=== PATIENT | male | born 1940 | race African-American/Black ===

== ENCOUNTER 2017-10-06 07:39 | Emergency (ER) | payer MEDICARE ==
[2017-10-06] MEDS: LIDOCAINE 2%/EPI 1:100,000 20 ML VIAL. IJ (08:29)
[2017-10-06] MEDS ORDERED: LIDOCAINE 1%/EPI 1:100,000 20 ML VIAL. INJ (08:30)
[2017-10-06] MEDS ORDERED: LIDOCAINE 2%/EPI 1:100,000 20 ML VIAL. IJ (08:30)
[2017-10-06] MEDS: DIPHTH,PERTUSS(ACELL),TET TOX 0.5 ML DISP.SYRIN. VAX IM (09:31)
== END 2017-10-06 09:35 | disposition home or self-care (01) ==
LOC: ER 07:39
DX: S01.01XA Laceration without foreign body of scalp, initial encounter (principal); F03.90 Unspecified dementia, unspecified severity, without behavioral disturbance, psychotic disturbance, mood disturbance, and anxiety; I10 Essential (primary) hypertension; F10.20 Alcohol dependence, uncomplicated; W10.9XXA Fall (on) (from) unspecified stairs and steps, initial encounter; Y93.01 Activity, walking, marching and hiking; Y92.89 Other specified places as the place of occurrence of the external cause; Y99.8 Other external cause status
CPT/HCPCS: 12002; 70450; 90471; 90715; 99284-25; J3490

== ENCOUNTER 2017-10-20 10:56 | Emergency (ER) | payer MEDICARE | END 2017-10-20 11:35 | disposition home or self-care (01) | LOC: ER 10:56 | DX: S01.01XD Laceration without foreign body of scalp, subsequent encounter (principal); I10 Essential (primary) hypertension; F03.90 Unspecified dementia, unspecified severity, without behavioral disturbance, psychotic disturbance, mood disturbance, and anxiety; X58.XXXD Exposure to other specified factors, subsequent encounter | CPT/HCPCS: 99281 ==

== ENCOUNTER 2017-11-27 18:09 | Inpatient (IN) | payer MEDICARE ==
[2017-11-27 18:35] LABS: BASO # 0.1 x10^3/uL (0.0-0.2); BASO % 0 % (0-3); EOS % 0 % (0-3); HEMOGLOBIN 10.9 g/dL (13.0-17.5); LYMPH # 0.4 x10^3/uL (1.0-4.8); LYMPH % 3 % (24-48); MEAN CORPUSCULAR HEMOGLOBIN 29 pg (25-35); MEAN CORPUSCULAR HGB CONC 33 g/dL (31-37); MEAN CORPUSCULAR VOLUME 87 fL (79-100); MONO # 1.6 x10^3/uL (0.0-1.1); MONO % 10 % (0-9); NEUT # 13.1 x10^3uL (1.8-7.7); NEUT % 86 % (31-73); PLATELET COUNT 223 x10^3/uL (140-400); RED BLOOD COUNT 3.78 x10^6/uL (4.30-5.70); RED CELL DISTRIBUTION WIDTH 14.3 % (11.5-14.5); WHITE BLOOD COUNT 15.1 x10^3/uL (4.0-11.0)
[2017-11-27 18:37] LABS: ADD MAN DIFF? YES
[2017-11-27 18:50] LABS: ANION GAP 15 (6-14); BLOOD UREA NITROGEN 63 mg/dL (8-26); BUN/CREATININE RATIO 10 (6-20); CALCIUM 9.5 mg/dL (8.5-10.1); CARBON DIOXIDE 23 mmol/L (21-32); CHLORIDE 105 mmol/L (98-107); CREATININE 6.6 mg/dL (0.7-1.3); GFR 9.9; GLUCOSE 104 mg/dL (70-99); POTASSIUM 4.4 mmol/L (3.5-5.1); SODIUM 143 mmol/L (136-145)
[2017-11-27] MEDS: IV NORMAL SALINE 1000ML BAG 1,000 ML IV ×2 (18:53→23:58)
[2017-11-27] MEDS: ACETAMINOPHEN 325 MG TABLET. PO (18:53)
[2017-11-27 18:55] LABS: LACTIC ACID 1.4 mmol/L (0.4-2.0)
[2017-11-27 18:56] LABS: TROPONINI 0.027 ng/mL (0.000-0.055)
[2017-11-27 19:00] LABS: NT-PRO BNP 822 pg/mL (0-449)
[2017-11-27 19:03] LABS: ALBUMIN 4.3 g/dL (3.4-5.0); ALBUMIN/GLOBULIN RATIO 0.9 (1.0-1.7); ALK PHOS 102 U/L (46-116); ALT (SGPT) 22 U/L (16-63); AST (SGOT) 42 U/L (15-37); TOTAL BILIRUBIN 0.4 mg/dL (0.2-1.0)
[2017-11-27 19:13] LABS: INFLUENZA A PATIENT NEGATIVE (NEGATIVE); INFLUENZA B PATIENT NEGATIVE (NEGATIVE); OBC FLU VALID
[2017-11-27] MEDS ORDERED: PIP/TAZO PER PHARMACY MC (19:15)
[2017-11-27] MEDS ORDERED: ONDANSETRON PF 4 MG/2 ML VIAL. IV (19:15)
[2017-11-27] MEDS: PIPERACILLIN/TAZOBACTAM 2.25 GM in IV NORMAL SALINE 50ML 50 ML IV (19:23)
[2017-11-27 20:09] LABS: % BANDS 10 % (0-9); % BASOS 1 % (0-3); % LYMPHS 4 % (24-48); % MONOS 8 % (0-10); % SEGS 77 % (35-66); PLT ESTIMATE ADEQUATE (ADEQUATE)
[2017-11-27] MEDS: VANCOMYCIN 1.5 GM in IV DEXTROSE 5% 500 ML IV (20:33)
[2017-11-27 20:58] LABS: BILIRUBIN,URINE NEGATIVE (NEG); CLARITY,URINE CLEAR; COLOR,URINE YELLOW; GLUCOSE,URINE NEGATIVE (NEG); NITRITE,URINE NEGATIVE (NEG); PH,URINE 5.5; PROTEIN,URINE NEGATIVE (NEG-TRACE); UROBILINOGEN,URINE 0.2 mg/dL (0.2 mg/dL)
[2017-11-27 21:05] LABS: BACTERIA,URINE MODERATE /HPF (0-FEW); WBC,URINE TNTC /HPF (0-4)
[2017-11-28] MEDS: methylPREDNISolone SOD SUCC PF 125 MG/2 ML VIAL. IV (00:58)
[2017-11-28] MEDS: diphenhydrAMINE 50 MG/ML VIAL IVP (00:58)
[2017-11-28] MEDS: IV NORMAL SALINE 500ML BAG 500 ML IV (00:59)
[2017-11-28] MEDS: VANCOMYCIN PER PHARMACY MC (02:19)
[2017-11-28] MEDS: ACETAMINOPHEN 325 MG TABLET. PO (03:40)
[2017-11-28 05:24] LABS: ADD MAN DIFF? NO
[2017-11-28 05:30] LABS: BASO % 0 % (0-3); EOS % 0 % (0-3); HEMATOCRIT 30.7 % (39.0-53.0); HEMOGLOBIN 9.9 g/dL (13.0-17.5); LYMPH # 0.3 x10^3/uL (1.0-4.8); LYMPH % 2 % (24-48); MEAN CORPUSCULAR HEMOGLOBIN 28 pg (25-35); MEAN CORPUSCULAR HGB CONC 32 g/dL (31-37); MEAN CORPUSCULAR VOLUME 88 fL (79-100); MONO # 0.6 x10^3/uL (0.0-1.1); MONO % 4 % (0-9); NEUT # 14.4 x10^3uL (1.8-7.7); NEUT % 94 % (31-73); PLATELET COUNT 183 x10^3/uL (140-400); RED BLOOD COUNT 3.48 x10^6/uL (4.30-5.70); RED CELL DISTRIBUTION WIDTH 15.1 % (11.5-14.5); WHITE BLOOD COUNT 15.3 x10^3/uL (4.0-11.0)
[2017-11-28] MEDS: IV NORMAL SALINE 1000ML BAG 1,000 ML IV ×4 (05:38→16:00)
[2017-11-28] MEDS: PIPERACILLIN/TAZOBACTAM 2.25 GM in IV NORMAL SALINE 50ML 50 ML IV ×3 (05:40→20:41)
[2017-11-28 08:35] LABS: ALBUMIN 3.5 g/dL (3.4-5.0); ALBUMIN/GLOBULIN RATIO 0.9 (1.0-1.7); ALK PHOS 86 U/L (46-116); ALT (SGPT) 29 U/L (16-63); ANION GAP 17 (6-14); AST (SGOT) 61 U/L (15-37); BLOOD UREA NITROGEN 61 mg/dL (8-26); BUN/CREATININE RATIO 10 (6-20); CALCIUM 8.5 mg/dL (8.5-10.1); CARBON DIOXIDE 18 mmol/L (21-32); CHLORIDE 107 mmol/L (98-107); CREATININE 6.1 mg/dL (0.7-1.3); GFR 10.8; GLUCOSE 105 mg/dL (70-99); POTASSIUM 4.1 mmol/L (3.5-5.1); SODIUM 142 mmol/L (136-145); TOTAL BILIRUBIN 0.5 mg/dL (0.2-1.0); TOTAL PROTEIN 7.5 g/dL (6.4-8.2)
[2017-11-28] MEDS: MULTIVITAMIN with MINERAL TABLET. PO (09:11)
[2017-11-28] MEDS: LACTOBACILLUS RHAMNOSUS GG 1 CAPSULE. PO ×2 (09:11→20:39)
[2017-11-28] MEDS: ALPRAZolam 0.5 MG TABLET PO ×2 (09:11→20:39)
[2017-11-28] MEDS: ALLOPURINOL 100 MG TABLET. PO (09:11)
[2017-11-28] MEDS: PANTOPRAZOLE 40 MG TABLET.DR. PO (09:11)
[2017-11-28] MEDS: TAMSULOSIN 0.4 MG CAP.ER.24H. PO (09:11)
[2017-11-28] MEDS: cefTRIAXone IV Push 1 GM VIAL. IVP (09:11)
[2017-11-28] MEDS: HEPARIN PF for SUB-Q USE 5,000 UNIT/0.5 ML VIAL. SQ ×3 (09:24→20:41)
[2017-11-28] MEDS ORDERED: MAGNESIUM SULFATE 2GM 50 ML IV (10:30)
[2017-11-28] MEDS: LIDOCAINE 2% JELLY 6ML IN APPLICATOR. MM (10:52)
[2017-11-28 11:43] LABS: RETIC COUNT 0.7 % (0.5-2.5)
[2017-11-28 12:23] LABS: % SAT IRON 6 % (15-34); IRON,SERUM 10 ug/dL (65-175)
[2017-11-28 12:31] LABS: FERRITIN 402 ng/mL (26-388)
[2017-11-28 12:56] LABS: CREATINE KINASE 2169 U/L (39-308)
[2017-11-28 13:01] LABS: LACTIC ACID 0.8 mmol/L (0.4-2.0)
[2017-11-28] MEDS ORDERED: PIP/TAZO PER PHARMACY MC (14:45)
[2017-11-29] MEDS: IV NORMAL SALINE 1000ML BAG 1,000 ML IV ×3 (00:30→17:51)
[2017-11-29 05:25] LABS: ADD MAN DIFF? NO
[2017-11-29 05:30] LABS: BASO % 0 % (0-3); EOS % 0 % (0-3); HEMATOCRIT 29.8 % (39.0-53.0); LYMPH # 0.6 x10^3/uL (1.0-4.8); LYMPH % 5 % (24-48); MEAN CORPUSCULAR HEMOGLOBIN 29 pg (25-35); MEAN CORPUSCULAR HGB CONC 34 g/dL (31-37); MEAN CORPUSCULAR VOLUME 87 fL (79-100); MONO # 1.3 x10^3/uL (0.0-1.1); MONO % 9 % (0-9); NEUT # 12.1 x10^3uL (1.8-7.7); NEUT % 86 % (31-73); PLATELET COUNT 183 x10^3/uL (140-400); RED BLOOD COUNT 3.41 x10^6/uL (4.30-5.70); RED CELL DISTRIBUTION WIDTH 14.8 % (11.5-14.5)
[2017-11-29 05:56] LABS: MAGNESIUM 2.4 mg/dL (1.8-2.4)
[2017-11-29 05:57] LABS: ALBUMIN 2.8 g/dL (3.4-5.0); ANION GAP 8 (6-14); BLOOD UREA NITROGEN 57 mg/dL (8-26); CARBON DIOXIDE 24 mmol/L (21-32); CHLORIDE 107 mmol/L (98-107); CREATININE 4.1 mg/dL (0.7-1.3); GFR 17.1; GLUCOSE 104 mg/dL (70-99); PHOSPHORUS 4.3 mg/dL (2.6-4.7); POTASSIUM 4.3 mmol/L (3.5-5.1); SODIUM 139 mmol/L (136-145)
[2017-11-29] MEDS: PIPERACILLIN/TAZOBACTAM 2.25 GM in IV NORMAL SALINE 50ML 50 ML IV ×3 (06:15→23:15)
[2017-11-29] MEDS: HEPARIN PF for SUB-Q USE 5,000 UNIT/0.5 ML VIAL. SQ ×3 (06:19→23:21)
[2017-11-29] MEDS: PANTOPRAZOLE 40 MG TABLET.DR. PO (07:45)
[2017-11-29] MEDS: MULTIVITAMIN with MINERAL TABLET. PO (08:57)
[2017-11-29] MEDS: ALLOPURINOL 100 MG TABLET. PO (08:57)
[2017-11-29] MEDS: TAMSULOSIN 0.4 MG CAP.ER.24H. PO ×2 (08:57→23:14)
[2017-11-29] MEDS: ALPRAZolam 0.5 MG TABLET PO ×2 (08:57→23:14)
[2017-11-29] MEDS: LACTOBACILLUS RHAMNOSUS GG 1 CAPSULE. PO ×2 (08:57→23:14)
[2017-11-29] MEDS: FINASTERIDE 5 MG TABLET. PO (09:52)
[2017-11-29] MEDS: FERROUS SULFATE 325 MG TABLET. PO (09:52)
[2017-11-29] MEDS: IRON SUCROSE COMPLEX 200 MG in TOTAL VOLUME SYRINGE 0 ML IVP (13:52)
[2017-11-29] MEDS ORDERED: VANCOMYCIN RANDOM LEVEL. MC (20:00)
[2017-11-29] MEDS: LINEZOLID 600 MG TABLET PO (23:14)
[2017-11-30] MEDS: IV NORMAL SALINE 1000ML BAG 1,000 ML IV ×3 (00:30→14:19)
[2017-11-30] MEDS: PIPERACILLIN/TAZOBACTAM 2.25 GM in IV NORMAL SALINE 50ML 50 ML IV ×3 (06:00→14:13)
[2017-11-30] MEDS: HEPARIN PF for SUB-Q USE 5,000 UNIT/0.5 ML VIAL. SQ ×3 (06:00→21:46)
[2017-11-30 06:41] LABS: ADD MAN DIFF? NO
[2017-11-30 07:03] LABS: BASO % 1 % (0-3); EOS # 0.1 x10^3/uL (0.0-0.7); EOS % 2 % (0-3); HEMATOCRIT 30.3 % (39.0-53.0); LYMPH # 0.6 x10^3/uL (1.0-4.8); LYMPH % 10 % (24-48); MEAN CORPUSCULAR HEMOGLOBIN 29 pg (25-35); MEAN CORPUSCULAR HGB CONC 33 g/dL (31-37); MEAN CORPUSCULAR VOLUME 87 fL (79-100); MONO # 0.8 x10^3/uL (0.0-1.1); MONO % 12 % (0-9); NEUT # 4.8 x10^3uL (1.8-7.7); NEUT % 76 % (31-73); PLATELET COUNT 190 x10^3/uL (140-400); RED BLOOD COUNT 3.48 x10^6/uL (4.30-5.70); WHITE BLOOD COUNT 6.3 x10^3/uL (4.0-11.0)
[2017-11-30 07:15] LABS: MAGNESIUM 1.9 mg/dL (1.8-2.4)
[2017-11-30 07:28] LABS: ALBUMIN 2.8 g/dL (3.4-5.0); ANION GAP 10 (6-14); BLOOD UREA NITROGEN 31 mg/dL (8-26); CALCIUM 8.1 mg/dL (8.5-10.1); CARBON DIOXIDE 23 mmol/L (21-32); CHLORIDE 107 mmol/L (98-107); CREATININE 2.2 mg/dL (0.7-1.3); GFR 35.1; GLUCOSE 87 mg/dL (70-99); POTASSIUM 3.9 mmol/L (3.5-5.1); SODIUM 140 mmol/L (136-145)
[2017-11-30] MEDS: PANTOPRAZOLE 40 MG TABLET.DR. PO (09:12)
[2017-11-30] MEDS: FINASTERIDE 5 MG TABLET. PO (09:12)
[2017-11-30] MEDS: MULTIVITAMIN with MINERAL TABLET. PO (09:12)
[2017-11-30] MEDS: TAMSULOSIN 0.4 MG CAP.ER.24H. PO ×2 (09:12→21:35)
[2017-11-30] MEDS: FERROUS SULFATE 325 MG TABLET. PO (09:12)
[2017-11-30] MEDS: LACTOBACILLUS RHAMNOSUS GG 1 CAPSULE. PO ×2 (09:12→21:35)
[2017-11-30] MEDS: LINEZOLID 600 MG TABLET PO (09:12)
[2017-11-30] MEDS: ALPRAZolam 0.5 MG TABLET PO ×2 (09:12→21:35)
[2017-11-30] MEDS: ALLOPURINOL 100 MG TABLET. PO (09:17)
[2017-11-30] MEDS: OLANZapine 5 MG TABLET PO (11:26)
[2017-11-30] MEDS ORDERED: AMPICILLIN SODIUM 2 GM in IV NORMAL SALINE 100ML 100 ML IV (18:00)
[2017-11-30] MEDS ORDERED: PIPERACILLIN/TAZOBACTAM 2.25 GM in IV NORMAL SALINE 50ML 50 ML IV (18:00)
[2017-11-30] MEDS ORDERED: AMPICILLIN SODIUM IV Push 2 GM VIAL. IVP (18:00)
[2017-11-30] MEDS: cefTRIAXone IV Push 1 GM VIAL. IVP (18:11)
[2017-11-30] MEDS: AMPICILLIN SODIUM IV Push 2 GM VIAL. IVP (21:34)
[2017-12-01] MEDS: OLANZapine IM 10 MG VIAL. IM (01:23)
[2017-12-01] MEDS: IV NORMAL SALINE 1000ML BAG 1,000 ML IV ×4 (06:27→21:45)
[2017-12-01] MEDS: AMPICILLIN SODIUM IV Push 2 GM VIAL. IVP ×4 (06:27→23:31)
[2017-12-01] MEDS: HEPARIN PF for SUB-Q USE 5,000 UNIT/0.5 ML VIAL. SQ ×3 (06:43→21:43)
[2017-12-01 06:47] LABS: MAGNESIUM 1.9 mg/dL (1.8-2.4)
[2017-12-01 06:47] LABS: ALBUMIN 3.2 g/dL (3.4-5.0); ANION GAP 10 (6-14); BLOOD UREA NITROGEN 18 mg/dL (8-26); CALCIUM 9.2 mg/dL (8.5-10.1); CARBON DIOXIDE 27 mmol/L (21-32); CHLORIDE 107 mmol/L (98-107); CREATININE 1.5 mg/dL (0.7-1.3); GFR 54.6; GLUCOSE 95 mg/dL (70-99); PHOSPHORUS 2.7 mg/dL (2.6-4.7); POTASSIUM 4.1 mmol/L (3.5-5.1); SODIUM 144 mmol/L (136-145)
[2017-12-01] MEDS: ALPRAZolam 0.5 MG TABLET PO ×2 (11:17→21:40)
[2017-12-01] MEDS: PANTOPRAZOLE 40 MG TABLET.DR. PO (11:18)
[2017-12-01] MEDS: FERROUS SULFATE 325 MG TABLET. PO (11:18)
[2017-12-01] MEDS: MULTIVITAMIN with MINERAL TABLET. PO (11:18)
[2017-12-01] MEDS: ALLOPURINOL 100 MG TABLET. PO (11:18)
[2017-12-01] MEDS: TAMSULOSIN 0.4 MG CAP.ER.24H. PO ×2 (11:18→21:40)
[2017-12-01] MEDS: FINASTERIDE 5 MG TABLET. PO (11:18)
[2017-12-01] MEDS: LACTOBACILLUS RHAMNOSUS GG 1 CAPSULE. PO ×2 (11:18→21:40)
[2017-12-01] MEDS: cefTRIAXone IV Push 1 GM VIAL. IVP (17:39)
[2017-12-02 05:16] LABS: ALBUMIN 3.1 g/dL (3.4-5.0); ANION GAP 11 (6-14); BLOOD UREA NITROGEN 11 mg/dL (8-26); CARBON DIOXIDE 27 mmol/L (21-32); CHLORIDE 106 mmol/L (98-107); CREATININE 1.2 mg/dL (0.7-1.3); GFR 70.7; GLUCOSE 93 mg/dL (70-99); MAGNESIUM 1.7 mg/dL (1.8-2.4); PHOSPHORUS 2.7 mg/dL (2.6-4.7); POTASSIUM 3.7 mmol/L (3.5-5.1); SODIUM 144 mmol/L (136-145)
[2017-12-02] MEDS: AMPICILLIN SODIUM IV Push 2 GM VIAL. IVP ×4 (05:57→23:57)
[2017-12-02] MEDS: IV NORMAL SALINE 1000ML BAG 1,000 ML IV (05:59)
[2017-12-02] MEDS: HEPARIN PF for SUB-Q USE 5,000 UNIT/0.5 ML VIAL. SQ ×3 (06:00→21:05)
[2017-12-02] MEDS: FERROUS SULFATE 325 MG TABLET. PO (08:13)
[2017-12-02] MEDS: ALLOPURINOL 100 MG TABLET. PO (08:13)
[2017-12-02] MEDS: LACTOBACILLUS RHAMNOSUS GG 1 CAPSULE. PO ×2 (08:13→21:00)
[2017-12-02] MEDS: PANTOPRAZOLE 40 MG TABLET.DR. PO (08:13)
[2017-12-02] MEDS: ALPRAZolam 0.5 MG TABLET PO ×2 (08:13→21:00)
[2017-12-02] MEDS: FINASTERIDE 5 MG TABLET. PO (08:13)
[2017-12-02] MEDS: MULTIVITAMIN with MINERAL TABLET. PO (08:13)
[2017-12-02] MEDS: TAMSULOSIN 0.4 MG CAP.ER.24H. PO ×2 (08:13→21:00)
[2017-12-02] MEDS ORDERED: IRON SUCROSE COMPLEX 200 MG in IV NORMAL SALINE 100ML 100 ML IV (09:00)
[2017-12-02] MEDS: MAGNESIUM SULFATE 1GM 100 ML IV (12:51)
[2017-12-02] MEDS: cefTRIAXone IV Push 1 GM VIAL. IVP (18:03)
[2017-12-03] MEDS: HEPARIN PF for SUB-Q USE 5,000 UNIT/0.5 ML VIAL. SQ ×3 (05:14→21:42)
[2017-12-03] MEDS: AMPICILLIN SODIUM IV Push 2 GM VIAL. IVP ×3 (05:16→17:43)
[2017-12-03 06:09] LABS: ALBUMIN 3.1 g/dL (3.4-5.0); ANION GAP 8 (6-14); BLOOD UREA NITROGEN 14 mg/dL (8-26); CALCIUM 8.6 mg/dL (8.5-10.1); CARBON DIOXIDE 30 mmol/L (21-32); CHLORIDE 102 mmol/L (98-107); CREATININE 1.4 mg/dL (0.7-1.3); GFR 59.2; GLUCOSE 108 mg/dL (70-99); MAGNESIUM 1.8 mg/dL (1.8-2.4); SODIUM 140 mmol/L (136-145)
[2017-12-03] MEDS: ALPRAZolam 0.5 MG TABLET PO ×3 (09:00→21:39)
[2017-12-03] MEDS: LACTOBACILLUS RHAMNOSUS GG 1 CAPSULE. PO ×3 (10:34→21:39)
[2017-12-03] MEDS: FERROUS SULFATE 325 MG TABLET. PO ×2 (10:34→11:40)
[2017-12-03] MEDS: PANTOPRAZOLE 40 MG TABLET.DR. PO ×2 (10:34→11:50)
[2017-12-03] MEDS: TAMSULOSIN 0.4 MG CAP.ER.24H. PO ×3 (10:34→21:39)
[2017-12-03] MEDS: ALLOPURINOL 100 MG TABLET. PO ×2 (10:35→11:50)
[2017-12-03] MEDS: FINASTERIDE 5 MG TABLET. PO ×2 (10:35→11:50)
[2017-12-03] MEDS: MULTIVITAMIN with MINERAL TABLET. PO ×2 (10:40→11:50)
[2017-12-03] MEDS: cefTRIAXone IV Push 1 GM VIAL. IVP (18:24)
[2017-12-03] MEDS: HALOPERIDOL LACTATE 5 MG/ML VIAL. IVP (21:43)
[2017-12-04] MEDS: AMPICILLIN SODIUM IV Push 2 GM VIAL. IVP ×4 (00:02→18:00)
[2017-12-04] MEDS: HALOPERIDOL LACTATE 5 MG/ML VIAL. IVP (03:53)
[2017-12-04] MEDS: HEPARIN PF for SUB-Q USE 5,000 UNIT/0.5 ML VIAL. SQ ×3 (05:19→21:07)
[2017-12-04 06:17] LABS: ALBUMIN 3.1 g/dL (3.4-5.0); ANION GAP 11 (6-14); BLOOD UREA NITROGEN 14 mg/dL (8-26); CALCIUM 9.2 mg/dL (8.5-10.1); CARBON DIOXIDE 27 mmol/L (21-32); CHLORIDE 102 mmol/L (98-107); CREATININE 1.5 mg/dL (0.7-1.3); GFR 54.6; GLUCOSE 87 mg/dL (70-99); PHOSPHORUS 3.3 mg/dL (2.6-4.7); POTASSIUM 3.8 mmol/L (3.5-5.1); SODIUM 140 mmol/L (136-145)
[2017-12-04] MEDS: MULTIVITAMIN with MINERAL TABLET. PO (09:13)
[2017-12-04] MEDS: ALPRAZolam 0.5 MG TABLET PO ×2 (09:13→21:02)
[2017-12-04] MEDS: PANTOPRAZOLE 40 MG TABLET.DR. PO (09:13)
[2017-12-04] MEDS: ALLOPURINOL 100 MG TABLET. PO (09:13)
[2017-12-04] MEDS: FERROUS SULFATE 325 MG TABLET. PO (09:14)
[2017-12-04] MEDS: LACTOBACILLUS RHAMNOSUS GG 1 CAPSULE. PO ×2 (09:14→21:02)
[2017-12-04] MEDS: TAMSULOSIN 0.4 MG CAP.ER.24H. PO ×2 (09:14→21:02)
[2017-12-04] MEDS: FINASTERIDE 5 MG TABLET. PO (09:14)
[2017-12-04] MEDS: cefTRIAXone IV Push 1 GM VIAL. IVP (17:30)
[2017-12-05] MEDS: AMPICILLIN SODIUM IV Push 2 GM VIAL. IVP ×3 (00:52→16:25)
[2017-12-05 06:47] LABS: ANION GAP 9 (6-14); BLOOD UREA NITROGEN 17 mg/dL (8-26); CALCIUM 9.2 mg/dL (8.5-10.1); CARBON DIOXIDE 28 mmol/L (21-32); CHLORIDE 102 mmol/L (98-107); CREATININE 1.6 mg/dL (0.7-1.3); GFR 50.7; GLUCOSE 93 mg/dL (70-99); PHOSPHORUS 3.1 mg/dL (2.6-4.7); POTASSIUM 3.9 mmol/L (3.5-5.1); SODIUM 139 mmol/L (136-145)
[2017-12-05] MEDS: HEPARIN PF for SUB-Q USE 5,000 UNIT/0.5 ML VIAL. SQ ×3 (06:54→22:00)
[2017-12-05] MEDS: PANTOPRAZOLE 40 MG TABLET.DR. PO (08:31)
[2017-12-05] MEDS: LACTOBACILLUS RHAMNOSUS GG 1 CAPSULE. PO ×2 (08:31→19:55)
[2017-12-05] MEDS: ALPRAZolam 0.5 MG TABLET PO ×2 (08:31→19:55)
[2017-12-05] MEDS: MULTIVITAMIN with MINERAL TABLET. PO (08:31)
[2017-12-05] MEDS: ALLOPURINOL 100 MG TABLET. PO (08:32)
[2017-12-05] MEDS: TAMSULOSIN 0.4 MG CAP.ER.24H. PO ×2 (08:32→19:55)
[2017-12-05] MEDS: FERROUS SULFATE 325 MG TABLET. PO (08:32)
[2017-12-06] MEDS: AMPICILLIN SODIUM IV Push 2 GM VIAL. IVP ×5 (01:05→23:36)
[2017-12-06] MEDS: HEPARIN PF for SUB-Q USE 5,000 UNIT/0.5 ML VIAL. SQ ×3 (05:53→20:33)
[2017-12-06] MEDS: HALOPERIDOL LACTATE 5 MG/ML VIAL. IM (08:45)
[2017-12-06] MEDS: HALOPERIDOL 5 MG TABLET. PO ×2 (09:00→20:27)
[2017-12-06] MEDS: amLODIPine BESYLATE 10 MG TABLET PO (09:22)
[2017-12-06] MEDS: TAMSULOSIN 0.4 MG CAP.ER.24H. PO ×2 (09:22→20:27)
[2017-12-06] MEDS: LACTOBACILLUS RHAMNOSUS GG 1 CAPSULE. PO ×2 (09:22→20:27)
[2017-12-06] MEDS: MULTIVITAMIN with MINERAL TABLET. PO (09:23)
[2017-12-06] MEDS: ALPRAZolam 0.5 MG TABLET PO ×2 (09:23→20:27)
[2017-12-06] MEDS: FERROUS SULFATE 325 MG TABLET. PO (09:23)
[2017-12-06] MEDS: CYANOCOBALAMIN (VITAMIN B-12) 1,000 MCG TABLET. PO (09:23)
[2017-12-06] MEDS: DONEPEZIL HCL 5 MG TABLET. PO (09:23)
[2017-12-06] MEDS: LOSARTAN POTASSIUM 50 MG TABLET. PO (09:23)
[2017-12-06] MEDS: PANTOPRAZOLE 40 MG TABLET.DR. PO (09:23)
[2017-12-06] MEDS: ALLOPURINOL 100 MG TABLET. PO (09:27)
[2017-12-06] MEDS: LINEZOLID 600 MG TABLET PO (13:17)
[2017-12-06] MEDS: AMITRIPTYLINE HCL 25 MG TABLET. PO (20:27)
[2017-12-07] MEDS: AMPICILLIN SODIUM IV Push 2 GM VIAL. IVP ×3 (05:55→18:14)
[2017-12-07] MEDS: HEPARIN PF for SUB-Q USE 5,000 UNIT/0.5 ML VIAL. SQ ×3 (05:56→23:44)
[2017-12-07] MEDS: ALPRAZolam 0.5 MG TABLET PO ×2 (08:16→21:05)
[2017-12-07] MEDS: HALOPERIDOL 5 MG TABLET. PO ×2 (08:16→21:05)
[2017-12-07] MEDS: FERROUS SULFATE 325 MG TABLET. PO (08:16)
[2017-12-07] MEDS: PANTOPRAZOLE 40 MG TABLET.DR. PO (08:16)
[2017-12-07] MEDS: LACTOBACILLUS RHAMNOSUS GG 1 CAPSULE. PO ×2 (09:15→21:05)
[2017-12-07] MEDS: TAMSULOSIN 0.4 MG CAP.ER.24H. PO ×2 (09:15→21:05)
[2017-12-07] MEDS: ALLOPURINOL 100 MG TABLET. PO (09:15)
[2017-12-07] MEDS: amLODIPine BESYLATE 10 MG TABLET PO (09:15)
[2017-12-07] MEDS: CYANOCOBALAMIN (VITAMIN B-12) 1,000 MCG TABLET. PO (09:15)
[2017-12-07] MEDS: DONEPEZIL HCL 5 MG TABLET. PO (09:16)
[2017-12-07] MEDS: LOSARTAN POTASSIUM 50 MG TABLET. PO (09:16)
[2017-12-07] MEDS: MULTIVITAMIN with MINERAL TABLET. PO (09:16)
[2017-12-07] MEDS: FINASTERIDE 5 MG TABLET. PO (16:49)
[2017-12-07] MEDS: AMITRIPTYLINE HCL 25 MG TABLET. PO (21:05)
[2017-12-08] MEDS: AMPICILLIN SODIUM IV Push 2 GM VIAL. IVP ×5 (00:16→23:31)
[2017-12-08] MEDS: HEPARIN PF for SUB-Q USE 5,000 UNIT/0.5 ML VIAL. SQ ×3 (06:49→20:13)
[2017-12-08] MEDS: PANTOPRAZOLE 40 MG TABLET.DR. PO (07:40)
[2017-12-08] MEDS: CYANOCOBALAMIN (VITAMIN B-12) 1,000 MCG TABLET. PO (08:32)
[2017-12-08] MEDS: DONEPEZIL HCL 5 MG TABLET. PO (08:32)
[2017-12-08] MEDS: ALLOPURINOL 100 MG TABLET. PO (08:33)
[2017-12-08] MEDS: TAMSULOSIN 0.4 MG CAP.ER.24H. PO ×2 (08:33→20:09)
[2017-12-08] MEDS: amLODIPine BESYLATE 10 MG TABLET PO (08:33)
[2017-12-08] MEDS: LACTOBACILLUS RHAMNOSUS GG 1 CAPSULE. PO ×2 (08:33→20:09)
[2017-12-08] MEDS: LOSARTAN POTASSIUM 50 MG TABLET. PO (08:33)
[2017-12-08] MEDS: MULTIVITAMIN with MINERAL TABLET. PO (08:33)
[2017-12-08] MEDS: HALOPERIDOL 5 MG TABLET. PO ×2 (08:33→20:09)
[2017-12-08] MEDS: FERROUS SULFATE 325 MG TABLET. PO (08:33)
[2017-12-08] MEDS: ALPRAZolam 0.5 MG TABLET PO ×2 (08:33→20:08)
[2017-12-08] MEDS: FINASTERIDE 5 MG TABLET. PO (08:34)
[2017-12-08] MEDS: AMITRIPTYLINE HCL 25 MG TABLET. PO (20:08)
[2017-12-09] MEDS: AMPICILLIN SODIUM IV Push 2 GM VIAL. IVP ×4 (05:38→23:58)
[2017-12-09] MEDS: HEPARIN PF for SUB-Q USE 5,000 UNIT/0.5 ML VIAL. SQ ×3 (05:39→20:02)
[2017-12-09] MEDS: CYANOCOBALAMIN (VITAMIN B-12) 1,000 MCG TABLET. PO (11:00)
[2017-12-09] MEDS: LOSARTAN POTASSIUM 50 MG TABLET. PO (11:08)
[2017-12-09] MEDS: ALPRAZolam 0.5 MG TABLET PO ×2 (11:09→20:02)
[2017-12-09] MEDS: LACTOBACILLUS RHAMNOSUS GG 1 CAPSULE. PO ×2 (11:09→20:02)
[2017-12-09] MEDS: TAMSULOSIN 0.4 MG CAP.ER.24H. PO ×2 (11:09→20:02)
[2017-12-09] MEDS: FINASTERIDE 5 MG TABLET. PO (11:09)
[2017-12-09] MEDS: amLODIPine BESYLATE 10 MG TABLET PO (11:09)
[2017-12-09] MEDS: FERROUS SULFATE 325 MG TABLET. PO (11:10)
[2017-12-09] MEDS: DONEPEZIL HCL 5 MG TABLET. PO (11:10)
[2017-12-09] MEDS: MULTIVITAMIN with MINERAL TABLET. PO (11:10)
[2017-12-09] MEDS: HALOPERIDOL 5 MG TABLET. PO ×2 (11:10→20:02)
[2017-12-09] MEDS: ALLOPURINOL 100 MG TABLET. PO (11:10)
[2017-12-09] MEDS: PANTOPRAZOLE 40 MG TABLET.DR. PO (11:10)
[2017-12-09] MEDS ORDERED: DOCUSATE SODIUM 100 MG CAPSULE. PO (13:45)
[2017-12-09] MEDS ORDERED: MORPHINE SULFATE 2 MG/ML DISP.SYRIN. IV (13:45)
[2017-12-09] MEDS ORDERED: ACETAMINOPHEN 325 MG TABLET. PO (13:45)
[2017-12-09] MEDS ORDERED: ONDANSETRON PF 4 MG/2 ML VIAL. IV (13:45)
[2017-12-09] MEDS ORDERED: hydrALAZINE 20 MG/ML VIAL. IVP (13:45)
[2017-12-09 14:05] LABS: INR 1.1 (0.8-1.1); PARTIAL THROMBOPLASTIN TIME 39 SEC (24-38); PROTHROMBIN TIME PATIENT 13.8 SEC (11.7-14.0)
[2017-12-09] MEDS ORDERED: LIDOCAINE WITH 8.4% SOD BICARB 3 ML DISP.SYRIN. ×2 (14:17→14:18)
[2017-12-09] MEDS ORDERED: IOHEXOL 300 MG/ML 100ML VIAL. (14:18)
[2017-12-09] MEDS ORDERED: fentaNYL PF VIAL 100 MCG/2 ML VIAL (14:26)
[2017-12-09] MEDS ORDERED: MIDAZOLAM HCL/PF 2 MG/2 ML VIAL. (14:26)
[2017-12-09] MEDS: IOHEXOL 300 MG/ML 100ML VIAL. IART (14:59)
[2017-12-09] MEDS: LIDOCAINE WITH 8.4% SOD BICARB 3 ML DISP.SYRIN. IJ (15:01)
[2017-12-09] MEDS: MIDAZOLAM HCL/PF 2 MG/2 ML VIAL. IV (15:01)
[2017-12-09] MEDS: fentaNYL PF VIAL 100 MCG/2 ML VIAL IV (15:02)
[2017-12-09] MEDS: AMITRIPTYLINE HCL 25 MG TABLET. PO (20:02)
[2017-12-10] MEDS: HEPARIN PF for SUB-Q USE 5,000 UNIT/0.5 ML VIAL. SQ ×3 (05:06→20:51)
[2017-12-10] MEDS: AMPICILLIN SODIUM IV Push 2 GM VIAL. IVP ×3 (05:39→18:31)
[2017-12-10 05:53] LABS: ADD MAN DIFF? NO
[2017-12-10 06:08] LABS: BASO # 0.1 x10^3/uL (0.0-0.2); BASO % 1 % (0-3); EOS # 0.3 x10^3/uL (0.0-0.7); EOS % 6 % (0-3); HEMATOCRIT 29.4 % (39.0-53.0); HEMOGLOBIN 9.7 g/dL (13.0-17.5); LYMPH # 0.8 x10^3/uL (1.0-4.8); LYMPH % 13 % (24-48); MEAN CORPUSCULAR HEMOGLOBIN 29 pg (25-35); MEAN CORPUSCULAR HGB CONC 33 g/dL (31-37); MEAN CORPUSCULAR VOLUME 88 fL (79-100); MONO # 0.7 x10^3/uL (0.0-1.1); MONO % 12 % (0-9); NEUT % 68 % (31-73); PLATELET COUNT 311 x10^3/uL (140-400); RED BLOOD COUNT 3.34 x10^6/uL (4.30-5.70); RED CELL DISTRIBUTION WIDTH 15.1 % (11.5-14.5); WHITE BLOOD COUNT 5.9 x10^3/uL (4.0-11.0)
[2017-12-10 06:24] LABS: ANION GAP 8 (6-14); BLOOD UREA NITROGEN 18 mg/dL (8-26); CALCIUM 8.8 mg/dL (8.5-10.1); CARBON DIOXIDE 28 mmol/L (21-32); CHLORIDE 102 mmol/L (98-107); CREATININE 1.6 mg/dL (0.7-1.3); GFR 50.7; GLUCOSE 107 mg/dL (70-99); SODIUM 138 mmol/L (136-145)
[2017-12-10] MEDS: FERROUS SULFATE 325 MG TABLET. PO (07:48)
[2017-12-10] MEDS: PANTOPRAZOLE 40 MG TABLET.DR. PO (07:49)
[2017-12-10] MEDS: ALPRAZolam 0.5 MG TABLET PO (07:49)
[2017-12-10] MEDS: DONEPEZIL HCL 5 MG TABLET. PO (07:49)
[2017-12-10] MEDS: MULTIVITAMIN with MINERAL TABLET. PO (07:49)
[2017-12-10] MEDS: LACTOBACILLUS RHAMNOSUS GG 1 CAPSULE. PO ×2 (07:49→20:50)
[2017-12-10] MEDS: LOSARTAN POTASSIUM 50 MG TABLET. PO (07:49)
[2017-12-10] MEDS: FINASTERIDE 5 MG TABLET. PO (07:50)
[2017-12-10] MEDS: HALOPERIDOL 5 MG TABLET. PO ×2 (07:50→20:50)
[2017-12-10] MEDS: TAMSULOSIN 0.4 MG CAP.ER.24H. PO (07:50)
[2017-12-10] MEDS: ALLOPURINOL 100 MG TABLET. PO (07:50)
[2017-12-10] MEDS: CYANOCOBALAMIN (VITAMIN B-12) 1,000 MCG TABLET. PO (09:01)
[2017-12-10] MEDS: amLODIPine BESYLATE 10 MG TABLET PO (09:02)
[2017-12-10] MEDS: traMADol 50 MG TABLET PO ×2 (09:02→20:50)
[2017-12-10 12:51] LABS: POC GLUCOSE 121 mg/dL (70-99)
[2017-12-10] MEDS: IV NORMAL SALINE 1000ML BAG 1,000 ML IV ×5 (13:00→14:25)
[2017-12-10] MEDS ORDERED: IV NORMAL SALINE 1000ML BAG 1,000 ML IV (13:25)
[2017-12-10] MEDS ORDERED: IV NORMAL SALINE 500ML BAG 500 ML IV (13:30)
[2017-12-10] MEDS ORDERED: NOREPINEPHRIN PREMIX 250 ML IV (13:30)
[2017-12-10 14:08] LABS: PLATELET COUNT 288 x10^3/uL (140-400)
[2017-12-10 14:19] LABS: FIBRINOGEN 544 mg/dL (200-440); INR 1.2 (0.8-1.1); PARTIAL THROMBOPLASTIN TIME 39 SEC (24-38); PROTHROMBIN TIME PATIENT 14.2 SEC (11.7-14.0)
[2017-12-10 14:22] LABS: D-DIMER 1.39 ug/mlFEU (0.00-0.50)
[2017-12-10 14:39] LABS: TROPONINI < 0.017 ng/mL (0.000-0.055)
[2017-12-10 15:20] LABS: PROCALCITONIN < 0.10 ng/mL (0.00-0.10)
[2017-12-10 15:53] LABS: ADD MAN DIFF? NO
[2017-12-10 16:16] LABS: BASO # 0.1 x10^3/uL (0.0-0.2); BASO % 1 % (0-3); EOS # 0.3 x10^3/uL (0.0-0.7); EOS % 6 % (0-3); HEMATOCRIT 27.1 % (39.0-53.0); LYMPH # 0.9 x10^3/uL (1.0-4.8); LYMPH % 16 % (24-48); MEAN CORPUSCULAR HEMOGLOBIN 29 pg (25-35); MEAN CORPUSCULAR HGB CONC 33 g/dL (31-37); MEAN CORPUSCULAR VOLUME 88 fL (79-100); MONO # 0.7 x10^3/uL (0.0-1.1); MONO % 12 % (0-9); NEUT # 3.9 x10^3uL (1.8-7.7); NEUT % 66 % (31-73); PLATELET COUNT 296 x10^3/uL (140-400); RED BLOOD COUNT 3.08 x10^6/uL (4.30-5.70); RED CELL DISTRIBUTION WIDTH 15.2 % (11.5-14.5); WHITE BLOOD COUNT 5.9 x10^3/uL (4.0-11.0)
[2017-12-10 20:21] LABS: BILIRUBIN,URINE NEGATIVE (NEG); CLARITY,URINE CLEAR; COLOR,URINE YELLOW; GLUCOSE,URINE NEGATIVE (NEG); NITRITE,URINE NEGATIVE (NEG); PROTEIN,URINE NEGATIVE (NEG-TRACE); UROBILINOGEN,URINE 0.2 mg/dL (0.2 mg/dL)
[2017-12-10 20:28] LABS: BACTERIA,URINE 0 /HPF (0-FEW); RBC,URINE >40 /HPF (0-2)
[2017-12-11] MEDS: AMPICILLIN SODIUM IV Push 2 GM VIAL. IVP ×4 (00:06→19:35)
[2017-12-11] MEDS: HEPARIN PF for SUB-Q USE 5,000 UNIT/0.5 ML VIAL. SQ ×3 (06:00→23:59)
[2017-12-11 06:33] LABS: ADD MAN DIFF? NO
[2017-12-11 06:34] LABS: BASO # 0.1 x10^3/uL (0.0-0.2); BASO % 1 % (0-3); EOS # 0.4 x10^3/uL (0.0-0.7); EOS % 6 % (0-3); HEMATOCRIT 28.9 % (39.0-53.0); HEMOGLOBIN 9.5 g/dL (13.0-17.5); LYMPH # 1.1 x10^3/uL (1.0-4.8); LYMPH % 15 % (24-48); MEAN CORPUSCULAR HEMOGLOBIN 29 pg (25-35); MEAN CORPUSCULAR HGB CONC 33 g/dL (31-37); MEAN CORPUSCULAR VOLUME 88 fL (79-100); MONO # 0.8 x10^3/uL (0.0-1.1); MONO % 11 % (0-9); NEUT # 4.8 x10^3uL (1.8-7.7); NEUT % 67 % (31-73); PLATELET COUNT 317 x10^3/uL (140-400); RED CELL DISTRIBUTION WIDTH 15.7 % (11.5-14.5); WHITE BLOOD COUNT 7.3 x10^3/uL (4.0-11.0)
[2017-12-11 07:04] LABS: ALBUMIN 2.8 g/dL (3.4-5.0); ALBUMIN/GLOBULIN RATIO 0.6 (1.0-1.7); ALK PHOS 80 U/L (46-116); ALT (SGPT) 48 U/L (16-63); ANION GAP 6 (6-14); AST (SGOT) 43 U/L (15-37); BLOOD UREA NITROGEN 15 mg/dL (8-26); BUN/CREATININE RATIO 10 (6-20); CALCIUM 8.8 mg/dL (8.5-10.1); CARBON DIOXIDE 30 mmol/L (21-32); CHLORIDE 101 mmol/L (98-107); CREATININE 1.5 mg/dL (0.7-1.3); GFR 54.6; GLUCOSE 89 mg/dL (70-99); POTASSIUM 4.6 mmol/L (3.5-5.1); SODIUM 137 mmol/L (136-145); TOTAL BILIRUBIN 0.2 mg/dL (0.2-1.0); TOTAL PROTEIN 7.4 g/dL (6.4-8.2)
[2017-12-11] MEDS: IV NORMAL SALINE 1000ML BAG 1,000 ML IV (07:08)
[2017-12-11 07:10] LABS: LACTIC ACID 0.9 mmol/L (0.4-2.0)
[2017-12-11] MEDS: FERROUS SULFATE 325 MG TABLET. PO (07:52)
[2017-12-11] MEDS: DONEPEZIL HCL 5 MG TABLET. PO (07:52)
[2017-12-11] MEDS: ALLOPURINOL 100 MG TABLET. PO (07:52)
[2017-12-11] MEDS: HALOPERIDOL 5 MG TABLET. PO ×2 (07:52→23:59)
[2017-12-11] MEDS: LACTOBACILLUS RHAMNOSUS GG 1 CAPSULE. PO ×2 (07:52→23:58)
[2017-12-11] MEDS: MULTIVITAMIN with MINERAL TABLET. PO (07:52)
[2017-12-11] MEDS: PANTOPRAZOLE 40 MG TABLET.DR. PO (07:53)
[2017-12-11] MEDS: LOSARTAN POTASSIUM 50 MG TABLET. PO (07:53)
[2017-12-11] MEDS: CYANOCOBALAMIN (VITAMIN B-12) 1,000 MCG TABLET. PO (07:53)
[2017-12-11 22:14] LABS: MRSA BY PCR Negative (Negative)
[2017-12-12] MEDS: AMPICILLIN SODIUM IV Push 2 GM VIAL. IVP ×2 (05:49)
[2017-12-12] MEDS: HEPARIN PF for SUB-Q USE 5,000 UNIT/0.5 ML VIAL. SQ ×3 (05:57→23:37)
[2017-12-12 06:28] LABS: ADD MAN DIFF? NO
[2017-12-12 06:50] LABS: BASO # 0.1 x10^3/uL (0.0-0.2); BASO % 1 % (0-3); EOS # 0.5 x10^3/uL (0.0-0.7); EOS % 7 % (0-3); HEMATOCRIT 27.7 % (39.0-53.0); HEMOGLOBIN 9.1 g/dL (13.0-17.5); LYMPH # 1.4 x10^3/uL (1.0-4.8); LYMPH % 20 % (24-48); MEAN CORPUSCULAR HEMOGLOBIN 29 pg (25-35); MEAN CORPUSCULAR HGB CONC 33 g/dL (31-37); MEAN CORPUSCULAR VOLUME 87 fL (79-100); MONO # 0.8 x10^3/uL (0.0-1.1); MONO % 12 % (0-9); NEUT # 4.2 x10^3uL (1.8-7.7); NEUT % 61 % (31-73); PLATELET COUNT 314 x10^3/uL (140-400); RED BLOOD COUNT 3.17 x10^6/uL (4.30-5.70); RED CELL DISTRIBUTION WIDTH 15.1 % (11.5-14.5); WHITE BLOOD COUNT 6.9 x10^3/uL (4.0-11.0)
[2017-12-12 07:10] LABS: ANION GAP 7 (6-14); BLOOD UREA NITROGEN 13 mg/dL (8-26); CALCIUM 8.7 mg/dL (8.5-10.1); CARBON DIOXIDE 28 mmol/L (21-32); CHLORIDE 104 mmol/L (98-107); CREATININE 1.3 mg/dL (0.7-1.3); GFR 64.4; GLUCOSE 90 mg/dL (70-99); POTASSIUM 4.4 mmol/L (3.5-5.1); SODIUM 139 mmol/L (136-145)
[2017-12-12] MEDS: traMADol 50 MG TABLET PO (08:29)
[2017-12-12] MEDS: CYANOCOBALAMIN (VITAMIN B-12) 1,000 MCG TABLET. PO (08:29)
[2017-12-12] MEDS: LACTOBACILLUS RHAMNOSUS GG 1 CAPSULE. PO ×2 (08:29→21:00)
[2017-12-12] MEDS: PANTOPRAZOLE 40 MG TABLET.DR. PO (08:29)
[2017-12-12] MEDS: HALOPERIDOL 5 MG TABLET. PO (08:30)
[2017-12-12] MEDS: FERROUS SULFATE 325 MG TABLET. PO (08:30)
[2017-12-12] MEDS: DONEPEZIL HCL 5 MG TABLET. PO (08:30)
[2017-12-12] MEDS: MULTIVITAMIN with MINERAL TABLET. PO (08:30)
[2017-12-12] MEDS: ALLOPURINOL 100 MG TABLET. PO (08:30)
[2017-12-12] MEDS: AMOXICILLIN 250 MG CAPSULE. PO ×2 (12:55→21:00)
[2017-12-13] MEDS: HEPARIN PF for SUB-Q USE 5,000 UNIT/0.5 ML VIAL. SQ ×2 (05:37→13:42)
[2017-12-13] MEDS: PANTOPRAZOLE 40 MG TABLET.DR. PO (08:08)
[2017-12-13] MEDS: DONEPEZIL HCL 5 MG TABLET. PO (09:03)
[2017-12-13] MEDS: FERROUS SULFATE 325 MG TABLET. PO (09:03)
[2017-12-13] MEDS: AMOXICILLIN 250 MG CAPSULE. PO ×2 (09:03→13:26)
[2017-12-13] MEDS: CYANOCOBALAMIN (VITAMIN B-12) 1,000 MCG TABLET. PO (09:03)
[2017-12-13] MEDS: MULTIVITAMIN with MINERAL TABLET. PO (09:03)
[2017-12-13] MEDS: LACTOBACILLUS RHAMNOSUS GG 1 CAPSULE. PO (09:03)
[2017-12-13] MEDS: ALLOPURINOL 100 MG TABLET. PO (09:03)
== END 2017-12-13 15:30 | disposition home health service (06) | DRG 871 ==
LOC: 1 WEST ICU 12-10 13:21 → ER 18:09 → 5 SOUTH 19:13 → 5 NORTH 12-12 07:01
PROC: 0T9B30Z Drainage of Bladder with Drainage Device, Percutaneous Approach (ICD-10-PCS; principal; 2017-11-27)
PROC: 05HY33Z Insertion of Infusion Device into Upper Vein, Percutaneous Approach (ICD-10-PCS; 2017-11-27)
PROC: 02PAX3Z Removal of Infusion Device from Heart, External Approach (ICD-10-PCS; 2017-11-27)
DX: A41.81 Sepsis due to Enterococcus (principal); N17.0 Acute kidney failure with tubular necrosis; R65.21 Severe sepsis with septic shock; E44.0 Moderate protein-calorie malnutrition; G93.40 Encephalopathy, unspecified; N39.0 Urinary tract infection, site not specified; N13.8 Other obstructive and reflux uropathy; Z68.1 Body mass index [BMI] 19.9 or less, adult; D50.9 Iron deficiency anemia, unspecified; E86.0 Dehydration; F03.90 Unspecified dementia, unspecified severity, without behavioral disturbance, psychotic disturbance, mood disturbance, and anxiety; F41.9 Anxiety disorder, unspecified; I10 Essential (primary) hypertension; N32.0 Bladder-neck obstruction; N40.1 Benign prostatic hyperplasia with lower urinary tract symptoms; R33.8 Other retention of urine; Z79.2 Long term (current) use of antibiotics; Z88.8 Allergy status to other drugs, medicaments and biological substances
CPT/HCPCS: 36415; 51102; 51701; 71045; 76770; 76942; 80048; 80053; 80069; 81001; 82550; 82728; 82962; 83540; 83550; 83605; 83735; 83880; 84145; 84484; 85007; 85025; 85045; 85049; 85379; 85384; 85610; 85730; 87040; 87086; 87186; 87205; 87641; 87804; 87804-59; 93005; 93306; 96365; 97110-GP; 97116-GP; 97162-GP; 97164; 97165-GO; 97168-GO; 97530-GO; 97530-GP; 97535-GO; 99152; 99153; 99285; 99285-25; C1769; J0290; J0690; J0696; J1200; J1630; J1756; J2060; J2250; J2543; J2930; J3010; J3370; J3475; J3490; J7030; J7040; Q9967

== ENCOUNTER 2018-05-17 13:20 | Inpatient (IN) | payer MEDICARE, OTHER ==
[2018-05-17 13:52] LABS: BILIRUBIN,URINE NEGATIVE (NEG); CLARITY,URINE CLOUDY; COLOR,URINE YELLOW; GLUCOSE,URINE NEGATIVE (NEG); NITRITE,URINE NEGATIVE (NEG); PH,URINE 5.5; PROTEIN,URINE 30 mg/dL (NEG-TRACE); UROBILINOGEN,URINE 0.2 mg/dL (0.2 mg/dL)
[2018-05-17 14:19] LABS: BACTERIA,URINE 0 /HPF (0-FEW); RBC,URINE 20-40 /HPF (0-2); WBC,URINE TNTC /HPF (0-4)
[2018-05-17 14:36] LABS: ADD MAN DIFF? NO
[2018-05-17 14:44] LABS: BASO # 0.1 x10^3/uL (0.0-0.2); BASO % 2 % (0-3); EOS # 0.2 x10^3/uL (0.0-0.7); EOS % 4 % (0-3); HEMATOCRIT 36.4 % (39.0-53.0); HEMOGLOBIN 12.1 g/dL (13.0-17.5); LYMPH # 1.4 x10^3/uL (1.0-4.8); LYMPH % 24 % (24-48); MEAN CORPUSCULAR HEMOGLOBIN 30 pg (25-35); MEAN CORPUSCULAR HGB CONC 33 g/dL (31-37); MEAN CORPUSCULAR VOLUME 89 fL (79-100); MONO # 0.6 x10^3/uL (0.0-1.1); MONO % 10 % (0-9); NEUT # 3.5 x10^3uL (1.8-7.7); NEUT % 60 % (31-73); PLATELET COUNT 334 x10^3/uL (140-400); RED BLOOD COUNT 4.11 x10^6/uL (4.30-5.70); RED CELL DISTRIBUTION WIDTH 16.8 % (11.5-14.5); WHITE BLOOD COUNT 5.9 x10^3/uL (4.0-11.0)
[2018-05-17 14:51] LABS: ANION GAP 8 (6-14); BLOOD UREA NITROGEN 24 mg/dL (8-26); CARBON DIOXIDE 27 mmol/L (21-32); CHLORIDE 102 mmol/L (98-107); CREATININE 1.2 mg/dL (0.7-1.3); GFR 70.7; GLUCOSE 103 mg/dL (70-99); POTASSIUM 4.2 mmol/L (3.5-5.1); SODIUM 137 mmol/L (136-145)
[2018-05-17 14:57] LABS: ALBUMIN 3.7 g/dL (3.4-5.0); ALK PHOS 125 U/L (46-116); ALT (SGPT) 17 U/L (16-63); AST (SGOT) 17 U/L (15-37); DIRECT BILIRUBIN 0.1 mg/dL (0.0-0.2); LIPASE 54 U/L (73-393); TOTAL BILIRUBIN 0.3 mg/dL (0.2-1.0); TOTAL PROTEIN 7.8 g/dL (6.4-8.2)
[2018-05-17 14:59] LABS: TROPONINI < 0.017 ng/mL (0.000-0.055)
[2018-05-17] MEDS ORDERED: MORPHINE SULFATE 2 MG/ML DISP.SYRIN. IV (15:45)
[2018-05-17] MEDS ORDERED: ONDANSETRON PF 4 MG/2 ML VIAL. IV (15:45)
[2018-05-17] MEDS ORDERED: clonazePAM 0.5 MG TABLET PO (17:15)
[2018-05-17] MEDS ORDERED: HYDROcodone/APAP 7.5/325MG 1 TAB TABLET PO (17:15)
[2018-05-17] MEDS ORDERED: ACETAMINOPHEN 325 MG TABLET. PO (17:15)
[2018-05-17] MEDS ORDERED: MAGNESIUM HYDROXIDE 2,400 MG/30 ML ORAL.SUSP. PO (17:15)
[2018-05-17] MEDS: FOLIC ACID 1 MG TABLET. PO (18:00)
[2018-05-17] MEDS: LOSARTAN POTASSIUM 50 MG TABLET. PO (18:00)
[2018-05-17] MEDS: ASPIRIN 325 MG TABLET PO (18:00)
[2018-05-17] MEDS: THIAMINE 100 MG TABLET. PO (18:00)
[2018-05-17] MEDS: DOCUSATE SODIUM 100 MG CAPSULE. PO (22:31)
[2018-05-17] MEDS: levETIRAcetam 500 MG TABLET PO (22:31)
[2018-05-17] MEDS: traZODone 50 MG TABLET. PO (22:31)
[2018-05-18] MEDS: CHOLECALCIFEROL (VITAMIN D3) 1,000 UNIT TABLET PO (08:39)
[2018-05-18] MEDS: LACTOBACILLUS RHAMNOSUS GG 1 CAPSULE. PO (08:39)
[2018-05-18] MEDS: FOLIC ACID 1 MG TABLET. PO (08:40)
[2018-05-18] MEDS: levETIRAcetam 500 MG TABLET PO ×2 (08:40→23:05)
[2018-05-18] MEDS: CYANOCOBALAMIN (VITAMIN B-12) 1,000 MCG TABLET. PO (08:40)
[2018-05-18] MEDS: THIAMINE 100 MG TABLET. PO (08:40)
[2018-05-18] MEDS: ASPIRIN 325 MG TABLET PO (08:40)
[2018-05-18] MEDS: DOCUSATE SODIUM 100 MG CAPSULE. PO ×2 (08:40→23:04)
[2018-05-18] MEDS: LOSARTAN POTASSIUM 50 MG TABLET. PO ×2 (08:41→13:55)
[2018-05-18] MEDS ORDERED: DOCUSATE SODIUM 100 MG CAPSULE. PO (09:00)
[2018-05-18] MEDS ORDERED: POLYETHYLENE GLYCOL 3350 17 GM PACKET. PO (09:00)
[2018-05-18] MEDS ORDERED: ACETAMINOPHEN 325 MG TABLET. PO (09:00)
[2018-05-18] MEDS ORDERED: ONDANSETRON PF 4 MG/2 ML VIAL. IV (09:00)
[2018-05-18] MEDS ORDERED: traMADol 50 MG TABLET PO (09:00)
[2018-05-18] MEDS ORDERED: hydrALAZINE 20 MG/ML VIAL. IVP (09:00)
[2018-05-18] MEDS ORDERED: MORPHINE SULFATE 2 MG/ML DISP.SYRIN. IV (09:00)
[2018-05-18 09:32] LABS: HEMOGLOBIN 12.7 g/dL (13.0-17.5); MEAN CORPUSCULAR HEMOGLOBIN 29 pg (25-35); MEAN CORPUSCULAR HGB CONC 33 g/dL (31-37); MEAN CORPUSCULAR VOLUME 89 fL (79-100); PLATELET COUNT 311 x10^3/uL (140-400); RED BLOOD COUNT 4.41 x10^6/uL (4.30-5.70); RED CELL DISTRIBUTION WIDTH 16.6 % (11.5-14.5); WHITE BLOOD COUNT 6.5 x10^3/uL (4.0-11.0)
[2018-05-18 09:48] LABS: ALBUMIN 3.6 g/dL (3.4-5.0); ALBUMIN/GLOBULIN RATIO 0.8 (1.0-1.7); ALK PHOS 129 U/L (46-116); ALT (SGPT) 19 U/L (16-63); ANION GAP 9 (6-14); AST (SGOT) 19 U/L (15-37); BLOOD UREA NITROGEN 16 mg/dL (8-26); BUN/CREATININE RATIO 16 (6-20); CALCIUM 9.4 mg/dL (8.5-10.1); CARBON DIOXIDE 26 mmol/L (21-32); CHLORIDE 98 mmol/L (98-107); GFR 87.2; GLUCOSE 126 mg/dL (70-99); POTASSIUM 4.4 mmol/L (3.5-5.1); SODIUM 133 mmol/L (136-145); TOTAL BILIRUBIN 0.4 mg/dL (0.2-1.0); TOTAL PROTEIN 7.9 g/dL (6.4-8.2)
[2018-05-18] MEDS: ENOXAPARIN 30 MG/0.3 ML SYRINGE. SQ (13:54)
[2018-05-18] MEDS: traZODone 50 MG TABLET. PO (23:05)
[2018-05-19] MEDS: THIAMINE 100 MG TABLET. PO (08:30)
[2018-05-19] MEDS: CYANOCOBALAMIN (VITAMIN B-12) 1,000 MCG TABLET. PO (08:30)
[2018-05-19] MEDS: levETIRAcetam 500 MG TABLET PO (08:30)
[2018-05-19] MEDS: LACTOBACILLUS RHAMNOSUS GG 1 CAPSULE. PO (08:30)
[2018-05-19] MEDS: DOCUSATE SODIUM 100 MG CAPSULE. PO (08:30)
[2018-05-19] MEDS: FOLIC ACID 1 MG TABLET. PO (08:30)
[2018-05-19] MEDS: ASPIRIN 325 MG TABLET PO (08:30)
[2018-05-19] MEDS: CHOLECALCIFEROL (VITAMIN D3) 1,000 UNIT TABLET PO (08:31)
[2018-05-19] MEDS: LOSARTAN POTASSIUM 50 MG TABLET. PO (08:32)
[2018-05-19] MEDS: ENOXAPARIN 30 MG/0.3 ML SYRINGE. SQ (11:04)
[2018-05-21 05:49] LABS: MRSA BY PCR Positive (Negative)
== END 2018-05-19 15:00 | DRG 698 ==
LOC: ER 13:20 → 4 NORTH 16:06
DX: T83.518A Infection and inflammatory reaction due to other urinary catheter, initial encounter (principal); G93.41 Metabolic encephalopathy; I12.9 Hypertensive chronic kidney disease with stage 1 through stage 4 chronic kidney disease, or unspecified chronic kidney disease; G40.909 Epilepsy, unspecified, not intractable, without status epilepticus; F03.90 Unspecified dementia, unspecified severity, without behavioral disturbance, psychotic disturbance, mood disturbance, and anxiety; E53.8 Deficiency of other specified B group vitamins; Z96.649 Presence of unspecified artificial hip joint; Z66 Do not resuscitate; R33.9 Retention of urine, unspecified; R91.8 Other nonspecific abnormal finding of lung field; F41.9 Anxiety disorder, unspecified; E55.9 Vitamin D deficiency, unspecified; F79 Unspecified intellectual disabilities; N18.9 Chronic kidney disease, unspecified; R32 Unspecified urinary incontinence; N40.0 Benign prostatic hyperplasia without lower urinary tract symptoms; M81.0 Age-related osteoporosis without current pathological fracture; Z82.49 Family history of ischemic heart disease and other diseases of the circulatory system; Z88.1 Allergy status to other antibiotic agents; Z82.0 Family history of epilepsy and other diseases of the nervous system; Z99.3 Dependence on wheelchair; Z86.61 Personal history of infections of the central nervous system; Z79.899 Other long term (current) drug therapy; Y84.6 Urinary catheterization as the cause of abnormal reaction of the patient, or of later complication, without mention of misadventure at the time of the procedure
CPT/HCPCS: 36415; 51702; 70450; 80048; 80053; 80076; 81001; 83690; 84484; 85025; 85027; 87086; 87641; 95816; 96365; 97161-GP; 99285-25; J0690; J1650; J2020

== ENCOUNTER 2018-12-24 03:20 | Inpatient (IN) | payer MEDICARE, OTHER ==
[2018-12-24] VITALS (18 sets, daily range): BP systolic 87–166; BP diastolic 57–91
[~2018-12-24] VITALS: Ht 167.6 cm; Wt 64.9 kg
[~2018-12-24 03:20] MED LIST: ACET325T9 PO; ALLO100T PO; ALPR0.5T PO; AMIT25TA PO; AMLO10TA8 PO; AMOX500C PO; ASPI325T8 PO; CHOL10003 PO; CLON0.5T11 PO; CYAN100072 PO; DOCU-109 PO; DONE5TAB7 PO; FOLI1TAB16 PO; HYDR-2765 PO; LACT1CAP21 PO; LEVE500T56 PO; LOSA-73 PO; LOSA100T14 PO; MAGN400O7 PO; MEGE625O PO; MELA3TAB2 PO; MULT1TAB97 PO; POLY17PO29 PO; SENN1TAB62 PO; TAMS0.4C2 PO; THIA100T22 PO; TRAZ-118 PO; WARF3TAB54 PO
[2018-12-24] MEDS ORDERED: IV NORMAL SALINE 1000ML BAG 1,000 ML IV SCH ×3 (03:45→10:14)
[2018-12-24 03:46] LABS: BASO % 0 % (0-3); EOS % 1 % (0-3); HEMATOCRIT 34.8 % (39.0-53.0); HEMOGLOBIN 11.5 g/dL (13.0-17.5); LYMPH # 0.3 x10^3/uL (1.0-4.8); LYMPH % 14 % (24-48); MEAN CORPUSCULAR HEMOGLOBIN 30 pg (25-35); MEAN CORPUSCULAR HGB CONC 33 g/dL (31-37); MEAN CORPUSCULAR VOLUME 89 fL (79-100); MONO % 1 % (0-9); NEUT % 84 % (31-73); PLATELET COUNT 238 x10^3/uL (140-400); RED BLOOD COUNT 3.91 x10^6/uL (4.30-5.70); RED CELL DISTRIBUTION WIDTH 15.8 % (11.5-14.5); WHITE BLOOD COUNT 2.4 x10^3/uL (4.0-11.0)
[2018-12-24] MEDS ORDERED: ETOMIDATE 20 MG/10 ML VIAL. IV ONE ×2 (03:47→04:30)
[2018-12-24] MEDS ORDERED: VECURONIUM BOLUS 10 MG VIAL. IV ONE ×2 (03:47→04:30)
[2018-12-24 03:56] LABS: CREATININE 1.6 mg/dL (0.7-1.3); GFR 50.6; POTASSIUM 3.5 mmol/L (3.5-5.1)
[2018-12-24] MEDS ORDERED: PIPERACILLIN/TAZOBACTAM 3.375 GM in IV NORMAL SALINE 50ML 50 ML IV ONE (04:00)
[2018-12-24 04:01] LABS: BILIRUBIN,URINE SMALL (NEG); CLARITY,URINE TURBID; COLOR,URINE AMBER; NITRITE,URINE NEGATIVE (NEG); PH,URINE 8.5; PROTEIN,URINE >=300 mg/dL (NEG-TRACE); UROBILINOGEN,URINE 0.2 mg/dL (0.2 mg/dL)
[2018-12-24 04:04] LABS: ALBUMIN 3.2 g/dL (3.4-5.0); ALBUMIN/GLOBULIN RATIO 0.9 (1.0-1.7); MAGNESIUM 1.4 mg/dL (1.8-2.4); TOTAL BILIRUBIN 0.6 mg/dL (0.2-1.0); TOTAL PROTEIN 6.9 g/dL (6.4-8.2)
[2018-12-24 04:27] LABS: BACTERIA,URINE MANY /HPF (0-FEW); RBC,URINE 0 /HPF (0-2)
[2018-12-24 04:28] LABS: AMORPHOUS SEDIMENT,UR PRESENT /HPF
[2018-12-24] MEDS ORDERED: IV NORMAL SALINE 1000ML BAG 1,000 ML IV ONE ×3 (04:30→07:00)
--- NOTE | 2018-12-24 04:31 | PHYS DOC ---
Past Medical History Past Medical History: Anxiety, CVA, Dementia, Hypertension, Renal Failure, Seizure Additional Past Medical Histor: INSOMNIA, VIT DEF, WEAKNESS (CASSANDRA PEREZ Jr., DO) Past Surgical History: Other Additional Past Surgical Histo: HIP FX REPAIR (L) (CASSANDRA PEREZ Jr., DO) Alcohol Use: None Drug Use: None (CASSANDRA PEREZ Jr., DO) Adult General Chief Complaint Chief Complaint: ALTERED MENTAL STATUS HPI HPI Patient is an 78-year-old male who presents from longterm with mental status change. Medics indicate that upon their arrival after evaluating patient they rated him with GCS of 4. Patient with irregular respirations. Medics report that patient's axillary temperature was 99.3. Unable to further assess history due to patient mental status. (CASSANDRA PEREZ Jr., DO) Review of Systems Review of Systems Respiratory: Positive cough and shortness of breath [] Cardiovascular: No additional information not addressed in HPI [] GI: No reported vomiting or diarrhea [] Neurologic: Positive mental status changes [] Unable to fully assess review of systems due to patient's mental state. (CASSANDRA PEERZ Jr., DO) Current Medications Current Medications Current Medications Medications (Trade) Dose Ordered Sig/Nayely Start Time Stop Time Status Last Admin Dose Admin Etomidate (Amidate) 20 mg 1X ONCE 12/24/18 04:30 12/24/18 04:31 DC 12/24/18 03:32 20 MG Levofloxacin/ Dextrose 100 ml @ 100 mls/hr 1X ONCE 12/24/18 04:00 12/24/18 04:59 DC 12/24/18 05:28 100 MLS/HR Midazolam HCl (Versed) 5 mg 1X ONCE 12/24/18 04:45 12/24/18 04:46 DC 12/24/18 04:45 5 MG Piperacillin Sod/ Tazobactam Sod 3.375 gm/Sodium Chloride 50 ml @ 100 mls/hr 1X ONCE 12/24/18 04:00 12/24/18 04:29 DC 12/24/18 04:00 100 MLS/HR Sodium Chloride 1,000 ml @ 1,000 mls/hr 1X ONCE 12/24/18 04:30 12/24/18 05:29 DC 12/24/18 03:31 1,000 MLS/HR Vecuronium [place] (Norcuron Bolus) 20 mg 1X ONCE 12/24/18 04:30 12/24/18 04:31 DC 12/24/18 03:32 20 MG (MARIO ALBERTO MORRISON DO) Allergies Allergies Allergies Coded Allergies Type Severity Reaction Last Updated Verified vancomycin Allergy Intermediate 12/02/17 Yes I S O L A T I O N *CONTACT* Allergy Unknown 04/07/18 Yes (MARIO ALBERTO MORRISON DO) Physical Exam Physical Exam Constitutional: Patient obtunded, unresponsive to both verbal and painful stimuli. [] HENT: Normocephalic, atraumatic, bilateral external ears normal, oropharynx dry , nose normal. [] Eyes: Pupils are dilated and unreactive to light. [] Neck: Normal range of motion, no tenderness, supple, no stridor. [] Cardiovascular: Tachycardic rate with irregular rhythm[] Lungs & Thorax: Lungs demonstrate rhonchi in the bilateral lungs, right greater than left[] Abdomen: Bowel sounds diminished, soft. [] Skin: Warm, dry. [] Extremities: No tenderness, no cyanosis, no clubbing. [] Neurologic: Patient is obtunded. Unable to fully assess neurological status. [] (CASSANDRA PEREZ Jr. DO) Current Patient Data Vital Signs Vital Signs Date Time Temp Pulse Resp B/P (MAP) Pulse Ox O2 Delivery O2 Flow Rate FiO2 12/24/18 05:08 100 Ventilator 12/24/18 04:59 104 20 12/24/18 03:20 99.3 65/49 (54) 99.3 (MARIO ALBERTO MORRISON DO) Lab Values Laboratory Tests Test 12/24/18 03:30 12/24/18 03:42 12/24/18 04:38 White Blood Count 2.4 x10^3/uL (4.0-11.0) L Red Blood Count 3.91 x10^6/uL (4.30-5.70) L Hemoglobin 11.5 g/dL (13.0-17.5) L Hematocrit 34.8 % (39.0-53.0) L Mean Corpuscular Volume 89 fL (79-100) Mean Corpuscular Hemoglobin 30 pg (25-35) Mean Corpuscular Hemoglobin Concent 33 g/dL (31-37) Red Cell Distribution Width 15.8 % (11.5-14.5) H Platelet Count 238 x10^3/uL (140-400) Neutrophils (%) (Auto) 84 % (31-73) H Lymphocytes (%) (Auto) 14 % (24-48) L Monocytes (%) (Auto) 1 % (0-9) Eosinophils (%) (Auto) 1 % (0-3) Basophils (%) (Auto) 0 % (0-3) Neutrophils # (Auto) 2.0 x10^3uL (1.8-7.7) Lymphocytes # (Auto) 0.3 x10^3/uL (1.0-4.8) L Monocytes # (Auto) 0.0 x10^3/uL (0.0-1.1) Eosinophils # (Auto) 0.0 x10^3/uL (0.0-0.7) Basophils # (Auto) 0.0 x10^3/uL (0.0-0.2) Sodium Level 140 mmol/L (136-145) Potassium Level 3.5 mmol/L (3.5-5.1) Chloride Level 103 mmol/L (98-107) Carbon Dioxide Level 19 mmol/L (21-32) L Anion Gap 18 (6-14) H Blood Urea Nitrogen 33 mg/dL (8-26) H Creatinine 1.6 mg/dL (0.7-1.3) H Estimated GFR (Cockcroft-Gault) 50.6 BUN/Creatinine Ratio 21 (6-20) H Glucose Level 144 mg/dL (70-99) H Lactic Acid Level 6.0 mmol/L (0.4-2.0) *H Calcium Level 9.0 mg/dL (8.5-10.1) Phosphorus Level 2.0 mg/dL (2.6-4.7) L Magnesium Level 1.4 mg/dL (1.8-2.4) L Total Bilirubin 0.6 mg/dL (0.2-1.0) Aspartate Amino Transferase (AST) 87 U/L (15-37) H Alanine Aminotransferase (ALT) 81 U/L (16-63) H Alkaline Phosphatase 100 U/L (46-116) Troponin I Quantitative 0.071 ng/mL (0.000-0.055) CU-Bbz-R-Type Natriuretic Peptide 1938 pg/mL (0-449) H Total Protein 6.9 g/dL (6.4-8.2) Albumin 3.2 g/dL (3.4-5.0) L Albumin/Globulin Ratio 0.9 (1.0-1.7) L Procalcitonin 11.87 ng/mL (0.00-0.10) H Urine Collection Type Unknown Urine Color Ana Urine Clarity Turbid Urine pH 8.5 Urine Specific [place] 1.025 Urine Protein >=300 mg/dL (NEG-TRACE) Urine Glucose (UA) 250 mg/dL (NEG) Urine Ketones (Stick) Negative mg/dL (NEG) Urine Blood Negative (NEG) Urine Nitrite Negative (NEG) Urine Bilirubin Small (NEG) Urine Urobilinogen Dipstick 0.2 mg/dL (0.2 mg/dL) Urine Leukocyte Esterase Large (NEG) Urine RBC 0 /HPF (0-2) Urine WBC 1-4 /HPF (0-4) Urine Amorphous Sediment Present /HPF Urine Bacteria Many /HPF (0-FEW) O2 Saturation 99 % (92-99) Arterial Blood pH 7.34 (7.35-7.45) L Arterial Blood pCO2 at Patient Temp 28 mmHg (35-46) L Arterial Blood pO2 at Patient Temp > 503 mmHg (65-108) H Arterial Blood HCO3 15 mmol/L (21-28) L Arterial Blood Base Excess -9 mmol/L (-3-3) L FiO2 100 Laboratory Tests 12/24/18 03:30 Laboratory Tests 12/24/18 03:30 (MARIO ALBERTO MORRISON DO) EKG EKG [] Interpretation Time: EKG demonstrates sinus tachycardia with frequent PACs. Heart rate is 135. Repeat EKG was performed after receiving 2 L of normal saline. Heart rate now 98. (CASSANDRA PEREZ Jr. DO) Radiology/Procedures Radiology/Procedures [] (CASSANDRA PEREZ Jr. DO) Impressions: Chest x-ray demonstrates pulmonary venous congestion. ET tube is in good place approximately 3 cm above the shan. NG tube is in stomach. (CASSANDRA PEREZ Jr. DO) Course & Med Decision Making Course & Med Decision Making Pertinent Labs and Imaging studies reviewed. (See chart for details) Patient moved to room upon arrival was evaluated by your medical staff after which additional IV access was obtained. After obtaining blood pressure, patient felt to be septic and 2 L fluid bolus were initiated. GCS was found to be 3. At this point patient was prepared for intubation and patient was pretreated with vecuronium and etomidate. Endotracheal Intubation by me: Pre assessment performed. See preceding note for details. Pre-oxygenation performed with 100% oxygen RSI: Performed w/o complication or hypoxic events. Medications as ordered. Blade: [place] scope ET Tube: 7.5 cm Depth: 24 cm at the lip Intubation confirmed by colorimetric CO2, equal breath sounds, quiet over the stomach. Chest X-ray 1V Interpreted by me: 3 cm above the shan ET tube. Normal soft tissue, No pneumothorax. A total of 35 minutes of critical care time was spent on this patient exclusive of separately billable procedures and included direct [id number] contact with patient, ordering and reviewing of both laboratory and radiologic studies, discussion of patient's case with business management consultant, and finally on dictation of this patient's medical record. Despite 2 L of normal saline, after giving patient dose of Versed IV, patient's blood pressure dropped back down to 80s systolic. At this point patient was initiated on dopamine drip. (CASSANDRA PEREZ Jr., DO) Dragon Disclaimer Dragon Disclaimer This electronic medical record was generated, in whole or in part, using a voice recognition dictation system. (CASSANDRA PEREZ Jr., DO) Departure Departure Impression: Primary Impression: Acute sepsis Additional Impression: UTI (urinary tract infection) due to urinary indwelling catheter Disposition: ADMITTED INPATIENT Admitting Physician: Josh Soto (CASSANDRA PEREZ Jr., DO) Condition: CRITICAL Referrals: CARLITA RIBEIRO MD (PCP) Date and Time of Reassessment Date: Dec 24, 2018 Time: 07:16 (MARIO ALBERTO MORRISON DO) Fluid Challenge Is the fluid challenge complet: Yes Blood Culture TIme: 05:55 Time Antibiotics Given: 06:00 (MARIO ALBERTO MORRISON DO) Is the fluid challenge complet: Yes (CASSANDRA PEREZ Jr., DO) Vital Signs Vital Signs: Vital Signs Date Time Temp Pulse Resp B/P (MAP) Pulse Ox O2 Delivery O2 Flow Rate FiO2 12/24/18 05:08 100 Ventilator 12/24/18 04:59 104 20 12/24/18 03:20 99.3 65/49 (54) 99.3 (PEREZ,CASSANDRA D Jr. DO) Temperature Source: Axillary (MARIO ALBERTO MORRISON DO) Temperature Source: Axillary (CASSANDRA PEREZ Jr. DO) Respirations Respiratory Effort: Mechanical ventilation Respiratory Pattern: Normal (MARIO ALBERTO MORRISON DO) Respiratory Effort: Mechanical ventilation Respiratory Pattern: Normal (CASSANDRA PEREZ Jr. DO) Cardiovascular Pulse Rhythm: Regular Heart: Nml rate, reg. rhythm (MARIO ALBERTO MORRISON DO) Pulse Rhythm: Regular Heart: Nml rate, reg. rhythm (CASSANDRA PEREZ Jr. DO) Lung Sounds Breath Sounds: Clear (MARIO ALBERTO MORRISON DO) Breath Sounds: Wheezes, Rhonchi (CASSANDRA PEREZ Jr. DO) Capillary Refil Capillary Refill: Rt Hand < 3 seconds (MARIO ALBERTO MORRISON DO) Capillary Refill: Rt Hand < 3 seconds (CASSANDRA PEREZ Jr. DO) Peripheral Pulse Pulse Location: Radial Pulse Strength: Normal (2+) Pulse Assessment Method: Monitor (MARIO ALBERTO MORRISON DO) Pulse Location: Radial Pulse Strength: Normal (2+) Pulse Assessment Method: Monitor (CASSANDRA PEREZ Jr. DO) Integumentary Skin: Warm Skin Moisture: Dry Skin Turgor: Normal Skin Color: warm Fingernail Color: WNL (MARIO ALBERTO MORRISON DO) Skin: Warm Skin Moisture: Dry Skin Turgor: Normal Skin Color: warm Fingernail Color: WNL (CASSANDRA PEREZ Jr. DO) Problem Qualifiers Additional Impression: UTI (urinary tract infection) due to urinary indwelling catheter Indwelling urinary catheter type: unspecified Encounter type: initial encounter Qualified Codes: T83.511A - Infection and inflammatory reaction due to indwelling urethral catheter, initial encounter; N39.0 - Urinary tract infection, site not specified CASSANDRA PEREZ Jr. DO Dec 24, 2018 04:30 MARIO ALBERTO MORRISON DO Dec 24, 2018 07:17
[2018-12-24 04:43] LABS: BASE EXCESS ABG -9 mmol/L (-3-3); HCO3 ABG 15 mmol/L (21-28); PCO2 ABG 28 mmHg (35-46); PO2 ABG > 503 mmHg (65-108); SAT O2 ABG 99 % (92-99)
[2018-12-24 04:44] LABS: FIO2 ABG 100
[2018-12-24] MEDS ORDERED: MIDAZOLAM HCL/PF 5 MG/5 ML VIAL. IV ONE (04:45)
--- NOTE | 2018-12-24 05:14 | RAD ---
EXAM: CT Head without IV contrast CLINICAL HISTORY: Altered mental status Comparison: 10/11/2018 TECHNIQUE: Routine CT of the head without contrast. Soft tissues and bone windows were reviewed. PQRS compliance statement - One or more of the following individualized dose reduction techniques were utilized for this study: 1. Automated exposure control 2. Adjustment of the mA and/or kV according to patient size 3. Use of iterative reconstruction technique FINDINGS: There is no evidence of hemorrhage, mass or extra-axial fluid collection. Pelletier-white differentiation is maintained with no evidence of edema. There are non-specific foci of hypodensity in the periventricular and subcortical white matter of the cerebral hemispheres. There is no mass effect or shift of the intracranial structures. The ventricles and cerebral sulci are prominent for the patients stated age consistent with generalized cerebral volume loss. The cerebellum and brainstem are unremarkable. The calvarium demonstrates no evidence of fracture or focal lesion. There is normal aeration of the visualized paranasal sinuses and mastoid air cells. The visualized portions of the orbits are normal. Atherosclerotic calcifications of the intracranial internal carotid and vertebral arteries is seen. IMPRESSION: 1. No evidence for acute intracranial process. 2. Generalized cerebral atrophy with prominence of the ventricles, stable. Electronically signed by: Matthew Traylor MD (12/24/2018 5:11 AM) [facility]
[2018-12-24] MEDS ORDERED: NOREPINEPHRIN 8MG/250ML PREMIX 250 ML IV PRN ×2 (05:45→10:15)
[2018-12-24] MEDS ORDERED: HYDROCORTISONE SOD SUCC/PF 100 MG/2 ML VIAL. IV ONE (06:00)
--- NOTE | 2018-12-24 07:45 | NUR ---
Rec'd from ER per cart. Pt not responsive to verbal, Manual bag on transport and placed on Vent 50% per RT. Rt CL intact. 2 PIV with Levo at 5 mcg/min. Reported pt rec'd 4l n/s in ER. BP 140/87. Will titrate Levo down to keep MAP>65. Pt had suprapubic cath with obvious leak around site of clear fluid. SPcath changed out w/o diff with immed return in tubing of sl cloudy liq. No family here. Pt from [place]. Will contact family as soon as poss. .Temp low at 91.8 rectal probe so ela elanagger placed. Pt has rec'd Levaquin and Zosyn. Dr Wong notified of consult as well as Dr Jocelyne Michelle. Pupils small and questionable reaction. Will cont adm process
--- NOTE | 2018-12-24 08:03 | RAD ---
Portable AP semiupright chest x-ray performed at 6:41 AM Clinical indications: Post central line placement. IMPRESSION: A right subclavian central line has been placed and the tip is seen within the lower superior vena cava above the level of the right atrium. No pneumothorax is evident. Electronically signed by: Raudel Laguerre MD (12/24/2018 7:59 AM) [facility]
--- NOTE | 2018-12-24 08:06 | RAD ---
PORTABLE CHEST 1V 3:46 AM COMPARISON: October 09, 2018 Clinical indications: Altered mental status. Status post intubation. Findings: ET tube is in place and the tip is located 3 cm above the level of the shan. NG tube is in place and NG tube is seen coiled within the mid body of the stomach. Chronic interstitial thickening is seen bilaterally which is stable. No new lung infiltrate or pleural effusion or pneumothorax is seen. The heart size and mediastinum are stable. Impression: Chronic interstitial lung infiltrates. Placement of ET and NG tubes. No pneumothorax. Electronically signed by: Raudel Laguerre MD (12/24/2018 8:03 AM) [facility]
[2018-12-24] MEDS ORDERED: WARF6TAB47 PO (08:20)
[2018-12-24 08:44] LABS: INFLUENZA A PATIENT NEGATIVE (NEGATIVE); INFLUENZA B PATIENT NEGATIVE (NEGATIVE)
--- NOTE | 2018-12-24 09:23 | NUR ---
SS following for discharge planning. SS received notification that pt was from [place]. [facility] contacted [facility], ; fax [phone], to verify pt's previous placement. [facility] verified that pt is a LTC resident from there facility and able to return when medically stable.
--- NOTE | 2018-12-24 09:39 | NUR ---
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 Pt to be in contact precautions until there are 2 negative urine cultures 7 days apart without antibiotics.
[2018-12-24] MEDS ORDERED: IV NORMAL SALINE 500ML BAG 500 ML IV PRN (10:15)
--- NOTE | 2018-12-24 10:23 | PDOC ---
PULMONARY PROGRESS NOTES Vitals Vital Signs Date Time Temp Pulse Resp B/P (MAP) Pulse Ox O2 Delivery O2 Flow Rate FiO2 12/24/18 09:15 100 Ventilator 12/24/18 07:29 98 20 12/24/18 03:20 99.3 65/49 (54) 99.3 Lungs: Clear Cardiovascular: S1, S2 Skin: Warm Labs Laboratory Tests Test 12/24/18 03:30 12/24/18 03:42 12/24/18 04:38 12/24/18 07:55 White Blood Count 2.4 x10^3/uL (4.0-11.0) Red Blood Count 3.91 x10^6/uL (4.30-5.70) Hemoglobin 11.5 g/dL (13.0-17.5) Hematocrit 34.8 % (39.0-53.0) Mean Corpuscular Volume 89 fL (79-100) Mean Corpuscular Hemoglobin 30 pg (25-35) Mean Corpuscular Hemoglobin Concent 33 g/dL (31-37) Red Cell Distribution Width 15.8 % (11.5-14.5) Platelet Count 238 x10^3/uL (140-400) Neutrophils (%) (Auto) 84 % (31-73) Lymphocytes (%) (Auto) 14 % (24-48) Monocytes (%) (Auto) 1 % (0-9) Eosinophils (%) (Auto) 1 % (0-3) Basophils (%) (Auto) 0 % (0-3) Neutrophils # (Auto) 2.0 x10^3uL (1.8-7.7) Lymphocytes # (Auto) 0.3 x10^3/uL (1.0-4.8) Monocytes # (Auto) 0.0 x10^3/uL (0.0-1.1) Eosinophils # (Auto) 0.0 x10^3/uL (0.0-0.7) Basophils # (Auto) 0.0 x10^3/uL (0.0-0.2) Sodium Level 140 mmol/L (136-145) Potassium Level 3.5 mmol/L (3.5-5.1) Chloride Level 103 mmol/L (98-107) Carbon Dioxide Level 19 mmol/L (21-32) Anion Gap 18 (6-14) Blood Urea Nitrogen 33 mg/dL (8-26) Creatinine 1.6 mg/dL (0.7-1.3) Estimated GFR (Cockcroft-Gault) 50.6 BUN/Creatinine Ratio 21 (6-20) Glucose Level 144 mg/dL (70-99) Lactic Acid Level 6.0 mmol/L (0.4-2.0) 4.3 mmol/L (0.4-2.0) Calcium Level 9.0 mg/dL (8.5-10.1) Phosphorus Level 2.0 mg/dL (2.6-4.7) Magnesium Level 1.4 mg/dL (1.8-2.4) Total Bilirubin 0.6 mg/dL (0.2-1.0) Aspartate Amino Transf (AST/SGOT) 87 U/L (15-37) Alanine Aminotransferase (ALT/SGPT) 81 U/L (16-63) Alkaline Phosphatase 100 U/L (46-116) Troponin I Quantitative 0.071 ng/mL (0.000-0.055) 1.048 ng/mL (0.000-0.055) XH-Gvv-E-Type Natriuretic Peptide 1938 pg/mL (0-449) Total Protein 6.9 g/dL (6.4-8.2) Albumin 3.2 g/dL (3.4-5.0) Albumin/Globulin Ratio 0.9 (1.0-1.7) Procalcitonin 11.87 ng/mL (0.00-0.10) Urine Collection Type Unknown Urine Color Ana Urine Clarity Turbid Urine pH 8.5 Urine Specific [place] 1.025 Urine Protein >=300 mg/dL (NEG-TRACE) Urine Glucose (UA) 250 mg/dL (NEG) Urine Ketones (Stick) Negative mg/dL (NEG) Urine Blood Negative (NEG) Urine Nitrite Negative (NEG) Urine Bilirubin Small (NEG) Urine Urobilinogen Dipstick 0.2 mg/dL (0.2 mg/dL) Urine Leukocyte Esterase Large (NEG) Urine RBC 0 /HPF (0-2) Urine WBC 1-4 /HPF (0-4) Urine Amorphous Sediment Present /HPF Urine Bacteria Many /HPF (0-FEW) O2 Saturation 99 % (92-99) Arterial Blood pH 7.34 (7.35-7.45) Arterial Blood pCO2 at Patient Temp 28 mmHg (35-46) Arterial Blood pO2 at Patient Temp > 503 mmHg (65-108) Arterial Blood HCO3 15 mmol/L (21-28) Arterial Blood Base Excess -9 mmol/L (-3-3) FiO2 100 Test 12/24/18 08:05 Influenza Type A Antigen Negative (NEGATIVE) Influenza Type B Antigen Negative (NEGATIVE) Laboratory Tests Test 12/24/18 03:30 12/24/18 03:42 12/24/18 04:38 12/24/18 07:55 White Blood Count 2.4 x10^3/uL (4.0-11.0) Red Blood Count 3.91 x10^6/uL (4.30-5.70) Hemoglobin 11.5 g/dL (13.0-17.5) Hematocrit 34.8 % (39.0-53.0) Mean Corpuscular Volume 89 fL (79-100) Mean Corpuscular Hemoglobin 30 pg (25-35) Mean Corpuscular Hemoglobin Concent 33 g/dL (31-37) Red Cell Distribution Width 15.8 % (11.5-14.5) Platelet Count 238 x10^3/uL (140-400) Neutrophils (%) (Auto) 84 % (31-73) Lymphocytes (%) (Auto) 14 % (24-48) Monocytes (%) (Auto) 1 % (0-9) Eosinophils (%) (Auto) 1 % (0-3) Basophils (%) (Auto) 0 % (0-3) Neutrophils # (Auto) 2.0 x10^3uL (1.8-7.7) Lymphocytes # (Auto) 0.3 x10^3/uL (1.0-4.8) Monocytes # (Auto) 0.0 x10^3/uL (0.0-1.1) Eosinophils # (Auto) 0.0 x10^3/uL (0.0-0.7) Basophils # (Auto) 0.0 x10^3/uL (0.0-0.2) Sodium Level 140 mmol/L (136-145) Potassium Level 3.5 mmol/L (3.5-5.1) Chloride Level 103 mmol/L (98-107) Carbon Dioxide Level 19 mmol/L (21-32) Anion Gap 18 (6-14) Blood Urea Nitrogen 33 mg/dL (8-26) Creatinine 1.6 mg/dL (0.7-1.3) Estimated GFR (Cockcroft-Gault) 50.6 BUN/Creatinine Ratio 21 (6-20) Glucose Level 144 mg/dL (70-99) Lactic Acid Level 6.0 mmol/L (0.4-2.0) 4.3 mmol/L (0.4-2.0) Calcium Level 9.0 mg/dL (8.5-10.1) Phosphorus Level 2.0 mg/dL (2.6-4.7) Magnesium Level 1.4 mg/dL (1.8-2.4) Total Bilirubin 0.6 mg/dL (0.2-1.0) Aspartate Amino Transf (AST/SGOT) 87 U/L (15-37) Alanine Aminotransferase (ALT/SGPT) 81 U/L (16-63) Alkaline Phosphatase 100 U/L (46-116) Troponin I Quantitative 0.071 ng/mL (0.000-0.055) 1.048 ng/mL (0.000-0.055) ZP-Bnw-J-Type Natriuretic Peptide 1938 pg/mL (0-449) Total Protein 6.9 g/dL (6.4-8.2) Albumin 3.2 g/dL (3.4-5.0) Albumin/Globulin Ratio 0.9 (1.0-1.7) Procalcitonin 11.87 ng/mL (0.00-0.10) Urine Collection Type Unknown Urine Color Ana Urine Clarity Turbid Urine pH 8.5 Urine Specific [place] 1.025 Urine Protein >=300 mg/dL (NEG-TRACE) Urine Glucose (UA) 250 mg/dL (NEG) Urine Ketones (Stick) Negative mg/dL (NEG) Urine Blood Negative (NEG) Urine Nitrite Negative (NEG) Urine Bilirubin Small (NEG) Urine Urobilinogen Dipstick 0.2 mg/dL (0.2 mg/dL) Urine Leukocyte Esterase Large (NEG) Urine RBC 0 /HPF (0-2) Urine WBC 1-4 /HPF (0-4) Urine Amorphous Sediment Present /HPF Urine Bacteria Many /HPF (0-FEW) O2 Saturation 99 % (92-99) Arterial Blood pH 7.34 (7.35-7.45) Arterial Blood pCO2 at Patient Temp 28 mmHg (35-46) Arterial Blood pO2 at Patient Temp > 503 mmHg (65-108) Arterial Blood HCO3 15 mmol/L (21-28) Arterial Blood Base Excess -9 mmol/L (-3-3) FiO2 100 Test 12/24/18 08:05 Influenza Type A Antigen Negative (NEGATIVE) Influenza Type B Antigen Negative (NEGATIVE) Medications Active Scripts Medications Dose Route/Sig Max Daily Dose Days Date Category Warfarin Sodium 6 Mg Tablet 8 Mg PO HS 12/24/18 Reported Miralax (Polyethylene Glycol 3350) 17 Gm Powd.pack 1 Packet PO PRN DAILY PRN 03/19/18 Reported Milk Of Magnesia (Magnesium Hydroxide) 400 Mg/5 Ml Oral.susp 400 Mg PO PRN DAILY PRN 03/19/18 Reported Megace Es (Megestrol Acetate) 625 Mg/5 Ml Oral.susp 400 Mg PO 03/19/18 Reported Senna Plus Tablet (Sennosides/Docusate Sodium) 1 Each Tablet 1 Each PO 03/19/18 Reported Aspirin 325 Mg Tablet 1 Tab PO DAILY 03/19/18 Reported Keppra (Levetiracetam) 500 Mg Tablet 500 Mg PO BID 03/05/18 Reported Vitamin D3 (Cholecalciferol (Vitamin D3)) 1,000 Unit Tablet 400 Unit PO DAILY 03/05/18 Reported Trazodone Hcl 50 Mg Tablet 1 Tab PO QHS 03/05/18 Reported Tylenol (Acetaminophen) 325 Mg Tablet 1-2 Tab PO PRN Q4HRS PRN 03/05/18 Reported Losartan Potassium 50 Mg Tablet 50 Mg PO DAILY 11/28/17 Reported Impression . SEPSTIC SHOCK SEE ORDERS SPOKE WITH FAMILY WILL CONSULT PALLIATIVE CARE FOR ASSISTANCE IN GOALS OF CARE TORSTEN KEE MD Dec 24, 2018 10:23
--- NOTE | 2018-12-24 10:40 | EKG ---
[facility] [address] [place] [address] Test Date: 2018-12-24 Test Time: 03:52:46 Pat Name: ARIEL TORRES Department: Room: 103 1 Gender: M Editorial Manager: : 1940 Requested By: CASSANDRA PEREZ Order Number: [id number] Reading MD: Ming Prabhakar Measurements Intervals [place] Rate: 135 P: CO: QRS: 19 QRSD: 126 T: 23 QT: 338 QTc: 512 Interpretive Statements SINUS TACHYCARDIA ATRIAL PREMATURE COMPLEXES RIGHT BUNDLE BRANCH BLOCK QRS(T) CONTOUR ABNORMALITY CONSIDER ANTEROLATERAL MYOCARDIAL DAMAGE ABNORMAL ECG Electronically Signed On 12-30-2018 11:04:16 PLAYER SERVICES REPRESENTATIVE by Ming Prabhakar
[2018-12-24] MEDS: PIPERACILLIN/TAZOBACTAM 3.375 GM in IV NORMAL SALINE 50ML 50 ML IV SCH ×3 (10:45→23:40)
[2018-12-24] MEDS: IV NORMAL SALINE 1000ML BAG 1,000 ML IV SCH ×3 (11:15→20:20)
--- NOTE | 2018-12-24 11:27 | PDOC2 ---
PALLIATIVE CARE Palliative Care Note Palliative Care Consult requested by Dr. Wong to address goals of care. Patient know to PC from previous admission. patient from [facility]. Medical Assessment per medical record Septic Shock. Patient on Vent. Spoke with son Sarkis. Discussed goals. Sarkis wants to continue with Full Code Full Aggressive Care. LYNDSEY KELLY Dec 24, 2018 11:27
[2018-12-24] MEDS ORDERED: PIPERACILLIN/TAZOBACTAM 4.5 GM in IV NORMAL SALINE 100ML 100 ML IV SCH (12:00)
--- NOTE | 2018-12-24 12:00 | EKG ---
[facility] [address] [place] [address] Test Date: 2018-12-24 Test Time: 04:15:08 Pat Name: ARIEL TORRES Department: Room: 103 1 Gender: [id number] Operator: : 1940 Requested By: CASSANDRA PEREZ Order Number: [id number] Reading MD: Fly Lanza MD Measurements Intervals [place] Rate: 98 P: [place]: QRS: 15 QRSD: 124 T: 10 QT: 398 QTc: 510 Interpretive Statements SR PAC'S Electronically Signed On 12-30-2018 10:25:35 SORTER OPERATOR by Fly Lanza MD
--- NOTE | 2018-12-24 14:57 | PDOC1 ---
History and Physical Date of Admission Date of Admission 12/24/2018 Identification/Chief Complaint Chief Complaint metabolic encephalopathy Problems: (1) Acute sepsis (2) UTI (urinary tract infection) due to urinary indwelling catheter Source Source: Chart review, Unable to obtain due to (Other) History of Present Illness History of Present Illness Patient is a 78-year-old gentleman with past medical history of hypertension dementia left-sided weakness and right-sided gaze secondary to a venous anastomosis on CPAP who was in his usual state of health until the morning of his admission when staff at his senior living facility checked on him and they reported decreased consciousness. Patient seems to be nonresponsive and EMS was summoned and transported to our emergency department. The patient was found to have a very low Karel Coma Scale and most likely he was not able to protect his airway and got intubated in the emergency department subsequently admitted to the ICU for further evaluation treatment. At the present time he is working diagnosis is septic shock secondary to urinary tract infection most likely secondary to chronic indwelling catheter he has a suprapubic catheter since his last admission which was October 09 to the 2017. The patient also had a rectal temperature of 91.8 during my assessment. There are no members at bedside from his family that could help with the history taking review of the chart has been done ER history: Patient is an 78-year-old male who presents from senior care with mental status change. Medics indicate that upon their arrival after evaluating patient they rated him with GCS of 4. Patient with irregular respirations. Medics report that patient's axillary temperature was 99.3. Unable to further assess history due to patient mental status. Past Medical History Cardiovascular: HTN Pulmonary: Other CENTRAL NERVOUS SYSTEM: CVA, Dementia, Seizure, TIA, Other Heme/Onc: B12 deficiency Psych: Anxiety Renal/: UTI, Benign prostatic enlarg., Urinary Incontinence Endocrine: Osteoporosis Past Surgical History Past Surgical History: Total hip replacement Family History Family History: Alzheimer's Disease, Hypertension, Other Social History ALCOHOL: none Drugs: None, Ecstasy Current Problem List Problem List Problems Medical Problems: (1) Acute sepsis Status: Acute (2) UTI (urinary tract infection) due to urinary indwelling catheter Status: Acute Current Medications Current Medications Current Medications Medications (Trade) Dose Ordered Sig/Nayely Start Time Stop Time Status Last Admin Dose Admin Dopamine HCl/ Dextrose 250 ml @ 3.674 mls/ hr 1X ONCE 12/24/18 05:15 12/27/18 01:17 12/24/18 05:22 18.371 MLS/HR Etomidate (Amidate) 20 mg 1X ONCE 12/24/18 04:30 12/24/18 04:31 DC 12/24/18 03:32 20 MG Hydrocortisone Sodium Succinate (Solu-CORTEF) 300 mg 1X ONCE 12/24/18 06:00 12/24/18 06:01 DC 12/24/18 10:33 300 MG Levofloxacin/ Dextrose 100 ml @ 100 mls/hr 1X ONCE 12/24/18 04:00 12/24/18 04:59 DC 12/24/18 05:28 100 MLS/HR Linezolid/Dextrose 300 ml @ 300 mls/hr Q12HR 12/24/18 11:00 12/24/18 10:37 300 MLS/HR Midazolam HCl (Versed) 5 mg 1X ONCE 12/24/18 04:45 12/24/18 04:46 DC 12/24/18 04:45 5 MG Norepinephrine Bitartrate 250 ml @ 0 mls/hr CONT PRN 12/24/18 10:15 Piperacillin Sod/ Tazobactam Sod 3.375 gm/Sodium Chloride 50 ml @ 100 mls/hr Q6HRS 12/24/18 12:00 12/24/18 10:45 100 MLS/HR Piperacillin Sod/ Tazobactam Sod 4.5 gm/Sodium Chloride 100 ml @ 200 mls/hr Q6HRS 12/24/18 12:00 UNV Sodium Chloride 1,000 ml @ 150 mls/hr Q6H40M 12/24/18 11:15 Vecuronium [place] (Norcuron Bolus) 20 mg 1X ONCE 12/24/18 04:30 12/24/18 04:31 DC 12/24/18 03:32 20 MG Allergies Allergies Allergies Coded Allergies Type Severity Reaction Last Updated Verified vancomycin Allergy Intermediate 12/02/17 Yes I S O L A T I O N *CONTACT* Allergy Unknown 04/07/18 Yes ROS Review of System Able to obtain secondary to septic shock patient is intubated and sedated Physical Exam Physical Exam GEN.: Chronically ill-appearing sedated on mechanical ventilation. HEENT: Head is normocephalic, atraumatic NECK: Supple normal range of motion no tenderness LUNGS: Coarse breath sounds bilaterally. HEART: S1, S2 irregular with tachycardia present. Peripheral pulses intact ABDOMEN: Soft, nontender. Hypoactive bowel sounds. EXTREMITIES: Without any cyanosis. NEUROLOGIC: Sedated PSYCHIATRIC: Unable to assess. SKIN: No ulcerations warm and dry Vitals Vitals Vital Signs Date Time Temp Pulse Resp B/P (MAP) Pulse Ox O2 Delivery O2 Flow Rate FiO2 12/24/18 14:27 100 Ventilator 12/24/18 10:15 92.2 100 20 114/78 (90) 92.2 Labs Labs Laboratory Tests Test 12/24/18 03:30 12/24/18 03:42 12/24/18 04:38 12/24/18 07:55 White Blood Count 2.4 x10^3/uL (4.0-11.0) Red Blood Count 3.91 x10^6/uL (4.30-5.70) Hemoglobin 11.5 g/dL (13.0-17.5) Hematocrit 34.8 % (39.0-53.0) Mean Corpuscular Volume 89 fL (79-100) Mean Corpuscular Hemoglobin 30 pg (25-35) Mean Corpuscular Hemoglobin Concent 33 g/dL (31-37) Red Cell Distribution Width 15.8 % (11.5-14.5) Platelet Count 238 x10^3/uL (140-400) Neutrophils (%) (Auto) 84 % (31-73) Lymphocytes (%) (Auto) 14 % (24-48) Monocytes (%) (Auto) 1 % (0-9) Eosinophils (%) (Auto) 1 % (0-3) Basophils (%) (Auto) 0 % (0-3) Neutrophils # (Auto) 2.0 x10^3uL (1.8-7.7) Lymphocytes # (Auto) 0.3 x10^3/uL (1.0-4.8) Monocytes # (Auto) 0.0 x10^3/uL (0.0-1.1) Eosinophils # (Auto) 0.0 x10^3/uL (0.0-0.7) Basophils # (Auto) 0.0 x10^3/uL (0.0-0.2) Sodium Level 140 mmol/L (136-145) Potassium Level 3.5 mmol/L (3.5-5.1) Chloride Level 103 mmol/L (98-107) Carbon Dioxide Level 19 mmol/L (21-32) Anion Gap 18 (6-14) Blood Urea Nitrogen 33 mg/dL (8-26) Creatinine 1.6 mg/dL (0.7-1.3) Estimated GFR (Cockcroft-Gault) 50.6 BUN/Creatinine Ratio 21 (6-20) Glucose Level 144 mg/dL (70-99) Lactic Acid Level 6.0 mmol/L (0.4-2.0) 4.3 mmol/L (0.4-2.0) Calcium Level 9.0 mg/dL (8.5-10.1) Phosphorus Level 2.0 mg/dL (2.6-4.7) Magnesium Level 1.4 mg/dL (1.8-2.4) Total Bilirubin 0.6 mg/dL (0.2-1.0) Aspartate Amino Transf (AST/SGOT) 87 U/L (15-37) Alanine Aminotransferase (ALT/SGPT) 81 U/L (16-63) Alkaline Phosphatase 100 U/L (46-116) Troponin I Quantitative 0.071 ng/mL (0.000-0.055) 1.048 ng/mL (0.000-0.055) CO-Omi-S-Type Natriuretic Peptide 1938 pg/mL (0-449) Total Protein 6.9 g/dL (6.4-8.2) Albumin 3.2 g/dL (3.4-5.0) Albumin/Globulin Ratio 0.9 (1.0-1.7) Procalcitonin 11.87 ng/mL (0.00-0.10) Urine Collection Type Unknown Urine Color Ana Urine Clarity Turbid Urine pH 8.5 Urine Specific [place] 1.025 Urine Protein >=300 mg/dL (NEG-TRACE) Urine Glucose (UA) 250 mg/dL (NEG) Urine Ketones (Stick) Negative mg/dL (NEG) Urine Blood Negative (NEG) Urine Nitrite Negative (NEG) Urine Bilirubin Small (NEG) Urine Urobilinogen Dipstick 0.2 mg/dL (0.2 mg/dL) Urine Leukocyte Esterase Large (NEG) Urine RBC 0 /HPF (0-2) Urine WBC 1-4 /HPF (0-4) Urine Amorphous Sediment Present /HPF Urine Bacteria Many /HPF (0-FEW) O2 Saturation 99 % (92-99) Arterial Blood pH 7.34 (7.35-7.45) Arterial Blood pCO2 at Patient Temp 28 mmHg (35-46) Arterial Blood pO2 at Patient Temp > 503 mmHg (65-108) Arterial Blood HCO3 15 mmol/L (21-28) Arterial Blood Base Excess -9 mmol/L (-3-3) FiO2 100 Test 12/24/18 08:05 12/24/18 13:30 Influenza Type A Antigen Negative (NEGATIVE) Influenza Type B Antigen Negative (NEGATIVE) Troponin I Quantitative 1.251 ng/mL (0.000-0.055) Laboratory Tests Test 12/24/18 03:30 12/24/18 03:42 12/24/18 04:38 12/24/18 07:55 White Blood Count 2.4 x10^3/uL (4.0-11.0) Red Blood Count 3.91 x10^6/uL (4.30-5.70) Hemoglobin 11.5 g/dL (13.0-17.5) Hematocrit 34.8 % (39.0-53.0) Mean Corpuscular Volume 89 fL (79-100) Mean Corpuscular Hemoglobin 30 pg (25-35) Mean Corpuscular Hemoglobin Concent 33 g/dL (31-37) Red Cell Distribution Width 15.8 % (11.5-14.5) Platelet Count 238 x10^3/uL (140-400) Neutrophils (%) (Auto) 84 % (31-73) Lymphocytes (%) (Auto) 14 % (24-48) Monocytes (%) (Auto) 1 % (0-9) Eosinophils (%) (Auto) 1 % (0-3) Basophils (%) (Auto) 0 % (0-3) Neutrophils # (Auto) 2.0 x10^3uL (1.8-7.7) Lymphocytes # (Auto) 0.3 x10^3/uL (1.0-4.8) Monocytes # (Auto) 0.0 x10^3/uL (0.0-1.1) Eosinophils # (Auto) 0.0 x10^3/uL (0.0-0.7) Basophils # (Auto) 0.0 x10^3/uL (0.0-0.2) Sodium Level 140 mmol/L (136-145) Potassium Level 3.5 mmol/L (3.5-5.1) Chloride Level 103 mmol/L (98-107) Carbon Dioxide Level 19 mmol/L (21-32) Anion Gap 18 (6-14) Blood Urea Nitrogen 33 mg/dL (8-26) Creatinine 1.6 mg/dL (0.7-1.3) Estimated GFR (Cockcroft-Gault) 50.6 BUN/Creatinine Ratio 21 (6-20) Glucose Level 144 mg/dL (70-99) Lactic Acid Level 6.0 mmol/L (0.4-2.0) 4.3 mmol/L (0.4-2.0) Calcium Level 9.0 mg/dL (8.5-10.1) Phosphorus Level 2.0 mg/dL (2.6-4.7) Magnesium Level 1.4 mg/dL (1.8-2.4) Total Bilirubin 0.6 mg/dL (0.2-1.0) Aspartate Amino Transf (AST/SGOT) 87 U/L (15-37) Alanine Aminotransferase (ALT/SGPT) 81 U/L (16-63) Alkaline Phosphatase 100 U/L (46-116) Troponin I Quantitative 0.071 ng/mL (0.000-0.055) 1.048 ng/mL (0.000-0.055) DM-Woj-J-Type Natriuretic Peptide 1938 pg/mL (0-449) Total Protein 6.9 g/dL (6.4-8.2) Albumin 3.2 g/dL (3.4-5.0) Albumin/Globulin Ratio 0.9 (1.0-1.7) Procalcitonin 11.87 ng/mL (0.00-0.10) Urine Collection Type Unknown Urine Color Ana Urine Clarity Turbid Urine pH 8.5 Urine Specific [place] 1.025 Urine Protein >=300 mg/dL (NEG-TRACE) Urine Glucose (UA) 250 mg/dL (NEG) Urine Ketones (Stick) Negative mg/dL (NEG) Urine Blood Negative (NEG) Urine Nitrite Negative (NEG) Urine Bilirubin Small (NEG) Urine Urobilinogen Dipstick 0.2 mg/dL (0.2 mg/dL) Urine Leukocyte Esterase Large (NEG) Urine RBC 0 /HPF (0-2) Urine WBC 1-4 /HPF (0-4) Urine Amorphous Sediment Present /HPF Urine Bacteria Many /HPF (0-FEW) O2 Saturation 99 % (92-99) Arterial Blood pH 7.34 (7.35-7.45) Arterial Blood pCO2 at Patient Temp 28 mmHg (35-46) Arterial Blood pO2 at Patient Temp > 503 mmHg (65-108) Arterial Blood HCO3 15 mmol/L (21-28) Arterial Blood Base Excess -9 mmol/L (-3-3) FiO2 100 Test 12/24/18 08:05 12/24/18 13:30 Influenza Type A Antigen Negative (NEGATIVE) Influenza Type B Antigen Negative (NEGATIVE) Troponin I Quantitative 1.251 ng/mL (0.000-0.055) VTE Prophylaxis Ordered VTE Prophylaxis Devices: Yes VTE Pharmacological Prophylaxi: Yes Assessment/Plan Assessment/Plan Septic shock secondary to urinary tract infection secondary to chronic indwelling urinary suprapubic catheter history of acute venous sinus thrombosis on CTA head/neck on chronic anticoagulation with coumadin Left Sided weakness and right-sided gaze, on last admission which had resolved History dementia, seizures History of essential Hypertension History of BPH, Indwelling suprapubic catheter History of complicated UTI in a male sec to indwelling FC Plan; Continue supportive measures in the ICU Continue pressors Mechanical ventilation as per Dr. Wong We'll discuss with family members goals of therapy further recommendations based on clinical course. Problem Qualifiers (1) UTI (urinary tract infection) due to urinary indwelling catheter: Indwelling urinary catheter type: unspecified Encounter type: initial encounter Qualified Codes: T83.511A - Infection and inflammatory reaction due to indwelling urethral catheter, initial encounter; N39.0 - Urinary tract infection, site not specified KESHA HILLS MD Dec 24, 2018 14:57
[2018-12-24 15:03] LABS: BASE EXCESS ABG -10 mmol/L (-3-3); FIO2 ABG 40; HCO3 ABG 15 mmol/L (21-28); PCO2 ABG 28 mmHg (35-46); PO2 ABG 108 mmHg (65-108); SAT O2 ABG 97 % (92-99)
--- NOTE | 2018-12-24 17:00 | NUR ---
BP improved with fluids and able to take off Levo but temp took quite a while to reach 98. Took Emigdio hugger off but had to place back on as temp headed back down. Pt started to open eyes with stimulation and over breath vent. Placed on low dose propofol and will titrate as needed. If BP lower will place Levo back on.
[2018-12-24] MEDS: PROPOFOL 100 ML IV PRN (17:23)
[2018-12-24] MEDS: PANTOPRAZOLE IV PUSH 40 MG VIAL. IVP SCH (20:24)
[2018-12-24] MEDS: ENOXAPARIN 30 MG/0.3 ML SYRINGE. SQ SCH (20:25)
--- NOTE | 2018-12-24 20:30 | NUR ---
Pt has on OGT that was found to be defective. Tube feeding is coming out around the blue air port and leaking on the bed. No tube feeding noted in the OGT. Tube was removed and a #16 OGT was inserted without difficulty. KUB was done for placement verification and Jevity 1.2 was restarted at 20cc/hr. Patient showed no response during the procedure. Warming blanket was removed due to patients temp up to 100.8 axillary now. Patient will open eyes occasionally but does not follow commands at this time.
--- NOTE | 2018-12-24 20:46 | RAD ---
Indication:OGT placement TECHNIQUE:Single AP view of the abdomen COMPARISON: None FINDINGS: OG tube is seen with its tip in the distal stomach. Visualized lung bases are clear. No abnormally dilated bowel loops. Visualized bones are within normal limits. Partially visualized is right IJ catheter with its tip at the cavoatrial junction. IMPRESSION: Tip of the OG tube is in the distal stomach. Electronically signed by: Efren Rainey DO (12/24/2018 8:43 PM) [facility]
[2018-12-25] VITALS (25 sets, daily range): BP systolic 82–126; BP diastolic 46–71
--- NOTE | 2018-12-25 02:13 | CONS ---
DATE OF CONSULTATION: 12/24/2018 ATTENDING PHYSICIAN: Josh Betancourt MD. REASON FOR CONSULTATION: The patient is seen in pulmonary consultation at the request of Dr. Betancourt for acute respiratory failure. HISTORY OF PRESENT ILLNESS: The patient is an 78-year-old male that presented from retirement with decreased level of consciousness. His initial GCS was 3-4. He was emergently intubated in the Emergency Department. Axillary temperature was 99. The patient was hypotensive. He was given IV fluids. I spoke with Dr. Shaquille Fisher earlier this morning. The patient presented with possible septic shock. He was given IV fluids, started on Levophed. He was also given broad spectrum antibiotics including Zyvox, Levaquin and Zosyn. He is currently in the Intensive Care Unit. He is actually off of Levophed. He is currently not sedated. The patient does not respond to verbal stimuli. He does respond to painful stimuli. His son who was at the bedside states that the patient was doing well yesterday. In fact, he was feeding himself. He resides at a retirement. He has had a suprapubic catheter in place for approximately 9 months. The patient is nonmobile. He spends most of his time in a wheelchair. PAST MEDICAL HISTORY: Remarkable for dementia, hypertension, renal failure, seizures, CVA, previous generalized weakness. He has had vitamin B12 deficiency, BPH, urinary incontinence, status post previous total hip replacement and suprapubic catheter replacement. FAMILY HISTORY: Alzheimer's, hypertension. HOME MEDICATIONS: List was reviewed. The patient was not on chronic steroids. He was on anticoagulation, I believe for previous cerebral sinus thrombosis. He was also receiving Keppra for seizures. REVIEW OF SYSTEMS: Unobtainable secondary to the patient's condition. CURRENT MEDICATION: List was reviewed. PHYSICAL EXAMINATION: GENERAL: The patient was in the Intensive Care Unit. VITAL SIGNS: Currently stable. O2 saturation was greater than 92%. HEENT: Eyes: The sclerae were nonicteric. NECK: Jugular venous distention was not elevated. No lymphadenopathy. CHEST: Full expansion. LUNGS: Scattered crackles, no wheezes. CARDIOVASCULAR: Regular rate and rhythm with S1, S2, no S3. ABDOMEN: Soft. Suprapubic catheter in place. EXTREMITIES: No clubbing, cyanosis, muscle wasting. NEUROLOGIC: The patient was not sedated. He responded to painful stimuli. LABORATORY DATA: Influenza screen was negative. UA was noted. He had large amount of leukocyte esterase with 1-4 wbc's. Lactic acid level decreased from 6 down to 4.3. His troponin level was elevated. His procalcitonin level was markedly elevated. BUN and creatinine were elevated. Albumin was low. Arterial blood gas 7.34, PaCO2 of 28, PaO2 of 503, bicarbonate was 15. White count was low. Hemoglobin and hematocrit were noted. Chest x-ray revealed bilateral infiltrates. IMPRESSION: 1. Acute respiratory failure, multifactorial. 2. Septic shock. 3. Possible urinary tract infection. 4. History of cerebrovascular accident and dementia. 5. Prior questionable history of cerebral sinus thrombosis. 6. Seizures. 7. Generalized weakness. 8. Protein malnutrition, present upon admission. 9. Leukopenia. 10. Acute on chronic renal failure. 11. Metabolic acidosis from sepsis. PLAN: 1. Continue current support with assist control ventilation, repeat arterial blood gas. 2. IV fluids. 3. Pressors for mean arterial pressure above 60. 4. DVT and GI prophylaxis. 5. Start enteral feeding. 6. Broad spectrum antibiotics with Zosyn and Zyvox. 7. [id number] metabolic toxic encephalopathy, present upon admission. 8. Consult Infectious Disease Service, already performed. I do appreciate the privilege in sharing in the patient's care. I spent 10-15 minutes discussing advanced directive with the family including the son and the patient's significant other. There is one other additional brother that will be coming in to visit. I will consult palliative care for assistance and establishing goals of care. Total cumulative critical care time of 50 minutes. TORSTEN KEE MD DR: PHILIPP/katherine JOB#: [id number] / [id number]
[2018-12-25] MEDS: IV NORMAL SALINE 1000ML BAG 1,000 ML IV SCH ×4 (02:53→21:09)
[2018-12-25] MEDS: PROPOFOL 100 ML IV PRN (03:45)
[2018-12-25] MEDS: PIPERACILLIN/TAZOBACTAM 3.375 GM in IV NORMAL SALINE 50ML 50 ML IV SCH ×3 (05:44→18:00)
--- NOTE | 2018-12-25 07:55 | PDOC ---
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 sedated on vent skin nad Labs Lab Laboratory Tests Test 12/24/18 07:55 12/24/18 08:00 12/24/18 08:05 12/24/18 13:30 Lactic Acid Level 4.3 mmol/L (0.4-2.0) Troponin I Quantitative 1.048 ng/mL (0.000-0.055) 1.251 ng/mL (0.000-0.055) Nasal Screen MRSA (PCR) Negative (Negative) Influenza Type A Antigen Negative (NEGATIVE) Influenza Type B Antigen Negative (NEGATIVE) Test 12/24/18 14:00 O2 Saturation 97 % (92-99) Arterial Blood pH 7.34 (7.35-7.45) Arterial Blood pCO2 at Patient Temp 28 mmHg (35-46) Arterial Blood pO2 at Patient Temp 108 mmHg (65-108) Arterial Blood HCO3 15 mmol/L (21-28) Arterial Blood Base Excess -10 mmol/L (-3-3) FiO2 40 Micro BC pending urine culture pending Objective Assessment Septic shock Hypothermia Leukopenia Lactic acidosis Suspected aspiration Respiratory failure TAZ Dehydration Dementia Plan Plan of Care zosyn ,,, levaquin x 1 zyvox check cultures, d/w Micro, bc bottles in lab without any orders, will give orders supportive care ESTEFANIA DUNCAN MD Dec 25, 2018 07:55
[2018-12-25 08:08] LABS: BASE EXCESS ABG -11 mmol/L (-3-3); HCO3 ABG 13 mmol/L (21-28); PCO2 ABG 23 mmHg (35-46); PO2 ABG 164 mmHg (65-108); SAT O2 ABG 98 % (92-99)
[2018-12-25] MEDS: PANTOPRAZOLE IV PUSH 40 MG VIAL. IVP SCH (08:12)
--- NOTE | 2018-12-25 08:14 | RAD ---
PORTABLE CHEST 1V 6:30 AM Clinical indications: respiratory failure COMPARISON: December 24, 2018. October 09, 2018 Findings: Chronic interstitial lung infiltrates are seen bilaterally. However, there appears to be an increase in interstitial and nodular lung infiltrate within the left lower lung zone. In addition, there is a new finding of blunting of the left lateral costophrenic angle consistent with a small left-sided pleural effusion. No pneumothorax is evident. There've been no interval tube or line changes. Heart size and mediastinum are stable. Impression: Increase in interstitial infiltrate within the left lower lung zone. Small left-sided pleural effusion. Therefore, pneumonia is possible. Electronically signed by: Raudel Laguerre MD (12/25/2018 8:11 AM) [facility]
[2018-12-25 08:20] LABS: BASO % 0 % (0-3); EOS % 0 % (0-3); HEMATOCRIT 30.3 % (39.0-53.0); HEMOGLOBIN 9.8 g/dL (13.0-17.5); LYMPH # 0.2 x10^3/uL (1.0-4.8); LYMPH % 2 % (24-48); MEAN CORPUSCULAR HEMOGLOBIN 29 pg (25-35); MEAN CORPUSCULAR HGB CONC 32 g/dL (31-37); MEAN CORPUSCULAR VOLUME 90 fL (79-100); MONO # 0.8 x10^3/uL (0.0-1.1); MONO % 6 % (0-9); NEUT # 12.8 x10^3uL (1.8-7.7); NEUT % 92 % (31-73); PLATELET COUNT 141 x10^3/uL (140-400); RED BLOOD COUNT 3.37 x10^6/uL (4.30-5.70); WHITE BLOOD COUNT 13.8 x10^3/uL (4.0-11.0)
[2018-12-25 08:37] LABS: ALBUMIN 2.2 g/dL (3.4-5.0); ALBUMIN/GLOBULIN RATIO 0.7 (1.0-1.7); CALCIUM 7.2 mg/dL (8.5-10.1); CREATININE 2.1 mg/dL (0.7-1.3); POTASSIUM 4.1 mmol/L (3.5-5.1); TOTAL BILIRUBIN 1.4 mg/dL (0.2-1.0); TOTAL PROTEIN 5.5 g/dL (6.4-8.2)
--- NOTE | 2018-12-25 08:46 | PDOC ---
PULMONARY PROGRESS NOTES Subjective SEDATED AC MODE ON LEVO Vitals Vital Signs Date Time Temp Pulse Resp B/P (MAP) Pulse Ox O2 Delivery O2 Flow Rate FiO2 12/25/18 08:31 Mechanical Ventilator 12/25/18 08:13 100 12/25/18 06:00 99 28 96/53 (67) 12/25/18 04:00 99.4 99.4 Lungs: Clear Cardiovascular: S1, S2 Abdomen: Soft Extremities: Other (EDEMA) Skin: Warm Labs Laboratory Tests Test 12/24/18 03:30 12/24/18 03:42 12/24/18 04:38 12/24/18 07:55 White Blood Count 2.4 x10^3/uL (4.0-11.0) Red Blood Count 3.91 x10^6/uL (4.30-5.70) Hemoglobin 11.5 g/dL (13.0-17.5) Hematocrit 34.8 % (39.0-53.0) Mean Corpuscular Volume 89 fL (79-100) Mean Corpuscular Hemoglobin 30 pg (25-35) Mean Corpuscular Hemoglobin Concent 33 g/dL (31-37) Red Cell Distribution Width 15.8 % (11.5-14.5) Platelet Count 238 x10^3/uL (140-400) Neutrophils (%) (Auto) 84 % (31-73) Lymphocytes (%) (Auto) 14 % (24-48) Monocytes (%) (Auto) 1 % (0-9) Eosinophils (%) (Auto) 1 % (0-3) Basophils (%) (Auto) 0 % (0-3) Neutrophils # (Auto) 2.0 x10^3uL (1.8-7.7) Lymphocytes # (Auto) 0.3 x10^3/uL (1.0-4.8) Monocytes # (Auto) 0.0 x10^3/uL (0.0-1.1) Eosinophils # (Auto) 0.0 x10^3/uL (0.0-0.7) Basophils # (Auto) 0.0 x10^3/uL (0.0-0.2) Sodium Level 140 mmol/L (136-145) Potassium Level 3.5 mmol/L (3.5-5.1) Chloride Level 103 mmol/L (98-107) Carbon Dioxide Level 19 mmol/L (21-32) Anion Gap 18 (6-14) Blood Urea Nitrogen 33 mg/dL (8-26) Creatinine 1.6 mg/dL (0.7-1.3) Estimated GFR (Cockcroft-Gault) 50.6 BUN/Creatinine Ratio 21 (6-20) Glucose Level 144 mg/dL (70-99) Lactic Acid Level 6.0 mmol/L (0.4-2.0) 4.3 mmol/L (0.4-2.0) Calcium Level 9.0 mg/dL (8.5-10.1) Phosphorus Level 2.0 mg/dL (2.6-4.7) Magnesium Level 1.4 mg/dL (1.8-2.4) Total Bilirubin 0.6 mg/dL (0.2-1.0) Aspartate Amino Transf (AST/SGOT) 87 U/L (15-37) Alanine Aminotransferase (ALT/SGPT) 81 U/L (16-63) Alkaline Phosphatase 100 U/L (46-116) Troponin I Quantitative 0.071 ng/mL (0.000-0.055) 1.048 ng/mL (0.000-0.055) GA-Apl-F-Type Natriuretic Peptide 1938 pg/mL (0-449) Total Protein 6.9 g/dL (6.4-8.2) Albumin 3.2 g/dL (3.4-5.0) Albumin/Globulin Ratio 0.9 (1.0-1.7) Procalcitonin 11.87 ng/mL (0.00-0.10) Urine Collection Type Unknown Urine Color Ana Urine Clarity Turbid Urine pH 8.5 Urine Specific [place] 1.025 Urine Protein >=300 mg/dL (NEG-TRACE) Urine Glucose (UA) 250 mg/dL (NEG) Urine Ketones (Stick) Negative mg/dL (NEG) Urine Blood Negative (NEG) Urine Nitrite Negative (NEG) Urine Bilirubin Small (NEG) Urine Urobilinogen Dipstick 0.2 mg/dL (0.2 mg/dL) Urine Leukocyte Esterase Large (NEG) Urine RBC 0 /HPF (0-2) Urine WBC 1-4 /HPF (0-4) Urine Amorphous Sediment Present /HPF Urine Bacteria Many /HPF (0-FEW) O2 Saturation 99 % (92-99) Arterial Blood pH 7.34 (7.35-7.45) Arterial Blood pCO2 at Patient Temp 28 mmHg (35-46) Arterial Blood pO2 at Patient Temp > 503 mmHg (65-108) Arterial Blood HCO3 15 mmol/L (21-28) Arterial Blood Base Excess -9 mmol/L (-3-3) FiO2 100 Test 12/24/18 08:00 12/24/18 08:05 12/24/18 13:30 12/24/18 14:00 Nasal Screen MRSA (PCR) Negative (Negative) Influenza Type A Antigen Negative (NEGATIVE) Influenza Type B Antigen Negative (NEGATIVE) Troponin I Quantitative 1.251 ng/mL (0.000-0.055) O2 Saturation 97 % (92-99) Arterial Blood pH 7.34 (7.35-7.45) Arterial Blood pCO2 at Patient Temp 28 mmHg (35-46) Arterial Blood pO2 at Patient Temp 108 mmHg (65-108) Arterial Blood HCO3 15 mmol/L (21-28) Arterial Blood Base Excess -10 mmol/L (-3-3) FiO2 40 Test 12/25/18 08:05 White Blood Count 13.8 x10^3/uL (4.0-11.0) Red Blood Count 3.37 x10^6/uL (4.30-5.70) Hemoglobin 9.8 g/dL (13.0-17.5) Hematocrit 30.3 % (39.0-53.0) Mean Corpuscular Volume 90 fL (79-100) Mean Corpuscular Hemoglobin 29 pg (25-35) Mean Corpuscular Hemoglobin Concent 32 g/dL (31-37) Red Cell Distribution Width 16.0 % (11.5-14.5) Platelet Count 141 x10^3/uL (140-400) Neutrophils (%) (Auto) 92 % (31-73) Lymphocytes (%) (Auto) 2 % (24-48) Monocytes (%) (Auto) 6 % (0-9) Eosinophils (%) (Auto) 0 % (0-3) Basophils (%) (Auto) 0 % (0-3) Neutrophils # (Auto) 12.8 x10^3uL (1.8-7.7) Lymphocytes # (Auto) 0.2 x10^3/uL (1.0-4.8) Monocytes # (Auto) 0.8 x10^3/uL (0.0-1.1) Eosinophils # (Auto) 0.0 x10^3/uL (0.0-0.7) Basophils # (Auto) 0.0 x10^3/uL (0.0-0.2) Sodium Level 142 mmol/L (136-145) Potassium Level 4.1 mmol/L (3.5-5.1) Chloride Level 110 mmol/L (98-107) Carbon Dioxide Level 14 mmol/L (21-32) Anion Gap 18 (6-14) Blood Urea Nitrogen 31 mg/dL (8-26) Creatinine 2.1 mg/dL (0.7-1.3) Estimated GFR (Cockcroft-Gault) 37.0 BUN/Creatinine Ratio 15 (6-20) Glucose Level 96 mg/dL (70-99) Calcium Level 7.2 mg/dL (8.5-10.1) Total Bilirubin 1.4 mg/dL (0.2-1.0) Aspartate Amino Transf (AST/SGOT) 338 U/L (15-37) Alanine Aminotransferase (ALT/SGPT) 450 U/L (16-63) Alkaline Phosphatase 63 U/L (46-116) Total Protein 5.5 g/dL (6.4-8.2) Albumin 2.2 g/dL (3.4-5.0) Albumin/Globulin Ratio 0.7 (1.0-1.7) Laboratory Tests Test 12/24/18 13:30 12/24/18 14:00 12/25/18 08:05 Troponin I Quantitative 1.251 ng/mL (0.000-0.055) O2 Saturation 97 % (92-99) Arterial Blood pH 7.34 (7.35-7.45) Arterial Blood pCO2 at Patient Temp 28 mmHg (35-46) Arterial Blood pO2 at Patient Temp 108 mmHg (65-108) Arterial Blood HCO3 15 mmol/L (21-28) Arterial Blood Base Excess -10 mmol/L (-3-3) FiO2 40 White Blood Count 13.8 x10^3/uL (4.0-11.0) Red Blood Count 3.37 x10^6/uL (4.30-5.70) Hemoglobin 9.8 g/dL (13.0-17.5) Hematocrit 30.3 % (39.0-53.0) Mean Corpuscular Volume 90 fL (79-100) Mean Corpuscular Hemoglobin 29 pg (25-35) Mean Corpuscular Hemoglobin Concent 32 g/dL (31-37) Red Cell Distribution Width 16.0 % (11.5-14.5) Platelet Count 141 x10^3/uL (140-400) Neutrophils (%) (Auto) 92 % (31-73) Lymphocytes (%) (Auto) 2 % (24-48) Monocytes (%) (Auto) 6 % (0-9) Eosinophils (%) (Auto) 0 % (0-3) Basophils (%) (Auto) 0 % (0-3) Neutrophils # (Auto) 12.8 x10^3uL (1.8-7.7) Lymphocytes # (Auto) 0.2 x10^3/uL (1.0-4.8) Monocytes # (Auto) 0.8 x10^3/uL (0.0-1.1) Eosinophils # (Auto) 0.0 x10^3/uL (0.0-0.7) Basophils # (Auto) 0.0 x10^3/uL (0.0-0.2) Sodium Level 142 mmol/L (136-145) Potassium Level 4.1 mmol/L (3.5-5.1) Chloride Level 110 mmol/L (98-107) Carbon Dioxide Level 14 mmol/L (21-32) Anion Gap 18 (6-14) Blood Urea Nitrogen 31 mg/dL (8-26) Creatinine 2.1 mg/dL (0.7-1.3) Estimated GFR (Cockcroft-Gault) 37.0 BUN/Creatinine Ratio 15 (6-20) Glucose Level 96 mg/dL (70-99) Calcium Level 7.2 mg/dL (8.5-10.1) Total Bilirubin 1.4 mg/dL (0.2-1.0) Aspartate Amino Transf (AST/SGOT) 338 U/L (15-37) Alanine Aminotransferase (ALT/SGPT) 450 U/L (16-63) Alkaline Phosphatase 63 U/L (46-116) Total Protein 5.5 g/dL (6.4-8.2) Albumin 2.2 g/dL (3.4-5.0) Albumin/Globulin Ratio 0.7 (1.0-1.7) Medications Active Scripts Medications Dose Route/Sig Max Daily Dose Days Date Category Warfarin Sodium 6 Mg Tablet 8 Mg PO HS 12/24/18 Reported Miralax (Polyethylene Glycol 3350) 17 Gm Powd.pack 1 Packet PO PRN DAILY PRN 03/19/18 Reported Milk Of Magnesia (Magnesium Hydroxide) 400 Mg/5 Ml Oral.susp 400 Mg PO PRN DAILY PRN 03/19/18 Reported Megace Es (Megestrol Acetate) 625 Mg/5 Ml Oral.susp 400 Mg PO 03/19/18 Reported Senna Plus Tablet (Sennosides/Docusate Sodium) 1 Each Tablet 1 Each PO 03/19/18 Reported Aspirin 325 Mg Tablet 1 Tab PO DAILY 03/19/18 Reported Keppra (Levetiracetam) 500 Mg Tablet 500 Mg PO BID 03/05/18 Reported Vitamin D3 (Cholecalciferol (Vitamin D3)) 1,000 Unit Tablet 400 Unit PO DAILY 03/05/18 Reported Trazodone Hcl 50 Mg Tablet 1 Tab PO QHS 03/05/18 Reported Tylenol (Acetaminophen) 325 Mg Tablet 1-2 Tab PO PRN Q4HRS PRN 03/05/18 Reported Losartan Potassium 50 Mg Tablet 50 Mg PO DAILY 11/28/17 Reported Impression . IMPRESSION: 1. Acute respiratory failure, multifactorial. 2. Septic shock. 3. Possible urinary tract infection. 4. History of cerebrovascular accident and dementia. 5. Prior questionable history of cerebral sinus thrombosis. 6. Seizures. 7. Generalized weakness. 8. Protein malnutrition, present upon admission. 9. Leukopenia. 10. Acute on chronic renal failure. 11. Metabolic acidosis from sepsis. Plan . ANITBX PER ID DC DIPRIVAN TRY PRECEDEX DECREASE LEVO NOT READY FOR WEAN TUBE FEEDING PT FULL CODE PER FAMILY 1. Continue current support with assist control ventilation, repeat arterial blood gas. 2. IV fluids. 3. Pressors for mean arterial pressure above 60. 4. DVT and GI prophylaxis. 5. Start enteral feeding. 6. Broad spectrum antibiotics with Zosyn and Zyvox. 7. [id number] metabolic toxic encephalopathy, present upon admission. 8. Consult Infectious Disease Service, already performed. TORSTEN KEE MD Dec 25, 2018 08:46
[2018-12-25 09:37] LABS: FIO2 ABG 40
[2018-12-25] MEDS: MIDAZOLAM 100mg/100ml NS BAG 100 ML IV PRN (10:41)
[2018-12-25] MEDS: fentaNYL PF VIAL 100 MCG/2 ML VIAL IV PRN ×2 (11:07→12:20)
[2018-12-25 12:28] LABS: % BANDS 41 % (0-9); % LYMPHS 4 % (24-48); % METAS 5 % (0-0); % MONOS 4 % (0-10); % SEGS 46 % (35-66); ANISOCYTOSIS SLIGHT; PLT ESTIMATE ADEQUATE (ADEQUATE)
--- NOTE | 2018-12-25 12:28 | CONS ---
DATE OF CONSULTATION: 12/24/2018 Consulting physician: Dr Betancourt Reason for consult : Sepsis Computer systems were down hence hand written initial note was written. The patient was seen on and also discussed with the son at the bedside. HISTORY OF PRESENT ILLNESS: This is an 78-year-old -[place] gentleman who is a senior care resident who was brought in because of altered mental status. The patient evidently has been reasonably functional at senior care, although does have baseline CVA and memory deficit, but he was functional. He is able to feed himself and the patient presented with just 12 hours or so origin of change in his mental status. The patient had Raymond coma score of 4 when he presented to the ER, hence the patient was intubated. The patient had a temperature of 99.3 and had lactic acid of 6. BUN and creatinine high and white count was low. The patient was admitted as sepsis, possible respiratory infection and/or urinary infection since the patient also has chronic indwelling Jaquez catheter. We initiated Zyvox, Zosyn, and Levaquin and the patient was admitted to ICU on a ventilator. No nausea, vomiting, diarrhea noted. Evidently, according to the son, day before there was no other issue or fever or any sickness noted. PAST MEDICAL HISTORY: Positive for CVA, dementia, history of seizure disorder, hypertension, chronic indwelling Jaquez catheter, B12 deficiency, urinary incontinence, osteoporosis, total hip replacement. SOCIAL HISTORY: Negative for smoking, alcohol or illicit drug use. The patient is a senior care resident. ALLERGIES: EVIDENTLY LISTED ALLERGIC TO VANCOMYCIN, UNCLEAR WHAT HAPPENED. REVIEW OF SYSTEMS: As per HPI through the patient's nurse and patient's son done, which is mentioned in the HPI. CURRENT MEDICATIONS: Reviewed. PHYSICAL EXAMINATION: GENERAL: Sedated, orally intubated gentleman on a ventilator, not in distress. VITAL SIGNS: Stable with temperature had been down up to 91.8. HEENT: Both pupils are round and reacting. No conjunctival lesion. Orally intubated. NECK: Supple, no JVP, no lymphadenopathy. LUNGS: Decreased breath sounds bilaterally. HEART: S1, S2 regular. No gallop or murmur. ABDOMEN: Soft, nontender, nondistended. EXTREMITIES: No edema, cyanosis. SKIN: Unremarkable for any skin breakdown and/or any rash. NEUROLOGIC: Cannot be assessed as sedated, orally intubated. LABORATORY DATA: White count 2.4, hemoglobin 11.5, platelets are normal. Baseline WBC had been normal as of September. BUN and creatinine had been normal now 33 and 1.6. ALT, AST 87 and 81. Lactic acid 6. Urinalysis actually showed 1-4 wbc's. MRSA screen negative. Influenza screen negative. Chest x-ray unremarkable other than possible chronic changes. CT of the head was unremarkable for any acute changes. IMPRESSION: 1. Sepsis with lactic acidosis. 2. Hypothermia and leukopenia consistent with sepsis. 3. Possible aspiration pneumonia. 4. Dementia. 5. Seizure disorder. 6. History of hypertension. RECOMMENDATIONS: I have initiated Zyvox, Zosyn and Levaquin, supportive care, silverman cultures and we will continue to follow. Discussed with the patient's son at the bedside. Thank you very much, Dr. Betancourt, for giving me the opportunity to participate in this patient's care. ESTEFANIA DUNCAN MD DR: JAVAD/katherine JOB#: [id number] / [id number] ANDREA
[2018-12-25 12:29] LABS: ACANTHOCYTES MOD; POIKILOCYTOSIS PRESENT; SCHISTOCYTES OCC
--- NOTE | 2018-12-25 14:25 | PDOC ---
PROGRESS NOTES Chief Complaint Chief Complaint Septic shock secondary to urinary tract infection secondary to chronic indwelling urinary suprapubic catheter history of acute venous sinus thrombosis on CTA head/neck on chronic anticoagulation with coumadin Left Sided weakness and right-sided gaze, on last admission which had resolved History dementia, seizures History of essential Hypertension History of BPH, Indwelling suprapubic catheter History of complicated UTI in a male sec to indwelling FC Plan; Continue supportive measures in the ICU Continue pressors Mechanical ventilation as per Dr. Wong further recommendations based on clinical course. currently full code, may need to revisit goals of therapy with family if patient does not improved in the next couple of days History of Present Illness History of Present Illness remains critically stable, on a vent, patient tachypneic at the time of my visitl. adjusting sedation at the present time, patietn not following commands as per nursing staff does retract to painful stimuli Vitals Vitals Vital Signs Date Time Temp Pulse Resp B/P (MAP) Pulse Ox O2 Delivery O2 Flow Rate FiO2 12/25/18 13:33 100 12/25/18 13:20 Ventilator 12/25/18 13:00 109 28 99/60 (73) 12/25/18 10:00 99.1 99.1 Physical Exam Physical Exam GEN.: Chronically ill-appearing sedated on mechanical ventilation. HEENT: Head is normocephalic, atraumatic NECK: Supple normal range of motion no tenderness LUNGS: Coarse breath sounds bilaterally. HEART: S1, S2 irregular with tachycardia present. Peripheral pulses intact ABDOMEN: Soft, nontender. Hypoactive bowel sounds. EXTREMITIES: Without any cyanosis. NEUROLOGIC: Sedated PSYCHIATRIC: Unable to assess. SKIN: No ulcerations warm and dry Lungs: Clear Labs LABS Laboratory Tests Test 12/25/18 08:00 12/25/18 08:05 O2 Saturation 98 % (92-99) Arterial Blood pH 7.37 (7.35-7.45) Arterial Blood pCO2 at Patient Temp 23 mmHg (35-46) Arterial Blood pO2 at Patient Temp 164 mmHg (65-108) Arterial Blood HCO3 13 mmol/L (21-28) Arterial Blood Base Excess -11 mmol/L (-3-3) FiO2 40 White Blood Count 13.8 x10^3/uL (4.0-11.0) Red Blood Count 3.37 x10^6/uL (4.30-5.70) Hemoglobin 9.8 g/dL (13.0-17.5) Hematocrit 30.3 % (39.0-53.0) Mean Corpuscular Volume 90 fL (79-100) Mean Corpuscular Hemoglobin 29 pg (25-35) Mean Corpuscular Hemoglobin Concent 32 g/dL (31-37) Red Cell Distribution Width 16.0 % (11.5-14.5) Platelet Count 141 x10^3/uL (140-400) Neutrophils (%) (Auto) 92 % (31-73) Lymphocytes (%) (Auto) 2 % (24-48) Monocytes (%) (Auto) 6 % (0-9) Eosinophils (%) (Auto) 0 % (0-3) Basophils (%) (Auto) 0 % (0-3) Neutrophils # (Auto) 12.8 x10^3uL (1.8-7.7) Lymphocytes # (Auto) 0.2 x10^3/uL (1.0-4.8) Monocytes # (Auto) 0.8 x10^3/uL (0.0-1.1) Eosinophils # (Auto) 0.0 x10^3/uL (0.0-0.7) Basophils # (Auto) 0.0 x10^3/uL (0.0-0.2) Segmented Neutrophils % 46 % (35-66) Band Neutrophils % 41 % (0-9) Lymphocytes % 4 % (24-48) Monocytes % 4 % (0-10) Metamyelocytes % 5 % (0-0) Platelet Estimate Adequate (ADEQUATE) Large Platelets Present Poikilocytosis Present Anisocytosis Slight Acanthocytes Mod Schistocytes Occ Sodium Level 142 mmol/L (136-145) Potassium Level 4.1 mmol/L (3.5-5.1) Chloride Level 110 mmol/L (98-107) Carbon Dioxide Level 14 mmol/L (21-32) Anion Gap 18 (6-14) Blood Urea Nitrogen 31 mg/dL (8-26) Creatinine 2.1 mg/dL (0.7-1.3) Estimated GFR (Cockcroft-Gault) 37.0 BUN/Creatinine Ratio 15 (6-20) Glucose Level 96 mg/dL (70-99) Calcium Level 7.2 mg/dL (8.5-10.1) Total Bilirubin 1.4 mg/dL (0.2-1.0) Aspartate Amino Transf (AST/SGOT) 338 U/L (15-37) Alanine Aminotransferase (ALT/SGPT) 450 U/L (16-63) Alkaline Phosphatase 63 U/L (46-116) Total Protein 5.5 g/dL (6.4-8.2) Albumin 2.2 g/dL (3.4-5.0) Albumin/Globulin Ratio 0.7 (1.0-1.7) Review of Systems Review of Systems unable to assess due to sedation and et tube in place Assessment and Plan Assessmemt and Plan Problems Medical Problems: (1) Acute sepsis Status: Acute (2) UTI (urinary tract infection) due to urinary indwelling catheter Status: Acute Comment Review of Relevant I have reviewed the following items edgar (where applicable) has been applied. Labs Laboratory Tests Test 12/24/18 03:30 12/24/18 03:42 12/24/18 04:38 12/24/18 07:55 White Blood Count 2.4 x10^3/uL (4.0-11.0) Red Blood Count 3.91 x10^6/uL (4.30-5.70) Hemoglobin 11.5 g/dL (13.0-17.5) Hematocrit 34.8 % (39.0-53.0) Mean Corpuscular Volume 89 fL (79-100) Mean Corpuscular Hemoglobin 30 pg (25-35) Mean Corpuscular Hemoglobin Concent 33 g/dL (31-37) Red Cell Distribution Width 15.8 % (11.5-14.5) Platelet Count 238 x10^3/uL (140-400) Neutrophils (%) (Auto) 84 % (31-73) Lymphocytes (%) (Auto) 14 % (24-48) Monocytes (%) (Auto) 1 % (0-9) Eosinophils (%) (Auto) 1 % (0-3) Basophils (%) (Auto) 0 % (0-3) Neutrophils # (Auto) 2.0 x10^3uL (1.8-7.7) Lymphocytes # (Auto) 0.3 x10^3/uL (1.0-4.8) Monocytes # (Auto) 0.0 x10^3/uL (0.0-1.1) Eosinophils # (Auto) 0.0 x10^3/uL (0.0-0.7) Basophils # (Auto) 0.0 x10^3/uL (0.0-0.2) Sodium Level 140 mmol/L (136-145) Potassium Level 3.5 mmol/L (3.5-5.1) Chloride Level 103 mmol/L (98-107) Carbon Dioxide Level 19 mmol/L (21-32) Anion Gap 18 (6-14) Blood Urea Nitrogen 33 mg/dL (8-26) Creatinine 1.6 mg/dL (0.7-1.3) Estimated GFR (Cockcroft-Gault) 50.6 BUN/Creatinine Ratio 21 (6-20) Glucose Level 144 mg/dL (70-99) Lactic Acid Level 6.0 mmol/L (0.4-2.0) 4.3 mmol/L (0.4-2.0) Calcium Level 9.0 mg/dL (8.5-10.1) Phosphorus Level 2.0 mg/dL (2.6-4.7) Magnesium Level 1.4 mg/dL (1.8-2.4) Total Bilirubin 0.6 mg/dL (0.2-1.0) Aspartate Amino Transf (AST/SGOT) 87 U/L (15-37) Alanine Aminotransferase (ALT/SGPT) 81 U/L (16-63) Alkaline Phosphatase 100 U/L (46-116) Troponin I Quantitative 0.071 ng/mL (0.000-0.055) 1.048 ng/mL (0.000-0.055) ZL-Qcz-M-Type Natriuretic Peptide 1938 pg/mL (0-449) Total Protein 6.9 g/dL (6.4-8.2) Albumin 3.2 g/dL (3.4-5.0) Albumin/Globulin Ratio 0.9 (1.0-1.7) Procalcitonin 11.87 ng/mL (0.00-0.10) Urine Collection Type Unknown Urine Color Ana Urine Clarity Turbid Urine pH 8.5 Urine Specific [place] 1.025 Urine Protein >=300 mg/dL (NEG-TRACE) Urine Glucose (UA) 250 mg/dL (NEG) Urine Ketones (Stick) Negative mg/dL (NEG) Urine Blood Negative (NEG) Urine Nitrite Negative (NEG) Urine Bilirubin Small (NEG) Urine Urobilinogen Dipstick 0.2 mg/dL (0.2 mg/dL) Urine Leukocyte Esterase Large (NEG) Urine RBC 0 /HPF (0-2) Urine WBC 1-4 /HPF (0-4) Urine Amorphous Sediment Present /HPF Urine Bacteria Many /HPF (0-FEW) O2 Saturation 99 % (92-99) Arterial Blood pH 7.34 (7.35-7.45) Arterial Blood pCO2 at Patient Temp 28 mmHg (35-46) Arterial Blood pO2 at Patient Temp > 503 mmHg (65-108) Arterial Blood HCO3 15 mmol/L (21-28) Arterial Blood Base Excess -9 mmol/L (-3-3) FiO2 100 Test 12/24/18 08:00 12/24/18 08:05 12/24/18 13:30 12/24/18 14:00 Nasal Screen MRSA (PCR) Negative (Negative) Influenza Type A Antigen Negative (NEGATIVE) Influenza Type B Antigen Negative (NEGATIVE) Troponin I Quantitative 1.251 ng/mL (0.000-0.055) O2 Saturation 97 % (92-99) Arterial Blood pH 7.34 (7.35-7.45) Arterial Blood pCO2 at Patient Temp 28 mmHg (35-46) Arterial Blood pO2 at Patient Temp 108 mmHg (65-108) Arterial Blood HCO3 15 mmol/L (21-28) Arterial Blood Base Excess -10 mmol/L (-3-3) FiO2 40 Test 12/25/18 08:00 12/25/18 08:05 O2 Saturation 98 % (92-99) Arterial Blood pH 7.37 (7.35-7.45) Arterial Blood pCO2 at Patient Temp 23 mmHg (35-46) Arterial Blood pO2 at Patient Temp 164 mmHg (65-108) Arterial Blood HCO3 13 mmol/L (21-28) Arterial Blood Base Excess -11 mmol/L (-3-3) FiO2 40 White Blood Count 13.8 x10^3/uL (4.0-11.0) Red Blood Count 3.37 x10^6/uL (4.30-5.70) Hemoglobin 9.8 g/dL (13.0-17.5) Hematocrit 30.3 % (39.0-53.0) Mean Corpuscular Volume 90 fL (79-100) Mean Corpuscular Hemoglobin 29 pg (25-35) Mean Corpuscular Hemoglobin Concent 32 g/dL (31-37) Red Cell Distribution Width 16.0 % (11.5-14.5) Platelet Count 141 x10^3/uL (140-400) Neutrophils (%) (Auto) 92 % (31-73) Lymphocytes (%) (Auto) 2 % (24-48) Monocytes (%) (Auto) 6 % (0-9) Eosinophils (%) (Auto) 0 % (0-3) Basophils (%) (Auto) 0 % (0-3) Neutrophils # (Auto) 12.8 x10^3uL (1.8-7.7) Lymphocytes # (Auto) 0.2 x10^3/uL (1.0-4.8) Monocytes # (Auto) 0.8 x10^3/uL (0.0-1.1) Eosinophils # (Auto) 0.0 x10^3/uL (0.0-0.7) Basophils # (Auto) 0.0 x10^3/uL (0.0-0.2) Segmented Neutrophils % 46 % (35-66) Band Neutrophils % 41 % (0-9) Lymphocytes % 4 % (24-48) Monocytes % 4 % (0-10) Metamyelocytes % 5 % (0-0) Platelet Estimate Adequate (ADEQUATE) Large Platelets Present Poikilocytosis Present Anisocytosis Slight Acanthocytes Mod Schistocytes Occ Sodium Level 142 mmol/L (136-145) Potassium Level 4.1 mmol/L (3.5-5.1) Chloride Level 110 mmol/L (98-107) Carbon Dioxide Level 14 mmol/L (21-32) Anion Gap 18 (6-14) Blood Urea Nitrogen 31 mg/dL (8-26) Creatinine 2.1 mg/dL (0.7-1.3) Estimated GFR (Cockcroft-Gault) 37.0 BUN/Creatinine Ratio 15 (6-20) Glucose Level 96 mg/dL (70-99) Calcium Level 7.2 mg/dL (8.5-10.1) Total Bilirubin 1.4 mg/dL (0.2-1.0) Aspartate Amino Transf (AST/SGOT) 338 U/L (15-37) Alanine Aminotransferase (ALT/SGPT) 450 U/L (16-63) Alkaline Phosphatase 63 U/L (46-116) Total Protein 5.5 g/dL (6.4-8.2) Albumin 2.2 g/dL (3.4-5.0) Albumin/Globulin Ratio 0.7 (1.0-1.7) Laboratory Tests Test 12/25/18 08:00 12/25/18 08:05 O2 Saturation 98 % (92-99) Arterial Blood pH 7.37 (7.35-7.45) Arterial Blood pCO2 at Patient Temp 23 mmHg (35-46) Arterial Blood pO2 at Patient Temp 164 mmHg (65-108) Arterial Blood HCO3 13 mmol/L (21-28) Arterial Blood Base Excess -11 mmol/L (-3-3) FiO2 40 White Blood Count 13.8 x10^3/uL (4.0-11.0) Red Blood Count 3.37 x10^6/uL (4.30-5.70) Hemoglobin 9.8 g/dL (13.0-17.5) Hematocrit 30.3 % (39.0-53.0) Mean Corpuscular Volume 90 fL (79-100) Mean Corpuscular Hemoglobin 29 pg (25-35) Mean Corpuscular Hemoglobin Concent 32 g/dL (31-37) Red Cell Distribution Width 16.0 % (11.5-14.5) Platelet Count 141 x10^3/uL (140-400) Neutrophils (%) (Auto) 92 % (31-73) Lymphocytes (%) (Auto) 2 % (24-48) Monocytes (%) (Auto) 6 % (0-9) Eosinophils (%) (Auto) 0 % (0-3) Basophils (%) (Auto) 0 % (0-3) Neutrophils # (Auto) 12.8 x10^3uL (1.8-7.7) Lymphocytes # (Auto) 0.2 x10^3/uL (1.0-4.8) Monocytes # (Auto) 0.8 x10^3/uL (0.0-1.1) Eosinophils # (Auto) 0.0 x10^3/uL (0.0-0.7) Basophils # (Auto) 0.0 x10^3/uL (0.0-0.2) Segmented Neutrophils % 46 % (35-66) Band Neutrophils % 41 % (0-9) Lymphocytes % 4 % (24-48) Monocytes % 4 % (0-10) Metamyelocytes % 5 % (0-0) Platelet Estimate Adequate (ADEQUATE) Large Platelets Present Poikilocytosis Present Anisocytosis Slight Acanthocytes Mod Schistocytes Occ Sodium Level 142 mmol/L (136-145) Potassium Level 4.1 mmol/L (3.5-5.1) Chloride Level 110 mmol/L (98-107) Carbon Dioxide Level 14 mmol/L (21-32) Anion Gap 18 (6-14) Blood Urea Nitrogen 31 mg/dL (8-26) Creatinine 2.1 mg/dL (0.7-1.3) Estimated GFR (Cockcroft-Gault) 37.0 BUN/Creatinine Ratio 15 (6-20) Glucose Level 96 mg/dL (70-99) Calcium Level 7.2 mg/dL (8.5-10.1) Total Bilirubin 1.4 mg/dL (0.2-1.0) Aspartate Amino Transf (AST/SGOT) 338 U/L (15-37) Alanine Aminotransferase (ALT/SGPT) 450 U/L (16-63) Alkaline Phosphatase 63 U/L (46-116) Total Protein 5.5 g/dL (6.4-8.2) Albumin 2.2 g/dL (3.4-5.0) Albumin/Globulin Ratio 0.7 (1.0-1.7) Microbiology 12/24/18 Blood Culture - Final, Complete Medications Current Medications Sodium Chloride 1,000 ml @ 1,000 mls/hr Q1H IV Last administered on 12/24/18at 03:31; Start 12/24/18 at 03:45; Stop 12/24/18 at 04:44; Status DC Piperacillin Sod/ Tazobactam Sod 3.375 gm/Sodium Chloride 50 ml @ 100 mls/hr 1X ONCE IV Last administered on 12/24/18at 04:00; Start 12/24/18 at 04:00; Stop 12/24/18 at 04:29; Status DC Levofloxacin/ Dextrose 100 ml @ 100 mls/hr 1X ONCE IV Last administered on at 05:28; Start 12/24/18 at 04:00; Stop 12/24/18 at 04:59; Status DC Etomidate (Amidate) 20 mg STK-MED ONCE IV ; Start 12/24/18 at 03:47; Stop at 03:48; Status DC Vecuronium [place] (Norcuron Bolus) 10 mg STK-MED ONCE IV ; Start 12/24/18 at 03 :47; Stop 12/24/18 at 03:48; Status DC Sodium Chloride 1,000 ml @ 1,000 mls/hr 1X ONCE IV Last administered on at 03:31; Start 12/24/18 at 04:30; Stop 12/24/18 at 05:29; Status DC Vecuronium [place] (Norcuron Bolus) 20 mg 1X ONCE IV Last administered on 12/24at 03:32; Start 12/24/18 at 04:30; Stop 12/24/18 at 04:31; Status DC Etomidate (Amidate) 20 mg 1X ONCE IV Last administered on 12/24/18at 03:32; Start 12/24/18 at 04:30; Stop 12/24/18 at 04:31; Status DC Midazolam HCl (Versed) 5 mg 1X ONCE IV Last administered on 12/24/18at 04:45; Start 12/24/18 at 04:45; Stop 12/24/18 at 04:46; Status DC Dopamine HCl/ Dextrose 250 ml @ 3.674 mls/ hr 1X ONCE IV Last administered on 12/24/18at 05:22; Start 12/24/18 at 05:15; Stop 12/27/18 at 01:17 Sodium Chloride 1,000 ml @ 150 mls/hr Q6H40M IV ; Start 12/24/18 at 05:30; Stop 12/24/18 at 06:52; Status DC Sodium Chloride 1,000 ml @ 1,000 mls/hr 1X ONCE IV Last administered on at 05:04; Start 12/24/18 at 05:45; Stop 12/24/18 at 06:44; Status DC Norepinephrine Bitartrate 250 ml @ 1.875 mls/ hr CONT PRN IV SEE I/O RECORD Last administered on 12/24/18at 05:57; Start 12/24/18 at 05:45; Stop 12/24/18 at 10:25; Status DC Hydrocortisone Sodium Succinate (Solu-CORTEF) 300 mg 1X ONCE IV Last administered on 12/24/18at 10:33; Start 12/24/18 at 06:00; Stop 12/24/18 at 06:01 ; Status DC Sodium Chloride 1,000 ml @ 1,000 mls/hr 1X ONCE IV Last administered on at 05:22; Start 12/24/18 at 07:00; Stop 12/24/18 at 07:59; Status DC Sodium Chloride 1,000 ml @ 1,860 mls/hr Q33M IV ; Start 12/24/18 at 10:14; Stop 12/24/18 at 11:13; Status DC Sodium Chloride 500 ml @ 1,000 mls/hr PRN Q30MIN PRN IV SEE COMMENTS Last administered on 12/24/18at 13:00; Start 12/24/18 at 10:15 Linezolid/Dextrose 300 ml @ 300 mls/hr Q12HR IV Last administered on at 08:12; Start 12/24/18 at 11:00 Piperacillin Sod/ Tazobactam Sod 4.5 gm/Sodium Chloride 100 ml @ 200 mls/hr Q6HRS IV ; Start 12/24/18 at 12:00; Status UNV Norepinephrine Bitartrate 250 ml @ 0 mls/hr CONT PRN IV SEE I/O RECORD Last administered on 12/25/18at 14:11; Start 12/24/18 at 10:15 Piperacillin Sod/ Tazobactam Sod 3.375 gm/Sodium Chloride 50 ml @ 100 mls/hr Q6HRS IV Last administered on 12/25/18at 12:20; Start 12/24/18 at 12:00 Sodium Chloride 1,000 ml @ 150 mls/hr Q6H40M IV Last administered on at 14:12; Start 12/24/18 at 11:15 Propofol 100 ml @ 0 mls/hr CONT PRN IV SEE PROTOCOL Last administered on at 03:45; Start 12/24/18 at 16:30 Fentanyl Citrate (Fentanyl 2ml Vial) 25 mcg PRN Q1HR PRN IV SEE COMMENTS Last administered on 12/25/18at 12:20; Start 12/24/18 at 16:30 Pantoprazole Sodium (PROTONIX VIAL for IV PUSH) 40 mg DAILYAC IVP Last administered on 12/25/18at 08:12; Start 12/24/18 at 18:00 Enoxaparin Sodium (Lovenox 30mg Syringe) 30 mg Q24H SQ Last administered on at 20:25; Start 12/24/18 at 19:00 Midazolam HCl 100 ml @ 0 mls/hr CONT PRN IV PER PROTOCOL Last administered on at 10:41; Start 12/25/18 at 10:00 Active Scripts Active Reported Warfarin Sodium 6 Mg Tablet 8 Mg PO HS Miralax (Polyethylene Glycol 3350) 17 Gm Powd.pack 1 Packet PO PRN DAILY PRN Milk Of Magnesia (Magnesium Hydroxide) 400 Mg/5 Ml Oral.susp 400 Mg PO PRN DAILY PRN Megace Es (Megestrol Acetate) 625 Mg/5 Ml Oral.susp 400 Mg PO Senna Plus Tablet (Sennosides/Docusate Sodium) 1 Each Tablet 1 Each PO Aspirin 325 Mg Tablet 1 Tab PO DAILY Keppra (Levetiracetam) 500 Mg Tablet 500 Mg PO BID Vitamin D3 (Cholecalciferol (Vitamin D3)) 1,000 Unit Tablet 400 Unit PO DAILY Trazodone Hcl 50 Mg Tablet 1 Tab PO QHS Tylenol (Acetaminophen) 325 Mg Tablet 1-2 Tab PO PRN Q4HRS PRN Losartan Potassium 50 Mg Tablet 50 Mg PO DAILY Vitals/I & O Vital Sign - Last 24 Hours 12/24/18 12/24/18 12/24/18 12/24/18 14:27 15:00 16:00 16:00 Pulse 112 112 Resp 20 20 B/P (MAP) 118/75 (89) 126/91 (103) Pulse Ox 100 96 O2 Delivery Ventilator Ventilator Mechanical Ventilator Ventilator 12/24/18 12/24/18 12/24/18 12/24/18 16:55 17:00 18:00 19:00 Temp 96.6 96.6 Pulse 110 108 100 Resp 20 20 24 B/P (MAP) 119/76 (90) 87/64 (72) 102/63 (76) Pulse Ox 100 96 96 100 O2 Delivery Ventilator Ventilator Ventilator Ventilator 12/24/18 12/24/18 12/24/18 12/24/18 19:53 20:00 20:00 21:00 Temp 100.8 100.8 Pulse 98 94 Resp 27 26 B/P (MAP) 91/66 (74) 97/57 (70) Pulse Ox 100 100 100 O2 Delivery Ventilator Mechanical Ventilator Ventilator Ventilator 12/24/18 12/24/18 12/24/18 12/25/18 22:00 23:00 23:27 00:00 Temp 98.9 99.0 98.9 99.0 Pulse 96 100 101 Resp 26 29 29 B/P (MAP) 107/67 (80) 102/66 (78) 108/71 (83) Pulse Ox 100 100 100 100 O2 Delivery Ventilator Ventilator Ventilator Ventilator 12/25/18 12/25/18 12/25/18 12/25/18 00:13 01:00 01:15 02:00 Pulse 96 94 Resp 20 B/P (MAP) 100/60 (73) 93/56 (68) Pulse Ox 100 100 100 O2 Delivery Mechanical Ventilator Ventilator Ventilator Ventilator 12/25/18 12/25/18 12/25/18 12/25/18 03:00 03:41 04:00 04:00 Temp 99.4 99.4 Pulse 94 98 Resp 22 30 B/P (MAP) 91/57 (68) 100/55 (70) Pulse Ox 100 100 100 O2 Delivery Ventilator Ventilator Mechanical Ventilator Ventilator 12/25/18 12/25/18 12/25/18 12/25/18 05:00 05:40 06:00 07:00 Temp 99.4 99.4 Pulse 102 99 100 Resp 30 28 28 B/P (MAP) 97/51 (66) 96/53 (67) 103/53 (70) Pulse Ox 100 100 100 100 O2 Delivery Ventilator Ventilator Ventilator Ventilator 12/25/18 12/25/18 12/25/18 12/25/18 07:11 08:00 08:00 08:13 Pulse 100 Resp 28 B/P (MAP) 97/50 (66) Pulse Ox 100 100 100 O2 Delivery Ventilator Mechanical Ventilator Ventilator Ventilator 12/25/18 12/25/18 12/25/18 12/25/18 08:30 08:31 09:00 09:02 Pulse 100 102 Resp 28 28 B/P (MAP) 92/63 (73) 106/53 (70) Pulse Ox 100 100 100 O2 Delivery Ventilator Mechanical Ventilator Ventilator Ventilator 12/25/18 12/25/18 12/25/18 12/25/18 10:00 10:56 11:00 11:07 Temp 99.1 99.1 Pulse 108 106 Resp B/P (MAP) 120/63 (82) 105/62 (76) Pulse Ox 100 100 100 100 O2 Delivery Ventilator Ventilator Ventilator 12/25/18 12/25/18 12/25/18 12/25/18 12:00 12:00 12:20 13:00 Pulse 109 109 Resp B/P (MAP) 112/54 (73) 99/60 (73) Pulse Ox 100 100 100 O2 Delivery Mechanical Ventilator Ventilator Ventilator 12/25/18 12/25/18 13:20 13:33 Pulse Ox 100 100 O2 Delivery Ventilator Intake and Output 12/24/18 12/24/18 12/25/18 15:00 23:00 07:00 Intake Total 988 ml 1410 ml 2456 ml Output Total 425 ml 275 ml 460 ml Balance 563 ml 1135 ml 1996 ml KESHA HILLS MD Dec 25, 2018 14:25
[2018-12-25] MEDS: ENOXAPARIN 30 MG/0.3 ML SYRINGE. SQ SCH (21:09)
[2018-12-26] VITALS (31 sets, daily range): BP systolic 94–143; BP diastolic 55–87
[2018-12-26] MEDS: PIPERACILLIN/TAZOBACTAM 3.375 GM in IV NORMAL SALINE 50ML 50 ML IV SCH ×4 (01:10→18:04)
[2018-12-26] MEDS: IV NORMAL SALINE 1000ML BAG 1,000 ML IV SCH ×3 (04:07→16:49)
[2018-12-26] MEDS: MIDAZOLAM 100mg/100ml NS BAG 100 ML IV PRN (06:25)
--- NOTE | 2018-12-26 07:38 | PDOC ---
Infectious Disease Note Subjective Subjective pt is intubated on vent ROS ROS NO N/V/D/SOB Vital Sign Vital Signs Vital Signs Date Time Temp Pulse Resp B/P (MAP) Pulse Ox O2 Delivery O2 Flow Rate FiO2 12/26/18 05:14 100 Ventilator 12/25/18 18:00 98 12 110/54 (72) 12/25/18 15:00 98.9 98.9 Physical Exam PHYSICAL EXAM GENERAL: Sedated, orally intubated gentleman on a ventilator, not in distress. VITAL SIGNS: Stable with temperature had been down up to 91.8. HEENT: Both pupils are round and reacting. No conjunctival lesion. Orally intubated. NECK: Supple, no JVP, no lymphadenopathy. LUNGS: Decreased breath sounds bilaterally. HEART: S1, S2 regular. No gallop or murmur. ABDOMEN: Soft, nontender, nondistended. EXTREMITIES: No edema, cyanosis. SKIN: Unremarkable for any skin breakdown and/or any rash. NEUROLOGIC: Cannot be assessed as sedated, orally intubated. Labs Lab Laboratory Tests Test 12/25/18 08:00 12/25/18 08:05 O2 Saturation 98 % (92-99) Arterial Blood pH 7.37 (7.35-7.45) Arterial Blood pCO2 at Patient Temp 23 mmHg (35-46) Arterial Blood pO2 at Patient Temp 164 mmHg (65-108) Arterial Blood HCO3 13 mmol/L (21-28) Arterial Blood Base Excess -11 mmol/L (-3-3) FiO2 40 White Blood Count 13.8 x10^3/uL (4.0-11.0) Red Blood Count 3.37 x10^6/uL (4.30-5.70) Hemoglobin 9.8 g/dL (13.0-17.5) Hematocrit 30.3 % (39.0-53.0) Mean Corpuscular Volume 90 fL (79-100) Mean Corpuscular Hemoglobin 29 pg (25-35) Mean Corpuscular Hemoglobin Concent 32 g/dL (31-37) Red Cell Distribution Width 16.0 % (11.5-14.5) Platelet Count 141 x10^3/uL (140-400) Neutrophils (%) (Auto) 92 % (31-73) Lymphocytes (%) (Auto) 2 % (24-48) Monocytes (%) (Auto) 6 % (0-9) Eosinophils (%) (Auto) 0 % (0-3) Basophils (%) (Auto) 0 % (0-3) Neutrophils # (Auto) 12.8 x10^3uL (1.8-7.7) Lymphocytes # (Auto) 0.2 x10^3/uL (1.0-4.8) Monocytes # (Auto) 0.8 x10^3/uL (0.0-1.1) Eosinophils # (Auto) 0.0 x10^3/uL (0.0-0.7) Basophils # (Auto) 0.0 x10^3/uL (0.0-0.2) Segmented Neutrophils % 46 % (35-66) Band Neutrophils % 41 % (0-9) Lymphocytes % 4 % (24-48) Monocytes % 4 % (0-10) Metamyelocytes % 5 % (0-0) Platelet Estimate Adequate (ADEQUATE) Large Platelets Present Poikilocytosis Present Anisocytosis Slight Acanthocytes Mod Schistocytes Occ Sodium Level 142 mmol/L (136-145) Potassium Level 4.1 mmol/L (3.5-5.1) Chloride Level 110 mmol/L (98-107) Carbon Dioxide Level 14 mmol/L (21-32) Anion Gap 18 (6-14) Blood Urea Nitrogen 31 mg/dL (8-26) Creatinine 2.1 mg/dL (0.7-1.3) Estimated GFR (Cockcroft-Gault) 37.0 BUN/Creatinine Ratio 15 (6-20) Glucose Level 96 mg/dL (70-99) Calcium Level 7.2 mg/dL (8.5-10.1) Total Bilirubin 1.4 mg/dL (0.2-1.0) Aspartate Amino Transf (AST/SGOT) 338 U/L (15-37) Alanine Aminotransferase (ALT/SGPT) 450 U/L (16-63) Alkaline Phosphatase 63 U/L (46-116) Total Protein 5.5 g/dL (6.4-8.2) Albumin 2.2 g/dL (3.4-5.0) Albumin/Globulin Ratio 0.7 (1.0-1.7) Micro BC G neg leonardo Objective Assessment Septic shock Hypothermia Leukopenia Lactic acidosis Suspected aspiration Respiratory failure TAZ Dehydration Dementia Plan Plan of Care zoliven ,,, margaret x 1 d/c zyvox check cultures supportive care care ESTEFANIA DUNCAN MD Dec 26, 2018 07:38
[2018-12-26 08:12] LABS: BASE EXCESS ABG -11 mmol/L (-3-3); HCO3 ABG 13 mmol/L (21-28); PCO2 ABG 24 mmHg (35-46); PO2 ABG 130 mmHg (65-108); SAT O2 ABG 98 % (92-99)
[2018-12-26 08:20] LABS: FIO2 ABG 30
[2018-12-26] MEDS: PANTOPRAZOLE IV PUSH 40 MG VIAL. IVP SCH (08:23)
--- NOTE | 2018-12-26 08:54 | RAD ---
PORTABLE CHEST 1V Clinical indications: RESPIRATORY FAILURE COMPARISON: 12/25/2018. Findings: Chronic interstitial lung disease is again evident. There is persistent more focal prominent left lung base infiltrate with a small left sided pleural effusion which is stable. No pneumothorax is evident. The heart size, pulmonary vasculature, mediastinum and both mariia are stable. There've been no interval tube or line changes. Impression: Stable left lung base infiltrate. Electronically signed by: Raudel Laguerre MD (12/26/2018 8:50 AM) [facility]
--- NOTE | 2018-12-26 09:18 | PDOC ---
PULMONARY PROGRESS NOTES Subjective SEDATED AC MODE ON LEVO Vitals Vital Signs Date Time Temp Pulse Resp B/P (MAP) Pulse Ox O2 Delivery O2 Flow Rate FiO2 12/26/18 08:00 Mechanical Ventilator 12/26/18 07:33 100 12/26/18 07:30 90 22 126/77 (93) 12/26/18 04:00 99.7 99.7 Lungs: Clear Cardiovascular: S1, S2 Abdomen: Soft Extremities: Other (EDEMA) Skin: Warm Labs Laboratory Tests Test 12/24/18 13:30 12/24/18 14:00 12/25/18 08:00 12/25/18 08:05 Troponin I Quantitative 1.251 ng/mL (0.000-0.055) O2 Saturation 97 % (92-99) 98 % (92-99) Arterial Blood pH 7.34 (7.35-7.45) 7.37 (7.35-7.45) Arterial Blood pCO2 at Patient Temp 28 mmHg (35-46) 23 mmHg (35-46) Arterial Blood pO2 at Patient Temp 108 mmHg (65-108) 164 mmHg (65-108) Arterial Blood HCO3 15 mmol/L (21-28) 13 mmol/L (21-28) Arterial Blood Base Excess -10 mmol/L (-3-3) -11 mmol/L (-3-3) FiO2 40 40 White Blood Count 13.8 x10^3/uL (4.0-11.0) Red Blood Count 3.37 x10^6/uL (4.30-5.70) Hemoglobin 9.8 g/dL (13.0-17.5) Hematocrit 30.3 % (39.0-53.0) Mean Corpuscular Volume 90 fL (79-100) Mean Corpuscular Hemoglobin 29 pg (25-35) Mean Corpuscular Hemoglobin Concent 32 g/dL (31-37) Red Cell Distribution Width 16.0 % (11.5-14.5) Platelet Count 141 x10^3/uL (140-400) Neutrophils (%) (Auto) 92 % (31-73) Lymphocytes (%) (Auto) 2 % (24-48) Monocytes (%) (Auto) 6 % (0-9) Eosinophils (%) (Auto) 0 % (0-3) Basophils (%) (Auto) 0 % (0-3) Neutrophils # (Auto) 12.8 x10^3uL (1.8-7.7) Lymphocytes # (Auto) 0.2 x10^3/uL (1.0-4.8) Monocytes # (Auto) 0.8 x10^3/uL (0.0-1.1) Eosinophils # (Auto) 0.0 x10^3/uL (0.0-0.7) Basophils # (Auto) 0.0 x10^3/uL (0.0-0.2) Segmented Neutrophils % 46 % (35-66) Band Neutrophils % 41 % (0-9) Lymphocytes % 4 % (24-48) Monocytes % 4 % (0-10) Metamyelocytes % 5 % (0-0) Platelet Estimate Adequate (ADEQUATE) Large Platelets Present Poikilocytosis Present Anisocytosis Slight Acanthocytes Mod Schistocytes Occ Sodium Level 142 mmol/L (136-145) Potassium Level 4.1 mmol/L (3.5-5.1) Chloride Level 110 mmol/L (98-107) Carbon Dioxide Level 14 mmol/L (21-32) Anion Gap 18 (6-14) Blood Urea Nitrogen 31 mg/dL (8-26) Creatinine 2.1 mg/dL (0.7-1.3) Estimated GFR (Cockcroft-Gault) 37.0 BUN/Creatinine Ratio 15 (6-20) Glucose Level 96 mg/dL (70-99) Calcium Level 7.2 mg/dL (8.5-10.1) Total Bilirubin 1.4 mg/dL (0.2-1.0) Aspartate Amino Transf (AST/SGOT) 338 U/L (15-37) Alanine Aminotransferase (ALT/SGPT) 450 U/L (16-63) Alkaline Phosphatase 63 U/L (46-116) Total Protein 5.5 g/dL (6.4-8.2) Albumin 2.2 g/dL (3.4-5.0) Albumin/Globulin Ratio 0.7 (1.0-1.7) Test 12/26/18 07:50 O2 Saturation 98 % (92-99) Arterial Blood pH 7.35 (7.35-7.45) Arterial Blood pCO2 at Patient Temp 24 mmHg (35-46) Arterial Blood pO2 at Patient Temp 130 mmHg (65-108) Arterial Blood HCO3 13 mmol/L (21-28) Arterial Blood Base Excess -11 mmol/L (-3-3) FiO2 30 Laboratory Tests Test 12/26/18 07:50 O2 Saturation 98 % (92-99) Arterial Blood pH 7.35 (7.35-7.45) Arterial Blood pCO2 at Patient Temp 24 mmHg (35-46) Arterial Blood pO2 at Patient Temp 130 mmHg (65-108) Arterial Blood HCO3 13 mmol/L (21-28) Arterial Blood Base Excess -11 mmol/L (-3-3) FiO2 30 Medications Active Scripts Medications Dose Route/Sig Max Daily Dose Days Date Category Warfarin Sodium 6 Mg Tablet 8 Mg PO HS 12/24/18 Reported Miralax (Polyethylene Glycol 3350) 17 Gm Powd.pack 1 Packet PO PRN DAILY PRN 03/19/18 Reported Milk Of Magnesia (Magnesium Hydroxide) 400 Mg/5 Ml Oral.susp 400 Mg PO PRN DAILY PRN 03/19/18 Reported Megace Es (Megestrol Acetate) 625 Mg/5 Ml Oral.susp 400 Mg PO 03/19/18 Reported Senna Plus Tablet (Sennosides/Docusate Sodium) 1 Each Tablet 1 Each PO 03/19/18 Reported Aspirin 325 Mg Tablet 1 Tab PO DAILY 03/19/18 Reported Keppra (Levetiracetam) 500 Mg Tablet 500 Mg PO BID 03/05/18 Reported Vitamin D3 (Cholecalciferol (Vitamin D3)) 1,000 Unit Tablet 400 Unit PO DAILY 03/05/18 Reported Trazodone Hcl 50 Mg Tablet 1 Tab PO QHS 03/05/18 Reported Tylenol (Acetaminophen) 325 Mg Tablet 1-2 Tab PO PRN Q4HRS PRN 03/05/18 Reported Losartan Potassium 50 Mg Tablet 50 Mg PO DAILY 11/28/17 Reported Impression . IMPRESSION: 1. Acute respiratory failure, multifactorial. 2. Septic shock. 3. Possible urinary tract infection. 4. History of cerebrovascular accident and dementia. 5. Prior questionable history of cerebral sinus thrombosis. 6. Seizures. 7. Generalized weakness. 8. Protein malnutrition, present upon admission. 9. Leukopenia. 10. Acute on chronic renal failure. 11. Metabolic acidosis from sepsis. Plan . CXR AND LABS REVIEWED WILL CONTINUE SUPPORT ANITBX PER ID ON VERSED STILL ON LEVO NOT READY FOR [facility] FEEDING PT FULL CODE PER FAMILY TORSTEN KEE MD Dec 26, 2018 09:18
--- NOTE | 2018-12-26 12:32 | PDOC ---
PROGRESS NOTES Chief Complaint Chief Complaint CC: metabolic encephalopathy Septic shock secondary to urinary tract infection secondary to chronic indwelling urinary suprapubic catheter History of acute venous sinus thrombosis on CTA head/neck on chronic anticoagulation with coumadin Left Sided weakness and right-sided gaze, on last admission which had resolved History dementia, seizures History of essential Hypertension History of BPH, Indwelling suprapubic catheter History of complicated UTI in a male sec to indwelling FC History of Present Illness History of Present Illness Pt is an 78 y/o male who presented with sepsis due to UTI and chronic indwelling catheter. Today he was seen and examined in the ICU. He is critically stable and on the vent. AC 20/450/30/5.0. I discussed the pt with his son and his RN. Vitals Vitals Vital Signs Date Time Temp Pulse Resp B/P (MAP) Pulse Ox O2 Delivery O2 Flow Rate FiO2 12/26/18 11:55 100 Ventilator 12/26/18 10:23 80 21 94/64 (74) 12/26/18 08:00 96.9 96.9 Physical Exam Physical Exam GENERAL: Sedated, orally intubated gentleman on a ventilator, not in distress. VITAL SIGNS: Stable with temperature had been down up to 91.8. HEENT: Both pupils are round and reacting. No conjunctival lesion. Orally intubated. NECK: Supple, no JVP, no lymphadenopathy. LUNGS: Decreased breath sounds bilaterally. HEART: S1, S2 regular. No gallop or murmur. ABDOMEN: Soft, nontender, nondistended. EXTREMITIES: No edema, cyanosis. SKIN: Unremarkable for any skin breakdown and/or any rash. NEUROLOGIC: Cannot be assessed as sedated, orally intubated. General: Other Lungs: Clear Labs LABS Laboratory Tests Test 12/26/18 07:50 O2 Saturation 98 % (92-99) Arterial Blood pH 7.35 (7.35-7.45) Arterial Blood pCO2 at Patient Temp 24 mmHg (35-46) Arterial Blood pO2 at Patient Temp 130 mmHg (65-108) Arterial Blood HCO3 13 mmol/L (21-28) Arterial Blood Base Excess -11 mmol/L (-3-3) FiO2 30 Review of Systems Review of Systems Pt is unable to provide ROS due to being sedated and on the vent Assessment and Plan Assessmemt and Plan Assessment: CC: metabolic encephalopathy Septic shock secondary to urinary tract infection secondary to chronic indwelling urinary suprapubic catheter History of acute venous sinus thrombosis on CTA head/neck on chronic anticoagulation with coumadin Left Sided weakness and right-sided gaze, on last admission which had resolved History dementia, seizures History of essential Hypertension History of BPH, Indwelling suprapubic catheter History of complicated UTI in a male sec to indwelling FC Plan: Titrate Levophed and versed Supportive measures in the ICU Mechanical ventilation as per Dr. Wong Follow daily labs PT/OT Home meds Appreciate subspecialist input AC 20/450/30/5.0 Currently full code, may need to revisit goals of therapy with family if patient does not improved in the next couple of days Comment Review of Relevant I have reviewed the following items edgar (where applicable) has been applied. Labs Laboratory Tests Test 12/24/18 13:30 12/24/18 14:00 12/25/18 08:00 12/25/18 08:05 Troponin I Quantitative 1.251 ng/mL (0.000-0.055) O2 Saturation 97 % (92-99) 98 % (92-99) Arterial Blood pH 7.34 (7.35-7.45) 7.37 (7.35-7.45) Arterial Blood pCO2 at Patient Temp 28 mmHg (35-46) 23 mmHg (35-46) Arterial Blood pO2 at Patient Temp 108 mmHg (65-108) 164 mmHg (65-108) Arterial Blood HCO3 15 mmol/L (21-28) 13 mmol/L (21-28) Arterial Blood Base Excess -10 mmol/L (-3-3) -11 mmol/L (-3-3) FiO2 40 40 White Blood Count 13.8 x10^3/uL (4.0-11.0) Red Blood Count 3.37 x10^6/uL (4.30-5.70) Hemoglobin 9.8 g/dL (13.0-17.5) Hematocrit 30.3 % (39.0-53.0) Mean Corpuscular Volume 90 fL (79-100) Mean Corpuscular Hemoglobin 29 pg (25-35) Mean Corpuscular Hemoglobin Concent 32 g/dL (31-37) Red Cell Distribution Width 16.0 % (11.5-14.5) Platelet Count 141 x10^3/uL (140-400) Neutrophils (%) (Auto) 92 % (31-73) Lymphocytes (%) (Auto) 2 % (24-48) Monocytes (%) (Auto) 6 % (0-9) Eosinophils (%) (Auto) 0 % (0-3) Basophils (%) (Auto) 0 % (0-3) Neutrophils # (Auto) 12.8 x10^3uL (1.8-7.7) Lymphocytes # (Auto) 0.2 x10^3/uL (1.0-4.8) Monocytes # (Auto) 0.8 x10^3/uL (0.0-1.1) Eosinophils # (Auto) 0.0 x10^3/uL (0.0-0.7) Basophils # (Auto) 0.0 x10^3/uL (0.0-0.2) Segmented Neutrophils % 46 % (35-66) Band Neutrophils % 41 % (0-9) Lymphocytes % 4 % (24-48) Monocytes % 4 % (0-10) Metamyelocytes % 5 % (0-0) Platelet Estimate Adequate (ADEQUATE) Large Platelets Present Poikilocytosis Present Anisocytosis Slight Acanthocytes Mod Schistocytes Occ Sodium Level 142 mmol/L (136-145) Potassium Level 4.1 mmol/L (3.5-5.1) Chloride Level 110 mmol/L (98-107) Carbon Dioxide Level 14 mmol/L (21-32) Anion Gap 18 (6-14) Blood Urea Nitrogen 31 mg/dL (8-26) Creatinine 2.1 mg/dL (0.7-1.3) Estimated GFR (Cockcroft-Gault) 37.0 BUN/Creatinine Ratio 15 (6-20) Glucose Level 96 mg/dL (70-99) Calcium Level 7.2 mg/dL (8.5-10.1) Total Bilirubin 1.4 mg/dL (0.2-1.0) Aspartate Amino Transf (AST/SGOT) 338 U/L (15-37) Alanine Aminotransferase (ALT/SGPT) 450 U/L (16-63) Alkaline Phosphatase 63 U/L (46-116) Total Protein 5.5 g/dL (6.4-8.2) Albumin 2.2 g/dL (3.4-5.0) Albumin/Globulin Ratio 0.7 (1.0-1.7) Test 12/26/18 07:50 O2 Saturation 98 % (92-99) Arterial Blood pH 7.35 (7.35-7.45) Arterial Blood pCO2 at Patient Temp 24 mmHg (35-46) Arterial Blood pO2 at Patient Temp 130 mmHg (65-108) Arterial Blood HCO3 13 mmol/L (21-28) Arterial Blood Base Excess -11 mmol/L (-3-3) FiO2 30 Laboratory Tests Test 12/26/18 07:50 O2 Saturation 98 % (92-99) Arterial Blood pH 7.35 (7.35-7.45) Arterial Blood pCO2 at Patient Temp 24 mmHg (35-46) Arterial Blood pO2 at Patient Temp 130 mmHg (65-108) Arterial Blood HCO3 13 mmol/L (21-28) Arterial Blood Base Excess -11 mmol/L (-3-3) FiO2 30 Microbiology 12/24/18 Blood Culture - Final, Complete 12/24/18 Urine Culture - Final, Complete 12/24/18 Urine Culture Result 1 (MORIAH) - Final, Complete Medications Current Medications Sodium Chloride 1,000 ml @ 1,000 mls/hr Q1H IV Last administered on 12/24/18at 03:31; Start 12/24/18 at 03:45; Stop 12/24/18 at 04:44; Status DC Piperacillin Sod/ Tazobactam Sod 3.375 gm/Sodium Chloride 50 ml @ 100 mls/hr 1X ONCE IV Last administered on 12/24/18at 04:00; Start 12/24/18 at 04:00; Stop 12/24/18 at 04:29; Status DC Levofloxacin/ Dextrose 100 ml @ 100 mls/hr 1X ONCE IV Last administered on at 05:28; Start 12/24/18 at 04:00; Stop 12/24/18 at 04:59; Status DC Etomidate (Amidate) 20 mg STK-MED ONCE IV ; Start 12/24/18 at 03:47; Stop at 03:48; Status DC Vecuronium [place] (Norcuron Bolus) 10 mg STK-MED ONCE IV ; Start 12/24/18 at 03 :47; Stop 12/24/18 at 03:48; Status DC Sodium Chloride 1,000 ml @ 1,000 mls/hr 1X ONCE IV Last administered on at 03:31; Start 12/24/18 at 04:30; Stop 12/24/18 at 05:29; Status DC Vecuronium [place] (Norcuron Bolus) 20 mg 1X ONCE IV Last administered on 12/24at 03:32; Start 12/24/18 at 04:30; Stop 12/24/18 at 04:31; Status DC Etomidate (Amidate) 20 mg 1X ONCE IV Last administered on 12/24/18at 03:32; Start 12/24/18 at 04:30; Stop 12/24/18 at 04:31; Status DC Midazolam HCl (Versed) 5 mg 1X ONCE IV Last administered on 12/24/18at 04:45; Start 12/24/18 at 04:45; Stop 12/24/18 at 04:46; Status DC Dopamine HCl/ Dextrose 250 ml @ 3.674 mls/ hr 1X ONCE IV Last administered on 12/24/18at 05:22; Start 12/24/18 at 05:15; Stop 12/27/18 at 01:17 Sodium Chloride 1,000 ml @ 150 mls/hr Q6H40M IV ; Start 12/24/18 at 05:30; Stop 12/24/18 at 06:52; Status DC Sodium Chloride 1,000 ml @ 1,000 mls/hr 1X ONCE IV Last administered on at 05:04; Start 12/24/18 at 05:45; Stop 12/24/18 at 06:44; Status DC Norepinephrine Bitartrate 250 ml @ 1.875 mls/ hr CONT PRN IV SEE I/O RECORD Last administered on 12/24/18at 05:57; Start 12/24/18 at 05:45; Stop 12/24/18 at 10:25; Status DC Hydrocortisone Sodium Succinate (Solu-CORTEF) 300 mg 1X ONCE IV Last administered on 12/24/18at 10:33; Start 12/24/18 at 06:00; Stop 12/24/18 at 06:01 ; Status DC Sodium Chloride 1,000 ml @ 1,000 mls/hr 1X ONCE IV Last administered on at 05:22; Start 12/24/18 at 07:00; Stop 12/24/18 at 07:59; Status DC Sodium Chloride 1,000 ml @ 1,860 mls/hr Q33M IV ; Start 12/24/18 at 10:14; Stop 12/24/18 at 11:13; Status DC Sodium Chloride 500 ml @ 1,000 mls/hr PRN Q30MIN PRN IV SEE COMMENTS Last administered on 12/24/18at 13:00; Start 12/24/18 at 10:15 Linezolid/Dextrose 300 ml @ 300 mls/hr Q12HR IV Last administered on 12/26/18at 08:24; Start 12/24/18 at 11:00 Piperacillin Sod/ Tazobactam Sod 4.5 gm/Sodium Chloride 100 ml @ 200 mls/hr Q6HRS IV ; Start 12/24/18 at 12:00; Status UNV Norepinephrine Bitartrate 250 ml @ 0 mls/hr CONT PRN IV SEE I/O RECORD Last administered on 12/25/18at 14:11; Start 12/24/18 at 10:15 Piperacillin Sod/ Tazobactam Sod 3.375 gm/Sodium Chloride 50 ml @ 100 mls/hr Q6HRS IV Last administered on 12/26/18 11:52; Start 12/24/18 at 12:00 Sodium Chloride 1,000 ml @ 150 mls/hr Q6H40M IV Last administered on 12/26/18at 11:53; Start 12/24/18 at 11:15 Propofol 100 ml @ 0 mls/hr CONT PRN IV SEE PROTOCOL Last administered on at 03:45; Start 12/24/18 at 16:30 Fentanyl Citrate (Fentanyl 2ml Vial) 25 mcg PRN Q1HR PRN IV SEE COMMENTS Last administered on 12/25/18at 12:20; Start 12/24/18 at 16:30 Pantoprazole Sodium (PROTONIX VIAL for IV PUSH) 40 mg DAILYAC IVP Last administered on 12/26/18at 08:23; Start 12/24/18 at 18:00 Enoxaparin Sodium (Lovenox 30mg Syringe) 30 mg Q24H SQ Last administered on at 21:09; Start 12/24/18 at 19:00 Midazolam HCl 100 ml @ 0 mls/hr CONT PRN IV PER PROTOCOL Last administered on at 06:25; Start 12/25/18 at 10:00 Active Scripts Active Reported Warfarin Sodium 6 Mg Tablet 8 Mg PO HS Miralax (Polyethylene Glycol 3350) 17 Gm Powd.pack 1 Packet PO PRN DAILY PRN Milk Of Magnesia (Magnesium Hydroxide) 400 Mg/5 Ml Oral.susp 400 Mg PO PRN DAILY PRN Megace Es (Megestrol Acetate) 625 Mg/5 Ml Oral.susp 400 Mg PO Senna Plus Tablet (Sennosides/Docusate Sodium) 1 Each Tablet 1 Each PO Aspirin 325 Mg Tablet 1 Tab PO DAILY Keppra (Levetiracetam) 500 Mg Tablet 500 Mg PO BID Vitamin D3 (Cholecalciferol (Vitamin D3)) 1,000 Unit Tablet 400 Unit PO DAILY Trazodone Hcl 50 Mg Tablet 1 Tab PO QHS Tylenol (Acetaminophen) 325 Mg Tablet 1-2 Tab PO PRN Q4HRS PRN Losartan Potassium 50 Mg Tablet 50 Mg PO DAILY Vitals/I & O Vital Sign - Last 24 Hours 12/25/18 12/25/18 12/25/18 12/25/18 13:00 13:20 13:33 14:00 Pulse 109 106 Resp B/P (MAP) 99/60 (73) 105/49 (67) Pulse Ox 100 100 100 100 O2 Delivery Ventilator Ventilator Ventilator 12/25/18 12/25/18 12/25/18 12/25/18 15:00 15:38 16:00 16:00 Temp 98.9 98.9 Pulse 108 106 Resp B/P (MAP) 119/48 (71) 111/58 (75) Pulse Ox 100 100 100 O2 Delivery Ventilator Ventilator Ventilator Mechanical Ventilator 12/25/18 12/25/18 12/25/18 12/25/18 16:55 17:00 18:00 19:00 Temp 97.1 97.1 Pulse 102 98 98 Resp 12 12 21 B/P (MAP) 96/47 (63) 110/54 (72) 113/53 (73) Pulse Ox 100 100 100 100 O2 Delivery Ventilator Ventilator Ventilator Ventilator 12/25/18 12/25/18 12/25/18 12/25/18 20:00 20:00 20:18 21:00 Pulse 100 98 Resp 22 22 B/P (MAP) 82/46 (58) 103/56 (72) Pulse Ox 100 100 100 O2 Delivery Mechanical Ventilator Ventilator Ventilator Ventilator 12/25/18 12/25/18 12/25/18 12/26/18 22:00 22:00 23:00 00:00 Pulse 96 96 Resp 24 B/P (MAP) 107/67 (80) 126/59 (81) Pulse Ox 100 100 100 O2 Delivery Ventilator Ventilator Ventilator Mechanical Ventilator 12/26/18 12/26/18 12/26/18 12/26/18 00:00 00:58 01:00 01:15 Temp 99.2 99.2 Pulse 96 94 98 Resp 23 24 B/P (MAP) 101/55 (70) 131/68 (89) 110/56 (74) Pulse Ox 100 100 100 100 O2 Delivery Ventilator Ventilator Ventilator Ventilator 12/26/18 12/26/18 12/26/18 12/26/18 02:00 02:45 03:00 04:00 Temp 99.7 99.7 Pulse 94 94 90 Resp 20 B/P (MAP) 118/64 (82) 106/64 (78) 116/66 (83) Pulse Ox 100 100 100 100 O2 Delivery Ventilator Ventilator Ventilator Ventilator 12/26/18 12/26/18 12/26/18 12/26/18 04:00 05:00 05:14 06:00 Pulse 94 92 Resp 24 B/P (MAP) 119/66 (83) 125/76 (92) Pulse Ox 100 100 100 O2 Delivery Mechanical Ventilator Ventilator Ventilator Ventilator 12/26/18 12/26/18 12/26/18 12/26/18 07:00 07:15 07:30 07:33 Pulse 84 90 Resp 22 B/P (MAP) 119/72 (88) 133/75 (94) 126/77 (93) Pulse Ox 100 100 100 100 O2 Delivery Ventilator Ventilator Ventilator Ventilator 12/26/18 12/26/18 12/26/18 12/26/18 08:00 08:00 09:00 10:00 Temp 96.9 96.9 Pulse 95 75 77 Resp 20 20 23 B/P (MAP) 135/77 (96) 143/75 (97) 138/87 (104) Pulse Ox 100 100 100 O2 Delivery Ventilator Mechanical Ventilator Ventilator Ventilator 12/26/18 12/26/18 12/26/18 10:13 10:23 11:55 Pulse 80 Resp 21 B/P (MAP) 94/64 (74) Pulse Ox 100 100 100 O2 Delivery Ventilator Ventilator Ventilator Intake and Output 12/25/18 12/25/18 12/26/18 15:00 23:00 07:00 Intake Total 300 ml 3809 ml 2643 ml Output Total 965 ml 705 ml 635 ml Balance -665 ml 3104 ml 2008 ml JIE TONG III DO Dec 26, 2018 12:32
--- NOTE | 2018-12-26 15:28 | NUR ---
SS following up with discharge planning. Pt continues on the vent. SS will continue to follow for discharge needs.
--- NOTE | 2018-12-26 17:43 | NUR ---
RT notified Dr. Wong of ABG results at 1715.
[2018-12-26] MEDS: ENOXAPARIN 30 MG/0.3 ML SYRINGE. SQ SCH (20:32)
[2018-12-27] VITALS (24 sets, daily range): BP systolic 86–156; BP diastolic 56–86
[2018-12-27] MEDS: PIPERACILLIN/TAZOBACTAM 3.375 GM in IV NORMAL SALINE 50ML 50 ML IV SCH ×4 (00:07→21:19)
[2018-12-27] MEDS: IV NORMAL SALINE 1000ML BAG 1,000 ML IV SCH ×3 (00:15→13:33)
[2018-12-27 06:44] LABS: BASO % 0 % (0-3); EOS # 0.2 x10^3/uL (0.0-0.7); EOS % 2 % (0-3); HEMATOCRIT 24.6 % (39.0-53.0); HEMOGLOBIN 8.1 g/dL (13.0-17.5); LYMPH # 0.5 x10^3/uL (1.0-4.8); LYMPH % 4 % (24-48); MEAN CORPUSCULAR HEMOGLOBIN 29 pg (25-35); MEAN CORPUSCULAR HGB CONC 33 g/dL (31-37); MEAN CORPUSCULAR VOLUME 89 fL (79-100); MONO # 0.5 x10^3/uL (0.0-1.1); MONO % 4 % (0-9); NEUT # 10.5 x10^3uL (1.8-7.7); NEUT % 90 % (31-73); RED BLOOD COUNT 2.76 x10^6/uL (4.30-5.70); RED CELL DISTRIBUTION WIDTH 16.6 % (11.5-14.5); WHITE BLOOD COUNT 11.6 x10^3/uL (4.0-11.0)
--- NOTE | 2018-12-27 06:51 | PDOC ---
Infectious Disease Note Subjective Subjective pt is intubated on vent ROS ROS no n/v/d/fever Vital Sign Vital Signs Vital Signs Date Time Temp Pulse Resp B/P (MAP) Pulse Ox O2 Delivery O2 Flow Rate FiO2 12/27/18 06:00 65 20 90/56 (67) 100 Ventilator 12/27/18 04:00 96.3 96.3 Physical Exam PHYSICAL EXAM GENERAL: Sedated, orally intubated gentleman on a ventilator, not in distress. VITAL SIGNS: Stable HEENT: Both pupils are round and reacting. No conjunctival lesion. Orally intubated. NECK: Supple, no JVP, no lymphadenopathy. LUNGS: Decreased breath sounds bilaterally. HEART: S1, S2 regular. No gallop or murmur. ABDOMEN: Soft, nontender, nondistended. EXTREMITIES: No edema, cyanosis. SKIN: Unremarkable for any skin breakdown and/or any rash. NEUROLOGIC: Cannot be assessed as sedated, orally intubated. Labs Lab Laboratory Tests Test 12/26/18 07:50 O2 Saturation 98 % (92-99) Arterial Blood pH 7.35 (7.35-7.45) Arterial Blood pCO2 at Patient Temp 24 mmHg (35-46) Arterial Blood pO2 at Patient Temp 130 mmHg (65-108) Arterial Blood HCO3 13 mmol/L (21-28) Arterial Blood Base Excess -11 mmol/L (-3-3) FiO2 30 Micro BC G neg leonardo Objective Assessment Septic shock Hypothermia Leukopenia Lactic acidosis Suspected aspiration Respiratory failure TAZ Dehydration Dementia G neg leonardo bacteremia Plan Plan of Care zosyn ,,, levaquin x 1 d/c zyvox check cultures supportive care care check cbc and cmp ESTEFANIA DUNCAN MD Dec 27, 2018 06:51
[2018-12-27 07:22] LABS: PLATELET COUNT 55 x10^3/uL (140-400)
[2018-12-27] MEDS: PANTOPRAZOLE IV PUSH 40 MG VIAL. IVP SCH (07:22)
[2018-12-27 07:37] LABS: BASE EXCESS ABG -10 mmol/L (-3-3); HCO3 ABG 15 mmol/L (21-28); PCO2 ABG 29 mmHg (35-46); PO2 ABG 151 mmHg (65-108); SAT O2 ABG 98 % (92-99)
[2018-12-27 07:41] LABS: FIO2 ABG 30
[2018-12-27 08:07] LABS: ALBUMIN 1.7 g/dL (3.4-5.0); ALBUMIN/GLOBULIN RATIO 0.6 (1.0-1.7); POTASSIUM 3.6 mmol/L (3.5-5.1); TOTAL BILIRUBIN 0.4 mg/dL (0.2-1.0); TOTAL PROTEIN 4.7 g/dL (6.4-8.2)
[2018-12-27 08:08] LABS: CALCIUM 7.7 mg/dL (8.5-10.1)
[2018-12-27] MEDS: MIDAZOLAM 100mg/100ml NS BAG 100 ML IV PRN (08:08)
[2018-12-27 08:09] LABS: CREATININE 1.5 mg/dL (0.7-1.3); GFR 54.5
[2018-12-27 08:13] LABS: PLT ESTIMATE DECREASED (ADEQUATE)
[2018-12-27 08:15] LABS: ANISOCYTOSIS SLIGHT; POIKILOCYTOSIS PRESENT
[2018-12-27 08:21] LABS: POLYCHROMASIA SLIGHT; SCHISTOCYTES FEW; TEAR DROP CELLS OCC
[2018-12-27 08:22] LABS: ACANTHOCYTES PRESENT; BURR CELLS PRESENT
--- NOTE | 2018-12-27 08:25 | RAD ---
PORTABLE CHEST 1V Clinical History: RF Technique: AP view of the chest was obtained at 12/27/2018 6:50 AM. Comparison: December 26, 2018. Findings: The heart is mildly enlarged. The endotracheal tube NG tube and right jugular line are unchanged. The pulmonary vessels appear normal. There is patchy opacities in the lower lungs bilaterally. There is blunting of the left costophrenic angle. Impression: 1. Mild cardiomegaly. 2. Bilateral infiltrates and mild left effusion likely secondary to mild CHF. 3. No change. Electronically signed by: Gerry Nash III, MD (12/27/2018 8:22 AM) [facility]
--- NOTE | 2018-12-27 08:38 | PDOC ---
PROGRESS NOTES Chief Complaint Chief Complaint CC: metabolic encephalopathy Septic shock secondary to urinary tract infection secondary to chronic indwelling urinary suprapubic catheter History of acute venous sinus thrombosis on CTA head/neck on chronic anticoagulation with coumadin Left Sided weakness and right-sided gaze, on last admission which had resolved History dementia, seizures History of essential Hypertension History of BPH, Indwelling suprapubic catheter History of complicated UTI in a male sec to indwelling FC History of Present Illness History of Present Illness Pt is an 78 y/o male who presented with sepsis due to UTI and chronic indwelling catheter. BCx demonstrated GNR bacteremia. Receiving IV Zosyn. Levaquin has been d/c. Today he was seen and examined in the ICU. He is critically stable and on the vent. per Versed. AC 16/450/30/5.0. ID and Pulm following. Vitals Vitals Vital Signs Date Time Temp Pulse Resp B/P (MAP) Pulse Ox O2 Delivery O2 Flow Rate FiO2 12/27/18 08:24 96.0 65 19 97/66 (76) 100 96.0 12/27/18 07:23 Ventilator Physical Exam Physical Exam GENERAL: Sedated, orally intubated gentleman on a ventilator, not in distress. VITAL SIGNS: Stable HEENT: Both pupils are round and reacting. No conjunctival lesion. Orally intubated. NECK: Supple, no JVP, no lymphadenopathy. LUNGS: Decreased breath sounds bilaterally. HEART: S1, S2 regular. No gallop or murmur. ABDOMEN: Soft, nontender, nondistended. EXTREMITIES: No edema, cyanosis. SKIN: Unremarkable for any skin breakdown and/or any rash. NEUROLOGIC: Cannot be assessed as sedated, orally intubated. General: No acute distress, Other Heart: Regular rate, No murmurs Lungs: Clear Abdomen: Normal bowel sounds, Soft Extremities: No clubbing Skin: No rashes, No breakdown, No significant lesion Labs LABS Laboratory Tests Test 12/27/18 06:30 12/27/18 06:49 12/27/18 07:30 White Blood Count 11.6 x10^3/uL (4.0-11.0) Red Blood Count 2.76 x10^6/uL (4.30-5.70) Hemoglobin 8.1 g/dL (13.0-17.5) Hematocrit 24.6 % (39.0-53.0) Mean Corpuscular Volume 89 fL (79-100) Mean Corpuscular Hemoglobin 29 pg (25-35) Mean Corpuscular Hemoglobin Concent 33 g/dL (31-37) Red Cell Distribution Width 16.6 % (11.5-14.5) Platelet Count 55 x10^3/uL (140-400) Neutrophils (%) (Auto) 90 % (31-73) Lymphocytes (%) (Auto) 4 % (24-48) Monocytes (%) (Auto) 4 % (0-9) Eosinophils (%) (Auto) 2 % (0-3) Basophils (%) (Auto) 0 % (0-3) Neutrophils # (Auto) 10.5 x10^3uL (1.8-7.7) Lymphocytes # (Auto) 0.5 x10^3/uL (1.0-4.8) Monocytes # (Auto) 0.5 x10^3/uL (0.0-1.1) Eosinophils # (Auto) 0.2 x10^3/uL (0.0-0.7) Basophils # (Auto) 0.0 x10^3/uL (0.0-0.2) Platelet Estimate Decreased (ADEQUATE) Polychromasia Slight Poikilocytosis Present Anisocytosis Slight Tear Drop Cells Occ Andrew Cells Present Acanthocytes Present Schistocytes Few Sodium Level 146 mmol/L (136-145) Potassium Level 3.6 mmol/L (3.5-5.1) Chloride Level 117 mmol/L (98-107) Carbon Dioxide Level 17 mmol/L (21-32) Anion Gap 12 (6-14) Blood Urea Nitrogen 24 mg/dL (8-26) Creatinine 1.5 mg/dL (0.7-1.3) Estimated GFR (Cockcroft-Gault) 54.5 BUN/Creatinine Ratio 16 (6-20) Glucose Level 98 mg/dL (70-99) Calcium Level 7.7 mg/dL (8.5-10.1) Total Bilirubin 0.4 mg/dL (0.2-1.0) Aspartate Amino Transf (AST/SGOT) 67 U/L (15-37) Alanine Aminotransferase (ALT/SGPT) 178 U/L (16-63) Alkaline Phosphatase 79 U/L (46-116) Total Protein 4.7 g/dL (6.4-8.2) Albumin 1.7 g/dL (3.4-5.0) Albumin/Globulin Ratio 0.6 (1.0-1.7) O2 Saturation 98 % (92-99) Arterial Blood pH 7.32 (7.35-7.45) Arterial Blood pCO2 at Patient Temp 29 mmHg (35-46) Arterial Blood pO2 at Patient Temp 151 mmHg (65-108) Arterial Blood HCO3 15 mmol/L (21-28) Arterial Blood Base Excess -10 mmol/L (-3-3) FiO2 30 Review of Systems Review of Systems General: sedated, intubated, no acute distress. Cardiac: no arrhythmia, no swelling Respiratory: no crackles, no rhonchi, no rales Assessment and Plan Assessmemt and Plan Assessment metabolic encephalopathy GNR bacteremia septic shock secondary to UTI secondary to chronic indwelling urinary suprapubic catheter history of acute venous sinus thrombosis (CTA-Head/Neck) - on chronic anticoagulation with Coumadin left-sided weakness + right-sided gaze, on last admission, resolved history of dementia, seizures history of essential hypertension history of BPH indwelling suprapubic cath history of complicated UTI in male secondary to indwelling cath Plan continue IV zosyn ICU monitoring, supportive care mechanical ventilation per Sisayla OG feeding at 45 cc/hr follow daily labs PT/OT home meds appreciate subspecialty input AC16/450/30/5.0 currently full code Comment Review of Relevant I have reviewed the following items edgar (where applicable) has been applied. Labs Laboratory Tests Test 12/26/18 07:50 12/27/18 06:30 12/27/18 06:49 12/27/18 07:30 O2 Saturation 98 % (92-99) 98 % (92-99) Arterial Blood pH 7.35 (7.35-7.45) 7.32 (7.35-7.45) Arterial Blood pCO2 at Patient Temp 24 mmHg (35-46) 29 mmHg (35-46) Arterial Blood pO2 at Patient Temp 130 mmHg (65-108) 151 mmHg (65-108) Arterial Blood HCO3 13 mmol/L (21-28) 15 mmol/L (21-28) Arterial Blood Base Excess -11 mmol/L (-3-3) -10 mmol/L (-3-3) FiO2 30 30 White Blood Count 11.6 x10^3/uL (4.0-11.0) Red Blood Count 2.76 x10^6/uL (4.30-5.70) Hemoglobin 8.1 g/dL (13.0-17.5) Hematocrit 24.6 % (39.0-53.0) Mean Corpuscular Volume 89 fL (79-100) Mean Corpuscular Hemoglobin 29 pg (25-35) Mean Corpuscular Hemoglobin Concent 33 g/dL (31-37) Red Cell Distribution Width 16.6 % (11.5-14.5) Platelet Count 55 x10^3/uL (140-400) Neutrophils (%) (Auto) 90 % (31-73) Lymphocytes (%) (Auto) 4 % (24-48) Monocytes (%) (Auto) 4 % (0-9) Eosinophils (%) (Auto) 2 % (0-3) Basophils (%) (Auto) 0 % (0-3) Neutrophils # (Auto) 10.5 x10^3uL (1.8-7.7) Lymphocytes # (Auto) 0.5 x10^3/uL (1.0-4.8) Monocytes # (Auto) 0.5 x10^3/uL (0.0-1.1) Eosinophils # (Auto) 0.2 x10^3/uL (0.0-0.7) Basophils # (Auto) 0.0 x10^3/uL (0.0-0.2) Platelet Estimate Decreased (ADEQUATE) Polychromasia Slight Poikilocytosis Present Anisocytosis Slight Tear Drop Cells Occ Andrew Cells Present Acanthocytes Present Schistocytes Few Sodium Level 146 mmol/L (136-145) Potassium Level 3.6 mmol/L (3.5-5.1) Chloride Level 117 mmol/L (98-107) Carbon Dioxide Level 17 mmol/L (21-32) Anion Gap 12 (6-14) Blood Urea Nitrogen 24 mg/dL (8-26) Creatinine 1.5 mg/dL (0.7-1.3) Estimated GFR (Cockcroft-Gault) 54.5 BUN/Creatinine Ratio 16 (6-20) Glucose Level 98 mg/dL (70-99) Calcium Level 7.7 mg/dL (8.5-10.1) Total Bilirubin 0.4 mg/dL (0.2-1.0) Aspartate Amino Transf (AST/SGOT) 67 U/L (15-37) Alanine Aminotransferase (ALT/SGPT) 178 U/L (16-63) Alkaline Phosphatase 79 U/L (46-116) Total Protein 4.7 g/dL (6.4-8.2) Albumin 1.7 g/dL (3.4-5.0) Albumin/Globulin Ratio 0.6 (1.0-1.7) Laboratory Tests Test 12/27/18 06:30 12/27/18 06:49 12/27/18 07:30 White Blood Count 11.6 x10^3/uL (4.0-11.0) Red Blood Count 2.76 x10^6/uL (4.30-5.70) Hemoglobin 8.1 g/dL (13.0-17.5) Hematocrit 24.6 % (39.0-53.0) Mean Corpuscular Volume 89 fL (79-100) Mean Corpuscular Hemoglobin 29 pg (25-35) Mean Corpuscular Hemoglobin Concent 33 g/dL (31-37) Red Cell Distribution Width 16.6 % (11.5-14.5) Platelet Count 55 x10^3/uL (140-400) Neutrophils (%) (Auto) 90 % (31-73) Lymphocytes (%) (Auto) 4 % (24-48) Monocytes (%) (Auto) 4 % (0-9) Eosinophils (%) (Auto) 2 % (0-3) Basophils (%) (Auto) 0 % (0-3) Neutrophils # (Auto) 10.5 x10^3uL (1.8-7.7) Lymphocytes # (Auto) 0.5 x10^3/uL (1.0-4.8) Monocytes # (Auto) 0.5 x10^3/uL (0.0-1.1) Eosinophils # (Auto) 0.2 x10^3/uL (0.0-0.7) Basophils # (Auto) 0.0 x10^3/uL (0.0-0.2) Platelet Estimate Decreased (ADEQUATE) Polychromasia Slight Poikilocytosis Present Anisocytosis Slight Tear Drop Cells Occ Andrew Cells Present Acanthocytes Present Schistocytes Few Sodium Level 146 mmol/L (136-145) Potassium Level 3.6 mmol/L (3.5-5.1) Chloride Level 117 mmol/L (98-107) Carbon Dioxide Level 17 mmol/L (21-32) Anion Gap 12 (6-14) Blood Urea Nitrogen 24 mg/dL (8-26) Creatinine 1.5 mg/dL (0.7-1.3) Estimated GFR (Cockcroft-Gault) 54.5 BUN/Creatinine Ratio 16 (6-20) Glucose Level 98 mg/dL (70-99) Calcium Level 7.7 mg/dL (8.5-10.1) Total Bilirubin 0.4 mg/dL (0.2-1.0) Aspartate Amino Transf (AST/SGOT) 67 U/L (15-37) Alanine Aminotransferase (ALT/SGPT) 178 U/L (16-63) Alkaline Phosphatase 79 U/L (46-116) Total Protein 4.7 g/dL (6.4-8.2) Albumin 1.7 g/dL (3.4-5.0) Albumin/Globulin Ratio 0.6 (1.0-1.7) O2 Saturation 98 % (92-99) Arterial Blood pH 7.32 (7.35-7.45) Arterial Blood pCO2 at Patient Temp 29 mmHg (35-46) Arterial Blood pO2 at Patient Temp 151 mmHg (65-108) Arterial Blood HCO3 15 mmol/L (21-28) Arterial Blood Base Excess -10 mmol/L (-3-3) FiO2 30 Microbiology 12/24/18 Blood Culture - Final, Complete 12/24/18 Urine Culture - Final, Complete 12/24/18 Urine Culture Result 1 (MORIAH) - Final, Complete Medications Current Medications Sodium Chloride 1,000 ml @ 1,000 mls/hr Q1H IV Last administered on 12/24/18at 03:31; Start 12/24/18 at 03:45; Stop 12/24/18 at 04:44; Status DC Piperacillin Sod/ Tazobactam Sod 3.375 gm/Sodium Chloride 50 ml @ 100 mls/hr 1X ONCE IV Last administered on 12/24/18at 04:00; Start 12/24/18 at 04:00; Stop 12/24/18 at 04:29; Status DC Levofloxacin/ Dextrose 100 ml @ 100 mls/hr 1X ONCE IV Last administered on at 05:28; Start 12/24/18 at 04:00; Stop 12/24/18 at 04:59; Status DC Etomidate (Amidate) 20 mg STK-MED ONCE IV ; Start 12/24/18 at 03:47; Stop at 03:48; Status DC Vecuronium [place] (Norcuron Bolus) 10 mg STK-MED ONCE IV ; Start 12/24/18 at 03 :47; Stop 12/24/18 at 03:48; Status DC Sodium Chloride 1,000 ml @ 1,000 mls/hr 1X ONCE IV Last administered on at 03:31; Start 12/24/18 at 04:30; Stop 12/24/18 at 05:29; Status DC Vecuronium [place] (Norcuron Bolus) 20 mg 1X ONCE IV Last administered on 12/24at 03:32; Start 12/24/18 at 04:30; Stop 12/24/18 at 04:31; Status DC Etomidate (Amidate) 20 mg 1X ONCE IV Last administered on 12/24/18at 03:32; Start 12/24/18 at 04:30; Stop 12/24/18 at 04:31; Status DC Midazolam HCl (Versed) 5 mg 1X ONCE IV Last administered on 12/24/18at 04:45; Start 12/24/18 at 04:45; Stop 12/24/18 at 04:46; Status DC Dopamine HCl/ Dextrose 250 ml @ 3.674 mls/ hr 1X ONCE IV Last administered on 12/24/18at 05:22; Start 12/24/18 at 05:15; Stop 12/27/18 at 01:17; Status DC Sodium Chloride 1,000 ml @ 150 mls/hr Q6H40M IV ; Start 12/24/18 at 05:30; Stop 12/24/18 at 06:52; Status DC Sodium Chloride 1,000 ml @ 1,000 mls/hr 1X ONCE IV Last administered on at 05:04; Start 12/24/18 at 05:45; Stop 12/24/18 at 06:44; Status DC Norepinephrine Bitartrate 250 ml @ 1.875 mls/ hr CONT PRN IV SEE I/O RECORD Last administered on 12/24/18at 05:57; Start 12/24/18 at 05:45; Stop 12/24/18 at 10:25; Status DC Hydrocortisone Sodium Succinate (Solu-CORTEF) 300 mg 1X ONCE IV Last administered on 12/24/18at 10:33; Start 12/24/18 at 06:00; Stop 12/24/18 at 06:01 ; Status DC Sodium Chloride 1,000 ml @ 1,000 mls/hr 1X ONCE IV Last administered on at 05:22; Start 12/24/18 at 07:00; Stop 12/24/18 at 07:59; Status DC Sodium Chloride 1,000 ml @ 1,860 mls/hr Q33M IV ; Start 12/24/18 at 10:14; Stop 12/24/18 at 11:13; Status DC Sodium Chloride 500 ml @ 1,000 mls/hr PRN Q30MIN PRN IV SEE COMMENTS Last administered on 12/24/18at 13:00; Start 12/24/18 at 10:15 Linezolid/Dextrose 300 ml @ 300 mls/hr Q12HR IV Last administered on 12/26/18at 20:33; Start 12/24/18 at 11:00; Stop 12/27/18 at 06:51; Status DC Piperacillin Sod/ Tazobactam Sod 4.5 gm/Sodium Chloride 100 ml @ 200 mls/hr Q6HRS IV ; Start 12/24/18 at 12:00; Status UNV Norepinephrine Bitartrate 250 ml @ 0 mls/hr CONT PRN IV SEE I/O RECORD Last administered on 12/25/18at 14:11; Start 12/24/18 at 10:15 Piperacillin Sod/ Tazobactam Sod 3.375 gm/Sodium Chloride 50 ml @ 100 mls/hr Q6HRS IV Last administered on 12/27/18at 05:58; Start 12/24/18 at 12:00; Stop 12/27/18 at 06:51; Status DC Sodium Chloride 1,000 ml @ 150 mls/hr Q6H40M IV Last administered on 12/27/18at 07:19; Start 12/24/18 at 11:15 Propofol 100 ml @ 0 mls/hr CONT PRN IV SEE PROTOCOL Last administered on at 03:45; Start 12/24/18 at 16:30 Fentanyl Citrate (Fentanyl 2ml Vial) 25 mcg PRN Q1HR PRN IV SEE COMMENTS Last administered on 12/25/18at 12:20; Start 12/24/18 at 16:30 Pantoprazole Sodium (PROTONIX VIAL for IV PUSH) 40 mg DAILYAC IVP Last administered on 12/27/18at 07:22; Start 12/24/18 at 18:00 Enoxaparin Sodium (Lovenox 30mg Syringe) 30 mg Q24H SQ Last administered on 12/26at 20:32; Start 12/24/18 at 19:00 Midazolam HCl 100 ml @ 0 mls/hr CONT PRN IV PER PROTOCOL Last administered on at 08:08; Start 12/25/18 at 10:00 Piperacillin Sod/ Tazobactam Sod 3.375 gm/Sodium Chloride 50 ml @ 100 mls/hr Q8HRS IV ; Start 12/27/18 at 14:00 Active Scripts Active Reported Warfarin Sodium 6 Mg Tablet 8 Mg PO HS Miralax (Polyethylene Glycol 3350) 17 Gm Powd.pack 1 Packet PO PRN DAILY PRN Milk Of Magnesia (Magnesium Hydroxide) 400 Mg/5 Ml Oral.susp 400 Mg PO PRN DAILY PRN Megace Es (Megestrol Acetate) 625 Mg/5 Ml Oral.susp 400 Mg PO Senna Plus Tablet (Sennosides/Docusate Sodium) 1 Each Tablet 1 Each PO Aspirin 325 Mg Tablet 1 Tab PO DAILY Keppra (Levetiracetam) 500 Mg Tablet 500 Mg PO BID Vitamin D3 (Cholecalciferol (Vitamin D3)) 1,000 Unit Tablet 400 Unit PO DAILY Trazodone Hcl 50 Mg Tablet 1 Tab PO QHS Tylenol (Acetaminophen) 325 Mg Tablet 1-2 Tab PO PRN Q4HRS PRN Losartan Potassium 50 Mg Tablet 50 Mg PO DAILY Vitals/I & O Vital Sign - Last 24 Hours 12/26/18 12/26/18 12/26/18 12/26/18 09:00 10:00 10:13 10:23 Pulse 75 77 80 Resp 20 23 21 B/P (MAP) 143/75 (97) 138/87 (104) 94/64 (74) Pulse Ox 100 100 100 100 O2 Delivery Ventilator Ventilator Ventilator Ventilator 12/26/18 12/26/18 12/26/18 12/26/18 11:00 11:55 12:00 12:00 Temp 96.8 96.8 Pulse 86 93 Resp 24 27 B/P (MAP) 109/64 (79) 116/69 (85) Pulse Ox 100 100 100 O2 Delivery Ventilator Ventilator Ventilator Mechanical Ventilator 12/26/18 12/26/18 12/26/18 12/26/18 13:00 13:15 14:00 15:00 Pulse 86 79 79 Resp 24 21 20 B/P (MAP) 113/70 (84) 105/66 (79) 113/72 (86) Pulse Ox 100 100 100 100 O2 Delivery Ventilator Ventilator Ventilator Ventilator 12/26/18 12/26/18 12/26/18 12/26/18 15:49 16:00 16:00 17:00 Temp 96.6 96.6 Pulse 80 72 Resp 20 20 B/P (MAP) 137/79 (98) 127/84 (98) Pulse Ox 100 100 100 O2 Delivery Ventilator Mechanical Ventilator Ventilator Ventilator 12/26/18 12/26/18 12/26/18 12/26/18 18:00 19:00 19:46 20:00 Temp 96.3 96.3 Pulse 72 72 76 Resp 20 21 21 B/P (MAP) 127/77 (94) 135/76 (95) 141/82 (101) Pulse Ox 100 100 100 99 O2 Delivery Ventilator Ventilator Ventilator Ventilator 12/26/18 12/26/18 12/26/18 12/26/18 20:00 20:15 20:30 21:00 Pulse 76 Resp 21 B/P (MAP) 97/66 (76) 119/74 (89) 112/78 (89) Pulse Ox 100 O2 Delivery Mechanical Ventilator Ventilator 12/26/18 12/26/18 12/26/18 12/26/18 21:15 22:00 22:59 23:00 Pulse 72 72 Resp 24 22 B/P (MAP) 133/71 (91) 114/72 (86) 100/73 (82) Pulse Ox 100 100 100 O2 Delivery Ventilator Ventilator Ventilator 12/26/18 12/27/18 12/27/18 12/27/18 23:59 00:00 01:00 01:03 Temp 96.2 96.2 Pulse 72 72 Resp 22 20 B/P (MAP) 107/73 (84) 96/62 (73) Pulse Ox 100 100 100 O2 Delivery Mechanical Ventilator Ventilator Ventilator Ventilator 12/27/18 12/27/18 12/27/18 12/27/18 02:00 03:00 03:10 04:00 Temp 96.3 96.3 Pulse 74 67 66 Resp 20 20 20 B/P (MAP) 96/63 (74) 88/60 (69) 103/68 (80) Pulse Ox 100 100 100 100 O2 Delivery Ventilator Ventilator Ventilator Ventilator 12/27/18 12/27/18 12/27/18 12/27/18 04:00 04:48 05:00 06:00 Pulse 62 65 Resp 20 20 B/P (MAP) 86/57 (67) 90/56 (67) Pulse Ox 100 100 100 O2 Delivery Mechanical Ventilator Ventilator Ventilator Ventilator 12/27/18 12/27/18 12/27/18 07:00 07:23 08:24 Temp 96.0 96.0 96.0 96.0 Pulse 63 65 Resp 20 19 B/P (MAP) 105/70 (82) 97/66 (76) Pulse Ox 100 100 100 O2 Delivery Ventilator Ventilator Intake and Output 12/26/18 12/26/18 12/27/18 15:00 23:00 07:00 Intake Total 625 ml 3265 ml 2905 ml Output Total 905 ml 580 ml 400 ml Balance -280 ml 2685 ml 2505 ml JIE TONG III DO Dec 27, 2018 08:38
--- NOTE | 2018-12-27 10:54 | RAD ---
CT chest abdomen and pelvis without contrast: History: Pain status post fall Axial helical images of the chest, abdomen and pelvis were obtained without IV contrast. Comparison: none CT chest without contrast: There are mild pleural effusions with adjacent infiltrates bilaterally. There is significant coronary artery calcifications. Bilaterally. Impression: Mild pleural effusions with adjacent infiltrates. End Impression CT SCAN OF THE ABDOMEN without IV CONTRAST. Findings: There is an NG tube with its tip in the mid stomach. There are small stones in the gallbladder but no distention or wall thickening or surrounding inflammation. Liver: Unremarkable Spleen: Unremarkable Pancreas: Unremarkable Adrenal Glands: Unremarkable Kidneys: Small cyst posteriorly on the right Evaluation of stomach and bowel is limited without oral contrast. Evaluation of solid organs is limited without IV contrast. There is no mass or lymphadenopathy. There is a trace of free fluid in the paracolic gutters. There is no free air. End Impression CT of pelvis without contrast: There is a trace of free fluid in the pelvis. The urinary bladder is mostly collapsed around the suprapubic catheter. There is mild wall thickening. There is no pericolonic inflammation. Impression: 1. Minimal ascites. 2. Mild wall thickening in the urinary bladder could be nondistention however cystitis is possible. End impression PQRS Compliance Statement: One or more of the following individualized dose reduction techniques were utilized for this examination: 1. Automated exposure control 2. Adjustment of the mA and/or kV according to patient size 3. Use of iterative reconstruction technique Electronically signed by: Gerry Nash III, MD (12/27/2018 10:51 AM) [facility]
--- NOTE | 2018-12-27 16:42 | NUR ---
Patient RAAS -3. Patient appears comfortable, family at bedside. Versed decreased to 2mg/hr and NS decreased to 75mL/hr per Dr. Wong.
--- NOTE | 2018-12-27 16:55 | PDOC ---
PULMONARY PROGRESS NOTES Subjective SEDATED AC MODE OFF LEVO Vitals Vital Signs Date Time Temp Pulse Resp B/P (MAP) Pulse Ox O2 Delivery O2 Flow Rate FiO2 12/27/18 16:00 61 19 126/82 (97) 100 Ventilator 12/27/18 15:17 95.9 95.9 Lungs: Clear Cardiovascular: S1, S2 Abdomen: Soft Extremities: Other (EDEMA) Skin: Warm Labs Laboratory Tests Test 12/26/18 07:50 12/27/18 06:30 12/27/18 06:49 12/27/18 07:30 O2 Saturation 98 % (92-99) 98 % (92-99) Arterial Blood pH 7.35 (7.35-7.45) 7.32 (7.35-7.45) Arterial Blood pCO2 at Patient Temp 24 mmHg (35-46) 29 mmHg (35-46) Arterial Blood pO2 at Patient Temp 130 mmHg (65-108) 151 mmHg (65-108) Arterial Blood HCO3 13 mmol/L (21-28) 15 mmol/L (21-28) Arterial Blood Base Excess -11 mmol/L (-3-3) -10 mmol/L (-3-3) FiO2 30 30 White Blood Count 11.6 x10^3/uL (4.0-11.0) Red Blood Count 2.76 x10^6/uL (4.30-5.70) Hemoglobin 8.1 g/dL (13.0-17.5) Hematocrit 24.6 % (39.0-53.0) Mean Corpuscular Volume 89 fL (79-100) Mean Corpuscular Hemoglobin 29 pg (25-35) Mean Corpuscular Hemoglobin Concent 33 g/dL (31-37) Red Cell Distribution Width 16.6 % (11.5-14.5) Platelet Count 55 x10^3/uL (140-400) Neutrophils (%) (Auto) 90 % (31-73) Lymphocytes (%) (Auto) 4 % (24-48) Monocytes (%) (Auto) 4 % (0-9) Eosinophils (%) (Auto) 2 % (0-3) Basophils (%) (Auto) 0 % (0-3) Neutrophils # (Auto) 10.5 x10^3uL (1.8-7.7) Lymphocytes # (Auto) 0.5 x10^3/uL (1.0-4.8) Monocytes # (Auto) 0.5 x10^3/uL (0.0-1.1) Eosinophils # (Auto) 0.2 x10^3/uL (0.0-0.7) Basophils # (Auto) 0.0 x10^3/uL (0.0-0.2) Platelet Estimate Decreased (ADEQUATE) Polychromasia Slight Poikilocytosis Present Anisocytosis Slight Tear Drop Cells Occ [place] Cells Present Acanthocytes Present Schistocytes Few Sodium Level 146 mmol/L (136-145) Potassium Level 3.6 mmol/L (3.5-5.1) Chloride Level 117 mmol/L (98-107) Carbon Dioxide Level 17 mmol/L (21-32) Anion Gap 12 (6-14) Blood Urea Nitrogen 24 mg/dL (8-26) Creatinine 1.5 mg/dL (0.7-1.3) Estimated GFR (Cockcroft-Gault) 54.5 BUN/Creatinine Ratio 16 (6-20) Glucose Level 98 mg/dL (70-99) Calcium Level 7.7 mg/dL (8.5-10.1) Total Bilirubin 0.4 mg/dL (0.2-1.0) Aspartate Amino Transf (AST/SGOT) 67 U/L (15-37) Alanine Aminotransferase (ALT/SGPT) 178 U/L (16-63) Alkaline Phosphatase 79 U/L (46-116) Total Protein 4.7 g/dL (6.4-8.2) Albumin 1.7 g/dL (3.4-5.0) Albumin/Globulin Ratio 0.6 (1.0-1.7) Laboratory Tests Test 12/27/18 06:30 12/27/18 06:49 12/27/18 07:30 White Blood Count 11.6 x10^3/uL (4.0-11.0) Red Blood Count 2.76 x10^6/uL (4.30-5.70) Hemoglobin 8.1 g/dL (13.0-17.5) Hematocrit 24.6 % (39.0-53.0) Mean Corpuscular Volume 89 fL (79-100) Mean Corpuscular Hemoglobin 29 pg (25-35) Mean Corpuscular Hemoglobin Concent 33 g/dL (31-37) Red Cell Distribution Width 16.6 % (11.5-14.5) Platelet Count 55 x10^3/uL (140-400) Neutrophils (%) (Auto) 90 % (31-73) Lymphocytes (%) (Auto) 4 % (24-48) Monocytes (%) (Auto) 4 % (0-9) Eosinophils (%) (Auto) 2 % (0-3) Basophils (%) (Auto) 0 % (0-3) Neutrophils # (Auto) 10.5 x10^3uL (1.8-7.7) Lymphocytes # (Auto) 0.5 x10^3/uL (1.0-4.8) Monocytes # (Auto) 0.5 x10^3/uL (0.0-1.1) Eosinophils # (Auto) 0.2 x10^3/uL (0.0-0.7) Basophils # (Auto) 0.0 x10^3/uL (0.0-0.2) Platelet Estimate Decreased (ADEQUATE) Polychromasia Slight Poikilocytosis Present Anisocytosis Slight Tear Drop Cells Occ [place] Cells Present Acanthocytes Present Schistocytes Few Sodium Level 146 mmol/L (136-145) Potassium Level 3.6 mmol/L (3.5-5.1) Chloride Level 117 mmol/L (98-107) Carbon Dioxide Level 17 mmol/L (21-32) Anion Gap 12 (6-14) Blood Urea Nitrogen 24 mg/dL (8-26) Creatinine 1.5 mg/dL (0.7-1.3) Estimated GFR (Cockcroft-Gault) 54.5 BUN/Creatinine Ratio 16 (6-20) Glucose Level 98 mg/dL (70-99) Calcium Level 7.7 mg/dL (8.5-10.1) Total Bilirubin 0.4 mg/dL (0.2-1.0) Aspartate Amino Transf (AST/SGOT) 67 U/L (15-37) Alanine Aminotransferase (ALT/SGPT) 178 U/L (16-63) Alkaline Phosphatase 79 U/L (46-116) Total Protein 4.7 g/dL (6.4-8.2) Albumin 1.7 g/dL (3.4-5.0) Albumin/Globulin Ratio 0.6 (1.0-1.7) O2 Saturation 98 % (92-99) Arterial Blood pH 7.32 (7.35-7.45) Arterial Blood pCO2 at Patient Temp 29 mmHg (35-46) Arterial Blood pO2 at Patient Temp 151 mmHg (65-108) Arterial Blood HCO3 15 mmol/L (21-28) Arterial Blood Base Excess -10 mmol/L (-3-3) FiO2 30 Medications Active Scripts Medications Dose Route/Sig Max Daily Dose Days Date Category Warfarin Sodium 6 Mg Tablet 8 Mg PO HS 12/24/18 Reported Miralax (Polyethylene Glycol 3350) 17 Gm Powd.pack 1 Packet PO PRN DAILY PRN 03/19/18 Reported Milk Of Magnesia (Magnesium Hydroxide) 400 Mg/5 Ml Oral.susp 400 Mg PO PRN DAILY PRN 03/19/18 Reported Megace Es (Megestrol Acetate) 625 Mg/5 Ml Oral.susp 400 Mg PO 03/19/18 Reported Senna Plus Tablet (Sennosides/Docusate Sodium) 1 Each Tablet 1 Each PO 03/19/18 Reported Aspirin 325 Mg Tablet 1 Tab PO DAILY 03/19/18 Reported Keppra (Levetiracetam) 500 Mg Tablet 500 Mg PO BID 03/05/18 Reported Vitamin D3 (Cholecalciferol (Vitamin D3)) 1,000 Unit Tablet 400 Unit PO DAILY 03/05/18 Reported Trazodone Hcl 50 Mg Tablet 1 Tab PO QHS 03/05/18 Reported Tylenol (Acetaminophen) 325 Mg Tablet 1-2 Tab PO PRN Q4HRS PRN 03/05/18 Reported Losartan Potassium 50 Mg Tablet 50 Mg PO DAILY 11/28/17 Reported Impression . IMPRESSION: 1. Acute respiratory failure, multifactorial. 2. Septic shock. 3. Possible urinary tract infection. 4. History of cerebrovascular accident and dementia. 5. Prior questionable history of cerebral sinus thrombosis. 6. Seizures. 7. Generalized weakness. 8. Protein malnutrition, present upon admission. 9. Leukopenia. 10. Acute on chronic renal failure. 11. Metabolic acidosis from sepsis. Plan . HOLD SEDATION IN AM POSSIBLE SBT CXR AND LABS REVIEWED WILL CONTINUE SUPPORT ANITBX PER ID ON VERSED D/W RN NOT READY FOR [employer] FEEDING PT FULL CODE PER FAMILY TORSTEN KEE MD Dec 27, 2018 16:55
--- NOTE | 2018-12-27 20:30 | NUR ---
Nursing Note: Patient's son, Sarkis, called to check on him. Explained to him there has not been any change since he was there earlier today.
[2018-12-27] MEDS: ENOXAPARIN 30 MG/0.3 ML SYRINGE. SQ SCH (21:18)
--- NOTE | 2018-12-27 21:30 | NUR ---
Nursing Note: Bathing patient, patient resists when lifting his arms up to wash under his arms, he did dry end tester my hand with his right hand when lifting his arm up, when turning to wash his back he his bilateral lower extremities are stiff, he does not move his lower extremities. He does have a mass on his right lateral thigh and his right buttock that is soft.
[2018-12-28] VITALS (24 sets, daily range): BP systolic 96–156; BP diastolic 60–90
[2018-12-28] MEDS: IV NORMAL SALINE 1000ML BAG 1,000 ML IV SCH ×2 (05:36→12:40)
[2018-12-28] MEDS: PIPERACILLIN/TAZOBACTAM 3.375 GM in IV NORMAL SALINE 50ML 50 ML IV SCH ×3 (05:36→21:02)
--- NOTE | 2018-12-28 05:58 | RAD ---
Single view chest dated 12/28/2018. Comparison made to 12/27/2018. CLINICAL INDICATION: Respiratory failure. FINDINGS: Single supine portable exam performed. Heart and mediastinal contours are stable. Endotracheal tube, nasogastric tube and right subclavian catheter in place, unchanged. Consolidation at the retrocardiac left base with blunting of the left costophrenic sulcus, similar to slightly increased. There is also mild hazy airspace disease at the right base. No pneumothorax. IMPRESSION: 1. Left basilar consolidation with probable small left pleural effusion, similar slightly increased from prior study. 2. Stable position of tubes and lines. Electronically signed by: Sarkis Baldwin MD (12/28/2018 5:55 AM) [facility]
[2018-12-28 06:10] LABS: BASO % 0 % (0-3); EOS # 0.2 x10^3/uL (0.0-0.7); EOS % 2 % (0-3); HEMATOCRIT 25.9 % (39.0-53.0); HEMOGLOBIN 8.7 g/dL (13.0-17.5); LYMPH # 0.7 x10^3/uL (1.0-4.8); LYMPH % 7 % (24-48); MEAN CORPUSCULAR HEMOGLOBIN 30 pg (25-35); MEAN CORPUSCULAR HGB CONC 34 g/dL (31-37); MEAN CORPUSCULAR VOLUME 89 fL (79-100); MONO # 0.4 x10^3/uL (0.0-1.1); MONO % 4 % (0-9); NEUT # 8.6 x10^3uL (1.8-7.7); NEUT % 87 % (31-73); PLATELET COUNT 47 x10^3/uL (140-400); RED BLOOD COUNT 2.92 x10^6/uL (4.30-5.70); RED CELL DISTRIBUTION WIDTH 16.9 % (11.5-14.5); WHITE BLOOD COUNT 9.9 x10^3/uL (4.0-11.0)
[2018-12-28 06:18] LABS: CREATININE 1.2 mg/dL (0.7-1.3); GFR 70.5; POTASSIUM 3.7 mmol/L (3.5-5.1)
--- NOTE | 2018-12-28 08:20 | PDOC ---
Infectious Disease Note Subjective Subjective Remains intubated and sedated on Horacio MYERS ROS unobtainable Vital Sign Vital Signs Vital Signs Date Time Temp Pulse Resp B/P (MAP) Pulse Ox O2 Delivery O2 Flow Rate FiO2 12/28/18 07:19 98.1 75 26 102/65 (77) 100 Ventilator 98.1 Physical Exam PHYSICAL EXAM GENERAL: Intubated and sedated HEENT: ETT, OGT LUNGS: Clear anteriorly HEART: S1, S2 irregular ABDOMEN: BS active, soft, no grimace to palpation : Jaquez EXTREMITIES: Trace generalized edema SKIN: warm, no rash NEUROLOGIC: Sedated [facility] clean Labs Lab Laboratory Tests Test 12/28/18 06:01 White Blood Count 9.9 x10^3/uL (4.0-11.0) Red Blood Count 2.92 x10^6/uL (4.30-5.70) Hemoglobin 8.7 g/dL (13.0-17.5) Hematocrit 25.9 % (39.0-53.0) Mean Corpuscular Volume 89 fL (79-100) Mean Corpuscular Hemoglobin 30 pg (25-35) Mean Corpuscular Hemoglobin Concent 34 g/dL (31-37) Red Cell Distribution Width 16.9 % (11.5-14.5) Platelet Count 47 x10^3/uL (140-400) Neutrophils (%) (Auto) 87 % (31-73) Lymphocytes (%) (Auto) 7 % (24-48) Monocytes (%) (Auto) 4 % (0-9) Eosinophils (%) (Auto) 2 % (0-3) Basophils (%) (Auto) 0 % (0-3) Neutrophils # (Auto) 8.6 x10^3uL (1.8-7.7) Lymphocytes # (Auto) 0.7 x10^3/uL (1.0-4.8) Monocytes # (Auto) 0.4 x10^3/uL (0.0-1.1) Eosinophils # (Auto) 0.2 x10^3/uL (0.0-0.7) Basophils # (Auto) 0.0 x10^3/uL (0.0-0.2) Sodium Level 150 mmol/L (136-145) Potassium Level 3.7 mmol/L (3.5-5.1) Chloride Level 120 mmol/L (98-107) Carbon Dioxide Level 18 mmol/L (21-32) Anion Gap 12 (6-14) Blood Urea Nitrogen 23 mg/dL (8-26) Creatinine 1.2 mg/dL (0.7-1.3) Estimated GFR (Cockcroft-Gault) 70.5 Glucose Level 88 mg/dL (70-99) Calcium Level 8.0 mg/dL (8.5-10.1) CXR 1. Left basilar consolidation with probable small left pleural effusion, similar slightly increased from prior study. 2. Stable position of tubes and lines. Micro BLD CULT RESULT 1 Preliminary Gram negative rods URINE CULTURE RES 1 Final No growth Objective Assessment Septic shock with hypothermia (POA) GNR bacteremia (POA) Leukopenia - better Lactic acidosis Suspected aspiration Respiratory failure TAZ better Dehydration Dementia Thrombocytopenia Plan Plan of Care Zosyn Levaquin x 1, on 12/24 Awaiting GNR ID/susceptibilities Supportive care care D/w RN Critically ill Attending Co-Sign The patient was seen and interviewed as well as examined at the bedside. The chart was reviewed. The case was discussed. Agree with the plan of care. NATI ODELL APRN Dec 28, 2018 08:20 ESTEFANIA DUNCAN MD Dec 28, 2018 11:29
[2018-12-28 08:36] LABS: BASE EXCESS ABG -9 mmol/L (-3-3); HCO3 ABG 15 mmol/L (21-28); PCO2 ABG 27 mmHg (35-46); PO2 ABG 136 mmHg (65-108); SAT O2 ABG 98 % (92-99)
[2018-12-28 08:39] LABS: FIO2 ABG 30
[2018-12-28] MEDS: PANTOPRAZOLE IV PUSH 40 MG VIAL. IVP SCH (08:53)
[2018-12-28] MEDS: MIDAZOLAM 100mg/100ml NS BAG 100 ML IV PRN (09:00)
--- NOTE | 2018-12-28 11:52 | PDOC ---
PULMONARY PROGRESS NOTES Subjective SEDATED AC MODE OFF LEVO Vitals Vital Signs Date Time Temp Pulse Resp B/P (MAP) Pulse Ox O2 Delivery O2 Flow Rate FiO2 12/28/18 11:00 97.9 83 20 106/68 (81) 100 Ventilator 97.9 Lungs: Clear Cardiovascular: S1, S2 Abdomen: Soft Extremities: Other (EDEMA) Skin: Warm Labs Laboratory Tests Test 12/27/18 06:30 12/27/18 06:49 12/27/18 07:30 12/28/18 06:01 White Blood Count 11.6 x10^3/uL (4.0-11.0) 9.9 x10^3/uL (4.0-11.0) Red Blood Count 2.76 x10^6/uL (4.30-5.70) 2.92 x10^6/uL (4.30-5.70) Hemoglobin 8.1 g/dL (13.0-17.5) 8.7 g/dL (13.0-17.5) Hematocrit 24.6 % (39.0-53.0) 25.9 % (39.0-53.0) Mean Corpuscular Volume 89 fL (79-100) 89 fL (79-100) Mean Corpuscular Hemoglobin 29 pg (25-35) 30 pg (25-35) Mean Corpuscular Hemoglobin Concent 33 g/dL (31-37) 34 g/dL (31-37) Red Cell Distribution Width 16.6 % (11.5-14.5) 16.9 % (11.5-14.5) Platelet Count 55 x10^3/uL (140-400) 47 x10^3/uL (140-400) Neutrophils (%) (Auto) 90 % (31-73) 87 % (31-73) Lymphocytes (%) (Auto) 4 % (24-48) 7 % (24-48) Monocytes (%) (Auto) 4 % (0-9) 4 % (0-9) Eosinophils (%) (Auto) 2 % (0-3) 2 % (0-3) Basophils (%) (Auto) 0 % (0-3) 0 % (0-3) Neutrophils # (Auto) 10.5 x10^3uL (1.8-7.7) 8.6 x10^3uL (1.8-7.7) Lymphocytes # (Auto) 0.5 x10^3/uL (1.0-4.8) 0.7 x10^3/uL (1.0-4.8) Monocytes # (Auto) 0.5 x10^3/uL (0.0-1.1) 0.4 x10^3/uL (0.0-1.1) Eosinophils # (Auto) 0.2 x10^3/uL (0.0-0.7) 0.2 x10^3/uL (0.0-0.7) Basophils # (Auto) 0.0 x10^3/uL (0.0-0.2) 0.0 x10^3/uL (0.0-0.2) Platelet Estimate Decreased (ADEQUATE) Polychromasia Slight Poikilocytosis Present Anisocytosis Slight Tear Drop Cells Occ Andrew Cells Present Acanthocytes Present Schistocytes Few Sodium Level 146 mmol/L (136-145) 150 mmol/L (136-145) Potassium Level 3.6 mmol/L (3.5-5.1) 3.7 mmol/L (3.5-5.1) Chloride Level 117 mmol/L (98-107) 120 mmol/L (98-107) Carbon Dioxide Level 17 mmol/L (21-32) 18 mmol/L (21-32) Anion Gap 12 (6-14) 12 (6-14) Blood Urea Nitrogen 24 mg/dL (8-26) 23 mg/dL (8-26) Creatinine 1.5 mg/dL (0.7-1.3) 1.2 mg/dL (0.7-1.3) Estimated GFR (Cockcroft-Gault) 54.5 70.5 BUN/Creatinine Ratio 16 (6-20) Glucose Level 98 mg/dL (70-99) 88 mg/dL (70-99) Calcium Level 7.7 mg/dL (8.5-10.1) 8.0 mg/dL (8.5-10.1) Total Bilirubin 0.4 mg/dL (0.2-1.0) Aspartate Amino Transf (AST/SGOT) 67 U/L (15-37) Alanine Aminotransferase (ALT/SGPT) 178 U/L (16-63) Alkaline Phosphatase 79 U/L (46-116) Total Protein 4.7 g/dL (6.4-8.2) Albumin 1.7 g/dL (3.4-5.0) Albumin/Globulin Ratio 0.6 (1.0-1.7) O2 Saturation 98 % (92-99) Arterial Blood pH 7.32 (7.35-7.45) Arterial Blood pCO2 at Patient Temp 29 mmHg (35-46) Arterial Blood pO2 at Patient Temp 151 mmHg (65-108) Arterial Blood HCO3 15 mmol/L (21-28) Arterial Blood Base Excess -10 mmol/L (-3-3) FiO2 30 Test 12/28/18 08:30 O2 Saturation 98 % (92-99) Arterial Blood pH 7.36 (7.35-7.45) Arterial Blood pCO2 at Patient Temp 27 mmHg (35-46) Arterial Blood pO2 at Patient Temp 136 mmHg (65-108) Arterial Blood HCO3 15 mmol/L (21-28) Arterial Blood Base Excess -9 mmol/L (-3-3) FiO2 30 Laboratory Tests Test 12/28/18 06:01 12/28/18 08:30 White Blood Count 9.9 x10^3/uL (4.0-11.0) Red Blood Count 2.92 x10^6/uL (4.30-5.70) Hemoglobin 8.7 g/dL (13.0-17.5) Hematocrit 25.9 % (39.0-53.0) Mean Corpuscular Volume 89 fL (79-100) Mean Corpuscular Hemoglobin 30 pg (25-35) Mean Corpuscular Hemoglobin Concent 34 g/dL (31-37) Red Cell Distribution Width 16.9 % (11.5-14.5) Platelet Count 47 x10^3/uL (140-400) Neutrophils (%) (Auto) 87 % (31-73) Lymphocytes (%) (Auto) 7 % (24-48) Monocytes (%) (Auto) 4 % (0-9) Eosinophils (%) (Auto) 2 % (0-3) Basophils (%) (Auto) 0 % (0-3) Neutrophils # (Auto) 8.6 x10^3uL (1.8-7.7) Lymphocytes # (Auto) 0.7 x10^3/uL (1.0-4.8) Monocytes # (Auto) 0.4 x10^3/uL (0.0-1.1) Eosinophils # (Auto) 0.2 x10^3/uL (0.0-0.7) Basophils # (Auto) 0.0 x10^3/uL (0.0-0.2) Sodium Level 150 mmol/L (136-145) Potassium Level 3.7 mmol/L (3.5-5.1) Chloride Level 120 mmol/L (98-107) Carbon Dioxide Level 18 mmol/L (21-32) Anion Gap 12 (6-14) Blood Urea Nitrogen 23 mg/dL (8-26) Creatinine 1.2 mg/dL (0.7-1.3) Estimated GFR (Cockcroft-Gault) 70.5 Glucose Level 88 mg/dL (70-99) Calcium Level 8.0 mg/dL (8.5-10.1) O2 Saturation 98 % (92-99) Arterial Blood pH 7.36 (7.35-7.45) Arterial Blood pCO2 at Patient Temp 27 mmHg (35-46) Arterial Blood pO2 at Patient Temp 136 mmHg (65-108) Arterial Blood HCO3 15 mmol/L (21-28) Arterial Blood Base Excess -9 mmol/L (-3-3) FiO2 30 Medications Active Scripts Medications Dose Route/Sig Max Daily Dose Days Date Category Warfarin Sodium 6 Mg Tablet 8 Mg PO HS 12/24/18 Reported Miralax (Polyethylene Glycol 3350) 17 Gm Powd.pack 1 Packet PO PRN DAILY PRN 03/19/18 Reported Milk Of Magnesia (Magnesium Hydroxide) 400 Mg/5 Ml Oral.susp 400 Mg PO PRN DAILY PRN 03/19/18 Reported Megace Es (Megestrol Acetate) 625 Mg/5 Ml Oral.susp 400 Mg PO 03/19/18 Reported Senna Plus Tablet (Sennosides/Docusate Sodium) 1 Each Tablet 1 Each PO 03/19/18 Reported Aspirin 325 Mg Tablet 1 Tab PO DAILY 03/19/18 Reported Keppra (Levetiracetam) 500 Mg Tablet 500 Mg PO BID 03/05/18 Reported Vitamin D3 (Cholecalciferol (Vitamin D3)) 1,000 Unit Tablet 400 Unit PO DAILY 03/05/18 Reported Trazodone Hcl 50 Mg Tablet 1 Tab PO QHS 03/05/18 Reported Tylenol (Acetaminophen) 325 Mg Tablet 1-2 Tab PO PRN Q4HRS PRN 03/05/18 Reported Losartan Potassium 50 Mg Tablet 50 Mg PO DAILY 11/28/17 Reported Impression . IMPRESSION: 1. Acute respiratory failure, multifactorial. 2. Septic shock. 3. Possible urinary tract infection. 4. History of cerebrovascular accident and dementia. 5. Prior questionable history of cerebral sinus thrombosis. 6. Seizures. 7. Generalized weakness. 8. Protein malnutrition, present upon admission. 9. Leukopenia. 10. Acute on chronic renal failure. 11. Metabolic acidosis from sepsis. 12..GNB IN BLOOD Plan . HOLD SEDATION D/W DR DUNCAN CXR AND LABS REVIEWED WILL CONTINUE SUPPORT ANITBX PER ID ON VERSED D/W RN NOT READY FOR [employer] FEEDING PT FULL CODE PER FAMILY TORSTEN KEE MD Dec 28, 2018 11:52
--- NOTE | 2018-12-28 11:58 | NUR ---
Patient appears comfortable. Temp 97.9 with Horacio Mooney. Started sedation vacation at [address] Wong.
[2018-12-28] MEDS ORDERED: MAGNESIUM HYDROXIDE 2,400 MG/30 ML ORAL.SUSP. PO PRN (13:15)
--- NOTE | 2018-12-28 13:56 | PDOC ---
PROGRESS NOTES Chief Complaint Chief Complaint CC: metabolic encephalopathy Septic shock secondary to urinary tract infection secondary to chronic indwelling urinary suprapubic catheter History of acute venous sinus thrombosis on CTA head/neck on chronic anticoagulation with coumadin Left Sided weakness and right-sided gaze, on last admission which had resolved History dementia, seizures History of essential Hypertension History of BPH, Indwelling suprapubic catheter History of complicated UTI in a male sec to indwelling FC History of Present Illness History of Present Illness Pt is an 78 y/o male who presented with sepsis due to UTI and chronic indwelling catheter. BCx demonstrated GNR bacteremia. Receiving IV Zosyn. Levaquin has been d/c. Today he was seen and examined in the ICU. He is critically stable and on the vent. AC 16/450/30/5.0. Versed has been stopped but currently still unconscious. Off Levophed. Discussed the pt with his RN. Will go over home meds. ID and Pulm are following. Vitals Vitals Vital Signs Date Time Temp Pulse Resp B/P (MAP) Pulse Ox O2 Delivery O2 Flow Rate FiO2 12/28/18 13:38 100 Ventilator 12/28/18 12:05 89 19 109/68 (82) 12/28/18 11:00 97.9 97.9 Physical Exam Physical Exam GENERAL: Intubated and sedated HEENT: ETT, OGT LUNGS: Clear anteriorly HEART: S1, S2 irregular ABDOMEN: BS active, soft, no grimace to palpation : Jaquez EXTREMITIES: Trace generalized edema SKIN: warm, no rash NEUROLOGIC: Sedated RIJ clean General: No acute distress, Other Heart: Regular rate, No murmurs Lungs: Clear, Other (no wheezing or crackles) Abdomen: Normal bowel sounds, Soft, No tenderness Extremities: No clubbing, No edema, Normal pulses Skin: No rashes, No breakdown, No significant lesion Labs LABS Laboratory Tests Test 12/28/18 06:01 12/28/18 08:30 White Blood Count 9.9 x10^3/uL (4.0-11.0) Red Blood Count 2.92 x10^6/uL (4.30-5.70) Hemoglobin 8.7 g/dL (13.0-17.5) Hematocrit 25.9 % (39.0-53.0) Mean Corpuscular Volume 89 fL (79-100) Mean Corpuscular Hemoglobin 30 pg (25-35) Mean Corpuscular Hemoglobin Concent 34 g/dL (31-37) Red Cell Distribution Width 16.9 % (11.5-14.5) Platelet Count 47 x10^3/uL (140-400) Neutrophils (%) (Auto) 87 % (31-73) Lymphocytes (%) (Auto) 7 % (24-48) Monocytes (%) (Auto) 4 % (0-9) Eosinophils (%) (Auto) 2 % (0-3) Basophils (%) (Auto) 0 % (0-3) Neutrophils # (Auto) 8.6 x10^3uL (1.8-7.7) Lymphocytes # (Auto) 0.7 x10^3/uL (1.0-4.8) Monocytes # (Auto) 0.4 x10^3/uL (0.0-1.1) Eosinophils # (Auto) 0.2 x10^3/uL (0.0-0.7) Basophils # (Auto) 0.0 x10^3/uL (0.0-0.2) Sodium Level 150 mmol/L (136-145) Potassium Level 3.7 mmol/L (3.5-5.1) Chloride Level 120 mmol/L (98-107) Carbon Dioxide Level 18 mmol/L (21-32) Anion Gap 12 (6-14) Blood Urea Nitrogen 23 mg/dL (8-26) Creatinine 1.2 mg/dL (0.7-1.3) Estimated GFR (Cockcroft-Gault) 70.5 Glucose Level 88 mg/dL (70-99) Calcium Level 8.0 mg/dL (8.5-10.1) O2 Saturation 98 % (92-99) Arterial Blood pH 7.36 (7.35-7.45) Arterial Blood pCO2 at Patient Temp 27 mmHg (35-46) Arterial Blood pO2 at Patient Temp 136 mmHg (65-108) Arterial Blood HCO3 15 mmol/L (21-28) Arterial Blood Base Excess -9 mmol/L (-3-3) FiO2 30 Review of Systems Review of Systems General: sedated, intubated, no acute distress. Unable to assess other ROS due to pt being sedated and on vent Assessment and Plan Assessmemt and Plan Assessment metabolic encephalopathy GNR bacteremia septic shock secondary to UTI secondary to chronic indwelling urinary suprapubic catheter history of acute venous sinus thrombosis (CTA-Head/Neck) - on chronic anticoagulation with Coumadin left-sided weakness + right-sided gaze, on last admission, resolved history of dementia, seizures history of essential hypertension history of BPH indwelling suprapubic cath history of complicated UTI in male secondary to indwelling cath Plan Off versed and Lefophed continue IV zosyn ICU monitoring, supportive care mechanical ventilation per Sisayla OG feeding at 45 cc/hr follow daily labs PT/OT home meds appreciate subspecialty input AC16/450/30/5.0 Currently full code Comment Review of Relevant I have reviewed the following items edgar (where applicable) has been applied. Labs Laboratory Tests Test 12/27/18 06:30 12/27/18 06:49 12/27/18 07:30 12/28/18 06:01 White Blood Count 11.6 x10^3/uL (4.0-11.0) 9.9 x10^3/uL (4.0-11.0) Red Blood Count 2.76 x10^6/uL (4.30-5.70) 2.92 x10^6/uL (4.30-5.70) Hemoglobin 8.1 g/dL (13.0-17.5) 8.7 g/dL (13.0-17.5) Hematocrit 24.6 % (39.0-53.0) 25.9 % (39.0-53.0) Mean Corpuscular Volume 89 fL (79-100) 89 fL (79-100) Mean Corpuscular Hemoglobin 29 pg (25-35) 30 pg (25-35) Mean Corpuscular Hemoglobin Concent 33 g/dL (31-37) 34 g/dL (31-37) Red Cell Distribution Width 16.6 % (11.5-14.5) 16.9 % (11.5-14.5) Platelet Count 55 x10^3/uL (140-400) 47 x10^3/uL (140-400) Neutrophils (%) (Auto) 90 % (31-73) 87 % (31-73) Lymphocytes (%) (Auto) 4 % (24-48) 7 % (24-48) Monocytes (%) (Auto) 4 % (0-9) 4 % (0-9) Eosinophils (%) (Auto) 2 % (0-3) 2 % (0-3) Basophils (%) (Auto) 0 % (0-3) 0 % (0-3) Neutrophils # (Auto) 10.5 x10^3uL (1.8-7.7) 8.6 x10^3uL (1.8-7.7) Lymphocytes # (Auto) 0.5 x10^3/uL (1.0-4.8) 0.7 x10^3/uL (1.0-4.8) Monocytes # (Auto) 0.5 x10^3/uL (0.0-1.1) 0.4 x10^3/uL (0.0-1.1) Eosinophils # (Auto) 0.2 x10^3/uL (0.0-0.7) 0.2 x10^3/uL (0.0-0.7) Basophils # (Auto) 0.0 x10^3/uL (0.0-0.2) 0.0 x10^3/uL (0.0-0.2) Platelet Estimate Decreased (ADEQUATE) Polychromasia Slight Poikilocytosis Present Anisocytosis Slight Tear Drop Cells Occ Andrew Cells Present Acanthocytes Present Schistocytes Few Sodium Level 146 mmol/L (136-145) 150 mmol/L (136-145) Potassium Level 3.6 mmol/L (3.5-5.1) 3.7 mmol/L (3.5-5.1) Chloride Level 117 mmol/L (98-107) 120 mmol/L (98-107) Carbon Dioxide Level 17 mmol/L (21-32) 18 mmol/L (21-32) Anion Gap 12 (6-14) 12 (6-14) Blood Urea Nitrogen 24 mg/dL (8-26) 23 mg/dL (8-26) Creatinine 1.5 mg/dL (0.7-1.3) 1.2 mg/dL (0.7-1.3) Estimated GFR (Cockcroft-Gault) 54.5 70.5 BUN/Creatinine Ratio 16 (6-20) Glucose Level 98 mg/dL (70-99) 88 mg/dL (70-99) Calcium Level 7.7 mg/dL (8.5-10.1) 8.0 mg/dL (8.5-10.1) Total Bilirubin 0.4 mg/dL (0.2-1.0) Aspartate Amino Transf (AST/SGOT) 67 U/L (15-37) Alanine Aminotransferase (ALT/SGPT) 178 U/L (16-63) Alkaline Phosphatase 79 U/L (46-116) Total Protein 4.7 g/dL (6.4-8.2) Albumin 1.7 g/dL (3.4-5.0) Albumin/Globulin Ratio 0.6 (1.0-1.7) O2 Saturation 98 % (92-99) Arterial Blood pH 7.32 (7.35-7.45) Arterial Blood pCO2 at Patient Temp 29 mmHg (35-46) Arterial Blood pO2 at Patient Temp 151 mmHg (65-108) Arterial Blood HCO3 15 mmol/L (21-28) Arterial Blood Base Excess -10 mmol/L (-3-3) FiO2 30 Test 12/28/18 08:30 O2 Saturation 98 % (92-99) Arterial Blood pH 7.36 (7.35-7.45) Arterial Blood pCO2 at Patient Temp 27 mmHg (35-46) Arterial Blood pO2 at Patient Temp 136 mmHg (65-108) Arterial Blood HCO3 15 mmol/L (21-28) Arterial Blood Base Excess -9 mmol/L (-3-3) FiO2 30 Laboratory Tests Test 12/28/18 06:01 12/28/18 08:30 White Blood Count 9.9 x10^3/uL (4.0-11.0) Red Blood Count 2.92 x10^6/uL (4.30-5.70) Hemoglobin 8.7 g/dL (13.0-17.5) Hematocrit 25.9 % (39.0-53.0) Mean Corpuscular Volume 89 fL (79-100) Mean Corpuscular Hemoglobin 30 pg (25-35) Mean Corpuscular Hemoglobin Concent 34 g/dL (31-37) Red Cell Distribution Width 16.9 % (11.5-14.5) Platelet Count 47 x10^3/uL (140-400) Neutrophils (%) (Auto) 87 % (31-73) Lymphocytes (%) (Auto) 7 % (24-48) Monocytes (%) (Auto) 4 % (0-9) Eosinophils (%) (Auto) 2 % (0-3) Basophils (%) (Auto) 0 % (0-3) Neutrophils # (Auto) 8.6 x10^3uL (1.8-7.7) Lymphocytes # (Auto) 0.7 x10^3/uL (1.0-4.8) Monocytes # (Auto) 0.4 x10^3/uL (0.0-1.1) Eosinophils # (Auto) 0.2 x10^3/uL (0.0-0.7) Basophils # (Auto) 0.0 x10^3/uL (0.0-0.2) Sodium Level 150 mmol/L (136-145) Potassium Level 3.7 mmol/L (3.5-5.1) Chloride Level 120 mmol/L (98-107) Carbon Dioxide Level 18 mmol/L (21-32) Anion Gap 12 (6-14) Blood Urea Nitrogen 23 mg/dL (8-26) Creatinine 1.2 mg/dL (0.7-1.3) Estimated GFR (Cockcroft-Gault) 70.5 Glucose Level 88 mg/dL (70-99) Calcium Level 8.0 mg/dL (8.5-10.1) O2 Saturation 98 % (92-99) Arterial Blood pH 7.36 (7.35-7.45) Arterial Blood pCO2 at Patient Temp 27 mmHg (35-46) Arterial Blood pO2 at Patient Temp 136 mmHg (65-108) Arterial Blood HCO3 15 mmol/L (21-28) Arterial Blood Base Excess -9 mmol/L (-3-3) FiO2 30 Microbiology 12/24/18 Blood Culture - Preliminary, Resulted 12/24/18 Blood Culture Result 1 (MORIAH) - Preliminary, Resulted 12/24/18 Urine Culture - Final, Complete 12/24/18 Urine Culture Result 1 (MORIAH) - Final, Complete Medications Current Medications Sodium Chloride 1,000 ml @ 1,000 mls/hr Q1H IV Last administered on 12/24/18at 03:31; Start 12/24/18 at 03:45; Stop 12/24/18 at 04:44; Status DC Piperacillin Sod/ Tazobactam Sod 3.375 gm/Sodium Chloride 50 ml @ 100 mls/hr 1X ONCE IV Last administered on 12/24/18at 04:00; Start 12/24/18 at 04:00; Stop 12/24/18 at 04:29; Status DC Levofloxacin/ Dextrose 100 ml @ 100 mls/hr 1X ONCE IV Last administered on at 05:28; Start 12/24/18 at 04:00; Stop 12/24/18 at 04:59; Status DC Etomidate (Amidate) 20 mg STK-MED ONCE IV ; Start 12/24/18 at 03:47; Stop at 03:48; Status DC Vecuronium [place] (Norcuron Bolus) 10 mg STK-MED ONCE IV ; Start 12/24/18 at 03 :47; Stop 12/24/18 at 03:48; Status DC Sodium Chloride 1,000 ml @ 1,000 mls/hr 1X ONCE IV Last administered on at 03:31; Start 12/24/18 at 04:30; Stop 12/24/18 at 05:29; Status DC Vecuronium [place] (Norcuron Bolus) 20 mg 1X ONCE IV Last administered on 12/24at 03:32; Start 12/24/18 at 04:30; Stop 12/24/18 at 04:31; Status DC Etomidate (Amidate) 20 mg 1X ONCE IV Last administered on 12/24/18at 03:32; Start 12/24/18 at 04:30; Stop 12/24/18 at 04:31; Status DC Midazolam HCl (Versed) 5 mg 1X ONCE IV Last administered on 12/24/18at 04:45; Start 12/24/18 at 04:45; Stop 12/24/18 at 04:46; Status DC Dopamine HCl/ Dextrose 250 ml @ 3.674 mls/ hr 1X ONCE IV Last administered on 12/24/18at 05:22; Start 12/24/18 at 05:15; Stop 12/27/18 at 01:17; Status DC Sodium Chloride 1,000 ml @ 150 mls/hr Q6H40M IV ; Start 12/24/18 at 05:30; Stop 12/24/18 at 06:52; Status DC Sodium Chloride 1,000 ml @ 1,000 mls/hr 1X ONCE IV Last administered on at 05:04; Start 12/24/18 at 05:45; Stop 12/24/18 at 06:44; Status DC Norepinephrine Bitartrate 250 ml @ 1.875 mls/ hr CONT PRN IV SEE I/O RECORD Last administered on 12/24/18at 05:57; Start 12/24/18 at 05:45; Stop 12/24/18 at 10:25; Status DC Hydrocortisone Sodium Succinate (Solu-CORTEF) 300 mg 1X ONCE IV Last administered on 12/24/18at 10:33; Start 12/24/18 at 06:00; Stop 12/24/18 at 06:01 ; Status DC Sodium Chloride 1,000 ml @ 1,000 mls/hr 1X ONCE IV Last administered on at 05:22; Start 12/24/18 at 07:00; Stop 12/24/18 at 07:59; Status DC Sodium Chloride 1,000 ml @ 1,860 mls/hr Q33M IV ; Start 12/24/18 at 10:14; Stop 12/24/18 at 11:13; Status DC Sodium Chloride 500 ml @ 1,000 mls/hr PRN Q30MIN PRN IV SEE COMMENTS Last administered on 12/24/18at 13:00; Start 12/24/18 at 10:15 Linezolid/Dextrose 300 ml @ 300 mls/hr Q12HR IV Last administered on 12/26/18at 20:33; Start 12/24/18 at 11:00; Stop 12/27/18 at 06:51; Status DC Piperacillin Sod/ Tazobactam Sod 4.5 gm/Sodium Chloride 100 ml @ 200 mls/hr Q6HRS IV ; Start 12/24/18 at 12:00; Status UNV Norepinephrine Bitartrate 250 ml @ 0 mls/hr CONT PRN IV SEE I/O RECORD Last administered on 12/25/18at 14:11; Start 12/24/18 at 10:15 Piperacillin Sod/ Tazobactam Sod 3.375 gm/Sodium Chloride 50 ml @ 100 mls/hr Q6HRS IV Last administered on 12/27/18at 05:58; Start 12/24/18 at 12:00; Stop 12/27/18 at 06:51; Status DC Sodium Chloride 1,000 ml @ 75 mls/hr [id number] IV Last administered on 12/28/18at 05:36; Start 12/24/18 at 11:15 Propofol 100 ml @ 0 mls/hr CONT PRN IV SEE PROTOCOL Last administered on at 03:45; Start 12/24/18 at 16:30 Fentanyl Citrate (Fentanyl 2ml Vial) 25 mcg PRN Q1HR PRN IV SEE COMMENTS Last administered on 12/25/18at 12:20; Start 12/24/18 at 16:30 Pantoprazole Sodium (PROTONIX VIAL for IV PUSH) 40 mg DAILYAC IVP Last administered on 12/28/18at 08:53; Start 12/24/18 at 18:00 Enoxaparin Sodium (Lovenox 30mg Syringe) 30 mg Q24H SQ Last administered on 12/27at 21:18; Start 12/24/18 at 19:00; Stop 12/28/18 at 10:36; Status DC Midazolam HCl 100 ml @ 0 mls/hr CONT PRN IV PER PROTOCOL Last administered on at 09:00; Start 12/25/18 at 10:00 Piperacillin Sod/ Tazobactam Sod 3.375 gm/Sodium Chloride 50 ml @ 100 mls/hr Q8HRS IV Last administered on 12/28/18at 05:36; Start 12/27/18 at 14:00 Enoxaparin Sodium (Lovenox 40mg Syringe) 40 mg Q24H SQ ; Start 12/28/18 at 19:00 Aspirin (Valarie Aspirin) 325 mg DAILY PO ; Start 12/28/18 at 14:00 Vitamin D (Vitamin D3) 500 unit DAILY PO ; Start 12/28/18 at 14:00 Levetiracetam (Keppra) 500 mg BID PO ; Start 12/28/18 at 14:00 Losartan Potassium (Cozaar) 50 mg DAILY PO ; Start 12/28/18 at 14:00 Magnesium Hydroxide (Milk Of Magnesia) 400 mg PRN DAILY PRN PO CONSTIPATION 2ND CHOICE; Start 12/28/18 at 13:15 Trazodone HCl (Desyrel) 50 mg QHS PO ; Start 12/28/18 at 21:00 Polyethylene Glycol (miraLAX PACKET) 17 gm PRN DAILY PRN PO CONSTIPATION 1ST CHOICE; Start 12/29/18 at 09:00 Non-Formulary Medication (Warfarin Sodium ) 8 mg HS PO ; Start 12/28/18 at 21:00 ; Status UNV Warfarin Sodium (Coumadin Per Pharmacy) 1 each PRN DAILY PRN MC SEE COMMENTS; Start 12/28/18 at 13:15 Active Scripts Active Reported Warfarin Sodium 6 Mg Tablet 8 Mg PO HS Miralax (Polyethylene Glycol 3350) 17 Gm Powd.pack 1 Packet PO PRN DAILY PRN Milk Of Magnesia (Magnesium Hydroxide) 400 Mg/5 Ml Oral.susp 400 Mg PO PRN DAILY PRN Megace Es (Megestrol Acetate) 625 Mg/5 Ml Oral.susp 400 Mg PO Senna Plus Tablet (Sennosides/Docusate Sodium) 1 Each Tablet 1 Each PO Aspirin 325 Mg Tablet 1 Tab PO DAILY Keppra (Levetiracetam) 500 Mg Tablet 500 Mg PO BID Vitamin D3 (Cholecalciferol (Vitamin D3)) 1,000 Unit Tablet 400 Unit PO DAILY Trazodone Hcl 50 Mg Tablet 1 Tab PO QHS Tylenol (Acetaminophen) 325 Mg Tablet 1-2 Tab PO PRN Q4HRS PRN Losartan Potassium 50 Mg Tablet 50 Mg PO DAILY Vitals/I & O Vital Sign - Last 24 Hours 12/27/18 12/27/18 12/27/18 12/27/18 14:00 15:17 15:45 16:00 Temp 95.9 95.9 Pulse 64 60 Resp 16 15 B/P (MAP) 117/72 (87) 114/75 (88) Pulse Ox 100 100 100 O2 Delivery Ventilator Ventilator Ventilator Mechanical Ventilator 12/27/18 12/27/18 12/27/18 12/27/18 16:00 17:18 17:55 18:03 Pulse 61 63 62 Resp 19 19 20 B/P (MAP) 126/82 (97) 130/74 (92) 125/71 (89) Pulse Ox 100 100 100 100 O2 Delivery Ventilator Ventilator Ventilator Ventilator 12/27/18 12/27/18 12/27/18 12/27/18 19:00 19:30 19:45 20:00 Temp 96.7 96.7 Pulse 61 58 Resp 20 20 B/P (MAP) 110/72 (85) 116/69 (85) Pulse Ox 100 100 100 O2 Delivery Ventilator Ventilator Mechanical Ventilator Ventilator 12/27/18 12/27/18 12/27/18 12/27/18 21:00 21:00 22:00 22:43 Pulse 59 58 Resp 16 16 B/P (MAP) 96/58 (71) 117/69 (85) Pulse Ox 100 100 100 100 O2 Delivery Ventilator Ventilator Ventilator Ventilator 12/27/18 12/27/18 12/28/18 12/28/18 23:00 23:16 00:07 01:00 Temp 96.2 96.2 Pulse 65 62 64 Resp 20 16 16 B/P (MAP) 156/86 (109) 120/71 (87) 124/74 (91) Pulse Ox 100 100 100 O2 Delivery Ventilator Mechanical Ventilator Ventilator Ventilator 12/28/18 12/28/18 12/28/18 12/28/18 01:10 02:00 03:00 03:09 Pulse 68 76 Resp 16 19 B/P (MAP) 115/73 (87) 116/73 (87) Pulse Ox 100 100 100 100 O2 Delivery Ventilator Ventilator Ventilator Ventilator 12/28/18 12/28/18 12/28/18 12/28/18 04:00 04:00 05:00 05:45 Temp 97.6 97.6 Pulse 75 77 Resp 17 17 B/P (MAP) 112/74 (87) 96/60 (72) Pulse Ox 100 100 100 O2 Delivery Mechanical Ventilator Ventilator Ventilator Ventilator 12/28/18 12/28/18 12/28/18 12/28/18 06:00 07:19 08:00 08:06 Temp 98.1 98.1 Pulse 81 75 79 Resp 16 26 20 B/P (MAP) 115/66 (82) 102/65 (77) 112/72 (85) Pulse Ox 100 100 100 O2 Delivery Ventilator Ventilator Ventilator Mechanical Ventilator 12/28/18 12/28/18 12/28/18 12/28/18 08:13 09:02 10:11 11:00 Temp 97.9 97.9 Pulse 80 79 83 Resp 22 22 20 B/P (MAP) 115/72 (86) 113/74 (87) 106/68 (81) Pulse Ox 100 100 100 100 O2 Delivery Ventilator Ventilator Ventilator Ventilator 12/28/18 12/28/18 12/28/18 12/28/18 11:50 12:05 12:19 13:38 Pulse 89 Resp 19 B/P (MAP) 109/68 (82) Pulse Ox 100 100 100 O2 Delivery Mechanical Ventilator Ventilator Ventilator Ventilator Intake and Output 12/27/18 12/27/18 12/28/18 14:59 22:59 06:59 Intake Total 300 ml 2504 ml 1838 ml Output Total 600 ml 585 ml 495 ml Balance -300 ml 1919 ml 1343 ml JIE TONG III DO Dec 28, 2018 13:56
[2018-12-28] MEDS: LOSARTAN POTASSIUM 50 MG TABLET. PO SCH (14:00)
[2018-12-28] MEDS: ASPIRIN 325 MG TABLET PO SCH (14:51)
[2018-12-28] MEDS: CHOLECALCIFEROL (VITAMIN D3) 1,000 UNIT TABLET PO SCH (14:51)
[2018-12-28] MEDS: levETIRAcetam 500 MG TABLET PO SCH ×2 (14:51→21:02)
[2018-12-28 16:16] LABS: PROTHROMBIN TIME PATIENT 31.1 SEC (11.7-14.0)
--- NOTE | 2018-12-28 17:02 | NUR ---
Pharmacy Warfarin Dosing Note S:Pharmacy consulted to assist with anticoagulation therapy started with target INR: 2 -3 O:ARIEL TORRES is a 78 year old M with Atrial Fibrillation Recurrent VTE HX SINUS THROMBOSIS LABS: Last INR: 3.0 Last HGB: 8.7 Last HCT: 25.9 Last PLT: 47 Last dose of given on at Previous Regimen: 8 MG/D Vitamin K given: Drug Interaction Changes: Ongoing Drug Interactions: A:INR of 3.0 is within desired range, PT HAS NOT HAD WARFARIN FOR DAYS AND APPEARS TO HAVE LIVER DYSFUNCTION. Target range for this patient is: 2 -3 P: Warfarin dose: Hold Today at 1600 Bridge Therapy: None Next INR due TOMORROW. Pharmacy anticoagulation service will continue to follow. AGUILAR COPELAND Cornelia, 12/28/18 [id number]
[2018-12-28 17:18] LABS: BASE EXCESS ABG -8 mmol/L (-3-3); HCO3 ABG 16 mmol/L (21-28); PCO2 ABG 25 mmHg (35-46); PO2 ABG 131 mmHg (65-108); SAT O2 ABG 98 % (92-99)
[2018-12-28 17:22] LABS: FIO2 ABG 30
--- NOTE | 2018-12-28 18:18 | NUR ---
Patient stayed on CPAP trial for 2 hours. Patient remains drowsy.
[2018-12-28] MEDS ORDERED: ENOXAPARIN 40 MG/0.4 ML SYRINGE. SQ SCH (19:00)
--- NOTE | 2018-12-28 19:48 | NUR ---
Nursing Note: Patient's sedation is off, patient lays in the bed with eyes open, he does not look at you or follow commands. He does act like you are feeding him when you perform oral care.
[2018-12-28] MEDS ORDERED: WARFARIN SODIUM 8 MG PO SCH (21:00)
[2018-12-28] MEDS: traZODone 50 MG TABLET. PO SCH (21:02)
[2018-12-29] VITALS (25 sets, daily range): BP systolic 140–165; BP diastolic 72–99
[2018-12-29] MEDS: PIPERACILLIN/TAZOBACTAM 3.375 GM in IV NORMAL SALINE 50ML 50 ML IV SCH ×3 (06:06→21:56)
[2018-12-29 06:31] LABS: BASO # 0.1 x10^3/uL (0.0-0.2); BASO % 1 % (0-3); EOS # 0.2 x10^3/uL (0.0-0.7); EOS % 3 % (0-3); HEMATOCRIT 26.9 % (39.0-53.0); HEMOGLOBIN 8.8 g/dL (13.0-17.5); LYMPH # 1.3 x10^3/uL (1.0-4.8); LYMPH % 16 % (24-48); MEAN CORPUSCULAR HEMOGLOBIN 29 pg (25-35); MEAN CORPUSCULAR HGB CONC 33 g/dL (31-37); MEAN CORPUSCULAR VOLUME 89 fL (79-100); MONO # 0.4 x10^3/uL (0.0-1.1); MONO % 5 % (0-9); NEUT # 6.3 x10^3uL (1.8-7.7); NEUT % 76 % (31-73); PLATELET COUNT 60 x10^3/uL (140-400); RED BLOOD COUNT 3.03 x10^6/uL (4.30-5.70); WHITE BLOOD COUNT 8.3 x10^3/uL (4.0-11.0)
[2018-12-29 06:34] LABS: CALCIUM 8.2 mg/dL (8.5-10.1); CREATININE 1.4 mg/dL (0.7-1.3); POTASSIUM 3.6 mmol/L (3.5-5.1); PROTHROMBIN TIME PATIENT 24.6 SEC (11.7-14.0)
[2018-12-29] MEDS: PANTOPRAZOLE IV PUSH 40 MG VIAL. IVP SCH (07:44)
--- NOTE | 2018-12-29 07:56 | PDOC ---
Infectious Disease Note Subjective: Subjective Remains intubated and sedated ROS: ROS unable to obtain d/w RN Vital Signs: Vital Signs Vital Signs Date Time Temp Pulse Resp B/P (MAP) Pulse Ox O2 Delivery O2 Flow Rate FiO2 12/29/18 07:00 69 17 161/97 (118) 100 Ventilator 12/29/18 04:00 98.7 98.7 Physical Exam: PHYSICAL EXAM GENERAL: Intubated and sedated HEENT: ETT, OGT LUNGS: Clear anteriorly HEART: S1, S2 irregular ABDOMEN: BS active, soft, no grimace to palpation : Jaquez EXTREMITIES: Trace generalized edema SKIN: warm, no rash NEUROLOGIC: Sedated RIJ clean Medications: Inpatient Meds: Current Medications Medications (Trade) Dose Ordered Sig/Nayely Start Time Stop Time Status Last Admin Dose Admin Aspirin (Valarie Aspirin) 325 mg DAILY 12/28/18 14:00 12/28/18 14:51 325 MG Dopamine HCl/ Dextrose 250 ml @ 3.674 mls/ hr 1X ONCE 12/24/18 05:15 12/27/18 01:17 DC 12/24/18 05:22 18.371 MLS/HR Enoxaparin Sodium (Lovenox 30mg Syringe) 30 mg Q24H 12/24/18 19:00 12/28/18 10:36 DC 12/27/18 21:18 30 MG Enoxaparin Sodium (Lovenox 40mg Syringe) 40 mg Q24H 12/28/18 19:00 12/28/18 19:00 DC Etomidate (Amidate) 20 mg 1X ONCE 12/24/18 04:30 12/24/18 04:31 DC 12/24/18 03:32 20 MG Fentanyl Citrate (Fentanyl 2ml Vial) 25 mcg PRN Q1HR PRN 12/24/18 16:30 12/25/18 12:20 25 MCG Hydrocortisone Sodium Succinate (Solu-CORTEF) 300 mg 1X ONCE 12/24/18 06:00 12/24/18 06:01 DC 12/24/18 10:33 300 MG Levetiracetam (Keppra) 500 mg BID 12/28/18 14:00 12/28/18 21:02 500 MG Levofloxacin/ Dextrose 100 ml @ 100 mls/hr 1X ONCE 12/24/18 04:00 12/24/18 04:59 DC 12/24/18 05:28 100 MLS/HR Linezolid/Dextrose 300 ml @ 300 mls/hr Q12HR 12/24/18 11:00 12/27/18 06:51 DC 12/26/18 20:33 300 MLS/HR Losartan Potassium (Cozaar) 50 mg DAILY 12/28/18 14:00 Magnesium Hydroxide (Milk Of Magnesia) 400 mg PRN DAILY PRN 12/28/18 13:15 Midazolam HCl 100 ml @ 0 mls/hr CONT PRN 12/25/18 10:00 12/28/18 09:00 2 MLS/HR Midazolam HCl (Versed) 5 mg 1X ONCE 12/24/18 04:45 12/24/18 04:46 DC 12/24/18 04:45 5 MG Non-Formulary Medication (Warfarin Sodium ) 8 mg HS 12/28/18 21:00 UNV Norepinephrine Bitartrate 250 ml @ 0 mls/hr CONT PRN 12/24/18 10:15 12/25/18 14:11 9.4 MLS/HR Pantoprazole Sodium (PROTONIX VIAL for IV PUSH) 40 mg DAILYAC 12/24/18 18:00 12/29/18 07:44 40 MG Piperacillin Sod/ Tazobactam Sod 3.375 gm/Sodium Chloride 50 ml @ 100 mls/hr Q8HRS 12/27/18 14:00 12/29/18 06:06 100 MLS/HR Piperacillin Sod/ Tazobactam Sod 4.5 gm/Sodium Chloride 100 ml @ 200 mls/hr Q6HRS 12/24/18 12:00 UNV Polyethylene Glycol (miraLAX PACKET) 17 gm PRN DAILY PRN 12/29/18 09:00 Propofol 100 ml @ 0 mls/hr CONT PRN 12/24/18 16:30 12/25/18 03:45 8.1 MLS/HR Sodium Chloride 1,000 ml @ 75 mls/hr [id number] 12/24/18 11:15 12/29/18 06:07 DC 12/28/18 05:36 75 MLS/HR Trazodone HCl (Desyrel) 50 mg QHS 12/28/18 21:00 12/28/18 21:02 50 MG Vecuronium [place] (Norcuron Bolus) 20 mg 1X ONCE 12/24/18 04:30 12/24/18 04:31 DC 12/24/18 03:32 20 MG Vitamin D (Vitamin D3) 500 unit DAILY 12/28/18 14:00 12/28/18 14:51 500 UNIT Warfarin Sodium (Coumadin - No Dose Today) 1 each 1X WARF ONCE 12/28/18 16:36 12/28/18 16:37 DC 12/28/18 16:36 1 EACH Warfarin Sodium (Coumadin Per Pharmacy) 1 each PRN DAILY PRN 12/28/18 13:15 12/28/18 17:02 1 EACH Labs: Lab Laboratory Tests Test 12/28/18 08:30 12/28/18 16:00 12/28/18 17:10 12/29/18 05:58 O2 Saturation 98 % (92-99) 98 % (92-99) Arterial Blood pH 7.36 (7.35-7.45) 7.42 (7.35-7.45) Arterial Blood pCO2 at Patient Temp 27 mmHg (35-46) 25 mmHg (35-46) Arterial Blood pO2 at Patient Temp 136 mmHg (65-108) 131 mmHg (65-108) Arterial Blood HCO3 15 mmol/L (21-28) 16 mmol/L (21-28) Arterial Blood Base Excess -9 mmol/L (-3-3) -8 mmol/L (-3-3) FiO2 30 30 Prothrombin Time 31.1 SEC (11.7-14.0) 24.6 SEC (11.7-14.0) Prothromb Time International Ratio 3.0 (0.8-1.1) 2.2 (0.8-1.1) White Blood Count 8.3 x10^3/uL (4.0-11.0) Red Blood Count 3.03 x10^6/uL (4.30-5.70) Hemoglobin 8.8 g/dL (13.0-17.5) Hematocrit 26.9 % (39.0-53.0) Mean Corpuscular Volume 89 fL (79-100) Mean Corpuscular Hemoglobin 29 pg (25-35) Mean Corpuscular Hemoglobin Concent 33 g/dL (31-37) Red Cell Distribution Width 17.0 % (11.5-14.5) Platelet Count 60 x10^3/uL (140-400) Neutrophils (%) (Auto) 76 % (31-73) Lymphocytes (%) (Auto) 16 % (24-48) Monocytes (%) (Auto) 5 % (0-9) Eosinophils (%) (Auto) 3 % (0-3) Basophils (%) (Auto) 1 % (0-3) Neutrophils # (Auto) 6.3 x10^3uL (1.8-7.7) Lymphocytes # (Auto) 1.3 x10^3/uL (1.0-4.8) Monocytes # (Auto) 0.4 x10^3/uL (0.0-1.1) Eosinophils # (Auto) 0.2 x10^3/uL (0.0-0.7) Basophils # (Auto) 0.1 x10^3/uL (0.0-0.2) Sodium Level 148 mmol/L (136-145) Potassium Level 3.6 mmol/L (3.5-5.1) Chloride Level 117 mmol/L (98-107) Carbon Dioxide Level 20 mmol/L (21-32) Anion Gap 11 (6-14) Blood Urea Nitrogen 23 mg/dL (8-26) Creatinine 1.4 mg/dL (0.7-1.3) Estimated GFR (Cockcroft-Gault) 59.0 Glucose Level 87 mg/dL (70-99) Calcium Level 8.2 mg/dL (8.5-10.1) Micro RUN DATE: 12/28/18 PAGE 1 RUN TIME: 1611 [facility] [address] [place] [address] Cipriano Marcelo M.D., Erp Analyst PATIENT: ARIEL TORRES ACCT: [id number] LOC: 1 [facility] U : [id number] AGE/SX: 78/M ROOM: 103 REG : 12/24/[address]: JONATAN ROSALES MD : [id number] BED: 1 DIS : STATUS: ADM IN TLOC: SPEC #: [id number] TAMRA: 12/24/18 STATUS: COMP REQ #: [id number] RECD: 12/25/[address] [facility] DR: ESTEFANIA DUNCAN MD SOURCE: BLOOD ENTR: 12/25/18 [facility] DR: CARLITA RIBEIRO MD SPDESC: JONATAN ROSALES MD, SABATO MD ORDERED: BLD CULT - LC Procedure Result BLOOD CULTURE LC Final Final report BLD CULT RESULT 1 Final Escherichia coli Multi-Drug Resistant Organism ANTIMICROBIAL SUSCEPTIBILITY Final Comment S = Susceptible; I = Intermediate; R = Resistant P = Positive; N = Negative MICS are expressed in micrograms per mL Antibiotic RSLT#1 RSLT#2 RSLT#3 RSLT#4 Amoxicillin/Clavulanic Acid S =8 Ampicillin R>=32 Cefazolin R>=64 Cefepime S =2 Ceftriaxone R>=64 Cefuroxime R>=64 Ciprofloxacin R>=4 Ertapenem S<=0.12 Gentamicin S<=1 Imipenem S<=0.25 Levofloxacin R>=8 Meropenem S<=0.25 Nitrofurantoin S<=16 Piperacillin/Tazobactam S<=4 Tetracycline R>=16 Tobramycin S<=1 Trimethoprim/Sulfa R>=320 Performed at: - [facility] [address], [place], [place] [id number] Yeast Pumper: DARLIN Cool MD, Phone: [phone] Objective: Assessment: Septic shock with hypothermia (POA) E coli bacteremia (POA) ; FQ resistant Leukopenia - better Lactic acidosis Suspected aspiration Respiratory failure TAZ better Dehydration Dementia Thrombocytopenia Plan: Plan of Care Carrol Farr x 1, on 12/24 Supportive care care Critically ill D/W JODI WORKMAN MD Dec 29, 2018 07:56
--- NOTE | 2018-12-29 08:13 | RAD ---
Examination: PORTABLE CHEST 1V History: respiratory failure Comparison/Correlation: 12/28/2018 Portable Chest X-ray Exam Findings: Semiupright portable frontal view of the chest was obtained. Right central venous catheter, endotracheal tube, and enteric tube are again identified. Heart size is borderline. Improved left basilar aeration is present. Residual infiltrate is suggested. No significant pleural effusion. No pneumothorax. Pulmonary vasculature is within upper limits of normal. Subtle right lower lateral thoracic infiltrate is suggested in the interval but small in size. Impression: Notable decrease in left basilar consolidation compared to the prior exam. Small focus of right lateral infiltrate is present in the interval. Electronically signed by: Yung Rivera MD (12/29/2018 8:10 AM) [id number]
[2018-12-29] MEDS: IV NORMAL SALINE 1000ML BAG 1,000 ML IV SCH (08:33)
[2018-12-29] MEDS: ASPIRIN 325 MG TABLET PO SCH (08:36)
[2018-12-29] MEDS: levETIRAcetam 500 MG TABLET PO SCH ×2 (08:36→21:01)
[2018-12-29] MEDS: CHOLECALCIFEROL (VITAMIN D3) 1,000 UNIT TABLET PO SCH (08:36)
[2018-12-29] MEDS: LOSARTAN POTASSIUM 50 MG TABLET. PO SCH (08:36)
[2018-12-29] MEDS ORDERED: POLYETHYLENE GLYCOL 3350 17 GM PACKET. PO PRN (09:00)
--- NOTE | 2018-12-29 09:53 | PDOC ---
PULMONARY PROGRESS NOTES Subjective SEDATED OFF SINCE YESTERDAY AC MODE OFF LEVO Vitals Vital Signs Date Time Temp Pulse Resp B/P (MAP) Pulse Ox O2 Delivery O2 Flow Rate FiO2 12/29/18 09:36 100 Ventilator 12/29/18 09:00 75 17 150/87 (108) 12/29/18 04:00 98.7 98.7 Lungs: Clear, Other (no wheezing or crackles) Cardiovascular: S1, S2 Abdomen: Soft Extremities: Other (EDEMA) Skin: Warm Labs Laboratory Tests Test 12/28/18 06:01 12/28/18 08:30 12/28/18 16:00 12/28/18 17:10 White Blood Count 9.9 x10^3/uL (4.0-11.0) Red Blood Count 2.92 x10^6/uL (4.30-5.70) Hemoglobin 8.7 g/dL (13.0-17.5) Hematocrit 25.9 % (39.0-53.0) Mean Corpuscular Volume 89 fL (79-100) Mean Corpuscular Hemoglobin 30 pg (25-35) Mean Corpuscular Hemoglobin Concent 34 g/dL (31-37) Red Cell Distribution Width 16.9 % (11.5-14.5) Platelet Count 47 x10^3/uL (140-400) Neutrophils (%) (Auto) 87 % (31-73) Lymphocytes (%) (Auto) 7 % (24-48) Monocytes (%) (Auto) 4 % (0-9) Eosinophils (%) (Auto) 2 % (0-3) Basophils (%) (Auto) 0 % (0-3) Neutrophils # (Auto) 8.6 x10^3uL (1.8-7.7) Lymphocytes # (Auto) 0.7 x10^3/uL (1.0-4.8) Monocytes # (Auto) 0.4 x10^3/uL (0.0-1.1) Eosinophils # (Auto) 0.2 x10^3/uL (0.0-0.7) Basophils # (Auto) 0.0 x10^3/uL (0.0-0.2) Sodium Level 150 mmol/L (136-145) Potassium Level 3.7 mmol/L (3.5-5.1) Chloride Level 120 mmol/L (98-107) Carbon Dioxide Level 18 mmol/L (21-32) Anion Gap 12 (6-14) Blood Urea Nitrogen 23 mg/dL (8-26) Creatinine 1.2 mg/dL (0.7-1.3) Estimated GFR (Cockcroft-Gault) 70.5 Glucose Level 88 mg/dL (70-99) Calcium Level 8.0 mg/dL (8.5-10.1) O2 Saturation 98 % (92-99) 98 % (92-99) Arterial Blood pH 7.36 (7.35-7.45) 7.42 (7.35-7.45) Arterial Blood pCO2 at Patient Temp 27 mmHg (35-46) 25 mmHg (35-46) Arterial Blood pO2 at Patient Temp 136 mmHg (65-108) 131 mmHg (65-108) Arterial Blood HCO3 15 mmol/L (21-28) 16 mmol/L (21-28) Arterial Blood Base Excess -9 mmol/L (-3-3) -8 mmol/L (-3-3) FiO2 30 30 Prothrombin Time 31.1 SEC (11.7-14.0) Prothromb Time International Ratio 3.0 (0.8-1.1) Test 12/29/18 05:58 White Blood Count 8.3 x10^3/uL (4.0-11.0) Red Blood Count 3.03 x10^6/uL (4.30-5.70) Hemoglobin 8.8 g/dL (13.0-17.5) Hematocrit 26.9 % (39.0-53.0) Mean Corpuscular Volume 89 fL (79-100) Mean Corpuscular Hemoglobin 29 pg (25-35) Mean Corpuscular Hemoglobin Concent 33 g/dL (31-37) Red Cell Distribution Width 17.0 % (11.5-14.5) Platelet Count 60 x10^3/uL (140-400) Neutrophils (%) (Auto) 76 % (31-73) Lymphocytes (%) (Auto) 16 % (24-48) Monocytes (%) (Auto) 5 % (0-9) Eosinophils (%) (Auto) 3 % (0-3) Basophils (%) (Auto) 1 % (0-3) Neutrophils # (Auto) 6.3 x10^3uL (1.8-7.7) Lymphocytes # (Auto) 1.3 x10^3/uL (1.0-4.8) Monocytes # (Auto) 0.4 x10^3/uL (0.0-1.1) Eosinophils # (Auto) 0.2 x10^3/uL (0.0-0.7) Basophils # (Auto) 0.1 x10^3/uL (0.0-0.2) Prothrombin Time 24.6 SEC (11.7-14.0) Prothromb Time International Ratio 2.2 (0.8-1.1) Sodium Level 148 mmol/L (136-145) Potassium Level 3.6 mmol/L (3.5-5.1) Chloride Level 117 mmol/L (98-107) Carbon Dioxide Level 20 mmol/L (21-32) Anion Gap 11 (6-14) Blood Urea Nitrogen 23 mg/dL (8-26) Creatinine 1.4 mg/dL (0.7-1.3) Estimated GFR (Cockcroft-Gault) 59.0 Glucose Level 87 mg/dL (70-99) Calcium Level 8.2 mg/dL (8.5-10.1) Laboratory Tests Test 12/28/18 16:00 12/28/18 17:10 12/29/18 05:58 Prothrombin Time 31.1 SEC (11.7-14.0) 24.6 SEC (11.7-14.0) Prothromb Time International Ratio 3.0 (0.8-1.1) 2.2 (0.8-1.1) O2 Saturation 98 % (92-99) Arterial Blood pH 7.42 (7.35-7.45) Arterial Blood pCO2 at Patient Temp 25 mmHg (35-46) Arterial Blood pO2 at Patient Temp 131 mmHg (65-108) Arterial Blood HCO3 16 mmol/L (21-28) Arterial Blood Base Excess -8 mmol/L (-3-3) FiO2 30 White Blood Count 8.3 x10^3/uL (4.0-11.0) Red Blood Count 3.03 x10^6/uL (4.30-5.70) Hemoglobin 8.8 g/dL (13.0-17.5) Hematocrit 26.9 % (39.0-53.0) Mean Corpuscular Volume 89 fL (79-100) Mean Corpuscular Hemoglobin 29 pg (25-35) Mean Corpuscular Hemoglobin Concent 33 g/dL (31-37) Red Cell Distribution Width 17.0 % (11.5-14.5) Platelet Count 60 x10^3/uL (140-400) Neutrophils (%) (Auto) 76 % (31-73) Lymphocytes (%) (Auto) 16 % (24-48) Monocytes (%) (Auto) 5 % (0-9) Eosinophils (%) (Auto) 3 % (0-3) Basophils (%) (Auto) 1 % (0-3) Neutrophils # (Auto) 6.3 x10^3uL (1.8-7.7) Lymphocytes # (Auto) 1.3 x10^3/uL (1.0-4.8) Monocytes # (Auto) 0.4 x10^3/uL (0.0-1.1) Eosinophils # (Auto) 0.2 x10^3/uL (0.0-0.7) Basophils # (Auto) 0.1 x10^3/uL (0.0-0.2) Sodium Level 148 mmol/L (136-145) Potassium Level 3.6 mmol/L (3.5-5.1) Chloride Level 117 mmol/L (98-107) Carbon Dioxide Level 20 mmol/L (21-32) Anion Gap 11 (6-14) Blood Urea Nitrogen 23 mg/dL (8-26) Creatinine 1.4 mg/dL (0.7-1.3) Estimated GFR (Cockcroft-Gault) 59.0 Glucose Level 87 mg/dL (70-99) Calcium Level 8.2 mg/dL (8.5-10.1) Medications Active Scripts Medications Dose Route/Sig Max Daily Dose Days Date Category Warfarin Sodium 6 Mg Tablet 8 Mg PO HS 12/24/18 Reported Miralax (Polyethylene Glycol 3350) 17 Gm Powd.pack 1 Packet PO PRN DAILY PRN 03/19/18 Reported Milk Of Magnesia (Magnesium Hydroxide) 400 Mg/5 Ml Oral.susp 400 Mg PO PRN DAILY PRN 03/19/18 Reported Megace Es (Megestrol Acetate) 625 Mg/5 Ml Oral.susp 400 Mg PO 03/19/18 Reported Senna Plus Tablet (Sennosides/Docusate Sodium) 1 Each Tablet 1 Each PO 03/19/18 Reported Aspirin 325 Mg Tablet 1 Tab PO DAILY 03/19/18 Reported Keppra (Levetiracetam) 500 Mg Tablet 500 Mg PO BID 03/05/18 Reported Vitamin D3 (Cholecalciferol (Vitamin D3)) 1,000 Unit Tablet 400 Unit PO DAILY 03/05/18 Reported Trazodone Hcl 50 Mg Tablet 1 Tab PO QHS 03/05/18 Reported Tylenol (Acetaminophen) 325 Mg Tablet 1-2 Tab PO PRN Q4HRS PRN 03/05/18 Reported Losartan Potassium 50 Mg Tablet 50 Mg PO DAILY 11/28/17 Reported Impression . IMPRESSION: 1. Acute respiratory failure, multifactorial. 2. Septic shock. 3. Possible urinary tract infection. 4. History of cerebrovascular accident and dementia. 5. Prior questionable history of cerebral sinus thrombosis. 6. Seizures. 7. Generalized weakness. 8. Protein malnutrition, present upon admission. 9. Leukopenia. 10. Acute on chronic renal failure. 11. Metabolic acidosis from sepsis. 12..GNB IN BLOOD Plan . OFF SEDATION NO RESPONSE TO STERNAL RUB WILL CONITNUE SUPPORT FOR NOW NOT READY FOR EXTUBATION D/W RT CXR AND LABS REVIEWED WILL CONTINUE SUPPORT ANITBX PER ID TUBE FEEDING PT FULL CODE PER FAMILY TOSRTEN KEE MD Dec 29, 2018 09:53
--- NOTE | 2018-12-29 10:16 | NUR ---
Pharmacy Warfarin Dosing Note S:Pharmacy consulted to assist with anticoagulation therapy started with target INR: 2 -3 O:ARIEL TORRES is a 78 year old M with Atrial Fibrillation Recurrent VTE HX SINUS THROMBOSIS LABS: Last INR: 2.2 Last HGB: 8.8 Last HCT: 26.9 Last PLT: 60 Last dose of Hold given on 12/28/18 at 1600 Previous Regimen: 8 MG/D Vitamin K given: Drug Interaction Changes: Ongoing Drug Interactions: A:INR of 2.2 is within desired range. Target range for this patient is: 2 -3 P: Warfarin dose: 2 mg Today at 1600 Bridge Therapy: None Next INR due IN AM Pharmacy anticoagulation service will continue to follow. RANCHO ARMENDARIZ [facility], 12/29/18 1016
--- NOTE | 2018-12-29 11:56 | PDOC ---
PROGRESS NOTES Chief Complaint Chief Complaint CC: metabolic encephalopathy acute respiratory failure Septic shock secondary to urinary tract infection secondary to chronic indwelling urinary suprapubic catheter History of acute venous sinus thrombosis on CTA head/neck on chronic anticoagulation with coumadin Left Sided weakness and right-sided gaze, on last admission which had resolved History dementia, seizures History of essential Hypertension History of BPH, Indwelling suprapubic catheter History of complicated UTI in a male sec to indwelling FC OG tube with Jevity at 455 cc/hr History of Present Illness History of Present Illness Pt is an 78 y/o male who presented with sepsis due to UTI and chronic indwelling catheter. BCx demonstrated GNR bacteremia. Receiving IV Zosyn. Levaquin has been d/c. Today he was seen and examined in the ICU. He is critically stable and on the vent. AC 16/450/30/5.0. Patient has been off sedation for 24 hours, opens eyes but slow to track. Patient has OG tube with Jevity at 455 cc/hr. Discussed the pt with his RN. Will go over home meds. ID and Pulm are following. Vitals Vitals Vital Signs Date Time Temp Pulse Resp B/P (MAP) Pulse Ox O2 Delivery O2 Flow Rate FiO2 12/29/18 10:57 100 Ventilator 12/29/18 09:00 75 17 150/87 (108) 12/29/18 04:00 98.7 98.7 Physical Exam Physical Exam GENERAL: Intubated and sedated HEENT: ETT, OGT LUNGS: Clear anteriorly HEART: S1, S2 irregular ABDOMEN: BS active, soft, no grimace to palpation : Jaquez EXTREMITIES: Trace generalized edema SKIN: warm, no rash NEUROLOGIC: Sedated RIJ clean General: No acute distress, Other (patient intubated, opens eyes) Heart: Regular rate, No murmurs Lungs: Clear, Other (no wheezing or crackles) Abdomen: Normal bowel sounds, Soft, No tenderness Extremities: No clubbing, No edema, Normal pulses Skin: No rashes, No breakdown, No significant lesion Labs LABS Laboratory Tests Test 12/28/18 16:00 12/28/18 17:10 12/29/18 05:58 Prothrombin Time 31.1 SEC (11.7-14.0) 24.6 SEC (11.7-14.0) Prothromb Time International Ratio 3.0 (0.8-1.1) 2.2 (0.8-1.1) O2 Saturation 98 % (92-99) Arterial Blood pH 7.42 (7.35-7.45) Arterial Blood pCO2 at Patient Temp 25 mmHg (35-46) Arterial Blood pO2 at Patient Temp 131 mmHg (65-108) Arterial Blood HCO3 16 mmol/L (21-28) Arterial Blood Base Excess -8 mmol/L (-3-3) FiO2 30 White Blood Count 8.3 x10^3/uL (4.0-11.0) Red Blood Count 3.03 x10^6/uL (4.30-5.70) Hemoglobin 8.8 g/dL (13.0-17.5) Hematocrit 26.9 % (39.0-53.0) Mean Corpuscular Volume 89 fL (79-100) Mean Corpuscular Hemoglobin 29 pg (25-35) Mean Corpuscular Hemoglobin Concent 33 g/dL (31-37) Red Cell Distribution Width 17.0 % (11.5-14.5) Platelet Count 60 x10^3/uL (140-400) Neutrophils (%) (Auto) 76 % (31-73) Lymphocytes (%) (Auto) 16 % (24-48) Monocytes (%) (Auto) 5 % (0-9) Eosinophils (%) (Auto) 3 % (0-3) Basophils (%) (Auto) 1 % (0-3) Neutrophils # (Auto) 6.3 x10^3uL (1.8-7.7) Lymphocytes # (Auto) 1.3 x10^3/uL (1.0-4.8) Monocytes # (Auto) 0.4 x10^3/uL (0.0-1.1) Eosinophils # (Auto) 0.2 x10^3/uL (0.0-0.7) Basophils # (Auto) 0.1 x10^3/uL (0.0-0.2) Sodium Level 148 mmol/L (136-145) Potassium Level 3.6 mmol/L (3.5-5.1) Chloride Level 117 mmol/L (98-107) Carbon Dioxide Level 20 mmol/L (21-32) Anion Gap 11 (6-14) Blood Urea Nitrogen 23 mg/dL (8-26) Creatinine 1.4 mg/dL (0.7-1.3) Estimated GFR (Cockcroft-Gault) 59.0 Glucose Level 87 mg/dL (70-99) Calcium Level 8.2 mg/dL (8.5-10.1) Review of Systems Review of Systems Unable to obtain as patient is intubated Assessment and Plan Assessmemt and Plan Problems Medical Problems: (1) Acute sepsis Status: Acute (2) UTI (urinary tract infection) due to urinary indwelling catheter Status: Acute Assessment: metabolic encephalopathy acute respiratory failure Septic shock secondary to urinary tract infection secondary to chronic indwelling urinary suprapubic catheter History of acute venous sinus thrombosis on CTA head/neck on chronic anticoagulation with coumadin Left Sided weakness and right-sided gaze, on last admission which had resolved History dementia, seizures History of essential Hypertension History of BPH, Indwelling suprapubic catheter History of complicated UTI in a male sec to indwelling FC OG tube with Jevity at 455 cc/hr Plan: Continue to monitor in the ICU Continue OG feeds Follow labs Continue home meds Continue on vent Settings: A/C: 16/450/30/5.0 Discussed plan of care with nursing Comment Review of Relevant I have reviewed the following items edgar (where applicable) has been applied. Labs Laboratory Tests Test 12/28/18 06:01 12/28/18 08:30 12/28/18 16:00 12/28/18 17:10 White Blood Count 9.9 x10^3/uL (4.0-11.0) Red Blood Count 2.92 x10^6/uL (4.30-5.70) Hemoglobin 8.7 g/dL (13.0-17.5) Hematocrit 25.9 % (39.0-53.0) Mean Corpuscular Volume 89 fL (79-100) Mean Corpuscular Hemoglobin 30 pg (25-35) Mean Corpuscular Hemoglobin Concent 34 g/dL (31-37) Red Cell Distribution Width 16.9 % (11.5-14.5) Platelet Count 47 x10^3/uL (140-400) Neutrophils (%) (Auto) 87 % (31-73) Lymphocytes (%) (Auto) 7 % (24-48) Monocytes (%) (Auto) 4 % (0-9) Eosinophils (%) (Auto) 2 % (0-3) Basophils (%) (Auto) 0 % (0-3) Neutrophils # (Auto) 8.6 x10^3uL (1.8-7.7) Lymphocytes # (Auto) 0.7 x10^3/uL (1.0-4.8) Monocytes # (Auto) 0.4 x10^3/uL (0.0-1.1) Eosinophils # (Auto) 0.2 x10^3/uL (0.0-0.7) Basophils # (Auto) 0.0 x10^3/uL (0.0-0.2) Sodium Level 150 mmol/L (136-145) Potassium Level 3.7 mmol/L (3.5-5.1) Chloride Level 120 mmol/L (98-107) Carbon Dioxide Level 18 mmol/L (21-32) Anion Gap 12 (6-14) Blood Urea Nitrogen 23 mg/dL (8-26) Creatinine 1.2 mg/dL (0.7-1.3) Estimated GFR (Cockcroft-Gault) 70.5 Glucose Level 88 mg/dL (70-99) Calcium Level 8.0 mg/dL (8.5-10.1) O2 Saturation 98 % (92-99) 98 % (92-99) Arterial Blood pH 7.36 (7.35-7.45) 7.42 (7.35-7.45) Arterial Blood pCO2 at Patient Temp 27 mmHg (35-46) 25 mmHg (35-46) Arterial Blood pO2 at Patient Temp 136 mmHg (65-108) 131 mmHg (65-108) Arterial Blood HCO3 15 mmol/L (21-28) 16 mmol/L (21-28) Arterial Blood Base Excess -9 mmol/L (-3-3) -8 mmol/L (-3-3) FiO2 30 30 Prothrombin Time 31.1 SEC (11.7-14.0) Prothromb Time International Ratio 3.0 (0.8-1.1) Test 12/29/18 05:58 White Blood Count 8.3 x10^3/uL (4.0-11.0) Red Blood Count 3.03 x10^6/uL (4.30-5.70) Hemoglobin 8.8 g/dL (13.0-17.5) Hematocrit 26.9 % (39.0-53.0) Mean Corpuscular Volume 89 fL (79-100) Mean Corpuscular Hemoglobin 29 pg (25-35) Mean Corpuscular Hemoglobin Concent 33 g/dL (31-37) Red Cell Distribution Width 17.0 % (11.5-14.5) Platelet Count 60 x10^3/uL (140-400) Neutrophils (%) (Auto) 76 % (31-73) Lymphocytes (%) (Auto) 16 % (24-48) Monocytes (%) (Auto) 5 % (0-9) Eosinophils (%) (Auto) 3 % (0-3) Basophils (%) (Auto) 1 % (0-3) Neutrophils # (Auto) 6.3 x10^3uL (1.8-7.7) Lymphocytes # (Auto) 1.3 x10^3/uL (1.0-4.8) Monocytes # (Auto) 0.4 x10^3/uL (0.0-1.1) Eosinophils # (Auto) 0.2 x10^3/uL (0.0-0.7) Basophils # (Auto) 0.1 x10^3/uL (0.0-0.2) Prothrombin Time 24.6 SEC (11.7-14.0) Prothromb Time International Ratio 2.2 (0.8-1.1) Sodium Level 148 mmol/L (136-145) Potassium Level 3.6 mmol/L (3.5-5.1) Chloride Level 117 mmol/L (98-107) Carbon Dioxide Level 20 mmol/L (21-32) Anion Gap 11 (6-14) Blood Urea Nitrogen 23 mg/dL (8-26) Creatinine 1.4 mg/dL (0.7-1.3) Estimated GFR (Cockcroft-Gault) 59.0 Glucose Level 87 mg/dL (70-99) Calcium Level 8.2 mg/dL (8.5-10.1) Laboratory Tests Test 12/28/18 16:00 12/28/18 17:10 12/29/18 05:58 Prothrombin Time 31.1 SEC (11.7-14.0) 24.6 SEC (11.7-14.0) Prothromb Time International Ratio 3.0 (0.8-1.1) 2.2 (0.8-1.1) O2 Saturation 98 % (92-99) Arterial Blood pH 7.42 (7.35-7.45) Arterial Blood pCO2 at Patient Temp 25 mmHg (35-46) Arterial Blood pO2 at Patient Temp 131 mmHg (65-108) Arterial Blood HCO3 16 mmol/L (21-28) Arterial Blood Base Excess -8 mmol/L (-3-3) FiO2 30 White Blood Count 8.3 x10^3/uL (4.0-11.0) Red Blood Count 3.03 x10^6/uL (4.30-5.70) Hemoglobin 8.8 g/dL (13.0-17.5) Hematocrit 26.9 % (39.0-53.0) Mean Corpuscular Volume 89 fL (79-100) Mean Corpuscular Hemoglobin 29 pg (25-35) Mean Corpuscular Hemoglobin Concent 33 g/dL (31-37) Red Cell Distribution Width 17.0 % (11.5-14.5) Platelet Count 60 x10^3/uL (140-400) Neutrophils (%) (Auto) 76 % (31-73) Lymphocytes (%) (Auto) 16 % (24-48) Monocytes (%) (Auto) 5 % (0-9) Eosinophils (%) (Auto) 3 % (0-3) Basophils (%) (Auto) 1 % (0-3) Neutrophils # (Auto) 6.3 x10^3uL (1.8-7.7) Lymphocytes # (Auto) 1.3 x10^3/uL (1.0-4.8) Monocytes # (Auto) 0.4 x10^3/uL (0.0-1.1) Eosinophils # (Auto) 0.2 x10^3/uL (0.0-0.7) Basophils # (Auto) 0.1 x10^3/uL (0.0-0.2) Sodium Level 148 mmol/L (136-145) Potassium Level 3.6 mmol/L (3.5-5.1) Chloride Level 117 mmol/L (98-107) Carbon Dioxide Level 20 mmol/L (21-32) Anion Gap 11 (6-14) Blood Urea Nitrogen 23 mg/dL (8-26) Creatinine 1.4 mg/dL (0.7-1.3) Estimated GFR (Cockcroft-Gault) 59.0 Glucose Level 87 mg/dL (70-99) Calcium Level 8.2 mg/dL (8.5-10.1) Microbiology 12/24/18 Blood Culture - Final, Complete 12/24/18 Blood Culture Result 1 (MORIAH) - Final, Complete 12/24/18 Antimicrobic Susceptibility - Final, Complete 12/24/18 Urine Culture - Final, Complete 12/24/18 Urine Culture Result 1 (MORIAH) - Final, Complete Medications Current Medications Sodium Chloride 1,000 ml @ 1,000 mls/hr Q1H IV Last administered on 12/24/18at 03:31; Start 12/24/18 at 03:45; Stop 12/24/18 at 04:44; Status DC Piperacillin Sod/ Tazobactam Sod 3.375 gm/Sodium Chloride 50 ml @ 100 mls/hr 1X ONCE IV Last administered on 12/24/18at 04:00; Start 12/24/18 at 04:00; Stop 12/24/18 at 04:29; Status DC Levofloxacin/ Dextrose 100 ml @ 100 mls/hr 1X ONCE IV Last administered on at 05:28; Start 12/24/18 at 04:00; Stop 12/24/18 at 04:59; Status DC Etomidate (Amidate) 20 mg STK-MED ONCE IV ; Start 12/24/18 at 03:47; Stop at 03:48; Status DC Vecuronium [place] (Norcuron Bolus) 10 mg STK-MED ONCE IV ; Start 12/24/18 at 03 :47; Stop 12/24/18 at 03:48; Status DC Sodium Chloride 1,000 ml @ 1,000 mls/hr 1X ONCE IV Last administered on at 03:31; Start 12/24/18 at 04:30; Stop 12/24/18 at 05:29; Status DC Vecuronium [place] (Norcuron Bolus) 20 mg 1X ONCE IV Last administered on 12/24at 03:32; Start 12/24/18 at 04:30; Stop 12/24/18 at 04:31; Status DC Etomidate (Amidate) 20 mg 1X ONCE IV Last administered on 12/24/18at 03:32; Start 12/24/18 at 04:30; Stop 12/24/18 at 04:31; Status DC Midazolam HCl (Versed) 5 mg 1X ONCE IV Last administered on 12/24/18at 04:45; Start 12/24/18 at 04:45; Stop 12/24/18 at 04:46; Status DC Dopamine HCl/ Dextrose 250 ml @ 3.674 mls/ hr 1X ONCE IV Last administered on 12/24/18at 05:22; Start 12/24/18 at 05:15; Stop 12/27/18 at 01:17; Status DC Sodium Chloride 1,000 ml @ 150 mls/hr Q6H40M IV ; Start 12/24/18 at 05:30; Stop 12/24/18 at 06:52; Status DC Sodium Chloride 1,000 ml @ 1,000 mls/hr 1X ONCE IV Last administered on at 05:04; Start 12/24/18 at 05:45; Stop 12/24/18 at 06:44; Status DC Norepinephrine Bitartrate 250 ml @ 1.875 mls/ hr CONT PRN IV SEE I/O RECORD Last administered on 12/24/18at 05:57; Start 12/24/18 at 05:45; Stop 12/24/18 at 10:25; Status DC Hydrocortisone Sodium Succinate (Solu-CORTEF) 300 mg 1X ONCE IV Last administered on 12/24/18at 10:33; Start 12/24/18 at 06:00; Stop 12/24/18 at 06:01 ; Status DC Sodium Chloride 1,000 ml @ 1,000 mls/hr 1X ONCE IV Last administered on at 05:22; Start 12/24/18 at 07:00; Stop 12/24/18 at 07:59; Status DC Sodium Chloride 1,000 ml @ 1,860 mls/hr Q33M IV ; Start 12/24/18 at 10:14; Stop 12/24/18 at 11:13; Status DC Sodium Chloride 500 ml @ 1,000 mls/hr PRN Q30MIN PRN IV SEE COMMENTS Last administered on 12/24/18at 13:00; Start 12/24/18 at 10:15 Linezolid/Dextrose 300 ml @ 300 mls/hr Q12HR IV Last administered on 12/26/18at 20:33; Start 12/24/18 at 11:00; Stop 12/27/18 at 06:51; Status DC Piperacillin Sod/ Tazobactam Sod 4.5 gm/Sodium Chloride 100 ml @ 200 mls/hr Q6HRS IV ; Start 12/24/18 at 12:00; Status UNV Norepinephrine Bitartrate 250 ml @ 0 mls/hr CONT PRN IV SEE I/O RECORD Last administered on 12/25/18at 14:11; Start 12/24/18 at 10:15 Piperacillin Sod/ Tazobactam Sod 3.375 gm/Sodium Chloride 50 ml @ 100 mls/hr Q6HRS IV Last administered on 12/27/18at 05:58; Start 12/24/18 at 12:00; Stop 12/27/18 at 06:51; Status DC Sodium Chloride 1,000 ml @ 75 mls/hr [id number] IV Last administered on 12/28/18at 05:36; Start 12/24/18 at 11:15; Stop 12/29/18 at 06:07; Status DC Propofol 100 ml @ 0 mls/hr CONT PRN IV SEE PROTOCOL Last administered on at 03:45; Start 12/24/18 at 16:30 Fentanyl Citrate (Fentanyl 2ml Vial) 25 mcg PRN Q1HR PRN IV SEE COMMENTS Last administered on 12/25/18at 12:20; Start 12/24/18 at 16:30 Pantoprazole Sodium (PROTONIX VIAL for IV PUSH) 40 mg DAILYAC IVP Last administered on 12/29/18at 07:44; Start 12/24/18 at 18:00 Enoxaparin Sodium (Lovenox 30mg Syringe) 30 mg Q24H SQ Last administered on 12/27at 21:18; Start 12/24/18 at 19:00; Stop 12/28/18 at 10:36; Status DC Midazolam HCl 100 ml @ 0 mls/hr CONT PRN IV PER PROTOCOL Last administered on at 09:00; Start 12/25/18 at 10:00 Piperacillin Sod/ Tazobactam Sod 3.375 gm/Sodium Chloride 50 ml @ 100 mls/hr Q8HRS IV Last administered on 12/29/18 06:06; Start 12/27/18 at 14:00 Enoxaparin Sodium (Lovenox 40mg Syringe) 40 mg Q24H SQ ; Start 12/28/18 at 19:00 ; Stop 12/28/18 at 19:00; Status DC Aspirin (Valarie Aspirin) 325 mg DAILY PO Last administered on 12/28/18 14:51; Start 12/28/18 at 14:00 Vitamin D (Vitamin D3) 500 unit DAILY PO Last administered on 12/29/18 08:36; Start 12/28/18 at 14:00 Levetiracetam (Keppra) 500 mg BID PO Last administered on 12/29/18 08:36; Start 12/28/18 at 14:00 Losartan Potassium (Cozaar) 50 mg DAILY PO Last administered on 12/29/18 08:36 ; Start 12/28/18 at 14:00 Magnesium Hydroxide (Milk Of Magnesia) 400 mg PRN DAILY PRN PO CONSTIPATION 2ND CHOICE; Start 12/28/18 at 13:15 Trazodone HCl (Desyrel) 50 mg QHS PO Last administered on 12/28/18 21:02; Start 12/28/18 at 21:00 Polyethylene Glycol (miraLAX PACKET) 17 gm PRN DAILY PRN PO CONSTIPATION 1ST CHOICE; Start 12/29/18 at 09:00 Non-Formulary Medication (Warfarin Sodium ) 8 mg HS PO ; Start 12/28/18 at 21:00 ; Status UNV Warfarin Sodium (Coumadin Per Pharmacy) 1 each PRN DAILY PRN MC SEE COMMENTS Last administered on 12/29/18 10:15; Start 12/28/18 at 13:15 Warfarin Sodium (Coumadin - No Dose Today) 1 each 1X WARF ONCE MC Last administered on 12/28/18 16:36; Start 12/28/18 at 16:36; Stop 12/28/18 at 16:37; Status DC Warfarin Sodium (Coumadin) 2 mg 1X WARF ONCE PO ; Start 12/29/18 at 16:00; Stop 12/29/18 at 16:01 Active Scripts Active Reported Warfarin Sodium 6 Mg Tablet 8 Mg PO HS Miralax (Polyethylene Glycol 3350) 17 Gm Powd.pack 1 Packet PO PRN DAILY PRN Milk Of Magnesia (Magnesium Hydroxide) 400 Mg/5 Ml Oral.susp 400 Mg PO PRN DAILY PRN Megace Es (Megestrol Acetate) 625 Mg/5 Ml Oral.susp 400 Mg PO Senna Plus Tablet (Sennosides/Docusate Sodium) 1 Each Tablet 1 Each PO Aspirin 325 Mg Tablet 1 Tab PO DAILY Keppra (Levetiracetam) 500 Mg Tablet 500 Mg PO BID Vitamin D3 (Cholecalciferol (Vitamin D3)) 1,000 Unit Tablet 400 Unit PO DAILY Trazodone Hcl 50 Mg Tablet 1 Tab PO QHS Tylenol (Acetaminophen) 325 Mg Tablet 1-2 Tab PO PRN Q4HRS PRN Losartan Potassium 50 Mg Tablet 50 Mg PO DAILY Vitals/I & O Vital Sign - Last 24 Hours 12/28/18 12/28/18 12/28/18 12/28/18 11:50 12:05 12:19 13:00 Pulse 89 82 Resp 19 17 B/P (MAP) 109/68 (82) 119/73 (88) Pulse Ox 100 100 100 O2 Delivery Mechanical Ventilator Ventilator Ventilator Ventilator 12/28/18 12/28/18 12/28/18 12/28/18 13:38 14:00 15:00 15:52 Pulse 82 84 Resp 16 17 B/P (MAP) 119/71 (87) 116/74 (88) Pulse Ox 100 100 100 O2 Delivery Ventilator Ventilator Ventilator Mechanical Ventilator 12/28/18 12/28/18 12/28/18 12/28/18 16:11 17:00 18:02 18:13 Temp 98.5 98.5 Pulse 89 91 Resp 18 16 B/P (MAP) 130/90 (103) 143/86 (105) Pulse Ox 100 100 100 100 O2 Delivery Ventilator Ventilator Ventilator Ventilator 12/28/18 12/28/18 12/28/18 12/28/18 19:00 19:58 20:00 20:08 Temp 99.4 99.4 Pulse 91 90 Resp 16 17 B/P (MAP) 141/85 (103) 144/86 (105) Pulse Ox 100 100 100 O2 Delivery Ventilator Mechanical Ventilator Ventilator Ventilator 12/28/18 12/28/18 12/28/18 12/29/18 21:00 22:00 23:00 00:00 Temp 99.0 99.0 Pulse 85 85 84 86 Resp 17 17 17 17 B/P (MAP) 135/84 (101) 134/84 (101) 156/88 (110) 150/72 (98) Pulse Ox 100 100 100 100 O2 Delivery Ventilator Ventilator Ventilator Ventilator 12/29/18 12/29/18 12/29/18 12/29/18 00:00 00:11 01:00 02:00 Pulse 82 78 Resp 17 17 B/P (MAP) 140/80 (100) 140/74 (96) Pulse Ox 100 100 100 O2 Delivery Mechanical Ventilator Ventilator Ventilator Ventilator 12/29/18 12/29/18 12/29/18 12/29/18 02:14 03:00 04:00 04:00 Temp 98.7 98.7 Pulse 76 88 Resp 17 16 B/P (MAP) 140/80 (100) 150/72 (98) Pulse Ox 100 100 100 O2 Delivery Ventilator Ventilator Ventilator Mechanical Ventilator 12/29/18 12/29/18 12/29/18 12/29/18 04:08 05:09 06:09 06:15 Pulse 77 68 Resp 18 18 B/P (MAP) 141/80 (100) 150/85 (106) Pulse Ox 100 100 100 100 O2 Delivery Ventilator Ventilator Ventilator Ventilator 12/29/18 12/29/18 12/29/18 12/29/18 07:00 08:00 08:00 08:01 Pulse 69 68 Resp 17 16 B/P (MAP) 161/97 (118) 152/92 (112) Pulse Ox 100 100 100 O2 Delivery Ventilator Mechanical Ventilator Ventilator Ventilator 12/29/18 12/29/18 12/29/18 12/29/18 08:36 09:00 09:36 10:57 Pulse 68 75 Resp 17 B/P (MAP) 152/92 150/87 (108) Pulse Ox 100 100 100 O2 Delivery Ventilator Ventilator Ventilator Intake and Output 12/28/18 12/28/18 12/29/18 14:59 22:59 06:59 Intake Total 270 ml 1643 ml 1003 ml Output Total 730 ml 670 ml 662 ml Balance -460 ml 973 ml 341 ml CASTLE,NIAL K III DO Dec 29, 2018 11:56
--- NOTE | 2018-12-29 12:35 | NUR ---
SS following up with discharge planning. Pt continues on vent. SS contacted Henri, ; fax [phone], and provided update. SS will continue to follow for pending discharge needs.
[2018-12-29] MEDS ORDERED: WARFARIN 2 MG TABLET. PO ONE (16:00)
[2018-12-29] MEDS ORDERED: ENALAPRILAT 1.25 MG/ML VIAL. IVP SCH (16:00)
[2018-12-29] MEDS: traZODone 50 MG TABLET. PO SCH (21:55)
[2018-12-30] VITALS (23 sets, daily range): BP systolic 66–160; BP diastolic 45–91
[2018-12-30] MEDS: PIPERACILLIN/TAZOBACTAM 3.375 GM in IV NORMAL SALINE 50ML 50 ML IV SCH ×3 (06:18→21:57)
[2018-12-30 06:34] LABS: BASO # 0.1 x10^3/uL (0.0-0.2); BASO % 1 % (0-3); EOS # 0.2 x10^3/uL (0.0-0.7); EOS % 2 % (0-3); HEMATOCRIT 25.7 % (39.0-53.0); HEMOGLOBIN 8.4 g/dL (13.0-17.5); LYMPH # 1.1 x10^3/uL (1.0-4.8); LYMPH % 14 % (24-48); MEAN CORPUSCULAR HEMOGLOBIN 29 pg (25-35); MEAN CORPUSCULAR HGB CONC 33 g/dL (31-37); MEAN CORPUSCULAR VOLUME 89 fL (79-100); MONO # 0.8 x10^3/uL (0.0-1.1); MONO % 10 % (0-9); NEUT # 6.1 x10^3uL (1.8-7.7); NEUT % 74 % (31-73); PLATELET COUNT 62 x10^3/uL (140-400); RED BLOOD COUNT 2.88 x10^6/uL (4.30-5.70); RED CELL DISTRIBUTION WIDTH 16.8 % (11.5-14.5); WHITE BLOOD COUNT 8.3 x10^3/uL (4.0-11.0)
[2018-12-30 06:40] LABS: PROTHROMBIN TIME PATIENT 21.5 SEC (11.7-14.0)
[2018-12-30 06:46] LABS: CALCIUM 8.6 mg/dL (8.5-10.1); CREATININE 1.2 mg/dL (0.7-1.3); GFR 70.5; POTASSIUM 3.6 mmol/L (3.5-5.1)
--- NOTE | 2018-12-30 07:48 | PDOC ---
Infectious Disease Note Subjective: Subjective Remains intubated and sedated opens eyes D/W RN ROS: ROS unable to obtain Vital Signs: Vital Signs Vital Signs Date Time Temp Pulse Resp B/P (MAP) Pulse Ox O2 Delivery O2 Flow Rate FiO2 12/30/18 07:00 59 14 147/85 (105) 100 Ventilator 12/30/18 04:00 98.1 98.1 Physical Exam: PHYSICAL EXAM GENERAL: Intubated HEENT: ETT, OGT LUNGS: Clear anteriorly HEART: S1, S2 irregular ABDOMEN: BS active, soft, no grimace to palpation : Jaquez EXTREMITIES: Trace generalized edema SKIN: warm, no rash NEUROLOGIC: Sedated RIJ clean Medications: Inpatient Meds: Current Medications Medications (Trade) Dose Ordered Sig/Nayely Start Time Stop Time Status Last Admin Dose Admin Aspirin (Valarie Aspirin) 325 mg DAILY 12/28/18 14:00 12/28/18 14:51 325 MG Dopamine HCl/ Dextrose 250 ml @ 3.674 mls/ hr 1X ONCE 12/24/18 05:15 12/27/18 01:17 DC 12/24/18 05:22 18.371 MLS/HR Enalaprilat (Vasotec Inj) 2.5 mg PRN Q6HRS PRN 12/29/18 18:15 Enoxaparin Sodium (Lovenox 30mg Syringe) 30 mg Q24H 12/24/18 19:00 12/28/18 10:36 DC 12/27/18 21:18 30 MG Enoxaparin Sodium (Lovenox 40mg Syringe) 40 mg Q24H 12/28/18 19:00 12/28/18 19:00 DC Etomidate (Amidate) 20 mg 1X ONCE 12/24/18 04:30 12/24/18 04:31 DC 12/24/18 03:32 20 MG Fentanyl Citrate (Fentanyl 2ml Vial) 25 mcg PRN Q1HR PRN 12/24/18 16:30 12/25/18 12:20 25 MCG Hydrocortisone Sodium Succinate (Solu-CORTEF) 300 mg 1X ONCE 12/24/18 06:00 12/24/18 06:01 DC 12/24/18 10:33 300 MG Levetiracetam (Keppra) 500 mg BID 12/28/18 14:00 12/29/18 21:01 500 MG Levofloxacin/ Dextrose 100 ml @ 100 mls/hr 1X ONCE 12/24/18 04:00 12/24/18 04:59 DC 12/24/18 05:28 100 MLS/HR Linezolid/Dextrose 300 ml @ 300 mls/hr Q12HR 12/24/18 11:00 12/27/18 06:51 DC 12/26/18 20:33 300 MLS/HR Losartan Potassium (Cozaar) 50 mg DAILY 12/28/18 14:00 12/29/18 08:36 50 MG Magnesium Hydroxide (Milk Of Magnesia) 400 mg PRN DAILY PRN 12/28/18 13:15 Midazolam HCl 100 ml @ 0 mls/hr CONT PRN 12/25/18 10:00 12/28/18 09:00 2 MLS/HR Midazolam HCl (Versed) 5 mg 1X ONCE 12/24/18 04:45 12/24/18 04:46 DC 12/24/18 04:45 5 MG Non-Formulary Medication (Warfarin Sodium ) 8 mg HS 12/28/18 21:00 UNV Norepinephrine Bitartrate 250 ml @ 0 mls/hr CONT PRN 12/24/18 10:15 12/25/18 14:11 9.4 MLS/HR Pantoprazole Sodium (PROTONIX VIAL for IV PUSH) 40 mg DAILYAC 12/24/18 18:00 12/29/18 07:44 40 MG Piperacillin Sod/ Tazobactam Sod 3.375 gm/Sodium Chloride 50 ml @ 100 mls/hr Q8HRS 12/27/18 14:00 12/30/18 06:18 100 MLS/HR Piperacillin Sod/ Tazobactam Sod 4.5 gm/Sodium Chloride 100 ml @ 200 mls/hr Q6HRS 12/24/18 12:00 UNV Polyethylene Glycol (miraLAX PACKET) 17 gm PRN DAILY PRN 12/29/18 09:00 Propofol 100 ml @ 0 mls/hr CONT PRN 12/24/18 16:30 12/25/18 03:45 8.1 MLS/HR Sodium Chloride 1,000 ml @ 75 mls/hr [id number] 12/24/18 11:15 12/29/18 06:07 DC 12/28/18 05:36 75 MLS/HR Trazodone HCl (Desyrel) 50 mg QHS 12/28/18 21:00 12/29/18 21:55 50 MG Vecuronium Hart (Norcuron Bolus) 20 mg 1X ONCE 12/24/18 04:30 12/24/18 04:31 DC 12/24/18 03:32 20 MG Vitamin D (Vitamin D3) 500 unit DAILY 12/28/18 14:00 12/29/18 08:36 500 UNIT Warfarin Sodium (Coumadin - No Dose Today) 1 each 1X WARF ONCE 12/28/18 16:36 12/28/18 16:37 DC 12/28/18 16:36 1 EACH Warfarin Sodium (Coumadin Per Pharmacy) 1 each PRN DAILY PRN 12/28/18 13:15 12/29/18 10:15 1 EACH Warfarin Sodium (Coumadin) 2 mg 1X WARF ONCE 12/29/18 16:00 12/29/18 16:01 DC 12/29/18 16:30 2 MG Labs: Lab Laboratory Tests Test 12/30/18 06:10 White Blood Count 8.3 x10^3/uL (4.0-11.0) Red Blood Count 2.88 x10^6/uL (4.30-5.70) Hemoglobin 8.4 g/dL (13.0-17.5) Hematocrit 25.7 % (39.0-53.0) Mean Corpuscular Volume 89 fL (79-100) Mean Corpuscular Hemoglobin 29 pg (25-35) Mean Corpuscular Hemoglobin Concent 33 g/dL (31-37) Red Cell Distribution Width 16.8 % (11.5-14.5) Platelet Count 62 x10^3/uL (140-400) Neutrophils (%) (Auto) 74 % (31-73) Lymphocytes (%) (Auto) 14 % (24-48) Monocytes (%) (Auto) 10 % (0-9) Eosinophils (%) (Auto) 2 % (0-3) Basophils (%) (Auto) 1 % (0-3) Neutrophils # (Auto) 6.1 x10^3uL (1.8-7.7) Lymphocytes # (Auto) 1.1 x10^3/uL (1.0-4.8) Monocytes # (Auto) 0.8 x10^3/uL (0.0-1.1) Eosinophils # (Auto) 0.2 x10^3/uL (0.0-0.7) Basophils # (Auto) 0.1 x10^3/uL (0.0-0.2) Prothrombin Time 21.5 SEC (11.7-14.0) Prothromb Time International Ratio 1.9 (0.8-1.1) Sodium Level 149 mmol/L (136-145) Potassium Level 3.6 mmol/L (3.5-5.1) Chloride Level 115 mmol/L (98-107) Carbon Dioxide Level 22 mmol/L (21-32) Anion Gap 12 (6-14) Blood Urea Nitrogen 21 mg/dL (8-26) Creatinine 1.2 mg/dL (0.7-1.3) Estimated GFR (Cockcroft-Gault) 70.5 Glucose Level 97 mg/dL (70-99) Calcium Level 8.6 mg/dL (8.5-10.1) Micro RUN DATE: 12/28/18 PAGE 1 RUN TIME: 1611 [facility] [address] [place] [address] Cipriano Marcelo M.D., [employer] Specialist PATIENT: ARIEL TORRES ACCT: [id number] LOC: 1 [place] ICU U : [id number] AGE/SX: 78/M ROOM: 103 REG : 12/24/[address]: JONATAN ROSALES MD : 1940 BED: 1 DIS : STATUS: ADM IN TLOC: SPEC #: [id number] TAMRA: 12/24/18 STATUS: ELISABETH REQ #: [id number] RECD: 12/25/[address] [facility] [address]: ESTEFANIA DUNCAN MD SOURCE: BLOOD ENTR: 12/25/[address] [facility] [address]: CARLITA [facility]IBEIRO [facility] JONATAN ROSALES MD, SABATO MD ORDERED: BLD CULT - LC Procedure Result BLOOD CULTURE LC Final Final report BLD CULT RESULT 1 Final Escherichia coli Multi-Drug Resistant Organism ANTIMICROBIAL SUSCEPTIBILITY Final Comment S = Susceptible; I = Intermediate; R = Resistant P = Positive; N = Negative MICS are expressed in micrograms per mL Antibiotic RSLT#1 RSLT#2 RSLT#3 RSLT#4 Amoxicillin/Clavulanic Acid S =8 Ampicillin R>=32 Cefazolin R>=64 Cefepime S =2 Ceftriaxone R>=64 Cefuroxime R>=64 Ciprofloxacin R>=4 Ertapenem S<=0.12 Gentamicin S<=1 Imipenem S<=0.25 Levofloxacin R>=8 Meropenem S<=0.25 Nitrofurantoin S<=16 Piperacillin/Tazobactam S<=4 Tetracycline R>=16 Tobramycin S<=1 Trimethoprim/Sulfa R>=320 Performed at: DA - [facility] [address], [place], [place] [id number] [employer]: DARLIN Cool MD, Phone: [phone] Objective: Assessment: Septic shock with hypothermia (POA) E coli bacteremia (POA) ; FQ resistant,source ?? GI / UC neg so far Leukopenia - better Lactic acidosis Suspected aspiration Respiratory failure TAZ better Dehydration Dementia Thrombocytopenia Plan: Plan of Care cont alfonsoaraseli Tanoabneruin x 1, on 12/24 Supportive care care Critically ill Palliative care consult noted D/W JODI WORKMAN MD Dec 30, 2018 07:48
--- NOTE | 2018-12-30 08:13 | RAD ---
Examination: PORTABLE CHEST 1V History: RESPIRATORY FAILURE Comparison/Correlation: 12/29/2018 portable chest x-ray exam Findings: Portable semiupright frontal view of the chest was obtained. Right central venous catheter is overlying the superior vena cava. Endotracheal and nasogastric tubes are in place. Heart size is within normal limits. Atelectatic consolidation involving the left lung base is noted with opacification of the left costophrenic angle. No pneumothorax. Pulmonary vasculature is congested. Interstitial edema or infiltrates noted. Impression: Left basilar atelectatic and pleural effusion noted. This is new in the interval with mediastinal shift to the left. Pulmonary vasculature congestion Electronically signed by: Yung Rivera MD (12/30/2018 8:10 AM) [id number]
[2018-12-30] MEDS: LOSARTAN POTASSIUM 50 MG TABLET. PO SCH (08:19)
[2018-12-30] MEDS: levETIRAcetam 500 MG TABLET PO SCH ×2 (08:19→20:40)
[2018-12-30] MEDS: PANTOPRAZOLE IV PUSH 40 MG VIAL. IVP SCH (08:19)
[2018-12-30] MEDS: CHOLECALCIFEROL (VITAMIN D3) 1,000 UNIT TABLET PO SCH (08:20)
[2018-12-30] MEDS: ASPIRIN 325 MG TABLET PO SCH (08:20)
--- NOTE | 2018-12-30 09:10 | PDOC ---
PULMONARY PROGRESS NOTES Subjective patient has been off sedation for 2 days, very little response to sternal rub Vitals Vital Signs Date Time Temp Pulse Resp B/P (MAP) Pulse Ox O2 Delivery O2 Flow Rate FiO2 12/30/18 08:19 72 146/84 12/30/18 07:45 100 Ventilator 12/30/18 07:00 14 12/30/18 04:00 98.1 98.1 Lungs: Clear, Other (no wheezing or crackles) Cardiovascular: S1, S2 Abdomen: Soft Extremities: Other (EDEMA) Skin: Warm Labs Laboratory Tests Test 12/28/18 16:00 12/28/18 17:10 12/29/18 05:58 12/30/18 06:10 Prothrombin Time 31.1 SEC (11.7-14.0) 24.6 SEC (11.7-14.0) 21.5 SEC (11.7-14.0) Prothromb Time International Ratio 3.0 (0.8-1.1) 2.2 (0.8-1.1) 1.9 (0.8-1.1) O2 Saturation 98 % (92-99) Arterial Blood pH 7.42 (7.35-7.45) Arterial Blood pCO2 at Patient Temp 25 mmHg (35-46) Arterial Blood pO2 at Patient Temp 131 mmHg (65-108) Arterial Blood HCO3 16 mmol/L (21-28) Arterial Blood Base Excess -8 mmol/L (-3-3) FiO2 30 White Blood Count 8.3 x10^3/uL (4.0-11.0) 8.3 x10^3/uL (4.0-11.0) Red Blood Count 3.03 x10^6/uL (4.30-5.70) 2.88 x10^6/uL (4.30-5.70) Hemoglobin 8.8 g/dL (13.0-17.5) 8.4 g/dL (13.0-17.5) Hematocrit 26.9 % (39.0-53.0) 25.7 % (39.0-53.0) Mean Corpuscular Volume 89 fL (79-100) 89 fL (79-100) Mean Corpuscular Hemoglobin 29 pg (25-35) 29 pg (25-35) Mean Corpuscular Hemoglobin Concent 33 g/dL (31-37) 33 g/dL (31-37) Red Cell Distribution Width 17.0 % (11.5-14.5) 16.8 % (11.5-14.5) Platelet Count 60 x10^3/uL (140-400) 62 x10^3/uL (140-400) Neutrophils (%) (Auto) 76 % (31-73) 74 % (31-73) Lymphocytes (%) (Auto) 16 % (24-48) 14 % (24-48) Monocytes (%) (Auto) 5 % (0-9) 10 % (0-9) Eosinophils (%) (Auto) 3 % (0-3) 2 % (0-3) Basophils (%) (Auto) 1 % (0-3) 1 % (0-3) Neutrophils # (Auto) 6.3 x10^3uL (1.8-7.7) 6.1 x10^3uL (1.8-7.7) Lymphocytes # (Auto) 1.3 x10^3/uL (1.0-4.8) 1.1 x10^3/uL (1.0-4.8) Monocytes # (Auto) 0.4 x10^3/uL (0.0-1.1) 0.8 x10^3/uL (0.0-1.1) Eosinophils # (Auto) 0.2 x10^3/uL (0.0-0.7) 0.2 x10^3/uL (0.0-0.7) Basophils # (Auto) 0.1 x10^3/uL (0.0-0.2) 0.1 x10^3/uL (0.0-0.2) Sodium Level 148 mmol/L (136-145) 149 mmol/L (136-145) Potassium Level 3.6 mmol/L (3.5-5.1) 3.6 mmol/L (3.5-5.1) Chloride Level 117 mmol/L (98-107) 115 mmol/L (98-107) Carbon Dioxide Level 20 mmol/L (21-32) 22 mmol/L (21-32) Anion Gap 11 (6-14) 12 (6-14) Blood Urea Nitrogen 23 mg/dL (8-26) 21 mg/dL (8-26) Creatinine 1.4 mg/dL (0.7-1.3) 1.2 mg/dL (0.7-1.3) Estimated GFR (Cockcroft-Gault) 59.0 70.5 Glucose Level 87 mg/dL (70-99) 97 mg/dL (70-99) Calcium Level 8.2 mg/dL (8.5-10.1) 8.6 mg/dL (8.5-10.1) Laboratory Tests Test 12/30/18 06:10 White Blood Count 8.3 x10^3/uL (4.0-11.0) Red Blood Count 2.88 x10^6/uL (4.30-5.70) Hemoglobin 8.4 g/dL (13.0-17.5) Hematocrit 25.7 % (39.0-53.0) Mean Corpuscular Volume 89 fL (79-100) Mean Corpuscular Hemoglobin 29 pg (25-35) Mean Corpuscular Hemoglobin Concent 33 g/dL (31-37) Red Cell Distribution Width 16.8 % (11.5-14.5) Platelet Count 62 x10^3/uL (140-400) Neutrophils (%) (Auto) 74 % (31-73) Lymphocytes (%) (Auto) 14 % (24-48) Monocytes (%) (Auto) 10 % (0-9) Eosinophils (%) (Auto) 2 % (0-3) Basophils (%) (Auto) 1 % (0-3) Neutrophils # (Auto) 6.1 x10^3uL (1.8-7.7) Lymphocytes # (Auto) 1.1 x10^3/uL (1.0-4.8) Monocytes # (Auto) 0.8 x10^3/uL (0.0-1.1) Eosinophils # (Auto) 0.2 x10^3/uL (0.0-0.7) Basophils # (Auto) 0.1 x10^3/uL (0.0-0.2) Prothrombin Time 21.5 SEC (11.7-14.0) Prothromb Time International Ratio 1.9 (0.8-1.1) Sodium Level 149 mmol/L (136-145) Potassium Level 3.6 mmol/L (3.5-5.1) Chloride Level 115 mmol/L (98-107) Carbon Dioxide Level 22 mmol/L (21-32) Anion Gap 12 (6-14) Blood Urea Nitrogen 21 mg/dL (8-26) Creatinine 1.2 mg/dL (0.7-1.3) Estimated GFR (Cockcroft-Gault) 70.5 Glucose Level 97 mg/dL (70-99) Calcium Level 8.6 mg/dL (8.5-10.1) Medications Active Scripts Medications Dose Route/Sig Max Daily Dose Days Date Category Warfarin Sodium 6 Mg Tablet 8 Mg PO HS 12/24/18 Reported Miralax (Polyethylene Glycol 3350) 17 Gm Powd.pack 1 Packet PO PRN DAILY PRN 03/19/18 Reported Milk Of Magnesia (Magnesium Hydroxide) 400 Mg/5 Ml Oral.susp 400 Mg PO PRN DAILY PRN 03/19/18 Reported Megace Es (Megestrol Acetate) 625 Mg/5 Ml Oral.susp 400 Mg PO 03/19/18 Reported Senna Plus Tablet (Sennosides/Docusate Sodium) 1 Each Tablet 1 Each PO 03/19/18 Reported Aspirin 325 Mg Tablet 1 Tab PO DAILY 03/19/18 Reported Keppra (Levetiracetam) 500 Mg Tablet 500 Mg PO BID 03/05/18 Reported Vitamin D3 (Cholecalciferol (Vitamin D3)) 1,000 Unit Tablet 400 Unit PO DAILY 03/05/18 Reported Trazodone Hcl 50 Mg Tablet 1 Tab PO QHS 03/05/18 Reported Tylenol (Acetaminophen) 325 Mg Tablet 1-2 Tab PO PRN Q4HRS PRN 03/05/18 Reported Losartan Potassium 50 Mg Tablet 50 Mg PO DAILY 11/28/17 Reported Impression . IMPRESSION: 1. Acute respiratory failure, multifactorial. 2. Septic shock. 3. Possible urinary tract infection. 4. History of cerebrovascular accident and dementia. 5. Prior questionable history of cerebral sinus thrombosis. 6. Seizures. 7. Generalized weakness. 8. Protein malnutrition, present upon admission. 9. Leukopenia. 10. Acute on chronic renal failure. 11. Metabolic acidosis from sepsis. 12..GNB IN BLOOD Plan . will continue support until Marta status improves antibiotics per infectious disease tube feeding patient for code per family request prognosis is poor TORSTEN KEE MD Dec 30, 2018 09:10
--- NOTE | 2018-12-30 10:17 | PDOC ---
PROGRESS NOTES Chief Complaint Chief Complaint CC: metabolic encephalopathy acute respiratory failure Septic shock secondary to urinary tract infection secondary to chronic indwelling urinary suprapubic catheter Hypoalbuminemia History of acute venous sinus thrombosis on CTA head/neck on chronic anticoagulation with coumadin Left Sided weakness and right-sided gaze, on last admission which had resolved History dementia, seizures History of essential Hypertension History of BPH, Indwelling suprapubic catheter History of complicated UTI in a male sec to indwelling FC History of Present Illness History of Present Illness Pt is an 78 y/o male who presented with sepsis due to UTI and chronic indwelling catheter. BCx demonstrated GNR bacteremia. Receiving IV Zosyn. Levaquin has been d/c. Today he was seen and examined in the ICU. Patient remains off sedation at this time, opens eyes. OG feeds on hold. Vent on spontaneous respirations at 30% FiO2. Patient O2 Sat at 100%. 1+ swelling of extremities. ID and Pulmonology following. Vitals Vitals Vital Signs Date Time Temp Pulse Resp B/P (MAP) Pulse Ox O2 Delivery O2 Flow Rate FiO2 12/30/18 10:00 68 16 148/84 (105) 100 Ventilator 12/30/18 08:00 97.6 97.6 Physical Exam Physical Exam GENERAL: Intubated HEENT: ETT, OGT LUNGS: Clear anteriorly HEART: S1, S2 irregular ABDOMEN: BS active, soft, no grimace to palpation : Jaquez EXTREMITIES: Trace generalized edema SKIN: warm, no rash NEUROLOGIC: Sedated RIJ clean General: No acute distress, Other (patient intubated, opens eyes) Heart: Regular rate, No murmurs Lungs: Clear, Other (no wheezing or crackles) Abdomen: Normal bowel sounds, Soft, No tenderness Extremities: No clubbing, Normal pulses, Other (1+ edema of bilateral upper and lower extremities) Skin: No rashes, No breakdown, No significant lesion Labs LABS Laboratory Tests Test 12/30/18 06:10 White Blood Count 8.3 x10^3/uL (4.0-11.0) Red Blood Count 2.88 x10^6/uL (4.30-5.70) Hemoglobin 8.4 g/dL (13.0-17.5) Hematocrit 25.7 % (39.0-53.0) Mean Corpuscular Volume 89 fL (79-100) Mean Corpuscular Hemoglobin 29 pg (25-35) Mean Corpuscular Hemoglobin Concent 33 g/dL (31-37) Red Cell Distribution Width 16.8 % (11.5-14.5) Platelet Count 62 x10^3/uL (140-400) Neutrophils (%) (Auto) 74 % (31-73) Lymphocytes (%) (Auto) 14 % (24-48) Monocytes (%) (Auto) 10 % (0-9) Eosinophils (%) (Auto) 2 % (0-3) Basophils (%) (Auto) 1 % (0-3) Neutrophils # (Auto) 6.1 x10^3uL (1.8-7.7) Lymphocytes # (Auto) 1.1 x10^3/uL (1.0-4.8) Monocytes # (Auto) 0.8 x10^3/uL (0.0-1.1) Eosinophils # (Auto) 0.2 x10^3/uL (0.0-0.7) Basophils # (Auto) 0.1 x10^3/uL (0.0-0.2) Prothrombin Time 21.5 SEC (11.7-14.0) Prothromb Time International Ratio 1.9 (0.8-1.1) Sodium Level 149 mmol/L (136-145) Potassium Level 3.6 mmol/L (3.5-5.1) Chloride Level 115 mmol/L (98-107) Carbon Dioxide Level 22 mmol/L (21-32) Anion Gap 12 (6-14) Blood Urea Nitrogen 21 mg/dL (8-26) Creatinine 1.2 mg/dL (0.7-1.3) Estimated GFR (Cockcroft-Gault) 70.5 Glucose Level 97 mg/dL (70-99) Calcium Level 8.6 mg/dL (8.5-10.1) Review of Systems Review of Systems Unable to obtain, patient remains ventilated. Assessment and Plan Assessmemt and Plan Problems Medical Problems: (1) Acute sepsis Status: Acute (2) UTI (urinary tract infection) due to urinary indwelling catheter Status: Acute Assessment: metabolic encephalopathy acute respiratory failure Septic shock secondary to urinary tract infection secondary to chronic indwelling urinary suprapubic catheter Hypoalbuminemia - swelling likely secondary to hypoalbuminemia History of acute venous sinus thrombosis on CTA head/neck on chronic anticoagulation with coumadin Left Sided weakness and right-sided gaze, on last admission which had resolved History dementia, seizures History of essential Hypertension History of BPH, Indwelling suprapubic catheter History of complicated UTI in a male sec to indwelling FC Plan: Ordered 5% albumin Continue IV Zosyn Appreciate subspecialty input Continue on vent: sponatenous respirations at 30% FiO2 Continue to wean off vent Continue to monitor in the ICU Comment Review of Relevant I have reviewed the following items edgar (where applicable) has been applied. Labs Laboratory Tests Test 12/28/18 16:00 12/28/18 17:10 12/29/18 05:58 12/30/18 06:10 Prothrombin Time 31.1 SEC (11.7-14.0) 24.6 SEC (11.7-14.0) 21.5 SEC (11.7-14.0) Prothromb Time International Ratio 3.0 (0.8-1.1) 2.2 (0.8-1.1) 1.9 (0.8-1.1) O2 Saturation 98 % (92-99) Arterial Blood pH 7.42 (7.35-7.45) Arterial Blood pCO2 at Patient Temp 25 mmHg (35-46) Arterial Blood pO2 at Patient Temp 131 mmHg (65-108) Arterial Blood HCO3 16 mmol/L (21-28) Arterial Blood Base Excess -8 mmol/L (-3-3) FiO2 30 White Blood Count 8.3 x10^3/uL (4.0-11.0) 8.3 x10^3/uL (4.0-11.0) Red Blood Count 3.03 x10^6/uL (4.30-5.70) 2.88 x10^6/uL (4.30-5.70) Hemoglobin 8.8 g/dL (13.0-17.5) 8.4 g/dL (13.0-17.5) Hematocrit 26.9 % (39.0-53.0) 25.7 % (39.0-53.0) Mean Corpuscular Volume 89 fL (79-100) 89 fL (79-100) Mean Corpuscular Hemoglobin 29 pg (25-35) 29 pg (25-35) Mean Corpuscular Hemoglobin Concent 33 g/dL (31-37) 33 g/dL (31-37) Red Cell Distribution Width 17.0 % (11.5-14.5) 16.8 % (11.5-14.5) Platelet Count 60 x10^3/uL (140-400) 62 x10^3/uL (140-400) Neutrophils (%) (Auto) 76 % (31-73) 74 % (31-73) Lymphocytes (%) (Auto) 16 % (24-48) 14 % (24-48) Monocytes (%) (Auto) 5 % (0-9) 10 % (0-9) Eosinophils (%) (Auto) 3 % (0-3) 2 % (0-3) Basophils (%) (Auto) 1 % (0-3) 1 % (0-3) Neutrophils # (Auto) 6.3 x10^3uL (1.8-7.7) 6.1 x10^3uL (1.8-7.7) Lymphocytes # (Auto) 1.3 x10^3/uL (1.0-4.8) 1.1 x10^3/uL (1.0-4.8) Monocytes # (Auto) 0.4 x10^3/uL (0.0-1.1) 0.8 x10^3/uL (0.0-1.1) Eosinophils # (Auto) 0.2 x10^3/uL (0.0-0.7) 0.2 x10^3/uL (0.0-0.7) Basophils # (Auto) 0.1 x10^3/uL (0.0-0.2) 0.1 x10^3/uL (0.0-0.2) Sodium Level 148 mmol/L (136-145) 149 mmol/L (136-145) Potassium Level 3.6 mmol/L (3.5-5.1) 3.6 mmol/L (3.5-5.1) Chloride Level 117 mmol/L (98-107) 115 mmol/L (98-107) Carbon Dioxide Level 20 mmol/L (21-32) 22 mmol/L (21-32) Anion Gap 11 (6-14) 12 (6-14) Blood Urea Nitrogen 23 mg/dL (8-26) 21 mg/dL (8-26) Creatinine 1.4 mg/dL (0.7-1.3) 1.2 mg/dL (0.7-1.3) Estimated GFR (Cockcroft-Gault) 59.0 70.5 Glucose Level 87 mg/dL (70-99) 97 mg/dL (70-99) Calcium Level 8.2 mg/dL (8.5-10.1) 8.6 mg/dL (8.5-10.1) Laboratory Tests Test 12/30/18 06:10 White Blood Count 8.3 x10^3/uL (4.0-11.0) Red Blood Count 2.88 x10^6/uL (4.30-5.70) Hemoglobin 8.4 g/dL (13.0-17.5) Hematocrit 25.7 % (39.0-53.0) Mean Corpuscular Volume 89 fL (79-100) Mean Corpuscular Hemoglobin 29 pg (25-35) Mean Corpuscular Hemoglobin Concent 33 g/dL (31-37) Red Cell Distribution Width 16.8 % (11.5-14.5) Platelet Count 62 x10^3/uL (140-400) Neutrophils (%) (Auto) 74 % (31-73) Lymphocytes (%) (Auto) 14 % (24-48) Monocytes (%) (Auto) 10 % (0-9) Eosinophils (%) (Auto) 2 % (0-3) Basophils (%) (Auto) 1 % (0-3) Neutrophils # (Auto) 6.1 x10^3uL (1.8-7.7) Lymphocytes # (Auto) 1.1 x10^3/uL (1.0-4.8) Monocytes # (Auto) 0.8 x10^3/uL (0.0-1.1) Eosinophils # (Auto) 0.2 x10^3/uL (0.0-0.7) Basophils # (Auto) 0.1 x10^3/uL (0.0-0.2) Prothrombin Time 21.5 SEC (11.7-14.0) Prothromb Time International Ratio 1.9 (0.8-1.1) Sodium Level 149 mmol/L (136-145) Potassium Level 3.6 mmol/L (3.5-5.1) Chloride Level 115 mmol/L (98-107) Carbon Dioxide Level 22 mmol/L (21-32) Anion Gap 12 (6-14) Blood Urea Nitrogen 21 mg/dL (8-26) Creatinine 1.2 mg/dL (0.7-1.3) Estimated GFR (Cockcroft-Gault) 70.5 Glucose Level 97 mg/dL (70-99) Calcium Level 8.6 mg/dL (8.5-10.1) Microbiology 12/24/18 Blood Culture - Final, Complete 12/24/18 Blood Culture Result 1 (MORIAH) - Final, Complete 12/24/18 Antimicrobic Susceptibility - Final, Complete 12/24/18 Urine Culture - Final, Complete 12/24/18 Urine Culture Result 1 (MORIAH) - Final, Complete Medications Current Medications Sodium Chloride 1,000 ml @ 1,000 mls/hr Q1H IV Last administered on 12/24/18at 03:31; Start 12/24/18 at 03:45; Stop 12/24/18 at 04:44; Status DC Piperacillin Sod/ Tazobactam Sod 3.375 gm/Sodium Chloride 50 ml @ 100 mls/hr 1X ONCE IV Last administered on 12/24/18at 04:00; Start 12/24/18 at 04:00; Stop 12/24/18 at 04:29; Status DC Levofloxacin/ Dextrose 100 ml @ 100 mls/hr 1X ONCE IV Last administered on at 05:28; Start 12/24/18 at 04:00; Stop 12/24/18 at 04:59; Status DC Etomidate (Amidate) 20 mg STK-MED ONCE IV ; Start 12/24/18 at 03:47; Stop at 03:48; Status DC Vecuronium [place] (Norcuron Bolus) 10 mg STK-MED ONCE IV ; Start 12/24/18 at 03 :47; Stop 12/24/18 at 03:48; Status DC Sodium Chloride 1,000 ml @ 1,000 mls/hr 1X ONCE IV Last administered on at 03:31; Start 12/24/18 at 04:30; Stop 12/24/18 at 05:29; Status DC Vecuronium [place] (Norcuron Bolus) 20 mg 1X ONCE IV Last administered on 12/24at 03:32; Start 12/24/18 at 04:30; Stop 12/24/18 at 04:31; Status DC Etomidate (Amidate) 20 mg 1X ONCE IV Last administered on 12/24/18at 03:32; Start 12/24/18 at 04:30; Stop 12/24/18 at 04:31; Status DC Midazolam HCl (Versed) 5 mg 1X ONCE IV Last administered on 12/24/18at 04:45; Start 12/24/18 at 04:45; Stop 12/24/18 at 04:46; Status DC Dopamine HCl/ Dextrose 250 ml @ 3.674 mls/ hr 1X ONCE IV Last administered on 12/24/18at 05:22; Start 12/24/18 at 05:15; Stop 12/27/18 at 01:17; Status DC Sodium Chloride 1,000 ml @ 150 mls/hr Q6H40M IV ; Start 12/24/18 at 05:30; Stop 12/24/18 at 06:52; Status DC Sodium Chloride 1,000 ml @ 1,000 mls/hr 1X ONCE IV Last administered on at 05:04; Start 12/24/18 at 05:45; Stop 12/24/18 at 06:44; Status DC Norepinephrine Bitartrate 250 ml @ 1.875 mls/ hr CONT PRN IV SEE I/O RECORD Last administered on 12/24/18at 05:57; Start 12/24/18 at 05:45; Stop 12/24/18 at 10:25; Status DC Hydrocortisone Sodium Succinate (Solu-CORTEF) 300 mg 1X ONCE IV Last administered on 12/24/18at 10:33; Start 12/24/18 at 06:00; Stop 12/24/18 at 06:01 ; Status DC Sodium Chloride 1,000 ml @ 1,000 mls/hr 1X ONCE IV Last administered on at 05:22; Start 12/24/18 at 07:00; Stop 12/24/18 at 07:59; Status DC Sodium Chloride 1,000 ml @ 1,860 mls/hr Q33M IV ; Start 12/24/18 at 10:14; Stop 12/24/18 at 11:13; Status DC Sodium Chloride 500 ml @ 1,000 mls/hr PRN Q30MIN PRN IV SEE COMMENTS Last administered on 12/24/18at 13:00; Start 12/24/18 at 10:15 Linezolid/Dextrose 300 ml @ 300 mls/hr Q12HR IV Last administered on 12/26/18at 20:33; Start 12/24/18 at 11:00; Stop 12/27/18 at 06:51; Status DC Piperacillin Sod/ Tazobactam Sod 4.5 gm/Sodium Chloride 100 ml @ 200 mls/hr Q6HRS IV ; Start 12/24/18 at 12:00; Status UNV Norepinephrine Bitartrate 250 ml @ 0 mls/hr CONT PRN IV SEE I/O RECORD Last administered on 12/25/18at 14:11; Start 12/24/18 at 10:15 Piperacillin Sod/ Tazobactam Sod 3.375 gm/Sodium Chloride 50 ml @ 100 mls/hr Q6HRS IV Last administered on 12/27/18at 05:58; Start 12/24/18 at 12:00; Stop 12/27/18 at 06:51; Status DC Sodium Chloride 1,000 ml @ 75 mls/hr [id number] IV Last administered on 12/28/18at 05:36; Start 12/24/18 at 11:15; Stop 12/29/18 at 06:07; Status DC Propofol 100 ml @ 0 mls/hr CONT PRN IV SEE PROTOCOL Last administered on at 03:45; Start 12/24/18 at 16:30 Fentanyl Citrate (Fentanyl 2ml Vial) 25 mcg PRN Q1HR PRN IV SEE COMMENTS Last administered on 12/25/18at 12:20; Start 12/24/18 at 16:30 Pantoprazole Sodium (PROTONIX VIAL for IV PUSH) 40 mg DAILYAC IVP Last administered on 12/30/18at 08:19; Start 12/24/18 at 18:00 Enoxaparin Sodium (Lovenox 30mg Syringe) 30 mg Q24H SQ Last administered on 12/27at 21:18; Start 12/24/18 at 19:00; Stop 12/28/18 at 10:36; Status DC Midazolam HCl 100 ml @ 0 mls/hr CONT PRN IV PER PROTOCOL Last administered on 09:00; Start 12/25/18 at 10:00 Piperacillin Sod/ Tazobactam Sod 3.375 gm/Sodium Chloride 50 ml @ 100 mls/hr Q8HRS IV Last administered on 12/30/18 06:18; Start 12/27/18 at 14:00 Enoxaparin Sodium (Lovenox 40mg Syringe) 40 mg Q24H SQ ; Start 12/28/18 at 19:00 ; Stop 12/28/18 at 19:00; Status DC Aspirin (Valarie Aspirin) 325 mg DAILY PO Last administered on 12/30/18 08:20; Start 12/28/18 at 14:00 Vitamin D (Vitamin D3) 500 unit DAILY PO Last administered on 12/30/18 08:20; Start 12/28/18 at 14:00 Levetiracetam (Keppra) 500 mg BID PO Last administered on 12/30/18 08:19; Start 12/28/18 at 14:00 Losartan Potassium (Cozaar) 50 mg DAILY PO Last administered on 12/30/18 08:19 ; Start 12/28/18 at 14:00 Magnesium Hydroxide (Milk Of Magnesia) 400 mg PRN DAILY PRN PO CONSTIPATION 2ND CHOICE; Start 12/28/18 at 13:15 Trazodone HCl (Desyrel) 50 mg QHS PO Last administered on 12/29/18 21:55; Start 12/28/18 at 21:00 Polyethylene Glycol (miraLAX PACKET) 17 gm PRN DAILY PRN PO CONSTIPATION 1ST CHOICE; Start 12/29/18 at 09:00 Non-Formulary Medication (Warfarin Sodium ) 8 mg HS PO ; Start 12/28/18 at 21:00 ; Status UNV Warfarin Sodium (Coumadin Per Pharmacy) 1 each PRN DAILY PRN MC SEE COMMENTS Last administered on 12/29/18 10:15; Start 12/28/18 at 13:15 Warfarin Sodium (Coumadin - No Dose Today) 1 each 1X WARF ONCE MC Last administered on 12/28/18 16:36; Start 12/28/18 at 16:36; Stop 12/28/18 at 16:37; Status DC Warfarin Sodium (Coumadin) 2 mg 1X WARF ONCE PO Last administered on 3/4/19at 16:30; Start 12/29/18 at 16:00; Stop 12/29/18 at 16:01; Status DC Enalaprilat (Vasotec Inj) 1.25 mg Q6HRS IVP Last administered on 12/29/18at 16:30 ; Start 12/29/18 at 16:00; Stop 12/29/18 at 18:05; Status DC Enalaprilat (Vasotec Inj) 2.5 mg PRN Q6HRS PRN IVP HYPERTENSION, SEE COMMENTS; Start 12/29/18 at 18:15 Active Scripts Active Reported Warfarin Sodium 6 Mg Tablet 8 Mg PO HS Miralax (Polyethylene Glycol 3350) 17 Gm Powd.pack 1 Packet PO PRN DAILY PRN Milk Of Magnesia (Magnesium Hydroxide) 400 Mg/5 Ml Oral.susp 400 Mg PO PRN DAILY PRN Megace Es (Megestrol Acetate) 625 Mg/5 Ml Oral.susp 400 Mg PO Senna Plus Tablet (Sennosides/Docusate Sodium) 1 Each Tablet 1 Each PO Aspirin 325 Mg Tablet 1 Tab PO DAILY Keppra (Levetiracetam) 500 Mg Tablet 500 Mg PO BID Vitamin D3 (Cholecalciferol (Vitamin D3)) 1,000 Unit Tablet 400 Unit PO DAILY Trazodone Hcl 50 Mg Tablet 1 Tab PO QHS Tylenol (Acetaminophen) 325 Mg Tablet 1-2 Tab PO PRN Q4HRS PRN Losartan Potassium 50 Mg Tablet 50 Mg PO DAILY Vitals/I & O Vital Sign - Last 24 Hours 12/29/18 12/29/18 12/29/18 12/29/18 10:57 11:00 11:57 12:00 Pulse 68 Resp 18 B/P (MAP) 157/95 (115) Pulse Ox 100 100 100 O2 Delivery Ventilator Ventilator Ventilator Mechanical Ventilator 12/29/18 12/29/18 12/29/18 12/29/18 12:00 13:00 13:14 14:00 Temp 97.5 97.5 Pulse 66 72 64 Resp 17 15 18 B/P (MAP) 159/89 (112) 164/87 (112) 155/82 (106) Pulse Ox 100 100 100 100 O2 Delivery Ventilator Ventilator Ventilator Ventilator 12/29/18 12/29/18 12/29/18 12/29/18 15:00 15:22 16:00 16:00 Temp 97.5 97.5 Pulse 73 74 Resp 20 13 B/P (MAP) 155/82 (106) 149/94 (112) Pulse Ox 100 100 98 O2 Delivery Ventilator Ventilator Ventilator Mechanical Ventilator 12/29/18 12/29/18 12/29/18 12/29/18 16:30 17:00 17:08 18:00 Pulse 75 72 68 Resp 15 14 B/P (MAP) 149/94 157/96 (116) 161/92 (115) Pulse Ox 100 100 100 O2 Delivery Ventilator Ventilator Ventilator 12/29/18 12/29/18 12/29/18 12/29/18 19:00 19:47 20:00 20:00 Temp 97.4 97.4 Pulse 74 69 Resp 12 B/P (MAP) 161/92 (115) 158/92 (114) Pulse Ox 100 100 100 O2 Delivery Ventilator Ventilator Mechanical Ventilator 12/29/18 12/29/18 12/29/18 12/29/18 21:00 21:45 22:00 23:00 Pulse 71 74 68 Resp 12 12 13 B/P (MAP) 153/85 (107) 153/85 (107) 155/99 (117) Pulse Ox 100 100 100 100 O2 Delivery Ventilator 12/29/18 12/29/18 12/29/18 12/30/18 23:05 23:59 23:59 00:30 Temp 98.1 98.1 Pulse 74 Resp 12 B/P (MAP) 145/86 (105) Pulse Ox 100 100 100 O2 Delivery Ventilator Mechanical Ventilator Ventilator 12/30/18 12/30/18 12/30/18 12/30/18 01:00 02:00 02:45 03:00 Pulse 74 75 76 Resp 12 12 14 B/P (MAP) 138/67 (90) 137/76 (96) 143/77 (99) Pulse Ox 100 100 100 100 O2 Delivery Ventilator Ventilator Ventilator 12/30/18 12/30/18 12/30/18 12/30/18 04:00 04:00 05:00 05:51 Temp 98.1 98.1 Pulse 67 64 Resp 12 12 B/P (MAP) 141/78 (99) 159/79 (105) Pulse Ox 100 100 100 O2 Delivery Mechanical Ventilator Ventilator Ventilator Ventilator 12/30/18 12/30/18 12/30/1819 06:00 07:00 07:45 08:00 Temp 97.6 97.6 Pulse 64 59 72 Resp 12 14 16 B/P (MAP) 143/82 (102) 147/85 (105) 146/84 (104) Pulse Ox 100 100 100 100 O2 Delivery Ventilator Ventilator Ventilator Ventilator 12/30/18 12/30/18 12/30/18 12/30/18 08:00 08:00 08:19 09:00 Pulse 72 73 Resp 16 B/P (MAP) 146/84 141/77 (98) Pulse Ox 100 O2 Delivery Mechanical Ventilator Mechanical Ventilator Ventilator 12/30/18 10:00 Pulse 68 Resp 16 B/P (MAP) 148/84 (105) Pulse Ox 100 O2 Delivery Ventilator Intake and Output 12/29/18 12/29/18 12/30/18 15:00 23:00 07:00 Intake Total 370 ml 1492 ml 1077 ml Output Total 630 ml 725 ml 1060 ml Balance -260 ml 767 ml 17 ml JIE TONG III DO Dec 30, 2018 10:17
[2018-12-30] MEDS ORDERED: ALBUMIN HUMAN 25% 100 ML IV ONE (11:30)
[2018-12-30] MEDS: DEXTROSE 50% 25 GM / 50ML DISP.SYRIN. IV PRN (14:20)
[2018-12-30] MEDS: traZODone 50 MG TABLET. PO SCH (20:40)
[2018-12-31] VITALS (24 sets, daily range): BP systolic 129–158; BP diastolic 58–91
[2018-12-31] MEDS: PIPERACILLIN/TAZOBACTAM 3.375 GM in IV NORMAL SALINE 50ML 50 ML IV SCH (05:43)
[2018-12-31 06:22] LABS: BASO # 0.1 x10^3/uL (0.0-0.2); BASO % 1 % (0-3); EOS # 0.2 x10^3/uL (0.0-0.7); EOS % 3 % (0-3); HEMATOCRIT 23.6 % (39.0-53.0); HEMOGLOBIN 7.8 g/dL (13.0-17.5); LYMPH # 1.2 x10^3/uL (1.0-4.8); LYMPH % 16 % (24-48); MEAN CORPUSCULAR HEMOGLOBIN 30 pg (25-35); MEAN CORPUSCULAR HGB CONC 33 g/dL (31-37); MEAN CORPUSCULAR VOLUME 89 fL (79-100); MONO # 0.8 x10^3/uL (0.0-1.1); MONO % 10 % (0-9); NEUT # 5.4 x10^3uL (1.8-7.7); NEUT % 70 % (31-73); PLATELET COUNT 60 x10^3/uL (140-400); RED BLOOD COUNT 2.66 x10^6/uL (4.30-5.70); RED CELL DISTRIBUTION WIDTH 16.7 % (11.5-14.5); WHITE BLOOD COUNT 7.7 x10^3/uL (4.0-11.0)
[2018-12-31 06:50] LABS: CALCIUM 8.4 mg/dL (8.5-10.1); CREATININE 1.1 mg/dL (0.7-1.3); GFR 77.9; POTASSIUM 3.5 mmol/L (3.5-5.1)
--- NOTE | 2018-12-31 06:52 | RAD ---
Single view chest dated 12/31/2018. Comparison made to 12/30/2018. CLINICAL INDICATION: Respiratory failure. FINDINGS: Single upright portable exam performed. Heart size within normal limits. Endotracheal tube, nasogastric tube in place, unchanged. Right subclavian central catheter, unchanged. There is patchy perihilar and bibasilar airspace disease, similar given differences in technique. Blunting of the left costophrenic sulcus. No pneumothorax. IMPRESSION: 1. Bibasilar airspace disease, not significantly changed from prior study. 2. Stable position of tubes and lines. Electronically signed by: Sarkis Baldwin MD (12/31/2018 6:48 AM) [id number]
[2018-12-31 07:30] LABS: PROTHROMBIN TIME PATIENT 17.9 SEC (11.7-14.0)
[2018-12-31] MEDS: PANTOPRAZOLE IV PUSH 40 MG VIAL. IVP SCH (08:00)
[2018-12-31] MEDS: ASPIRIN 325 MG TABLET PO SCH (08:00)
[2018-12-31] MEDS: levETIRAcetam 500 MG TABLET PO SCH ×2 (08:00→21:44)
[2018-12-31] MEDS: CHOLECALCIFEROL (VITAMIN D3) 1,000 UNIT TABLET PO SCH (08:00)
[2018-12-31] MEDS: LOSARTAN POTASSIUM 50 MG TABLET. PO SCH (08:02)
[2018-12-31 08:23] LABS: BASE EXCESS ABG -4 mmol/L (-3-3); HCO3 ABG 19 mmol/L (21-28); PCO2 ABG 28 mmHg (35-46); PO2 ABG 143 mmHg (65-108); SAT O2 ABG 98 % (92-99)
--- NOTE | 2018-12-31 08:23 | PDOC ---
Infectious Disease Note Subjective: Subjective Pt remains the same Remains intubated and sedated ROS: ROS Negative except for above. Vital Signs: Vital Signs Vital Signs Date Time Temp Pulse Resp B/P (MAP) Pulse Ox O2 Delivery O2 Flow Rate FiO2 12/31/18 08:06 100 Ventilator 12/31/18 08:02 67 144/74 12/31/18 07:00 6 12/30/18 23:59 98.4 98.4 Physical Exam: PHYSICAL EXAM GENERAL: Intubated HEENT: ETT, OGT LUNGS: Clear anteriorly HEART: S1, S2 irregular ABDOMEN: BS active, soft, no grimace to palpation : Jaquez EXTREMITIES: Trace generalized edema SKIN: warm, no rash NEUROLOGIC: Sedated RIJ clean Medications: Inpatient Meds: Current Medications Medications (Trade) Dose Ordered Sig/Nayely Start Time Stop Time Status Last Admin Dose Admin Albumin Human 100 ml @ 100 mls/hr 1X ONCE 12/30/18 11:30 12/30/18 12:29 DC 12/30/18 11:32 100 MLS/HR Aspirin (Valarie Aspirin) 325 mg DAILY 12/28/18 14:00 12/31/18 08:00 325 MG Dextrose (Dextrose 50%-Water Syringe) 12.5 gm PRN Q15MIN PRN 12/30/18 14:15 12/30/18 14:20 12.5 GM Dopamine HCl/ Dextrose 250 ml @ 3.674 mls/ hr 1X ONCE 12/24/18 05:15 12/27/18 01:17 DC 12/24/18 05:22 18.371 MLS/HR Enalaprilat (Vasotec Inj) 2.5 mg PRN Q6HRS PRN 12/29/18 18:15 Enoxaparin Sodium (Lovenox 30mg Syringe) 30 mg Q24H 12/24/18 19:00 12/28/18 10:36 DC 12/27/18 21:18 30 MG Enoxaparin Sodium (Lovenox 40mg Syringe) 40 mg Q24H 12/28/18 19:00 12/28/18 19:00 DC Etomidate (Amidate) 20 mg 1X ONCE 12/24/18 04:30 12/24/18 04:31 DC 12/24/18 03:32 20 MG Fentanyl Citrate (Fentanyl 2ml Vial) 25 mcg PRN Q1HR PRN 12/24/18 16:30 12/25/18 12:20 25 MCG Hydrocortisone Sodium Succinate (Solu-CORTEF) 300 mg 1X ONCE 12/24/18 06:00 12/24/18 06:01 DC 12/24/18 10:33 300 MG Levetiracetam (Keppra) 500 mg BID 12/28/18 14:00 12/31/18 08:00 500 MG Levofloxacin/ Dextrose 100 ml @ 100 mls/hr 1X ONCE 12/24/18 04:00 12/24/18 04:59 DC 12/24/18 05:28 100 MLS/HR Linezolid/Dextrose 300 ml @ 300 mls/hr Q12HR 12/24/18 11:00 12/27/18 06:51 DC 12/26/18 20:33 300 MLS/HR Losartan Potassium (Cozaar) 50 mg DAILY 12/28/18 14:00 12/31/18 08:02 50 MG Magnesium Hydroxide (Milk Of Magnesia) 400 mg PRN DAILY PRN 12/28/18 13:15 Midazolam HCl 100 ml @ 0 mls/hr CONT PRN 12/25/18 10:00 12/28/18 09:00 2 MLS/HR Midazolam HCl (Versed) 5 mg 1X ONCE 12/24/18 04:45 12/24/18 04:46 DC 12/24/18 04:45 5 MG Non-Formulary Medication (Warfarin Sodium ) 8 mg HS 12/28/18 21:00 UNV Norepinephrine Bitartrate 250 ml @ 0 mls/hr CONT PRN 12/24/18 10:15 12/25/18 14:11 9.4 MLS/HR Pantoprazole Sodium (PROTONIX VIAL for IV PUSH) 40 mg DAILYAC 12/24/18 18:00 12/31/18 08:00 40 MG Piperacillin Sod/ Tazobactam Sod 3.375 gm/Sodium Chloride 50 ml @ 100 mls/hr Q8HRS 12/27/18 14:00 12/31/18 05:43 100 MLS/HR Piperacillin Sod/ Tazobactam Sod 4.5 gm/Sodium Chloride 100 ml @ 200 mls/hr Q6HRS 12/24/18 12:00 UNV Polyethylene Glycol (miraLAX PACKET) 17 gm PRN DAILY PRN 12/29/18 09:00 Propofol 100 ml @ 0 mls/hr CONT PRN 12/24/18 16:30 12/25/18 03:45 8.1 MLS/HR Sodium Chloride 1,000 ml @ 75 mls/hr [id number] 12/24/18 11:15 12/29/18 06:07 DC 12/28/18 05:36 75 MLS/HR Trazodone HCl (Desyrel) 50 mg QHS 12/28/18 21:00 12/30/18 20:40 50 MG Vecuronium [place] (Norcuron Bolus) 20 mg 1X ONCE 12/24/18 04:30 12/24/18 04:31 DC 12/24/18 03:32 20 MG Vitamin D (Vitamin D3) 500 unit DAILY 12/28/18 14:00 12/31/18 08:00 500 UNIT Warfarin Sodium (Coumadin - No Dose Today) 1 each 1X WARF ONCE 12/28/18 16:36 12/28/18 16:37 DC 12/28/18 16:36 1 EACH Warfarin Sodium (Coumadin Per Pharmacy) 1 each PRN DAILY PRN 12/28/18 13:15 12/29/18 10:15 1 EACH Warfarin Sodium (Coumadin) 2 mg 1X WARF ONCE 12/29/18 16:00 12/29/18 16:01 DC 12/29/18 16:30 2 MG Labs: Lab Laboratory Tests Test 12/30/18 14:02 12/30/18 14:07 12/30/18 14:43 12/30/18 20:48 Glucose (Fingerstick) 63 mg/dL (70-99) 66 mg/dL (70-99) 84 mg/dL (70-99) 98 mg/dL (70-99) Test 12/31/18 05:30 White Blood Count 7.7 x10^3/uL (4.0-11.0) Red Blood Count 2.66 x10^6/uL (4.30-5.70) Hemoglobin 7.8 g/dL (13.0-17.5) Hematocrit 23.6 % (39.0-53.0) Mean Corpuscular Volume 89 fL (79-100) Mean Corpuscular Hemoglobin 30 pg (25-35) Mean Corpuscular Hemoglobin Concent 33 g/dL (31-37) Red Cell Distribution Width 16.7 % (11.5-14.5) Platelet Count 60 x10^3/uL (140-400) Neutrophils (%) (Auto) 70 % (31-73) Lymphocytes (%) (Auto) 16 % (24-48) Monocytes (%) (Auto) 10 % (0-9) Eosinophils (%) (Auto) 3 % (0-3) Basophils (%) (Auto) 1 % (0-3) Neutrophils # (Auto) 5.4 x10^3uL (1.8-7.7) Lymphocytes # (Auto) 1.2 x10^3/uL (1.0-4.8) Monocytes # (Auto) 0.8 x10^3/uL (0.0-1.1) Eosinophils # (Auto) 0.2 x10^3/uL (0.0-0.7) Basophils # (Auto) 0.1 x10^3/uL (0.0-0.2) Prothrombin Time 17.9 SEC (11.7-14.0) Prothromb Time International Ratio 1.5 (0.8-1.1) Sodium Level 148 mmol/L (136-145) Potassium Level 3.5 mmol/L (3.5-5.1) Chloride Level 114 mmol/L (98-107) Carbon Dioxide Level 23 mmol/L (21-32) Anion Gap 11 (6-14) Blood Urea Nitrogen 17 mg/dL (8-26) Creatinine 1.1 mg/dL (0.7-1.3) Estimated GFR (Cockcroft-Gault) 77.9 Glucose Level 107 mg/dL (70-99) Calcium Level 8.4 mg/dL (8.5-10.1) Micro RUN DATE: 12/28/18 PAGE 1 RUN TIME: 1612 [facility] [address] [place] [address] Cipriano Marcelo M.D., Supervisor [employer] PATIENT: ARIEL TORRES ACCT: [id number] LOC: 1 WEST ICU U : [id number] AGE/SX: 78/M ROOM: 103 REG : 12/24/[address]: JONATAN ROSALES MD : [id number] BED: 1 DIS : STATUS: ADM IN TLOC: SPEC #: [id number] TAMRA: 12/24/18 STATUS: COMP REQ #: [id number] RECD: 12/25/[address] [facility] [address]: ESTEFANIA DUNCAN MD SOURCE: BLOOD ENTR: 12/25/[address] [facility] [address]: CARLITA RIBEIRO MD SPDESC: JONATAN ROSALES MD, SABATO MD ORDERED: BLD CULT - LC Procedure Result BLOOD CULTURE LC Final Final report BLD CULT RESULT 1 Final Escherichia coli Multi-Drug Resistant Organism ANTIMICROBIAL SUSCEPTIBILITY Final Comment S = Susceptible; I = Intermediate; R = Resistant P = Positive; N = Negative MICS are expressed in micrograms per mL Antibiotic RSLT#1 RSLT#2 RSLT#3 RSLT#4 Amoxicillin/Clavulanic Acid S =8 Ampicillin R>=32 Cefazolin R>=64 Cefepime S =2 Ceftriaxone R>=64 Cefuroxime R>=64 Ciprofloxacin R>=4 Ertapenem S<=0.12 Gentamicin S<=1 Imipenem S<=0.25 Levofloxacin R>=8 Meropenem S<=0.25 Nitrofurantoin S<=16 Piperacillin/Tazobactam S<=4 Tetracycline R>=16 Tobramycin S<=1 Trimethoprim/Sulfa R>=320 Performed at: - [facility] [address], [place], [place] [id number] Human Resource Adviser: DARLIN Cool MD, Phone: [phone] Objective: Assessment: Septic shock with hypothermia (POA) E coli bacteremia (POA) ; FQ resistant,source ?? GI /, UC neg so far Leukopenia - resolved Lactic acidosis Suspected aspiration Respiratory failure TAZ better Dehydration Dementia Thrombocytopenia Anemia Plan: Plan of Care EDMUND Branham ,start cefepime Levaquin x 1, on 12/24 Supportive care care Critically ill Palliative care consult noted JODI DUNCAN MD Dec 31, 2018 08:23
[2018-12-31 08:26] LABS: FIO2 ABG 30
[2018-12-31] MEDS: CEFEPIME HCL IV Push 1 GM VIAL. IVP SCH ×3 (09:20→21:44)
--- NOTE | 2018-12-31 09:54 | PDOC ---
PULMONARY PROGRESS NOTES Subjective Patient awake,at times follow some simple commands Vitals Vital Signs Date Time Temp Pulse Resp B/P (MAP) Pulse Ox O2 Delivery O2 Flow Rate FiO2 12/31/18 09:20 100 Ventilator 12/31/18 09:00 58 13 138/71 (93) 12/31/18 08:00 97.7 97.7 Lungs: Clear, Other (no wheezing or crackles) Cardiovascular: S1, S2 Abdomen: Soft Extremities: Other (EDEMA) Skin: Warm Labs Laboratory Tests Test 12/30/18 06:10 12/30/18 14:02 12/30/18 14:07 12/30/18 14:43 White Blood Count 8.3 x10^3/uL (4.0-11.0) Red Blood Count 2.88 x10^6/uL (4.30-5.70) Hemoglobin 8.4 g/dL (13.0-17.5) Hematocrit 25.7 % (39.0-53.0) Mean Corpuscular Volume 89 fL (79-100) Mean Corpuscular Hemoglobin 29 pg (25-35) Mean Corpuscular Hemoglobin Concent 33 g/dL (31-37) Red Cell Distribution Width 16.8 % (11.5-14.5) Platelet Count 62 x10^3/uL (140-400) Neutrophils (%) (Auto) 74 % (31-73) Lymphocytes (%) (Auto) 14 % (24-48) Monocytes (%) (Auto) 10 % (0-9) Eosinophils (%) (Auto) 2 % (0-3) Basophils (%) (Auto) 1 % (0-3) Neutrophils # (Auto) 6.1 x10^3uL (1.8-7.7) Lymphocytes # (Auto) 1.1 x10^3/uL (1.0-4.8) Monocytes # (Auto) 0.8 x10^3/uL (0.0-1.1) Eosinophils # (Auto) 0.2 x10^3/uL (0.0-0.7) Basophils # (Auto) 0.1 x10^3/uL (0.0-0.2) Prothrombin Time 21.5 SEC (11.7-14.0) Prothromb Time International Ratio 1.9 (0.8-1.1) Sodium Level 149 mmol/L (136-145) Potassium Level 3.6 mmol/L (3.5-5.1) Chloride Level 115 mmol/L (98-107) Carbon Dioxide Level 22 mmol/L (21-32) Anion Gap 12 (6-14) Blood Urea Nitrogen 21 mg/dL (8-26) Creatinine 1.2 mg/dL (0.7-1.3) Estimated GFR (Cockcroft-Gault) 70.5 Glucose Level 97 mg/dL (70-99) Calcium Level 8.6 mg/dL (8.5-10.1) Glucose (Fingerstick) 63 mg/dL (70-99) 66 mg/dL (70-99) 84 mg/dL (70-99) Test 12/30/18 20:48 12/31/18 05:30 12/31/18 08:00 Glucose (Fingerstick) 98 mg/dL (70-99) White Blood Count 7.7 x10^3/uL (4.0-11.0) Red Blood Count 2.66 x10^6/uL (4.30-5.70) Hemoglobin 7.8 g/dL (13.0-17.5) Hematocrit 23.6 % (39.0-53.0) Mean Corpuscular Volume 89 fL (79-100) Mean Corpuscular Hemoglobin 30 pg (25-35) Mean Corpuscular Hemoglobin Concent 33 g/dL (31-37) Red Cell Distribution Width 16.7 % (11.5-14.5) Platelet Count 60 x10^3/uL (140-400) Neutrophils (%) (Auto) 70 % (31-73) Lymphocytes (%) (Auto) 16 % (24-48) Monocytes (%) (Auto) 10 % (0-9) Eosinophils (%) (Auto) 3 % (0-3) Basophils (%) (Auto) 1 % (0-3) Neutrophils # (Auto) 5.4 x10^3uL (1.8-7.7) Lymphocytes # (Auto) 1.2 x10^3/uL (1.0-4.8) Monocytes # (Auto) 0.8 x10^3/uL (0.0-1.1) Eosinophils # (Auto) 0.2 x10^3/uL (0.0-0.7) Basophils # (Auto) 0.1 x10^3/uL (0.0-0.2) Prothrombin Time 17.9 SEC (11.7-14.0) Prothromb Time International Ratio 1.5 (0.8-1.1) Sodium Level 148 mmol/L (136-145) Potassium Level 3.5 mmol/L (3.5-5.1) Chloride Level 114 mmol/L (98-107) Carbon Dioxide Level 23 mmol/L (21-32) Anion Gap 11 (6-14) Blood Urea Nitrogen 17 mg/dL (8-26) Creatinine 1.1 mg/dL (0.7-1.3) Estimated GFR (Cockcroft-Gault) 77.9 Glucose Level 107 mg/dL (70-99) Calcium Level 8.4 mg/dL (8.5-10.1) O2 Saturation 98 % (92-99) Arterial Blood pH 7.46 (7.35-7.45) Arterial Blood pCO2 at Patient Temp 28 mmHg (35-46) Arterial Blood pO2 at Patient Temp 143 mmHg (65-108) Arterial Blood HCO3 19 mmol/L (21-28) Arterial Blood Base Excess -4 mmol/L (-3-3) FiO2 30 Laboratory Tests Test 12/30/18 14:02 12/30/18 14:07 12/30/18 14:43 12/30/18 20:48 Glucose (Fingerstick) 63 mg/dL (70-99) 66 mg/dL (70-99) 84 mg/dL (70-99) 98 mg/dL (70-99) Test 12/31/18 05:30 12/31/18 08:00 White Blood Count 7.7 x10^3/uL (4.0-11.0) Red Blood Count 2.66 x10^6/uL (4.30-5.70) Hemoglobin 7.8 g/dL (13.0-17.5) Hematocrit 23.6 % (39.0-53.0) Mean Corpuscular Volume 89 fL (79-100) Mean Corpuscular Hemoglobin 30 pg (25-35) Mean Corpuscular Hemoglobin Concent 33 g/dL (31-37) Red Cell Distribution Width 16.7 % (11.5-14.5) Platelet Count 60 x10^3/uL (140-400) Neutrophils (%) (Auto) 70 % (31-73) Lymphocytes (%) (Auto) 16 % (24-48) Monocytes (%) (Auto) 10 % (0-9) Eosinophils (%) (Auto) 3 % (0-3) Basophils (%) (Auto) 1 % (0-3) Neutrophils # (Auto) 5.4 x10^3uL (1.8-7.7) Lymphocytes # (Auto) 1.2 x10^3/uL (1.0-4.8) Monocytes # (Auto) 0.8 x10^3/uL (0.0-1.1) Eosinophils # (Auto) 0.2 x10^3/uL (0.0-0.7) Basophils # (Auto) 0.1 x10^3/uL (0.0-0.2) Prothrombin Time 17.9 SEC (11.7-14.0) Prothromb Time International Ratio 1.5 (0.8-1.1) Sodium Level 148 mmol/L (136-145) Potassium Level 3.5 mmol/L (3.5-5.1) Chloride Level 114 mmol/L (98-107) Carbon Dioxide Level 23 mmol/L (21-32) Anion Gap 11 (6-14) Blood Urea Nitrogen 17 mg/dL (8-26) Creatinine 1.1 mg/dL (0.7-1.3) Estimated GFR (Cockcroft-Gault) 77.9 Glucose Level 107 mg/dL (70-99) Calcium Level 8.4 mg/dL (8.5-10.1) O2 Saturation 98 % (92-99) Arterial Blood pH 7.46 (7.35-7.45) Arterial Blood pCO2 at Patient Temp 28 mmHg (35-46) Arterial Blood pO2 at Patient Temp 143 mmHg (65-108) Arterial Blood HCO3 19 mmol/L (21-28) Arterial Blood Base Excess -4 mmol/L (-3-3) FiO2 30 Medications Active Scripts Medications Dose Route/Sig Max Daily Dose Days Date Category Warfarin Sodium 6 Mg Tablet 8 Mg PO HS 12/24/18 Reported Miralax (Polyethylene Glycol 3350) 17 Gm Powd.pack 1 Packet PO PRN DAILY PRN 03/19/18 Reported Milk Of Magnesia (Magnesium Hydroxide) 400 Mg/5 Ml Oral.susp 400 Mg PO PRN DAILY PRN 03/19/18 Reported Megace Es (Megestrol Acetate) 625 Mg/5 Ml Oral.susp 400 Mg PO 03/19/18 Reported Senna Plus Tablet (Sennosides/Docusate Sodium) 1 Each Tablet 1 Each PO 03/19/18 Reported Aspirin 325 Mg Tablet 1 Tab PO DAILY 03/19/18 Reported Keppra (Levetiracetam) 500 Mg Tablet 500 Mg PO BID 03/05/18 Reported Vitamin D3 (Cholecalciferol (Vitamin D3)) 1,000 Unit Tablet 400 Unit PO DAILY 03/05/18 Reported Trazodone Hcl 50 Mg Tablet 1 Tab PO QHS 03/05/18 Reported Tylenol (Acetaminophen) 325 Mg Tablet 1-2 Tab PO PRN Q4HRS PRN 03/05/18 Reported Losartan Potassium 50 Mg Tablet 50 Mg PO DAILY 11/28/17 Reported Impression . IMPRESSION: 1. Acute respiratory failure, multifactorial. 2. Septic shock. 3. Possible urinary tract infection. 4. History of cerebrovascular accident and dementia. 5. Prior questionable history of cerebral sinus thrombosis. 6. Seizures. 7. Generalized weakness. 8. Protein malnutrition, present upon admission. 9. Leukopenia. 10. Acute on chronic renal failure. 11. Metabolic acidosis from sepsis. 12..GNB IN BLOOD Plan . will preform T tube trail and possibly extubate above discussed with nurse overall long-term prognosis is poor family wishes to proceed with full code TORSETN KEE MD Dec 31, 2018 09:54
--- NOTE | 2018-12-31 11:35 | PDOC ---
PROGRESS NOTES Chief Complaint Chief Complaint CC: metabolic encephalopathy acute respiratory failure Septic shock secondary to urinary tract infection secondary to chronic indwelling urinary suprapubic catheter Hypoalbuminemia - may be causing swelling of extremities History of acute venous sinus thrombosis on CTA head/neck on chronic anticoagulation with coumadin Left Sided weakness and right-sided gaze, on last admission which had resolved History dementia, seizures History of essential Hypertension History of BPH, Indwelling suprapubic catheter History of complicated UTI in a male sec to indwelling FC History of Present Illness History of Present Illness Pt is an 78 y/o male who presented with sepsis due to UTI and chronic indwelling catheter. BCx demonstrated multi-drug resistant E. Coli. Receiving IV Cefepime. Zosyn has been d/c. Patient seen and examined in the ICU. Patient remains off sedation at this time, opens eyes. Patient receiving OG feeds. Vent on spontaneous respirations at 30% FiO2. ID and Pulmonology following. Vitals Vitals Vital Signs Date Time Temp Pulse Resp B/P (MAP) Pulse Ox O2 Delivery O2 Flow Rate FiO2 12/31/18 11:00 72 12 140/78 (98) 100 Ventilator 12/31/18 08:00 97.7 97.7 Physical Exam Physical Exam GENERAL: Intubated HEENT: ETT, OGT LUNGS: Clear anteriorly HEART: S1, S2 irregular ABDOMEN: BS active, soft, no grimace to palpation : Jaquez EXTREMITIES: Trace generalized edema SKIN: warm, no rash NEUROLOGIC: Sedated RIJ clean General: No acute distress, Other (patient intubated, opens eyes) Heart: Regular rate, No murmurs Lungs: Clear, Other (no wheezing or crackles) Abdomen: Normal bowel sounds, Soft, No tenderness Extremities: No clubbing, Normal pulses, Other (1+ edema of bilateral upper and lower extremities) Skin: No rashes, No breakdown, No significant lesion Labs LABS Laboratory Tests Test 12/30/18 14:02 12/30/18 14:07 12/30/18 14:43 12/30/18 20:48 Glucose (Fingerstick) 63 mg/dL (70-99) 66 mg/dL (70-99) 84 mg/dL (70-99) 98 mg/dL (70-99) Test 12/31/18 05:30 12/31/18 08:00 White Blood Count 7.7 x10^3/uL (4.0-11.0) Red Blood Count 2.66 x10^6/uL (4.30-5.70) Hemoglobin 7.8 g/dL (13.0-17.5) Hematocrit 23.6 % (39.0-53.0) Mean Corpuscular Volume 89 fL (79-100) Mean Corpuscular Hemoglobin 30 pg (25-35) Mean Corpuscular Hemoglobin Concent 33 g/dL (31-37) Red Cell Distribution Width 16.7 % (11.5-14.5) Platelet Count 60 x10^3/uL (140-400) Neutrophils (%) (Auto) 70 % (31-73) Lymphocytes (%) (Auto) 16 % (24-48) Monocytes (%) (Auto) 10 % (0-9) Eosinophils (%) (Auto) 3 % (0-3) Basophils (%) (Auto) 1 % (0-3) Neutrophils # (Auto) 5.4 x10^3uL (1.8-7.7) Lymphocytes # (Auto) 1.2 x10^3/uL (1.0-4.8) Monocytes # (Auto) 0.8 x10^3/uL (0.0-1.1) Eosinophils # (Auto) 0.2 x10^3/uL (0.0-0.7) Basophils # (Auto) 0.1 x10^3/uL (0.0-0.2) Prothrombin Time 17.9 SEC (11.7-14.0) Prothromb Time International Ratio 1.5 (0.8-1.1) Sodium Level 148 mmol/L (136-145) Potassium Level 3.5 mmol/L (3.5-5.1) Chloride Level 114 mmol/L (98-107) Carbon Dioxide Level 23 mmol/L (21-32) Anion Gap 11 (6-14) Blood Urea Nitrogen 17 mg/dL (8-26) Creatinine 1.1 mg/dL (0.7-1.3) Estimated GFR (Cockcroft-Gault) 77.9 Glucose Level 107 mg/dL (70-99) Calcium Level 8.4 mg/dL (8.5-10.1) O2 Saturation 98 % (92-99) Arterial Blood pH 7.46 (7.35-7.45) Arterial Blood pCO2 at Patient Temp 28 mmHg (35-46) Arterial Blood pO2 at Patient Temp 143 mmHg (65-108) Arterial Blood HCO3 19 mmol/L (21-28) Arterial Blood Base Excess -4 mmol/L (-3-3) FiO2 30 Review of Systems Review of Systems Unable to obtain, patient remains intubated Assessment and Plan Assessmemt and Plan Problems Medical Problems: (1) Acute sepsis Status: Acute (2) UTI (urinary tract infection) due to urinary indwelling catheter Status: Acute Assessment: metabolic encephalopathy acute respiratory failure Septic shock secondary to urinary tract infection secondary to chronic indwelling urinary suprapubic catheter Hypoalbuminemia - may be causing swelling of extremities History of acute venous sinus thrombosis on CTA head/neck on chronic anticoagulation with coumadin Left Sided weakness and right-sided gaze, on last admission which had resolved History dementia, seizures History of essential Hypertension History of BPH, Indwelling suprapubic catheter History of complicated UTI in a male sec to indwelling FC Plan: Continue IV Cefepime, appreciate ID input Vent settings at spontaneous respirations at 30% FiO2, hope to extubate Recheck labs tomorrow morning Continue OG feeds Follow blood cultures Monitor status in the ICU Comment Review of Relevant I have reviewed the following items edgar (where applicable) has been applied. Labs Laboratory Tests Test 12/30/18 06:10 12/30/18 14:02 12/30/18 14:07 12/30/18 14:43 White Blood Count 8.3 x10^3/uL (4.0-11.0) Red Blood Count 2.88 x10^6/uL (4.30-5.70) Hemoglobin 8.4 g/dL (13.0-17.5) Hematocrit 25.7 % (39.0-53.0) Mean Corpuscular Volume 89 fL (79-100) Mean Corpuscular Hemoglobin 29 pg (25-35) Mean Corpuscular Hemoglobin Concent 33 g/dL (31-37) Red Cell Distribution Width 16.8 % (11.5-14.5) Platelet Count 62 x10^3/uL (140-400) Neutrophils (%) (Auto) 74 % (31-73) Lymphocytes (%) (Auto) 14 % (24-48) Monocytes (%) (Auto) 10 % (0-9) Eosinophils (%) (Auto) 2 % (0-3) Basophils (%) (Auto) 1 % (0-3) Neutrophils # (Auto) 6.1 x10^3uL (1.8-7.7) Lymphocytes # (Auto) 1.1 x10^3/uL (1.0-4.8) Monocytes # (Auto) 0.8 x10^3/uL (0.0-1.1) Eosinophils # (Auto) 0.2 x10^3/uL (0.0-0.7) Basophils # (Auto) 0.1 x10^3/uL (0.0-0.2) Prothrombin Time 21.5 SEC (11.7-14.0) Prothromb Time International Ratio 1.9 (0.8-1.1) Sodium Level 149 mmol/L (136-145) Potassium Level 3.6 mmol/L (3.5-5.1) Chloride Level 115 mmol/L (98-107) Carbon Dioxide Level 22 mmol/L (21-32) Anion Gap 12 (6-14) Blood Urea Nitrogen 21 mg/dL (8-26) Creatinine 1.2 mg/dL (0.7-1.3) Estimated GFR (Cockcroft-Gault) 70.5 Glucose Level 97 mg/dL (70-99) Calcium Level 8.6 mg/dL (8.5-10.1) Glucose (Fingerstick) 63 mg/dL (70-99) 66 mg/dL (70-99) 84 mg/dL (70-99) Test 12/30/18 20:48 12/31/18 05:30 12/31/18 08:00 Glucose (Fingerstick) 98 mg/dL (70-99) White Blood Count 7.7 x10^3/uL (4.0-11.0) Red Blood Count 2.66 x10^6/uL (4.30-5.70) Hemoglobin 7.8 g/dL (13.0-17.5) Hematocrit 23.6 % (39.0-53.0) Mean Corpuscular Volume 89 fL (79-100) Mean Corpuscular Hemoglobin 30 pg (25-35) Mean Corpuscular Hemoglobin Concent 33 g/dL (31-37) Red Cell Distribution Width 16.7 % (11.5-14.5) Platelet Count 60 x10^3/uL (140-400) Neutrophils (%) (Auto) 70 % (31-73) Lymphocytes (%) (Auto) 16 % (24-48) Monocytes (%) (Auto) 10 % (0-9) Eosinophils (%) (Auto) 3 % (0-3) Basophils (%) (Auto) 1 % (0-3) Neutrophils # (Auto) 5.4 x10^3uL (1.8-7.7) Lymphocytes # (Auto) 1.2 x10^3/uL (1.0-4.8) Monocytes # (Auto) 0.8 x10^3/uL (0.0-1.1) Eosinophils # (Auto) 0.2 x10^3/uL (0.0-0.7) Basophils # (Auto) 0.1 x10^3/uL (0.0-0.2) Prothrombin Time 17.9 SEC (11.7-14.0) Prothromb Time International Ratio 1.5 (0.8-1.1) Sodium Level 148 mmol/L (136-145) Potassium Level 3.5 mmol/L (3.5-5.1) Chloride Level 114 mmol/L (98-107) Carbon Dioxide Level 23 mmol/L (21-32) Anion Gap 11 (6-14) Blood Urea Nitrogen 17 mg/dL (8-26) Creatinine 1.1 mg/dL (0.7-1.3) Estimated GFR (Cockcroft-Gault) 77.9 Glucose Level 107 mg/dL (70-99) Calcium Level 8.4 mg/dL (8.5-10.1) O2 Saturation 98 % (92-99) Arterial Blood pH 7.46 (7.35-7.45) Arterial Blood pCO2 at Patient Temp 28 mmHg (35-46) Arterial Blood pO2 at Patient Temp 143 mmHg (65-108) Arterial Blood HCO3 19 mmol/L (21-28) Arterial Blood Base Excess -4 mmol/L (-3-3) FiO2 30 Laboratory Tests Test 12/30/18 14:02 12/30/18 14:07 12/30/18 14:43 12/30/18 20:48 Glucose (Fingerstick) 63 mg/dL (70-99) 66 mg/dL (70-99) 84 mg/dL (70-99) 98 mg/dL (70-99) Test 12/31/18 05:30 12/31/18 08:00 White Blood Count 7.7 x10^3/uL (4.0-11.0) Red Blood Count 2.66 x10^6/uL (4.30-5.70) Hemoglobin 7.8 g/dL (13.0-17.5) Hematocrit 23.6 % (39.0-53.0) Mean Corpuscular Volume 89 fL (79-100) Mean Corpuscular Hemoglobin 30 pg (25-35) Mean Corpuscular Hemoglobin Concent 33 g/dL (31-37) Red Cell Distribution Width 16.7 % (11.5-14.5) Platelet Count 60 x10^3/uL (140-400) Neutrophils (%) (Auto) 70 % (31-73) Lymphocytes (%) (Auto) 16 % (24-48) Monocytes (%) (Auto) 10 % (0-9) Eosinophils (%) (Auto) 3 % (0-3) Basophils (%) (Auto) 1 % (0-3) Neutrophils # (Auto) 5.4 x10^3uL (1.8-7.7) Lymphocytes # (Auto) 1.2 x10^3/uL (1.0-4.8) Monocytes # (Auto) 0.8 x10^3/uL (0.0-1.1) Eosinophils # (Auto) 0.2 x10^3/uL (0.0-0.7) Basophils # (Auto) 0.1 x10^3/uL (0.0-0.2) Prothrombin Time 17.9 SEC (11.7-14.0) Prothromb Time International Ratio 1.5 (0.8-1.1) Sodium Level 148 mmol/L (136-145) Potassium Level 3.5 mmol/L (3.5-5.1) Chloride Level 114 mmol/L (98-107) Carbon Dioxide Level 23 mmol/L (21-32) Anion Gap 11 (6-14) Blood Urea Nitrogen 17 mg/dL (8-26) Creatinine 1.1 mg/dL (0.7-1.3) Estimated GFR (Cockcroft-Gault) 77.9 Glucose Level 107 mg/dL (70-99) Calcium Level 8.4 mg/dL (8.5-10.1) O2 Saturation 98 % (92-99) Arterial Blood pH 7.46 (7.35-7.45) Arterial Blood pCO2 at Patient Temp 28 mmHg (35-46) Arterial Blood pO2 at Patient Temp 143 mmHg (65-108) Arterial Blood HCO3 19 mmol/L (21-28) Arterial Blood Base Excess -4 mmol/L (-3-3) FiO2 30 Microbiology 12/24/18 Blood Culture - Final, Complete 12/24/18 Blood Culture Result 1 (MORIAH) - Final, Complete 12/24/18 Antimicrobic Susceptibility - Final, Complete 12/24/18 Urine Culture - Final, Complete 12/24/18 Urine Culture Result 1 (MORIAH) - Final, Complete Medications Current Medications Sodium Chloride 1,000 ml @ 1,000 mls/hr Q1H IV Last administered on 12/24/18at 03:31; Start 12/24/18 at 03:45; Stop 12/24/18 at 04:44; Status DC Piperacillin Sod/ Tazobactam Sod 3.375 gm/Sodium Chloride 50 ml @ 100 mls/hr 1X ONCE IV Last administered on 12/24/18at 04:00; Start 12/24/18 at 04:00; Stop 12/24/18 at 04:29; Status DC Levofloxacin/ Dextrose 100 ml @ 100 mls/hr 1X ONCE IV Last administered on at 05:28; Start 12/24/18 at 04:00; Stop 12/24/18 at 04:59; Status DC Etomidate (Amidate) 20 mg STK-MED ONCE IV ; Start 12/24/18 at 03:47; Stop at 03:48; Status DC Vecuronium Printer (Norcuron Bolus) 10 mg STK-MED ONCE IV ; Start 12/24/18 at 03 :47; Stop 12/24/18 at 03:48; Status DC Sodium Chloride 1,000 ml @ 1,000 mls/hr 1X ONCE IV Last administered on at 03:31; Start 12/24/18 at 04:30; Stop 12/24/18 at 05:29; Status DC Vecuronium Printer (Norcuron Bolus) 20 mg 1X ONCE IV Last administered on 12/24at 03:32; Start 12/24/18 at 04:30; Stop 12/24/18 at 04:31; Status DC Etomidate (Amidate) 20 mg 1X ONCE IV Last administered on 12/24/18at 03:32; Start 12/24/18 at 04:30; Stop 12/24/18 at 04:31; Status DC Midazolam HCl (Versed) 5 mg 1X ONCE IV Last administered on 12/24/18at 04:45; Start 12/24/18 at 04:45; Stop 12/24/18 at 04:46; Status DC Dopamine HCl/ Dextrose 250 ml @ 3.674 mls/ hr 1X ONCE IV Last administered on 12/24/18at 05:22; Start 12/24/18 at 05:15; Stop 12/27/18 at 01:17; Status DC Sodium Chloride 1,000 ml @ 150 mls/hr Q6H40M IV ; Start 12/24/18 at 05:30; Stop 12/24/18 at 06:52; Status DC Sodium Chloride 1,000 ml @ 1,000 mls/hr 1X ONCE IV Last administered on at 05:04; Start 12/24/18 at 05:45; Stop 12/24/18 at 06:44; Status DC Norepinephrine Bitartrate 250 ml @ 1.875 mls/ hr CONT PRN IV SEE I/O RECORD Last administered on 12/24/18at 05:57; Start 12/24/18 at 05:45; Stop 12/24/18 at 10:25; Status DC Hydrocortisone Sodium Succinate (Solu-CORTEF) 300 mg 1X ONCE IV Last administered on 12/24/18at 10:33; Start 12/24/18 at 06:00; Stop 12/24/18 at 06:01 ; Status DC Sodium Chloride 1,000 ml @ 1,000 mls/hr 1X ONCE IV Last administered on at 05:22; Start 12/24/18 at 07:00; Stop 12/24/18 at 07:59; Status DC Sodium Chloride 1,000 ml @ 1,860 mls/hr Q33M IV ; Start 12/24/18 at 10:14; Stop 12/24/18 at 11:13; Status DC Sodium Chloride 500 ml @ 1,000 mls/hr PRN Q30MIN PRN IV SEE COMMENTS Last administered on 12/24/18at 13:00; Start 12/24/18 at 10:15 Linezolid/Dextrose 300 ml @ 300 mls/hr Q12HR IV Last administered on 12/26/18at 20:33; Start 12/24/18 at 11:00; Stop 12/27/18 at 06:51; Status DC Piperacillin Sod/ Tazobactam Sod 4.5 gm/Sodium Chloride 100 ml @ 200 mls/hr Q6HRS IV ; Start 12/24/18 at 12:00; Status UNV Norepinephrine Bitartrate 250 ml @ 0 mls/hr CONT PRN IV SEE I/O RECORD Last administered on 12/25/18at 14:11; Start 12/24/18 at 10:15 Piperacillin Sod/ Tazobactam Sod 3.375 gm/Sodium Chloride 50 ml @ 100 mls/hr Q6HRS IV Last administered on 12/27/18 05:58; Start 12/24/18 at 12:00; Stop 12/27/18 at 06:51; Status DC Sodium Chloride 1,000 ml @ 75 mls/hr [id number] IV Last administered on 12/28/18at 05:36; Start 12/24/18 at 11:15; Stop 12/29/18 at 06:07; Status DC Propofol 100 ml @ 0 mls/hr CONT PRN IV SEE PROTOCOL Last administered on at 03:45; Start 12/24/18 at 16:30 Fentanyl Citrate (Fentanyl 2ml Vial) 25 mcg PRN Q1HR PRN IV SEE COMMENTS Last administered on 12/25/18at 12:20; Start 12/24/18 at 16:30 Pantoprazole Sodium (PROTONIX VIAL for IV PUSH) 40 mg DAILYAC IVP Last administered on 12/31/18 08:00; Start 12/24/18 at 18:00 Enoxaparin Sodium (Lovenox 30mg Syringe) 30 mg Q24H SQ Last administered on 12/27 21:18; Start 12/24/18 at 19:00; Stop 12/28/18 at 10:36; Status DC Midazolam HCl 100 ml @ 0 mls/hr CONT PRN IV PER PROTOCOL Last administered on 09:00; Start 12/25/18 at 10:00 Piperacillin Sod/ Tazobactam Sod 3.375 gm/Sodium Chloride 50 ml @ 100 mls/hr Q8HRS IV Last administered on 12/31/18 05:43; Start 12/27/18 at 14:00; Stop 12/31 at 08:25; Status DC Enoxaparin Sodium (Lovenox 40mg Syringe) 40 mg Q24H SQ ; Start 12/28/18 at 19:00 ; Stop 12/28/18 at 19:00; Status DC Aspirin (Valarie Aspirin) 325 mg DAILY PO Last administered on 12/31/18 08:00; Start 12/28/18 at 14:00 Vitamin D (Vitamin D3) 500 unit DAILY PO Last administered on 12/31/18 08:00; Start 12/28/18 at 14:00 Levetiracetam (Keppra) 500 mg BID PO Last administered on 12/31/18 08:00; Start 12/28/18 at 14:00 Losartan Potassium (Cozaar) 50 mg DAILY PO Last administered on 12/31/18 08:02 ; Start 12/28/18 at 14:00 Magnesium Hydroxide (Milk Of Magnesia) 400 mg PRN DAILY PRN PO CONSTIPATION 2ND CHOICE; Start 12/28/18 at 13:15 Trazodone HCl (Desyrel) 50 mg QHS PO Last administered on 12/30/18 20:40; Start 12/28/18 at 21:00 Polyethylene Glycol (miraLAX PACKET) 17 gm PRN DAILY PRN PO CONSTIPATION 1ST CHOICE; Start 12/29/18 at 09:00 Non-Formulary Medication (Warfarin Sodium ) 8 mg HS PO ; Start 12/28/18 at 21:00 ; Status UNV Warfarin Sodium (Coumadin Per Pharmacy) 1 each PRN DAILY PRN MC SEE COMMENTS Last administered on 12/29/18at 10:15; Start 12/28/18 at 13:15 Warfarin Sodium (Coumadin - No Dose Today) 1 each 1X WARF ONCE MC Last administered on 12/28/18 16:36; Start 12/28/18 at 16:36; Stop 12/28/18 at 16:37; Status DC Warfarin Sodium (Coumadin) 2 mg 1X WARF ONCE PO Last administered on 12/29/18at 16:30; Start 12/29/18 at 16:00; Stop 12/29/18 at 16:01; Status DC Enalaprilat (Vasotec Inj) 1.25 mg Q6HRS IVP Last administered on 12/29/18at 16:30 ; Start 12/29/18 at 16:00; Stop 12/29/18 at 18:05; Status DC Enalaprilat (Vasotec Inj) 2.5 mg PRN Q6HRS PRN IVP HYPERTENSION, SEE COMMENTS; Start 12/29/18 at 18:15 Albumin Human 100 ml @ 100 mls/hr 1X ONCE IV Last administered on 12/30/18at 11 :32; Start 12/30/18 at 11:30; Stop 12/30/18 at 12:29; Status DC Dextrose (Dextrose 50%-Water Syringe) 12.5 gm PRN Q15MIN PRN IV SEE COMMENTS Last administered on 12/30/18at 14:20; Start 12/30/18 at 14:15 Cefepime HCl (Maxipime) 1 gm Q8HRS IVP Last administered on 12/31/18at 09:20; Start 12/31/18 at 09:00 Active Scripts Active Reported Warfarin Sodium 6 Mg Tablet 8 Mg PO HS Miralax (Polyethylene Glycol 3350) 17 Gm Powd.pack 1 Packet PO PRN DAILY PRN Milk Of Magnesia (Magnesium Hydroxide) 400 Mg/5 Ml Oral.susp 400 Mg PO PRN DAILY PRN Megace Es (Megestrol Acetate) 625 Mg/5 Ml Oral.susp 400 Mg PO Senna Plus Tablet (Sennosides/Docusate Sodium) 1 Each Tablet 1 Each PO Aspirin 325 Mg Tablet 1 Tab PO DAILY Keppra (Levetiracetam) 500 Mg Tablet 500 Mg PO BID Vitamin D3 (Cholecalciferol (Vitamin D3)) 1,000 Unit Tablet 400 Unit PO DAILY Trazodone Hcl 50 Mg Tablet 1 Tab PO QHS Tylenol (Acetaminophen) 325 Mg Tablet 1-2 Tab PO PRN Q4HRS PRN Losartan Potassium 50 Mg Tablet 50 Mg PO DAILY Vitals/I & O Vital Sign - Last 24 Hours 12/30/18 12/30/18 12/30/18 3/5/19 12:00 12:00 12:45 13:00 Temp 97.5 97.5 Pulse 70 74 Resp 9 12 B/P (MAP) 137/80 (99) 160/91 (114) Pulse Ox 100 100 100 O2 Delivery Ventilator Mechanical Ventilator Ventilator Ventilator 12/30/18 12/30/18 12/30/18 12/30/18 14:00 15:00 16:00 16:00 Temp 97.6 97.6 Pulse 70 66 64 Resp 10 10 10 B/P (MAP) 155/89 (111) 149/82 (104) 144/78 (100) Pulse Ox 100 100 100 O2 Delivery Ventilator Ventilator Mechanical Ventilator Ventilator 12/30/18 12/30/18 12/30/18 12/30/18 16:01 17:00 18:10 19:00 Pulse 76 70 Resp 11 16 B/P (MAP) 125/69 (87) 136/79 (98) Pulse Ox 100 100 100 100 O2 Delivery Ventilator Ventilator Ventilator Ventilator 12/30/18 12/30/18 12/30/18 12/30/18 19:27 20:00 20:00 21:11 Temp 97.8 97.8 Pulse 71 69 Resp 14 12 B/P (MAP) 139/79 (99) 152/84 (106) Pulse Ox 100 100 100 O2 Delivery Ventilator Mechanical Ventilator Ventilator Ventilator 12/30/18 12/30/18 12/30/18 12/30/18 22:00 23:00 23:28 23:59 Pulse 66 72 Resp 13 13 B/P (MAP) 152/84 (106) 142/74 (96) Pulse Ox 100 100 100 O2 Delivery Ventilator Ventilator Ventilator Mechanical Ventilator 12/30/18 12/31/18 12/31/18 12/31/18 23:59 00:45 01:00 02:00 Temp 98.4 98.4 Pulse 64 60 65 Resp 13 12 16 B/P (MAP) 142/78 (99) 129/77 (94) 152/72 (98) Pulse Ox 100 100 100 100 O2 Delivery Ventilator Ventilator Ventilator Ventilator 12/31/18 12/31/18 12/31/18 12/31/18 03:00 03:00 04:00 04:00 Pulse 60 69 Resp 17 12 B/P (MAP) 158/68 (98) 146/58 (87) Pulse Ox 100 100 100 O2 Delivery Ventilator Ventilator Ventilator Mechanical Ventilator 12/31/18 12/31/18 12/31/18 12/31/18 04:44 05:00 06:00 07:00 Pulse 62 59 59 Resp 12 12 16 B/P (MAP) 148/77 (100) 145/77 (99) 136/84 (101) Pulse Ox 100 100 100 100 O2 Delivery Ventilator Ventilator Ventilator Ventilator 12/31/18 12/31/18 12/31/18 12/31/18 08:00 08:00 08:02 08:06 Temp 97.7 97.7 Pulse 64 67 Resp 16 B/P (MAP) 144/74 (97) 144/74 Pulse Ox 100 100 O2 Delivery Ventilator Mechanical Ventilator Ventilator 12/31/18 12/31/18 12/31/18 12/31/18 09:00 09:20 10:00 11:00 Pulse 58 61 72 Resp 13 11 12 B/P (MAP) 138/71 (93) 134/70 (91) 140/78 (98) Pulse Ox 100 100 100 100 O2 Delivery Ventilator Ventilator Ventilator Ventilator Intake and Output 12/30/18 12/30/18 12/31/18 15:00 23:00 07:00 Intake Total 410 ml 1231.88 ml 1275 ml Output Total 743 ml 760 ml 845 ml Balance -333 ml 471.88 ml 430 ml IJE TONG III DO Dec 31, 2018 11:35
--- NOTE | 2018-12-31 14:21 | NUR ---
Pharmacy Warfarin Dosing Note S: Pharmacy consulted to assist with anticoagulation therapy O: ARIEL TORRES is a 78 year old M with Atrial Fibrillation, Recurrent VTE HX SINUS THROMBOSIS LABS: Last INR: 1.5 Last HGB: 7.8 Last HCT: 23.6 Last PLT: 60 Last dose of 2 mg given on 12/29/18 at 1600 A:INR of 1.5 is below desired range. Target range for this patient is: 2 -3 P: Warfarin dose: 4 mg Today at 1600 Bridge Therapy: None Next INR due tomorrow Pharmacy anticoagulation service will continue to follow. Alexandra Gray Cornelia, 12/31/18 [id number]
[2018-12-31] MEDS ORDERED: WARFARIN 4 MG TABLET. PO ONE (16:00)
[2018-12-31] MEDS: DEXTROSE 50% 25 GM / 50ML DISP.SYRIN. IV PRN (18:11)
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
--- NOTE | 2018-12-31 21:35 | RAD ---
Abdominal radiograph December 31, 2018 INDICATION: Nasogastric tube placement COMPARISON: Abdominal radiograph December 24, 2018 TECHNIQUE: Single AP view of the chest and abdomen is provided. FINDINGS: Nasogastric tube is identified with the distal tip projecting over the expected region of the stomach. Side port projects over the stomach, below level of the hemidiaphragm. There is increased consolidation at the left lung base which may represent atelectasis versus pneumonia. Right IJ central venous catheter is in similar position. Few dilated loops of small bowel are visualized. IMPRESSION: Nasogastric tube is in appropriate position. Electronically signed by: Marycarmen Anna MD (12/31/2018 9:32 PM) [id number]
[2018-12-31] MEDS: traZODone 50 MG TABLET. PO SCH (21:44)
[2019-01-01] VITALS (23 sets, daily range): BP systolic 138–167; BP diastolic 8–91
[2019-01-01] MEDS: CEFEPIME HCL IV Push 1 GM VIAL. IVP SCH ×3 (05:56→21:22)
[2019-01-01 06:17] LABS: BASO % 0 % (0-3); EOS # 0.2 x10^3/uL (0.0-0.7); EOS % 2 % (0-3); HEMATOCRIT 24.1 % (39.0-53.0); LYMPH # 1.3 x10^3/uL (1.0-4.8); LYMPH % 13 % (24-48); MEAN CORPUSCULAR HEMOGLOBIN 29 pg (25-35); MEAN CORPUSCULAR HGB CONC 33 g/dL (31-37); MEAN CORPUSCULAR VOLUME 88 fL (79-100); MONO # 1.1 x10^3/uL (0.0-1.1); MONO % 11 % (0-9); NEUT # 7.4 x10^3uL (1.8-7.7); NEUT % 74 % (31-73); PLATELET COUNT 78 x10^3/uL (140-400); RED BLOOD COUNT 2.74 x10^6/uL (4.30-5.70); RED CELL DISTRIBUTION WIDTH 16.5 % (11.5-14.5)
[2019-01-01 06:35] LABS: CALCIUM 8.8 mg/dL (8.5-10.1); CREATININE 1.1 mg/dL (0.7-1.3); GFR 77.9; POTASSIUM 3.4 mmol/L (3.5-5.1)
--- NOTE | 2019-01-01 07:35 | PDOC ---
Infectious Disease Note Subjective: Subjective Pt extubated yesterday now on room air does not verbalize opens eyes intermitently no other issues per rn ROS: ROS d/w rn nonverbal Vital Signs: Vital Signs Vital Signs Date Time Temp Pulse Resp B/P (MAP) Pulse Ox O2 Delivery O2 Flow Rate FiO2 01/01/19 06:00 77 13 155/86 (109) 100 Room Air 01/01/19 04:00 1.0 01/01/19 04:00 98.3 98.3 Physical Exam: PHYSICAL EXAM GENERAL: arousable, opens eyes intermitently HEENT: OGT LUNGS: Clear anteriorly HEART: S1, S2 irregular ABDOMEN: BS active, soft, no grimace to palpation : Jaquez EXTREMITIES: + edema SKIN: warm, no rash NEUROLOGIC: does not verbalize RIJ clean Medications: Inpatient Meds: Current Medications Medications (Trade) Dose Ordered Sig/Nayely Start Time Stop Time Status Last Admin Dose Admin Albumin Human 100 ml @ 100 mls/hr 1X ONCE 12/30/18 11:30 12/30/18 12:29 DC 12/30/18 11:32 100 MLS/HR Aspirin (Valarie Aspirin) 325 mg DAILY 12/28/18 14:00 12/31/18 08:00 325 MG Cefepime HCl (Maxipime) 1 gm Q8HRS 12/31/18 09:00 01/01/19 05:56 1 GM Dextrose (Dextrose 50%-Water Syringe) 12.5 gm PRN Q15MIN PRN 12/30/18 14:15 12/31/18 18:11 12.5 GM Dopamine HCl/ Dextrose 250 ml @ 3.674 mls/ hr 1X ONCE 12/24/18 05:15 12/27/18 01:17 DC 12/24/18 05:22 18.371 MLS/HR Enalaprilat (Vasotec Inj) 2.5 mg PRN Q6HRS PRN 12/29/18 18:15 Enoxaparin Sodium (Lovenox 30mg Syringe) 30 mg Q24H 12/24/18 19:00 12/28/18 10:36 DC 12/27/18 21:18 30 MG Enoxaparin Sodium (Lovenox 40mg Syringe) 40 mg Q24H 12/28/18 19:00 12/28/18 19:00 DC Etomidate (Amidate) 20 mg 1X ONCE 12/24/18 04:30 12/24/18 04:31 DC 12/24/18 03:32 20 MG Fentanyl Citrate (Fentanyl 2ml Vial) 25 mcg PRN Q1HR PRN 12/24/18 16:30 12/25/18 12:20 25 MCG Hydrocortisone Sodium Succinate (Solu-CORTEF) 300 mg 1X ONCE 12/24/18 06:00 12/24/18 06:01 DC 12/24/18 10:33 300 MG Levetiracetam (Keppra) 500 mg BID 12/28/18 14:00 12/31/18 21:44 500 MG Levofloxacin/ Dextrose 100 ml @ 100 mls/hr 1X ONCE 12/24/18 04:00 12/24/18 04:59 DC 12/24/18 05:28 100 MLS/HR Linezolid/Dextrose 300 ml @ 300 mls/hr Q12HR 12/24/18 11:00 12/27/18 06:51 DC 12/26/18 20:33 300 MLS/HR Losartan Potassium (Cozaar) 50 mg DAILY 12/28/18 14:00 12/31/18 08:02 50 MG Magnesium Hydroxide (Milk Of Magnesia) 400 mg PRN DAILY PRN 12/28/18 13:15 Midazolam HCl 100 ml @ 0 mls/hr CONT PRN 12/25/18 10:00 12/28/18 09:00 2 MLS/HR Midazolam HCl (Versed) 5 mg 1X ONCE 12/24/18 04:45 12/24/18 04:46 DC 12/24/18 04:45 5 MG Non-Formulary Medication (Warfarin Sodium ) 8 mg HS 12/28/18 21:00 UNV Norepinephrine Bitartrate 250 ml @ 0 mls/hr CONT PRN 12/24/18 10:15 12/25/18 14:11 9.4 MLS/HR Pantoprazole Sodium (PROTONIX VIAL for IV PUSH) 40 mg DAILYAC 12/24/18 18:00 12/31/18 08:00 40 MG Piperacillin Sod/ Tazobactam Sod 3.375 gm/Sodium Chloride 50 ml @ 100 mls/hr Q8HRS 12/27/18 14:00 12/31/18 08:25 DC 12/31/18 05:43 100 MLS/HR Piperacillin Sod/ Tazobactam Sod 4.5 gm/Sodium Chloride 100 ml @ 200 mls/hr Q6HRS 12/24/18 12:00 UNV Polyethylene Glycol (miraLAX PACKET) 17 gm PRN DAILY PRN 12/29/18 09:00 Propofol 100 ml @ 0 mls/hr CONT PRN 12/24/18 16:30 12/25/18 03:45 8.1 MLS/HR Sodium Chloride 1,000 ml @ 75 mls/hr [id number] 12/24/18 11:15 12/29/18 06:07 DC 12/28/18 05:36 75 MLS/HR Trazodone HCl (Desyrel) 50 mg QHS 12/28/18 21:00 12/31/18 21:44 50 MG Vecuronium [place] (Norcuron Bolus) 20 mg 1X ONCE 12/24/18 04:30 12/24/18 04:31 DC 12/24/18 03:32 20 MG Vitamin D (Vitamin D3) 500 unit DAILY 12/28/18 14:00 12/31/18 08:00 500 UNIT Warfarin Sodium (Coumadin - No Dose Today) 1 each 1X WARF ONCE 12/28/18 16:36 12/28/18 16:37 DC 12/28/18 16:36 1 EACH Warfarin Sodium (Coumadin Per Pharmacy) 1 each PRN DAILY PRN 12/28/18 13:15 12/31/18 14:20 1 EACH Warfarin Sodium (Coumadin) 4 mg 1X WARF ONCE 12/31/18 16:00 12/31/18 16:01 DC 12/31/18 15:20 4 MG Labs: Lab Laboratory Tests Test 12/31/18 08:00 12/31/18 18:06 12/31/18 18:26 12/31/18 21:51 O2 Saturation 98 % (92-99) Arterial Blood pH 7.46 (7.35-7.45) Arterial Blood pCO2 at Patient Temp 28 mmHg (35-46) Arterial Blood pO2 at Patient Temp 143 mmHg (65-108) Arterial Blood HCO3 19 mmol/L (21-28) Arterial Blood Base Excess -4 mmol/L (-3-3) FiO2 30 Glucose (Fingerstick) 61 mg/dL (70-99) 115 mg/dL (70-99) 62 mg/dL (70-99) Test 12/31/18 23:43 01/01/19 06:00 Glucose (Fingerstick) 87 mg/dL (70-99) White Blood Count 10.0 x10^3/uL (4.0-11.0) Red Blood Count 2.74 x10^6/uL (4.30-5.70) Hemoglobin 8.0 g/dL (13.0-17.5) Hematocrit 24.1 % (39.0-53.0) Mean Corpuscular Volume 88 fL (79-100) Mean Corpuscular Hemoglobin 29 pg (25-35) Mean Corpuscular Hemoglobin Concent 33 g/dL (31-37) Red Cell Distribution Width 16.5 % (11.5-14.5) Platelet Count 78 x10^3/uL (140-400) Neutrophils (%) (Auto) 74 % (31-73) Lymphocytes (%) (Auto) 13 % (24-48) Monocytes (%) (Auto) 11 % (0-9) Eosinophils (%) (Auto) 2 % (0-3) Basophils (%) (Auto) 0 % (0-3) Neutrophils # (Auto) 7.4 x10^3uL (1.8-7.7) Lymphocytes # (Auto) 1.3 x10^3/uL (1.0-4.8) Monocytes # (Auto) 1.1 x10^3/uL (0.0-1.1) Eosinophils # (Auto) 0.2 x10^3/uL (0.0-0.7) Basophils # (Auto) 0.0 x10^3/uL (0.0-0.2) Prothrombin Time 17.0 SEC (11.7-14.0) Prothromb Time International Ratio 1.4 (0.8-1.1) Sodium Level 145 mmol/L (136-145) Potassium Level 3.4 mmol/L (3.5-5.1) Chloride Level 110 mmol/L (98-107) Carbon Dioxide Level 25 mmol/L (21-32) Anion Gap 10 (6-14) Blood Urea Nitrogen 14 mg/dL (8-26) Creatinine 1.1 mg/dL (0.7-1.3) Estimated GFR (Cockcroft-Gault) 77.9 Glucose Level 99 mg/dL (70-99) Calcium Level 8.8 mg/dL (8.5-10.1) Micro RUN DATE: 12/28/18 PAGE 1 RUN TIME: 1611 [facility] [address] [place] [address] Cipriano Marcelo M.D., Tobacco Sweeper PATIENT: ARIEL TORRES ACCT: [id number] LOC: 1 [facility] U : [id number] AGE/SX: 78/M ROOM: [facility] REG : 12/24/[address]: JONATAN ROSALES MD : 1940 BED: 1 DIS : STATUS: ADM IN TLOC: SPEC #: [id number] TAMRA: 12/24/18 STATUS: COMP REQ #: [id number] RECD: 12/25/[address]: ESTEFANIA DUNCAN MD SOURCE: BLOOD ENTR: 12/25/[address] [facility] [address]: CARLITA RIBEIRO MD SPDC: JONATAN ROSALES MD, SABATO MD ORDERED: NEDA DIAMOND - LC Procedure Result BLOOD CULTURE LC Final Final report BLD CULT RESULT 1 Final Escherichia coli Multi-Drug Resistant Organism ANTIMICROBIAL SUSCEPTIBILITY Final Comment S = Susceptible; I = Intermediate; R = Resistant P = Positive; N = Negative MICS are expressed in micrograms per mL Antibiotic RSLT#1 RSLT#2 RSLT#3 RSLT#4 Amoxicillin/Clavulanic Acid S =8 Ampicillin R>=32 Cefazolin R>=64 Cefepime S =2 Ceftriaxone R>=64 Cefuroxime R>=64 Ciprofloxacin R>=4 Ertapenem S<=0.12 Gentamicin S<=1 Imipenem S<=0.25 Levofloxacin R>=8 Meropenem S<=0.25 Nitrofurantoin S<=16 Piperacillin/Tazobactam S<=4 Tetracycline R>=16 Tobramycin S<=1 Trimethoprim/Sulfa R>=320 Performed at: DA - [facility] [place] [id number] [facility] [address], [place], [place] [id number] Magneto Repairer: DARLIN Cool MD, Phone: [phone] Objective: Assessment: Septic shock with hypothermia (POA) resolved E coli bacteremia (POA) ; FQ resistant,source ?? GI /, UC neg so far repeat bc neg so far Leukopenia - resolved Lactic acidosis Suspected aspiration Respiratory failure TAZ better Dehydration Dementia Thrombocytopenia Anemia Plan: Plan of Care cefepime 12/31 ,was on zosyn Levaquin x 1, on 12/24 Supportive care care d/w JODI WORKMAN MD Jan 01, 2019 07:35
[2019-01-01] MEDS: LOSARTAN POTASSIUM 50 MG TABLET. PO SCH (08:02)
[2019-01-01] MEDS: levETIRAcetam 500 MG TABLET PO SCH ×2 (08:03→21:22)
[2019-01-01] MEDS: ASPIRIN 325 MG TABLET PO SCH (08:03)
[2019-01-01] MEDS: CHOLECALCIFEROL (VITAMIN D3) 1,000 UNIT TABLET PO SCH (08:03)
[2019-01-01] MEDS: PANTOPRAZOLE IV PUSH 40 MG VIAL. IVP SCH (08:04)
--- NOTE | 2019-01-01 09:09 | PDOC ---
PULMONARY PROGRESS NOTES Subjective Patient asked to be extubated yesterday, he does not follow any commands, according to family this is his baseline Vitals Vital Signs Date Time Temp Pulse Resp B/P (MAP) Pulse Ox O2 Delivery O2 Flow Rate FiO2 01/01/19 08:02 78 143/86 01/01/19 08:00 Room Air 01/01/19 08:00 98.7 18 100 98.7 01/01/19 04:00 1.0 Lungs: Clear, Other (no wheezing or crackles) Cardiovascular: S1, S2 Abdomen: Soft Extremities: Other (EDEMA) Skin: Warm Labs Laboratory Tests Test 12/30/18 14:02 12/30/18 14:07 12/30/18 14:43 12/30/18 20:48 Glucose (Fingerstick) 63 mg/dL (70-99) 66 mg/dL (70-99) 84 mg/dL (70-99) 98 mg/dL (70-99) Test 12/31/18 05:30 12/31/18 08:00 12/31/18 18:06 12/31/18 18:26 White Blood Count 7.7 x10^3/uL (4.0-11.0) Red Blood Count 2.66 x10^6/uL (4.30-5.70) Hemoglobin 7.8 g/dL (13.0-17.5) Hematocrit 23.6 % (39.0-53.0) Mean Corpuscular Volume 89 fL (79-100) Mean Corpuscular Hemoglobin 30 pg (25-35) Mean Corpuscular Hemoglobin Concent 33 g/dL (31-37) Red Cell Distribution Width 16.7 % (11.5-14.5) Platelet Count 60 x10^3/uL (140-400) Neutrophils (%) (Auto) 70 % (31-73) Lymphocytes (%) (Auto) 16 % (24-48) Monocytes (%) (Auto) 10 % (0-9) Eosinophils (%) (Auto) 3 % (0-3) Basophils (%) (Auto) 1 % (0-3) Neutrophils # (Auto) 5.4 x10^3uL (1.8-7.7) Lymphocytes # (Auto) 1.2 x10^3/uL (1.0-4.8) Monocytes # (Auto) 0.8 x10^3/uL (0.0-1.1) Eosinophils # (Auto) 0.2 x10^3/uL (0.0-0.7) Basophils # (Auto) 0.1 x10^3/uL (0.0-0.2) Prothrombin Time 17.9 SEC (11.7-14.0) Prothromb Time International Ratio 1.5 (0.8-1.1) Sodium Level 148 mmol/L (136-145) Potassium Level 3.5 mmol/L (3.5-5.1) Chloride Level 114 mmol/L (98-107) Carbon Dioxide Level 23 mmol/L (21-32) Anion Gap 11 (6-14) Blood Urea Nitrogen 17 mg/dL (8-26) Creatinine 1.1 mg/dL (0.7-1.3) Estimated GFR (Cockcroft-Gault) 77.9 Glucose Level 107 mg/dL (70-99) Calcium Level 8.4 mg/dL (8.5-10.1) O2 Saturation 98 % (92-99) Arterial Blood pH 7.46 (7.35-7.45) Arterial Blood pCO2 at Patient Temp 28 mmHg (35-46) Arterial Blood pO2 at Patient Temp 143 mmHg (65-108) Arterial Blood HCO3 19 mmol/L (21-28) Arterial Blood Base Excess -4 mmol/L (-3-3) FiO2 30 Glucose (Fingerstick) 61 mg/dL (70-99) 115 mg/dL (70-99) Test 12/31/18 21:51 12/31/18 23:43 01/01/19 06:00 Glucose (Fingerstick) 62 mg/dL (70-99) 87 mg/dL (70-99) White Blood Count 10.0 x10^3/uL (4.0-11.0) Red Blood Count 2.74 x10^6/uL (4.30-5.70) Hemoglobin 8.0 g/dL (13.0-17.5) Hematocrit 24.1 % (39.0-53.0) Mean Corpuscular Volume 88 fL (79-100) Mean Corpuscular Hemoglobin 29 pg (25-35) Mean Corpuscular Hemoglobin Concent 33 g/dL (31-37) Red Cell Distribution Width 16.5 % (11.5-14.5) Platelet Count 78 x10^3/uL (140-400) Neutrophils (%) (Auto) 74 % (31-73) Lymphocytes (%) (Auto) 13 % (24-48) Monocytes (%) (Auto) 11 % (0-9) Eosinophils (%) (Auto) 2 % (0-3) Basophils (%) (Auto) 0 % (0-3) Neutrophils # (Auto) 7.4 x10^3uL (1.8-7.7) Lymphocytes # (Auto) 1.3 x10^3/uL (1.0-4.8) Monocytes # (Auto) 1.1 x10^3/uL (0.0-1.1) Eosinophils # (Auto) 0.2 x10^3/uL (0.0-0.7) Basophils # (Auto) 0.0 x10^3/uL (0.0-0.2) Prothrombin Time 17.0 SEC (11.7-14.0) Prothromb Time International Ratio 1.4 (0.8-1.1) Sodium Level 145 mmol/L (136-145) Potassium Level 3.4 mmol/L (3.5-5.1) Chloride Level 110 mmol/L (98-107) Carbon Dioxide Level 25 mmol/L (21-32) Anion Gap 10 (6-14) Blood Urea Nitrogen 14 mg/dL (8-26) Creatinine 1.1 mg/dL (0.7-1.3) Estimated GFR (Cockcroft-Gault) 77.9 Glucose Level 99 mg/dL (70-99) Calcium Level 8.8 mg/dL (8.5-10.1) Laboratory Tests Test 12/31/18 18:06 12/31/18 18:26 12/31/18 21:51 12/31/18 23:43 Glucose (Fingerstick) 61 mg/dL (70-99) 115 mg/dL (70-99) 62 mg/dL (70-99) 87 mg/dL (70-99) Test 01/01/19 06:00 White Blood Count 10.0 x10^3/uL (4.0-11.0) Red Blood Count 2.74 x10^6/uL (4.30-5.70) Hemoglobin 8.0 g/dL (13.0-17.5) Hematocrit 24.1 % (39.0-53.0) Mean Corpuscular Volume 88 fL (79-100) Mean Corpuscular Hemoglobin 29 pg (25-35) Mean Corpuscular Hemoglobin Concent 33 g/dL (31-37) Red Cell Distribution Width 16.5 % (11.5-14.5) Platelet Count 78 x10^3/uL (140-400) Neutrophils (%) (Auto) 74 % (31-73) Lymphocytes (%) (Auto) 13 % (24-48) Monocytes (%) (Auto) 11 % (0-9) Eosinophils (%) (Auto) 2 % (0-3) Basophils (%) (Auto) 0 % (0-3) Neutrophils # (Auto) 7.4 x10^3uL (1.8-7.7) Lymphocytes # (Auto) 1.3 x10^3/uL (1.0-4.8) Monocytes # (Auto) 1.1 x10^3/uL (0.0-1.1) Eosinophils # (Auto) 0.2 x10^3/uL (0.0-0.7) Basophils # (Auto) 0.0 x10^3/uL (0.0-0.2) Prothrombin Time 17.0 SEC (11.7-14.0) Prothromb Time International Ratio 1.4 (0.8-1.1) Sodium Level 145 mmol/L (136-145) Potassium Level 3.4 mmol/L (3.5-5.1) Chloride Level 110 mmol/L (98-107) Carbon Dioxide Level 25 mmol/L (21-32) Anion Gap 10 (6-14) Blood Urea Nitrogen 14 mg/dL (8-26) Creatinine 1.1 mg/dL (0.7-1.3) Estimated GFR (Cockcroft-Gault) 77.9 Glucose Level 99 mg/dL (70-99) Calcium Level 8.8 mg/dL (8.5-10.1) Medications Active Scripts Medications Dose Route/Sig Max Daily Dose Days Date Category Warfarin Sodium 6 Mg Tablet 8 Mg PO HS 12/24/18 Reported Miralax (Polyethylene Glycol 3350) 17 Gm Powd.pack 1 Packet PO PRN DAILY PRN 5/23/18 Reported Milk Of Magnesia (Magnesium Hydroxide) 400 Mg/5 Ml Oral.susp 400 Mg PO PRN DAILY PRN 03/19/18 Reported Megace Es (Megestrol Acetate) 625 Mg/5 Ml Oral.susp 400 Mg PO 03/19/18 Reported Senna Plus Tablet (Sennosides/Docusate Sodium) 1 Each Tablet 1 Each PO 03/19/18 Reported Aspirin 325 Mg Tablet 1 Tab PO DAILY 03/19/18 Reported Keppra (Levetiracetam) 500 Mg Tablet 500 Mg PO BID 03/05/18 Reported Vitamin D3 (Cholecalciferol (Vitamin D3)) 1,000 Unit Tablet 400 Unit PO DAILY 03/05/18 Reported Trazodone Hcl 50 Mg Tablet 1 Tab PO QHS 03/05/18 Reported Tylenol (Acetaminophen) 325 Mg Tablet 1-2 Tab PO PRN Q4HRS PRN 03/05/18 Reported Losartan Potassium 50 Mg Tablet 50 Mg PO DAILY 11/28/17 Reported Impression . IMPRESSION: 1. Acute respiratory failure, multifactorial. 2. Septic shock. 3. Possible urinary tract infection. 4. History of cerebrovascular accident and dementia. 5. Prior questionable history of cerebral sinus thrombosis. 6. Seizures. 7. Generalized weakness. 8. Protein malnutrition, present upon admission. 9. Leukopenia. 10. Acute on chronic renal failure. 11. Metabolic acidosis from sepsis. 12.. E coli bacteremia (POA) PER ID Plan . patient extubated, off oxygen antibiotics per ID overall prognosis is poor may need Dabhoff tube feeding PEG palliative care consulted TORSTEN KEE MD Jan 01, 2019 09:09
--- NOTE | 2019-01-01 09:46 | NUR ---
Pharmacy Warfarin Dosing Note S:Pharmacy consulted to assist with anticoagulation therapy started with target INR: 2 -3 O:ARIEL TORRES is a 78 year old M with Atrial Fibrillation Recurrent VTE HX SINUS THROMBOSIS LABS: Last INR: 1.4 Last HGB: 8.0 Last HCT: 24.1 Last PLT: 78 Last dose of 4 mg given on 12/31/18 at 1520 Previous Regimen: 8 MG/D Vitamin K given: Drug Interaction Changes: Ongoing Drug Interactions: A:INR of 1.4 is below desired range. Target range for this patient is: 2 -3 P: Warfarin dose: 7.5 mg Today at 1600 Bridge Therapy: None Next INR due 01/02/19. Pharmacy anticoagulation service will continue to follow. JOSE ALFREDO JOHNSTON RPH, 01/01/19 [id number]
--- NOTE | 2019-01-01 12:17 | PDOC ---
PROGRESS NOTES Chief Complaint Chief Complaint CC: metabolic encephalopathy acute respiratory failure Septic shock secondary to urinary tract infection secondary to chronic indwelling urinary suprapubic catheter Hypoalbuminemia - may be causing swelling of extremities History of acute venous sinus thrombosis on CTA head/neck on chronic anticoagulation with coumadin Left Sided weakness and right-sided gaze, on last admission which had resolved History dementia, seizures History of essential Hypertension History of BPH, Indwelling suprapubic catheter History of complicated UTI in a male sec to indwelling FC History of Present Illness History of Present Illness Pt is an 78 y/o male who presented with sepsis due to UTI and chronic indwelling catheter. BCx demonstrated multi-drug resistant E. Coli. Receiving IV Cefepime. Zosyn has been d/c. Patient seen and examined in the ICU. Patient opens eyes to stimuli. Patient has been extubated, NG tube in place. Patient off of OG feeds. Pulm and ID following. Vitals Vitals Vital Signs Date Time Temp Pulse Resp B/P (MAP) Pulse Ox O2 Delivery O2 Flow Rate FiO2 01/01/19 12:00 Room Air 01/01/19 12:00 97.9 82 11 165/91 (115) 100 97.9 01/01/19 04:00 1.0 Physical Exam Physical Exam GENERAL: arousable, opens eyes intermitently HEENT: OGT LUNGS: Clear anteriorly HEART: S1, S2 irregular ABDOMEN: BS active, soft, no grimace to palpation : Jaquez EXTREMITIES: + edema SKIN: warm, no rash NEUROLOGIC: does not verbalize RIJ clean General: No acute distress, Other (patient extubated, opens eyes to stimuli) Heart: Regular rate, No murmurs, Other (irregulary rhythm) Lungs: Clear, Other (distant breath sounds) Abdomen: Normal bowel sounds, Soft, No tenderness Extremities: No clubbing, Normal pulses, Other (1+ edema of bilateral upper and lower extremities) Skin: No rashes, No significant lesion Labs LABS Laboratory Tests Test 12/31/18 18:06 12/31/18 18:26 12/31/18 21:51 12/31/18 23:43 Glucose (Fingerstick) 61 mg/dL (70-99) 115 mg/dL (70-99) 62 mg/dL (70-99) 87 mg/dL (70-99) Test 3/7/19 06:00 White Blood Count 10.0 x10^3/uL (4.0-11.0) Red Blood Count 2.74 x10^6/uL (4.30-5.70) Hemoglobin 8.0 g/dL (13.0-17.5) Hematocrit 24.1 % (39.0-53.0) Mean Corpuscular Volume 88 fL (79-100) Mean Corpuscular Hemoglobin 29 pg (25-35) Mean Corpuscular Hemoglobin Concent 33 g/dL (31-37) Red Cell Distribution Width 16.5 % (11.5-14.5) Platelet Count 78 x10^3/uL (140-400) Neutrophils (%) (Auto) 74 % (31-73) Lymphocytes (%) (Auto) 13 % (24-48) Monocytes (%) (Auto) 11 % (0-9) Eosinophils (%) (Auto) 2 % (0-3) Basophils (%) (Auto) 0 % (0-3) Neutrophils # (Auto) 7.4 x10^3uL (1.8-7.7) Lymphocytes # (Auto) 1.3 x10^3/uL (1.0-4.8) Monocytes # (Auto) 1.1 x10^3/uL (0.0-1.1) Eosinophils # (Auto) 0.2 x10^3/uL (0.0-0.7) Basophils # (Auto) 0.0 x10^3/uL (0.0-0.2) Prothrombin Time 17.0 SEC (11.7-14.0) Prothromb Time International Ratio 1.4 (0.8-1.1) Sodium Level 145 mmol/L (136-145) Potassium Level 3.4 mmol/L (3.5-5.1) Chloride Level 110 mmol/L (98-107) Carbon Dioxide Level 25 mmol/L (21-32) Anion Gap 10 (6-14) Blood Urea Nitrogen 14 mg/dL (8-26) Creatinine 1.1 mg/dL (0.7-1.3) Estimated GFR (Cockcroft-Gault) 77.9 Glucose Level 99 mg/dL (70-99) Calcium Level 8.8 mg/dL (8.5-10.1) Review of Systems Review of Systems Unable to obtain, patient is not fully responsive Assessment and Plan Assessmemt and Plan Problems Medical Problems: (1) Acute sepsis Status: Acute (2) UTI (urinary tract infection) due to urinary indwelling catheter Status: Acute Assessment: metabolic encephalopathy acute respiratory failure Septic shock secondary to urinary tract infection secondary to chronic indwelling urinary suprapubic catheter Hypoalbuminemia - may be causing swelling of extremities History of acute venous sinus thrombosis on CTA head/neck on chronic anticoagulation with coumadin Left Sided weakness and right-sided gaze, on last admission which had resolved History dementia, seizures History of essential Hypertension History of BPH, Indwelling suprapubic catheter History of complicated UTI in a male sec to indwelling FC Plan: Speech therapy consulted Continue IV cefepime Monitor mental status Appreciate subspecialty input Review CBC and CMP tomorrow morning Comment Review of Relevant I have reviewed the following items edgar (where applicable) has been applied. Labs Laboratory Tests Test 12/30/18 14:02 12/30/18 14:07 12/30/18 14:43 12/30/18 20:48 Glucose (Fingerstick) 63 mg/dL (70-99) 66 mg/dL (70-99) 84 mg/dL (70-99) 98 mg/dL (70-99) Test 12/31/18 05:30 12/31/18 08:00 12/31/18 18:06 12/31/18 18:26 White Blood Count 7.7 x10^3/uL (4.0-11.0) Red Blood Count 2.66 x10^6/uL (4.30-5.70) Hemoglobin 7.8 g/dL (13.0-17.5) Hematocrit 23.6 % (39.0-53.0) Mean Corpuscular Volume 89 fL (79-100) Mean Corpuscular Hemoglobin 30 pg (25-35) Mean Corpuscular Hemoglobin Concent 33 g/dL (31-37) Red Cell Distribution Width 16.7 % (11.5-14.5) Platelet Count 60 x10^3/uL (140-400) Neutrophils (%) (Auto) 70 % (31-73) Lymphocytes (%) (Auto) 16 % (24-48) Monocytes (%) (Auto) 10 % (0-9) Eosinophils (%) (Auto) 3 % (0-3) Basophils (%) (Auto) 1 % (0-3) Neutrophils # (Auto) 5.4 x10^3uL (1.8-7.7) Lymphocytes # (Auto) 1.2 x10^3/uL (1.0-4.8) Monocytes # (Auto) 0.8 x10^3/uL (0.0-1.1) Eosinophils # (Auto) 0.2 x10^3/uL (0.0-0.7) Basophils # (Auto) 0.1 x10^3/uL (0.0-0.2) Prothrombin Time 17.9 SEC (11.7-14.0) Prothromb Time International Ratio 1.5 (0.8-1.1) Sodium Level 148 mmol/L (136-145) Potassium Level 3.5 mmol/L (3.5-5.1) Chloride Level 114 mmol/L (98-107) Carbon Dioxide Level 23 mmol/L (21-32) Anion Gap 11 (6-14) Blood Urea Nitrogen 17 mg/dL (8-26) Creatinine 1.1 mg/dL (0.7-1.3) Estimated GFR (Cockcroft-Gault) 77.9 Glucose Level 107 mg/dL (70-99) Calcium Level 8.4 mg/dL (8.5-10.1) O2 Saturation 98 % (92-99) Arterial Blood pH 7.46 (7.35-7.45) Arterial Blood pCO2 at Patient Temp 28 mmHg (35-46) Arterial Blood pO2 at Patient Temp 143 mmHg (65-108) Arterial Blood HCO3 19 mmol/L (21-28) Arterial Blood Base Excess -4 mmol/L (-3-3) FiO2 30 Glucose (Fingerstick) 61 mg/dL (70-99) 115 mg/dL (70-99) Test 12/31/18 21:51 12/31/18 23:43 01/01/19 06:00 Glucose (Fingerstick) 62 mg/dL (70-99) 87 mg/dL (70-99) White Blood Count 10.0 x10^3/uL (4.0-11.0) Red Blood Count 2.74 x10^6/uL (4.30-5.70) Hemoglobin 8.0 g/dL (13.0-17.5) Hematocrit 24.1 % (39.0-53.0) Mean Corpuscular Volume 88 fL (79-100) Mean Corpuscular Hemoglobin 29 pg (25-35) Mean Corpuscular Hemoglobin Concent 33 g/dL (31-37) Red Cell Distribution Width 16.5 % (11.5-14.5) Platelet Count 78 x10^3/uL (140-400) Neutrophils (%) (Auto) 74 % (31-73) Lymphocytes (%) (Auto) 13 % (24-48) Monocytes (%) (Auto) 11 % (0-9) Eosinophils (%) (Auto) 2 % (0-3) Basophils (%) (Auto) 0 % (0-3) Neutrophils # (Auto) 7.4 x10^3uL (1.8-7.7) Lymphocytes # (Auto) 1.3 x10^3/uL (1.0-4.8) Monocytes # (Auto) 1.1 x10^3/uL (0.0-1.1) Eosinophils # (Auto) 0.2 x10^3/uL (0.0-0.7) Basophils # (Auto) 0.0 x10^3/uL (0.0-0.2) Prothrombin Time 17.0 SEC (11.7-14.0) Prothromb Time International Ratio 1.4 (0.8-1.1) Sodium Level 145 mmol/L (136-145) Potassium Level 3.4 mmol/L (3.5-5.1) Chloride Level 110 mmol/L (98-107) Carbon Dioxide Level 25 mmol/L (21-32) Anion Gap 10 (6-14) Blood Urea Nitrogen 14 mg/dL (8-26) Creatinine 1.1 mg/dL (0.7-1.3) Estimated GFR (Cockcroft-Gault) 77.9 Glucose Level 99 mg/dL (70-99) Calcium Level 8.8 mg/dL (8.5-10.1) Laboratory Tests Test 12/31/18 18:06 12/31/18 18:26 12/31/18 21:51 12/31/18 23:43 Glucose (Fingerstick) 61 mg/dL (70-99) 115 mg/dL (70-99) 62 mg/dL (70-99) 87 mg/dL (70-99) Test 01/01/19 06:00 White Blood Count 10.0 x10^3/uL (4.0-11.0) Red Blood Count 2.74 x10^6/uL (4.30-5.70) Hemoglobin 8.0 g/dL (13.0-17.5) Hematocrit 24.1 % (39.0-53.0) Mean Corpuscular Volume 88 fL (79-100) Mean Corpuscular Hemoglobin 29 pg (25-35) Mean Corpuscular Hemoglobin Concent 33 g/dL (31-37) Red Cell Distribution Width 16.5 % (11.5-14.5) Platelet Count 78 x10^3/uL (140-400) Neutrophils (%) (Auto) 74 % (31-73) Lymphocytes (%) (Auto) 13 % (24-48) Monocytes (%) (Auto) 11 % (0-9) Eosinophils (%) (Auto) 2 % (0-3) Basophils (%) (Auto) 0 % (0-3) Neutrophils # (Auto) 7.4 x10^3uL (1.8-7.7) Lymphocytes # (Auto) 1.3 x10^3/uL (1.0-4.8) Monocytes # (Auto) 1.1 x10^3/uL (0.0-1.1) Eosinophils # (Auto) 0.2 x10^3/uL (0.0-0.7) Basophils # (Auto) 0.0 x10^3/uL (0.0-0.2) Prothrombin Time 17.0 SEC (11.7-14.0) Prothromb Time International Ratio 1.4 (0.8-1.1) Sodium Level 145 mmol/L (136-145) Potassium Level 3.4 mmol/L (3.5-5.1) Chloride Level 110 mmol/L (98-107) Carbon Dioxide Level 25 mmol/L (21-32) Anion Gap 10 (6-14) Blood Urea Nitrogen 14 mg/dL (8-26) Creatinine 1.1 mg/dL (0.7-1.3) Estimated GFR (Cockcroft-Gault) 77.9 Glucose Level 99 mg/dL (70-99) Calcium Level 8.8 mg/dL (8.5-10.1) Microbiology 12/31/18 Blood Culture - Preliminary, Resulted NO GROWTH AFTER 1 DAY 12/24/18 Urine Culture - Final, Complete 12/24/18 Urine Culture Result 1 (MORIAH) - Final, Complete Medications Current Medications Sodium Chloride 1,000 ml @ 1,000 mls/hr Q1H IV Last administered on 12/24/18at 03:31; Start 12/24/18 at 03:45; Stop 12/24/18 at 04:44; Status DC Piperacillin Sod/ Tazobactam Sod 3.375 gm/Sodium Chloride 50 ml @ 100 mls/hr 1X ONCE IV Last administered on 12/24/18at 04:00; Start 12/24/18 at 04:00; Stop 12/24/18 at 04:29; Status DC Levofloxacin/ Dextrose 100 ml @ 100 mls/hr 1X ONCE IV Last administered on at 05:28; Start 12/24/18 at 04:00; Stop 12/24/18 at 04:59; Status DC Etomidate (Amidate) 20 mg STK-MED ONCE IV ; Start 12/24/18 at 03:47; Stop at 03:48; Status DC Vecuronium [place] (Norcuron Bolus) 10 mg STK-MED ONCE IV ; Start 12/24/18 at 03 :47; Stop 12/24/18 at 03:48; Status DC Sodium Chloride 1,000 ml @ 1,000 mls/hr 1X ONCE IV Last administered on at 03:31; Start 12/24/18 at 04:30; Stop 12/24/18 at 05:29; Status DC Vecuronium [place] (Norcuron Bolus) 20 mg 1X ONCE IV Last administered on 12/24at 03:32; Start 12/24/18 at 04:30; Stop 12/24/18 at 04:31; Status DC Etomidate (Amidate) 20 mg 1X ONCE IV Last administered on 12/24/18at 03:32; Start 12/24/18 at 04:30; Stop 12/24/18 at 04:31; Status DC Midazolam HCl (Versed) 5 mg 1X ONCE IV Last administered on 12/24/18at 04:45; Start 12/24/18 at 04:45; Stop 12/24/18 at 04:46; Status DC Dopamine HCl/ Dextrose 250 ml @ 3.674 mls/ hr 1X ONCE IV Last administered on 12/24/18at 05:22; Start 12/24/18 at 05:15; Stop 12/27/18 at 01:17; Status DC Sodium Chloride 1,000 ml @ 150 mls/hr Q6H40M IV ; Start 12/24/18 at 05:30; Stop 12/24/18 at 06:52; Status DC Sodium Chloride 1,000 ml @ 1,000 mls/hr 1X ONCE IV Last administered on at 05:04; Start 12/24/18 at 05:45; Stop 12/24/18 at 06:44; Status DC Norepinephrine Bitartrate 250 ml @ 1.875 mls/ hr CONT PRN IV SEE I/O RECORD Last administered on 12/24/18at 05:57; Start 12/24/18 at 05:45; Stop 12/24/18 at 10:25; Status DC Hydrocortisone Sodium Succinate (Solu-CORTEF) 300 mg 1X ONCE IV Last administered on 12/24/18at 10:33; Start 12/24/18 at 06:00; Stop 12/24/18 at 06:01 ; Status DC Sodium Chloride 1,000 ml @ 1,000 mls/hr 1X ONCE IV Last administered on at 05:22; Start 12/24/18 at 07:00; Stop 12/24/18 at 07:59; Status DC Sodium Chloride 1,000 ml @ 1,860 mls/hr Q33M IV ; Start 12/24/18 at 10:14; Stop 12/24/18 at 11:13; Status DC Sodium Chloride 500 ml @ 1,000 mls/hr PRN Q30MIN PRN IV SEE COMMENTS Last administered on 12/24/18at 13:00; Start 12/24/18 at 10:15 Linezolid/Dextrose 300 ml @ 300 mls/hr Q12HR IV Last administered on 12/26/18at 20:33; Start 12/24/18 at 11:00; Stop 12/27/18 at 06:51; Status DC Piperacillin Sod/ Tazobactam Sod 4.5 gm/Sodium Chloride 100 ml @ 200 mls/hr Q6HRS IV ; Start 12/24/18 at 12:00; Status UNV Norepinephrine Bitartrate 250 ml @ 0 mls/hr CONT PRN IV SEE I/O RECORD Last administered on 12/25/18at 14:11; Start 12/24/18 at 10:15 Piperacillin Sod/ Tazobactam Sod 3.375 gm/Sodium Chloride 50 ml @ 100 mls/hr Q6HRS IV Last administered on 12/27/18at 05:58; Start 12/24/18 at 12:00; Stop 12/27/18 at 06:51; Status DC Sodium Chloride 1,000 ml @ 75 mls/hr [id number] IV Last administered on 12/28/18at 05:36; Start 12/24/18 at 11:15; Stop 12/29/18 at 06:07; Status DC Propofol 100 ml @ 0 mls/hr CONT PRN IV SEE PROTOCOL Last administered on at 03:45; Start 12/24/18 at 16:30 Fentanyl Citrate (Fentanyl 2ml Vial) 25 mcg PRN Q1HR PRN IV SEE COMMENTS Last administered on 12/25/18at 12:20; Start 12/24/18 at 16:30 Pantoprazole Sodium (PROTONIX VIAL for IV PUSH) 40 mg DAILYAC IVP Last administered on 01/01/19at 08:04; Start 12/24/18 at 18:00 Enoxaparin Sodium (Lovenox 30mg Syringe) 30 mg Q24H SQ Last administered on 12/27at 21:18; Start 12/24/18 at 19:00; Stop 12/28/18 at 10:36; Status DC Midazolam HCl 100 ml @ 0 mls/hr CONT PRN IV PER PROTOCOL Last administered on at 09:00; Start 12/25/18 at 10:00 Piperacillin Sod/ Tazobactam Sod 3.375 gm/Sodium Chloride 50 ml @ 100 mls/hr Q8HRS IV Last administered on 12/31/18at 05:43; Start 12/27/18 at 14:00; Stop 12/31 at 08:25; Status DC Enoxaparin Sodium (Lovenox 40mg Syringe) 40 mg Q24H SQ ; Start 12/28/18 at 19:00 ; Stop 12/28/18 at 19:00; Status DC Aspirin (Valarie Aspirin) 325 mg DAILY PO Last administered on 01/01/19 08:03; Start 12/28/18 at 14:00 Vitamin D (Vitamin D3) 500 unit DAILY PO Last administered on 01/01/19 08:03; Start 12/28/18 at 14:00 Levetiracetam (Keppra) 500 mg BID PO Last administered on 01/01/19 08:03; Start 12/28/18 at 14:00 Losartan Potassium (Cozaar) 50 mg DAILY PO Last administered on 01/01/19 08:02 ; Start 12/28/18 at 14:00 Magnesium Hydroxide (Milk Of Magnesia) 400 mg PRN DAILY PRN PO CONSTIPATION 2ND CHOICE; Start 12/28/18 at 13:15 Trazodone HCl (Desyrel) 50 mg QHS PO Last administered on 12/31/18 21:44; Start 12/28/18 at 21:00 Polyethylene Glycol (miraLAX PACKET) 17 gm PRN DAILY PRN PO CONSTIPATION 1ST CHOICE; Start 12/29/18 at 09:00 Non-Formulary Medication (Warfarin Sodium ) 8 mg HS PO ; Start 12/28/18 at 21:00 ; Status UNV Warfarin Sodium (Coumadin Per Pharmacy) 1 each PRN DAILY PRN MC SEE COMMENTS Last administered on 01/01/19 09:45; Start 12/28/18 at 13:15 Warfarin Sodium (Coumadin - No Dose Today) 1 each 1X WARF ONCE MC Last administered on 12/28/18 16:36; Start 12/28/18 at 16:36; Stop 12/28/18 at 16:37; Status DC Warfarin Sodium (Coumadin) 2 mg 1X WARF ONCE PO Last administered on 12/29/18 16:30; Start 12/29/18 at 16:00; Stop 12/29/18 at 16:01; Status DC Enalaprilat (Vasotec Inj) 1.25 mg Q6HRS IVP Last administered on 12/29/18 16:30 ; Start 12/29/18 at 16:00; Stop 12/29/18 at 18:05; Status DC Enalaprilat (Vasotec Inj) 2.5 mg PRN Q6HRS PRN IVP HYPERTENSION, SEE COMMENTS; Start 12/29/18 at 18:15 Albumin Human 100 ml @ 100 mls/hr 1X ONCE IV Last administered on 12/30/18at 11 :32; Start 12/30/18 at 11:30; Stop 12/30/18 at 12:29; Status DC Dextrose (Dextrose 50%-Water Syringe) 12.5 gm PRN Q15MIN PRN IV SEE COMMENTS Last administered on 12/31/18at 18:11; Start 12/30/18 at 14:15 Cefepime HCl (Maxipime) 1 gm Q8HRS IVP Last administered on 01/01/19at 05:56; Start 12/31/18 at 09:00 Warfarin Sodium (Coumadin) 4 mg 1X WARF ONCE PO Last administered on 12/31/18at 15:20; Start 12/31/18 at 16:00; Stop 12/31/18 at 16:01; Status DC Warfarin Sodium (Coumadin) 7.5 mg 1X WARF ONCE PO ; Start 01/01/19 at 16:00; Stop 01/01/19 at 16:01 Active Scripts Active Reported Warfarin Sodium 6 Mg Tablet 8 Mg PO HS Miralax (Polyethylene Glycol 3350) 17 Gm Powd.pack 1 Packet PO PRN DAILY PRN Milk Of Magnesia (Magnesium Hydroxide) 400 Mg/5 Ml Oral.susp 400 Mg PO PRN DAILY PRN Megace Es (Megestrol Acetate) 625 Mg/5 Ml Oral.susp 400 Mg PO Senna Plus Tablet (Sennosides/Docusate Sodium) 1 Each Tablet 1 Each PO Aspirin 325 Mg Tablet 1 Tab PO DAILY Keppra (Levetiracetam) 500 Mg Tablet 500 Mg PO BID Vitamin D3 (Cholecalciferol (Vitamin D3)) 1,000 Unit Tablet 400 Unit PO DAILY Trazodone Hcl 50 Mg Tablet 1 Tab PO QHS Tylenol (Acetaminophen) 325 Mg Tablet 1-2 Tab PO PRN Q4HRS PRN Losartan Potassium 50 Mg Tablet 50 Mg PO DAILY Vitals/I & O Vital Sign - Last 24 Hours 12/31/18 12/31/18 12/31/18 12/31/18 12:57 13:00 14:00 15:00 Pulse 75 75 77 Resp 12 10 11 B/P (MAP) 155/88 (110) 152/91 (111) 148/78 (101) Pulse Ox 100 100 100 100 O2 Delivery Ventilator Ventilator Ventilator Ventilator 12/31/18 12/31/18 12/31/18 12/31/18 16:00 16:00 17:00 18:00 Temp 97.8 97.8 Pulse 75 72 73 Resp 15 12 12 B/P (MAP) 136/78 (97) 148/82 (104) 146/79 (101) Pulse Ox 100 100 100 O2 Delivery Nasal Cannula Nasal Cannula Nasal Cannula Nasal Cannula O2 Flow Rate 3.0 3.0 3.0 3.0 12/31/18 12/31/18 12/31/18 12/31/18 19:00 20:00 20:00 21:00 Temp 98.2 98.2 Pulse 87 70 92 Resp 12 12 12 B/P (MAP) 141/79 (99) 148/82 (104) 156/86 (109) Pulse Ox 100 100 100 O2 Delivery Nasal Cannula Nasal Cannula Nasal Cannula Nasal Cannula O2 Flow Rate 2.0 1.0 1.0 1.0 12/31/18 12/31/18 12/31/18 12/31/18 22:00 23:00 23:59 23:59 Temp 98.7 98.7 Pulse 73 79 79 Resp 14 12 12 B/P (MAP) 149/84 (105) 153/84 (107) 135/81 (99) Pulse Ox 99 99 99 O2 Delivery Nasal Cannula Nasal Cannula Nasal Cannula Nasal Cannula O2 Flow Rate 1.0 1.0 1.0 1.0 01/01/19 01/01/19 01/01/19 01/01/19 01:00 02:18 03:00 04:00 Temp 98.3 98.3 Pulse 73 72 76 78 Resp 13 13 14 12 B/P (MAP) 144/65 (91) 147/81 (103) 150/8 (55) 154/86 (108) Pulse Ox 99 95 100 100 O2 Delivery Nasal Cannula Nasal Cannula Nasal Cannula Room Air O2 Flow Rate 1.0 01/01/19 01/01/19 01/01/19 01/01/19 04:00 05:00 06:00 07:00 Pulse 78 77 76 Resp 12 13 10 B/P (MAP) 140/58 (85) 155/86 (109) 138/77 (97) Pulse Ox 100 100 O2 Delivery Nasal Cannula Nasal Cannula Room Air O2 Flow Rate 1.0 01/01/19 01/01/19 01/01/19 01/01/19 08:00 08:00 08:02 09:00 Temp 98.7 98.7 Pulse 85 78 77 Resp 18 18 B/P (MAP) 143/86 (105) 143/86 140/76 (97) Pulse Ox 100 100 O2 Delivery Room Air Room Air Room Air 01/01/19 01/01/19 01/01/19 01/01/19 10:00 11:00 12:00 12:00 Temp 97.9 97.9 Pulse 77 78 82 Resp 15 16 11 B/P (MAP) 140/80 (100) 164/87 (112) 165/91 (115) Pulse Ox 100 100 100 O2 Delivery Room Air Room Air Room Air Room Air Intake and Output 12/31/18 12/31/18 01/01/19 15:00 23:00 07:00 Intake Total 290 ml 737 ml 797 ml Output Total 568 ml 1045 ml 915 ml Balance -278 ml -308 ml -118 ml JIE TONG III DO Jan 01, 2019 12:17
[2019-01-01] MEDS: ENALAPRILAT 2.5 MG/2 ML VIAL. IVP PRN (12:55)
[2019-01-01] MEDS ORDERED: WARFARIN 7.5 MG TABLET. PO ONE (16:00)
--- NOTE | 2019-01-01 16:00 | NUR ---
SS following for discharge planning. SS reviewed pt chart. Pt is from [facility], ; fax [phone]. SS contacted [facility] and confirmed that pt is a LTC resident from there facility and is able to return when medically stable for discharge. Addendum: 01/01/19 at 1604 by ISRAEL WHITE CORRECTION TO ABOVE NOTE: PLEASE DISREGARD WRONG Pt.
[2019-01-01] MEDS: traZODone 50 MG TABLET. PO SCH (21:22)
[2019-01-02] VITALS (17 sets, daily range): BP systolic 137–178; BP diastolic 72–102
[2019-01-02] MEDS: CEFEPIME HCL IV Push 1 GM VIAL. IVP SCH ×3 (05:48→21:48)
[2019-01-02 06:34] LABS: BASO % 0 % (0-3); EOS # 0.2 x10^3/uL (0.0-0.7); EOS % 2 % (0-3); HEMOGLOBIN 8.5 g/dL (13.0-17.5); LYMPH # 1.1 x10^3/uL (1.0-4.8); LYMPH % 11 % (24-48); MEAN CORPUSCULAR HEMOGLOBIN 30 pg (25-35); MEAN CORPUSCULAR HGB CONC 34 g/dL (31-37); MEAN CORPUSCULAR VOLUME 88 fL (79-100); MONO # 1.2 x10^3/uL (0.0-1.1); MONO % 12 % (0-9); NEUT # 7.5 x10^3uL (1.8-7.7); NEUT % 75 % (31-73); PLATELET COUNT 99 x10^3/uL (140-400); RED BLOOD COUNT 2.84 x10^6/uL (4.30-5.70); RED CELL DISTRIBUTION WIDTH 15.8 % (11.5-14.5); WHITE BLOOD COUNT 10.1 x10^3/uL (4.0-11.0)
[2019-01-02 06:43] LABS: CALCIUM 8.6 mg/dL (8.5-10.1); CREATININE 1.1 mg/dL (0.7-1.3); GFR 77.9; POTASSIUM 3.6 mmol/L (3.5-5.1)
--- NOTE | 2019-01-02 07:01 | PDOC ---
Infectious Disease Note Subjective: Subjective Pt does not verbalize opens eyes intermitently no other issues per RN ROS: ROS Negative except for above. Vital Signs: Vital Signs Vital Signs Date Time Temp Pulse Resp B/P (MAP) Pulse Ox O2 Delivery O2 Flow Rate FiO2 01/02/19 06:00 83 17 161/84 (109) 100 Nasal Cannula 2.0 01/02/19 04:00 99.5 99.5 Physical Exam: PHYSICAL EXAM GENERAL: arousable, opens eyes intermitently HEENT: NGT +,anicteric LUNGS: Clear anteriorly HEART: S1, S2 irregular ABDOMEN: BS active, soft, no grimace to palpation : Jaquez EXTREMITIES: + edema SKIN: warm, no rash NEUROLOGIC: does not verbalize RIJ clean Medications: Inpatient Meds: Current Medications Medications (Trade) Dose Ordered Sig/Nayely Start Time Stop Time Status Last Admin Dose Admin Albumin Human 100 ml @ 100 mls/hr 1X ONCE 12/30/18 11:30 12/30/18 12:29 DC 12/30/18 11:32 100 MLS/HR Aspirin (Valarie Aspirin) 325 mg DAILY 12/28/18 14:00 01/01/19 08:03 325 MG Cefepime HCl (Maxipime) 1 gm Q8HRS 12/31/18 09:00 01/02/19 05:48 1 GM Dextrose (Dextrose 50%-Water Syringe) 12.5 gm PRN Q15MIN PRN 12/30/18 14:15 12/31/18 18:11 12.5 GM Dopamine HCl/ Dextrose 250 ml @ 3.674 mls/ hr 1X ONCE 12/24/18 05:15 12/27/18 01:17 DC 12/24/18 05:22 18.371 MLS/HR Enalaprilat (Vasotec Inj) 2.5 mg PRN Q6HRS PRN 12/29/18 18:15 01/01/19 12:55 2.5 MG Enoxaparin Sodium (Lovenox 30mg Syringe) 30 mg Q24H 12/24/18 19:00 12/28/18 10:36 DC 12/27/18 21:18 30 MG Enoxaparin Sodium (Lovenox 40mg Syringe) 40 mg Q24H 12/28/18 19:00 12/28/18 19:00 DC Etomidate (Amidate) 20 mg 1X ONCE 12/24/18 04:30 12/24/18 04:31 DC 12/24/18 03:32 20 MG Fentanyl Citrate (Fentanyl 2ml Vial) 25 mcg PRN Q1HR PRN 12/24/18 16:30 12/25/18 12:20 25 MCG Hydrocortisone Sodium Succinate (Solu-CORTEF) 300 mg 1X ONCE 12/24/18 06:00 12/24/18 06:01 DC 12/24/18 10:33 300 MG Levetiracetam (Keppra) 500 mg BID 12/28/18 14:00 01/01/19 21:22 500 MG Levofloxacin/ Dextrose 100 ml @ 100 mls/hr 1X ONCE 12/24/18 04:00 12/24/18 04:59 DC 12/24/18 05:28 100 MLS/HR Linezolid/Dextrose 300 ml @ 300 mls/hr Q12HR 12/24/18 11:00 12/27/18 06:51 DC 12/26/18 20:33 300 MLS/HR Losartan Potassium (Cozaar) 50 mg DAILY 12/28/18 14:00 01/01/19 08:02 50 MG Magnesium Hydroxide (Milk Of Magnesia) 400 mg PRN DAILY PRN 12/28/18 13:15 Midazolam HCl 100 ml @ 0 mls/hr CONT PRN 12/25/18 10:00 12/28/18 09:00 2 MLS/HR Midazolam HCl (Versed) 5 mg 1X ONCE 12/24/18 04:45 12/24/18 04:46 DC 12/24/18 04:45 5 MG Non-Formulary Medication (Warfarin Sodium ) 8 mg HS 12/28/18 21:00 UNV Norepinephrine Bitartrate 250 ml @ 0 mls/hr CONT PRN 12/24/18 10:15 12/25/18 14:11 9.4 MLS/HR Pantoprazole Sodium (PROTONIX VIAL for IV PUSH) 40 mg DAILYAC 12/24/18 18:00 01/01/19 08:04 40 MG Piperacillin Sod/ Tazobactam Sod 3.375 gm/Sodium Chloride 50 ml @ 100 mls/hr Q8HRS 12/27/18 14:00 12/31/18 08:25 DC 12/31/18 05:43 100 MLS/HR Piperacillin Sod/ Tazobactam Sod 4.5 gm/Sodium Chloride 100 ml @ 200 mls/hr Q6HRS 12/24/18 12:00 UNV Polyethylene Glycol (miraLAX PACKET) 17 gm PRN DAILY PRN 12/29/18 09:00 Propofol 100 ml @ 0 mls/hr CONT PRN 12/24/18 16:30 12/25/18 03:45 8.1 MLS/HR Sodium Chloride 1,000 ml @ 75 mls/hr [id number] 12/24/18 11:15 12/29/18 06:07 DC 12/28/18 05:36 75 MLS/HR Trazodone HCl (Desyrel) 50 mg QHS 12/28/18 21:00 01/01/19 21:22 50 MG Vecuronium [place] (Norcuron Bolus) 20 mg 1X ONCE 12/24/18 04:30 12/24/18 04:31 DC 12/24/18 03:32 20 MG Vitamin D (Vitamin D3) 500 unit DAILY 12/28/18 14:00 01/01/19 08:03 500 UNIT Warfarin Sodium (Coumadin - No Dose Today) 1 each 1X WARF ONCE 12/28/18 16:36 12/28/18 16:37 DC 12/28/18 16:36 1 EACH Warfarin Sodium (Coumadin Per Pharmacy) 1 each PRN DAILY PRN 12/28/18 13:15 01/01/19 09:45 1 EACH Warfarin Sodium (Coumadin) 7.5 mg 1X WARF ONCE 01/01/19 16:00 01/01/19 16:01 DC 01/01/19 16:24 7.5 MG Labs: Lab Laboratory Tests Test 01/02/19 05:50 Sodium Level 140 mmol/L (136-145) Potassium Level 3.6 mmol/L (3.5-5.1) Chloride Level 105 mmol/L (98-107) Carbon Dioxide Level 26 mmol/L (21-32) Anion Gap 9 (6-14) Blood Urea Nitrogen 13 mg/dL (8-26) Creatinine 1.1 mg/dL (0.7-1.3) Estimated GFR (Cockcroft-Gault) 77.9 Glucose Level 96 mg/dL (70-99) Calcium Level 8.6 mg/dL (8.5-10.1) Micro RUN DATE: 12/28/18 PAGE 1 RUN TIME: 1611 [facility] [address] [place] [address] Cipriano Marcelo M.D., Software Validation Technician PATIENT: ARIEL TORRES ACCT: [id number] LOC: 1 [facility] U : [id number] AGE/SX: 78/M ROOM: [facility] REG : 12/24/[address]: JONATAN ROSALES MD : 1940 BED: 1 DIS : STATUS: ADM IN TLOC: SPEC #: [id number] TAMRA: 12/24/18 STATUS: COMP REQ #: [id number] RECD: 12/25/[address] [facility] [address]: ESTEFANIA DUNCAN MD SOURCE: BLOOD ENTR: 12/25/[address] [facility] [address]: CARLITA RIBEIRO MD SPDESC: JONATAN ROSALES MD, SABATO MD ORDERED: NEDA DIAMOND - LC Procedure Result BLOOD CULTURE LC Final Final report BLD CULT RESULT 1 Final Escherichia coli Multi-Drug Resistant Organism ANTIMICROBIAL SUSCEPTIBILITY Final Comment S = Susceptible; I = Intermediate; R = Resistant P = Positive; N = Negative MICS are expressed in micrograms per mL Antibiotic RSLT#1 RSLT#2 RSLT#3 RSLT#4 Amoxicillin/Clavulanic Acid S =8 Ampicillin R>=32 Cefazolin R>=64 Cefepime S =2 Ceftriaxone R>=64 Cefuroxime R>=64 Ciprofloxacin R>=4 Ertapenem S<=0.12 Gentamicin S<=1 Imipenem S<=0.25 Levofloxacin R>=8 Meropenem S<=0.25 Nitrofurantoin S<=16 Piperacillin/Tazobactam S<=4 Tetracycline R>=16 Tobramycin S<=1 Trimethoprim/Sulfa R>=320 Performed at: DA - [facility] [address], [place], [place] [id number] Dairy Store Manager: DARLIN Cool MD, Phone: [phone] Objective: Assessment: Septic shock with hypothermia (POA) resolved E coli bacteremia (POA) ; FQ resistant,source ?? GI /, UC neg so far repeat bc neg so far Leukopenia - resolved Lactic acidosis Suspected aspiration Respiratory failure TAZ better Dehydration Dementia Thrombocytopenia Anemia Plan: Plan of Care cont cefepime 12/31 ,was on zosyn before Levaquin x 1, on 12/24 Supportive care care d/w JODI WORKMAN MD Jan 02, 2019 07:00
[2019-01-02] MEDS: PANTOPRAZOLE IV PUSH 40 MG VIAL. IVP SCH (08:13)
[2019-01-02] MEDS: CHOLECALCIFEROL (VITAMIN D3) 1,000 UNIT TABLET PO SCH (08:13)
[2019-01-02] MEDS: ASPIRIN 325 MG TABLET PO SCH (08:13)
[2019-01-02] MEDS: LOSARTAN POTASSIUM 50 MG TABLET. PO SCH (08:14)
[2019-01-02] MEDS: levETIRAcetam 500 MG TABLET PO SCH ×2 (08:14→21:48)
--- NOTE | 2019-01-02 09:25 | NUR ---
SS following up with discharge planning. SS met with pt's RN. Pt has dobhoff and family requesting full aggressive care. SS contacted pt's son, Sarkis, and discussed discharge planning. Pt's son agreeable to referral to [facility], ; fax [phone]. SS phoned and faxed referral. SS will await acceptance decision and will proceed accordingly. Pt's RN notified.
--- NOTE | 2019-01-02 09:33 | PDOC ---
PULMONARY PROGRESS NOTES Subjective Patient asked to be extubated 12/31, he does not follow any commands, according to family this is his baseline Vitals Vital Signs Date Time Temp Pulse Resp B/P (MAP) Pulse Ox O2 Delivery O2 Flow Rate FiO2 01/02/19 09:00 85 17 153/77 (102) 100 Nasal Cannula 2.0 01/02/19 08:00 99.4 99.4 Lungs: Clear, Other (distant breath sounds) Cardiovascular: S1, S2 Abdomen: Soft Extremities: Other (EDEMA) Skin: Warm Labs Laboratory Tests Test 12/31/18 18:06 12/31/18 18:26 12/31/18 21:51 12/31/18 23:43 Glucose (Fingerstick) 61 mg/dL (70-99) 115 mg/dL (70-99) 62 mg/dL (70-99) 87 mg/dL (70-99) Test 01/01/19 06:00 01/02/19 05:50 White Blood Count 10.0 x10^3/uL (4.0-11.0) 10.1 x10^3/uL (4.0-11.0) Red Blood Count 2.74 x10^6/uL (4.30-5.70) 2.84 x10^6/uL (4.30-5.70) Hemoglobin 8.0 g/dL (13.0-17.5) 8.5 g/dL (13.0-17.5) Hematocrit 24.1 % (39.0-53.0) 25.0 % (39.0-53.0) Mean Corpuscular Volume 88 fL (79-100) 88 fL (79-100) Mean Corpuscular Hemoglobin 29 pg (25-35) 30 pg (25-35) Mean Corpuscular Hemoglobin Concent 33 g/dL (31-37) 34 g/dL (31-37) Red Cell Distribution Width 16.5 % (11.5-14.5) 15.8 % (11.5-14.5) Platelet Count 78 x10^3/uL (140-400) 99 x10^3/uL (140-400) Neutrophils (%) (Auto) 74 % (31-73) 75 % (31-73) Lymphocytes (%) (Auto) 13 % (24-48) 11 % (24-48) Monocytes (%) (Auto) 11 % (0-9) 12 % (0-9) Eosinophils (%) (Auto) 2 % (0-3) 2 % (0-3) Basophils (%) (Auto) 0 % (0-3) 0 % (0-3) Neutrophils # (Auto) 7.4 x10^3uL (1.8-7.7) 7.5 x10^3uL (1.8-7.7) Lymphocytes # (Auto) 1.3 x10^3/uL (1.0-4.8) 1.1 x10^3/uL (1.0-4.8) Monocytes # (Auto) 1.1 x10^3/uL (0.0-1.1) 1.2 x10^3/uL (0.0-1.1) Eosinophils # (Auto) 0.2 x10^3/uL (0.0-0.7) 0.2 x10^3/uL (0.0-0.7) Basophils # (Auto) 0.0 x10^3/uL (0.0-0.2) 0.0 x10^3/uL (0.0-0.2) Prothrombin Time 17.0 SEC (11.7-14.0) Prothromb Time International Ratio 1.4 (0.8-1.1) Sodium Level 145 mmol/L (136-145) 140 mmol/L (136-145) Potassium Level 3.4 mmol/L (3.5-5.1) 3.6 mmol/L (3.5-5.1) Chloride Level 110 mmol/L (98-107) 105 mmol/L (98-107) Carbon Dioxide Level 25 mmol/L (21-32) 26 mmol/L (21-32) Anion Gap 10 (6-14) 9 (6-14) Blood Urea Nitrogen 14 mg/dL (8-26) 13 mg/dL (8-26) Creatinine 1.1 mg/dL (0.7-1.3) 1.1 mg/dL (0.7-1.3) Estimated GFR (Cockcroft-Gault) 77.9 77.9 Glucose Level 99 mg/dL (70-99) 96 mg/dL (70-99) Calcium Level 8.8 mg/dL (8.5-10.1) 8.6 mg/dL (8.5-10.1) Laboratory Tests Test 01/02/19 05:50 White Blood Count 10.1 x10^3/uL (4.0-11.0) Red Blood Count 2.84 x10^6/uL (4.30-5.70) Hemoglobin 8.5 g/dL (13.0-17.5) Hematocrit 25.0 % (39.0-53.0) Mean Corpuscular Volume 88 fL (79-100) Mean Corpuscular Hemoglobin 30 pg (25-35) Mean Corpuscular Hemoglobin Concent 34 g/dL (31-37) Red Cell Distribution Width 15.8 % (11.5-14.5) Platelet Count 99 x10^3/uL (140-400) Neutrophils (%) (Auto) 75 % (31-73) Lymphocytes (%) (Auto) 11 % (24-48) Monocytes (%) (Auto) 12 % (0-9) Eosinophils (%) (Auto) 2 % (0-3) Basophils (%) (Auto) 0 % (0-3) Neutrophils # (Auto) 7.5 x10^3uL (1.8-7.7) Lymphocytes # (Auto) 1.1 x10^3/uL (1.0-4.8) Monocytes # (Auto) 1.2 x10^3/uL (0.0-1.1) Eosinophils # (Auto) 0.2 x10^3/uL (0.0-0.7) Basophils # (Auto) 0.0 x10^3/uL (0.0-0.2) Sodium Level 140 mmol/L (136-145) Potassium Level 3.6 mmol/L (3.5-5.1) Chloride Level 105 mmol/L (98-107) Carbon Dioxide Level 26 mmol/L (21-32) Anion Gap 9 (6-14) Blood Urea Nitrogen 13 mg/dL (8-26) Creatinine 1.1 mg/dL (0.7-1.3) Estimated GFR (Cockcroft-Gault) 77.9 Glucose Level 96 mg/dL (70-99) Calcium Level 8.6 mg/dL (8.5-10.1) Medications Active Scripts Medications Dose Route/Sig Max Daily Dose Days Date Category Warfarin Sodium 6 Mg Tablet 8 Mg PO HS 12/24/18 Reported Miralax (Polyethylene Glycol 3350) 17 Gm Powd.pack 1 Packet PO PRN DAILY PRN 03/19/18 Reported Milk Of Magnesia (Magnesium Hydroxide) 400 Mg/5 Ml Oral.susp 400 Mg PO PRN DAILY PRN 03/19/18 Reported Megace Es (Megestrol Acetate) 625 Mg/5 Ml Oral.susp 400 Mg PO 03/19/18 Reported Senna Plus Tablet (Sennosides/Docusate Sodium) 1 Each Tablet 1 Each PO 03/19/18 Reported Aspirin 325 Mg Tablet 1 Tab PO DAILY 03/19/18 Reported Keppra (Levetiracetam) 500 Mg Tablet 500 Mg PO BID 03/05/18 Reported Vitamin D3 (Cholecalciferol (Vitamin D3)) 1,000 Unit Tablet 400 Unit PO DAILY 03/05/18 Reported Trazodone Hcl 50 Mg Tablet 1 Tab PO QHS 03/05/18 Reported Tylenol (Acetaminophen) 325 Mg Tablet 1-2 Tab PO PRN Q4HRS PRN 03/05/18 Reported Losartan Potassium 50 Mg Tablet 50 Mg PO DAILY 11/28/17 Reported Impression . IMPRESSION: 1. Acute respiratory failure, multifactorial. 2. Septic shock. 3. Possible urinary tract infection. 4. History of cerebrovascular accident and dementia. 5. Prior questionable history of cerebral sinus thrombosis. 6. Seizures. 7. Generalized weakness. 8. Protein malnutrition, present upon admission. 9. Leukopenia. 10. Acute on chronic renal failure. 11. Metabolic acidosis from sepsis. 12.. E coli bacteremia (POA) PER ID Plan . transfer to floor patient extubated, off oxygen antibiotics per ID overall prognosis is poor may need Dabhoff tube feeding PEG palliative care consulted TORSTEN KEE MD Jan 02, 2019 09:33
[2019-01-02 11:07] LABS: PROTHROMBIN TIME PATIENT 19.1 SEC (11.7-14.0)
--- NOTE | 2019-01-02 12:03 | PDOC ---
PROGRESS NOTES Chief Complaint Chief Complaint CC: metabolic encephalopathy acute respiratory failure Septic shock secondary to urinary tract infection secondary to chronic indwelling urinary suprapubic catheter Hypoalbuminemia - may be causing swelling of extremities Elevated troponins History of acute venous sinus thrombosis on CTA head/neck on chronic anticoagulation with coumadin Left Sided weakness and right-sided gaze, on last admission which had resolved History dementia, seizures History of essential Hypertension History of BPH, Indwelling suprapubic catheter History of complicated UTI in a male sec to indwelling FC History of Present Illness History of Present Illness Pt is an 78 y/o male who presented with sepsis due to UTI and chronic indwelling catheter. BCx demonstrated multi-drug resistant E. Coli. Receiving IV Cefepime. Patient seen and examined in the ICU. Patient opens eyes to stimuli , but is otherwise not responsive. Patient is extubated with NG tube. Patient had temperature of 100.2 overnight. Pulm and ID following. Vitals Vitals Vital Signs Date Time Temp Pulse Resp B/P (MAP) Pulse Ox O2 Delivery O2 Flow Rate FiO2 01/02/19 11:00 81 16 155/86 (109) 100 Nasal Cannula 2.0 01/02/19 08:00 99.4 99.4 Physical Exam Physical Exam GENERAL: arousable, opens eyes intermitently HEENT: NGT +,anicteric LUNGS: Clear anteriorly HEART: S1, S2 irregular ABDOMEN: BS active, soft, no grimace to palpation : Jaquez EXTREMITIES: + edema SKIN: warm, no rash NEUROLOGIC: does not verbalize RIJ clean General: No acute distress, Other (patient extubated, opens eyes to stimuli) Heart: Regular rate, No murmurs, Other (irregulary rhythm) Lungs: Clear, Other (distant breath sounds) Abdomen: Normal bowel sounds, Soft, No tenderness Extremities: No clubbing, Normal pulses, Other (1+ edema of bilateral upper and lower extremities) Skin: No rashes, No significant lesion Labs LABS Laboratory Tests Test 01/02/19 05:50 01/02/19 10:05 01/02/19 10:14 White Blood Count 10.1 x10^3/uL (4.0-11.0) Red Blood Count 2.84 x10^6/uL (4.30-5.70) Hemoglobin 8.5 g/dL (13.0-17.5) Hematocrit 25.0 % (39.0-53.0) Mean Corpuscular Volume 88 fL (79-100) Mean Corpuscular Hemoglobin 30 pg (25-35) Mean Corpuscular Hemoglobin Concent 34 g/dL (31-37) Red Cell Distribution Width 15.8 % (11.5-14.5) Platelet Count 99 x10^3/uL (140-400) Neutrophils (%) (Auto) 75 % (31-73) Lymphocytes (%) (Auto) 11 % (24-48) Monocytes (%) (Auto) 12 % (0-9) Eosinophils (%) (Auto) 2 % (0-3) Basophils (%) (Auto) 0 % (0-3) Neutrophils # (Auto) 7.5 x10^3uL (1.8-7.7) Lymphocytes # (Auto) 1.1 x10^3/uL (1.0-4.8) Monocytes # (Auto) 1.2 x10^3/uL (0.0-1.1) Eosinophils # (Auto) 0.2 x10^3/uL (0.0-0.7) Basophils # (Auto) 0.0 x10^3/uL (0.0-0.2) Sodium Level 140 mmol/L (136-145) Potassium Level 3.6 mmol/L (3.5-5.1) Chloride Level 105 mmol/L (98-107) Carbon Dioxide Level 26 mmol/L (21-32) Anion Gap 9 (6-14) Blood Urea Nitrogen 13 mg/dL (8-26) Creatinine 1.1 mg/dL (0.7-1.3) Estimated GFR (Cockcroft-Gault) 77.9 Glucose Level 96 mg/dL (70-99) Calcium Level 8.6 mg/dL (8.5-10.1) Glucose (Fingerstick) 100 mg/dL (70-99) Prothrombin Time 19.1 SEC (11.7-14.0) Prothromb Time International Ratio 1.6 (0.8-1.1) Review of Systems Review of Systems Unable to obtain, patient not responsive to stimuli Assessment and Plan Assessmemt and Plan Problems Medical Problems: (1) Acute sepsis Status: Acute (2) UTI (urinary tract infection) due to urinary indwelling catheter Status: Acute Assessment: metabolic encephalopathy acute respiratory failure Septic shock secondary to urinary tract infection secondary to chronic indwelling urinary suprapubic catheter Hypoalbuminemia - may be causing swelling of extremities History of acute venous sinus thrombosis on CTA head/neck on chronic anticoagulation with coumadin Left Sided weakness and right-sided gaze, on last admission which had resolved History dementia, seizures History of essential Hypertension History of BPH, Indwelling suprapubic catheter History of complicated UTI in a male sec to indwelling FC Plan: Monitor respiratory status - remains off Vent Continue to monitor in the ICU Review labs tomorrow am Appreciate subspecialty input Continue IV cefepime Comment Review of Relevant I have reviewed the following items edgar (where applicable) has been applied. Labs Laboratory Tests Test 12/31/18 18:06 12/31/18 18:26 12/31/18 21:51 12/31/18 23:43 Glucose (Fingerstick) 61 mg/dL (70-99) 115 mg/dL (70-99) 62 mg/dL (70-99) 87 mg/dL (70-99) Test 01/01/19 06:00 01/02/19 05:50 01/02/19 10:05 01/02/19 10:14 White Blood Count 10.0 x10^3/uL (4.0-11.0) 10.1 x10^3/uL (4.0-11.0) Red Blood Count 2.74 x10^6/uL (4.30-5.70) 2.84 x10^6/uL (4.30-5.70) Hemoglobin 8.0 g/dL (13.0-17.5) 8.5 g/dL (13.0-17.5) Hematocrit 24.1 % (39.0-53.0) 25.0 % (39.0-53.0) Mean Corpuscular Volume 88 fL (79-100) 88 fL (79-100) Mean Corpuscular Hemoglobin 29 pg (25-35) 30 pg (25-35) Mean Corpuscular Hemoglobin Concent 33 g/dL (31-37) 34 g/dL (31-37) Red Cell Distribution Width 16.5 % (11.5-14.5) 15.8 % (11.5-14.5) Platelet Count 78 x10^3/uL (140-400) 99 x10^3/uL (140-400) Neutrophils (%) (Auto) 74 % (31-73) 75 % (31-73) Lymphocytes (%) (Auto) 13 % (24-48) 11 % (24-48) Monocytes (%) (Auto) 11 % (0-9) 12 % (0-9) Eosinophils (%) (Auto) 2 % (0-3) 2 % (0-3) Basophils (%) (Auto) 0 % (0-3) 0 % (0-3) Neutrophils # (Auto) 7.4 x10^3uL (1.8-7.7) 7.5 x10^3uL (1.8-7.7) Lymphocytes # (Auto) 1.3 x10^3/uL (1.0-4.8) 1.1 x10^3/uL (1.0-4.8) Monocytes # (Auto) 1.1 x10^3/uL (0.0-1.1) 1.2 x10^3/uL (0.0-1.1) Eosinophils # (Auto) 0.2 x10^3/uL (0.0-0.7) 0.2 x10^3/uL (0.0-0.7) Basophils # (Auto) 0.0 x10^3/uL (0.0-0.2) 0.0 x10^3/uL (0.0-0.2) Prothrombin Time 17.0 SEC (11.7-14.0) 19.1 SEC (11.7-14.0) Prothromb Time International Ratio 1.4 (0.8-1.1) 1.6 (0.8-1.1) Sodium Level 145 mmol/L (136-145) 140 mmol/L (136-145) Potassium Level 3.4 mmol/L (3.5-5.1) 3.6 mmol/L (3.5-5.1) Chloride Level 110 mmol/L (98-107) 105 mmol/L (98-107) Carbon Dioxide Level 25 mmol/L (21-32) 26 mmol/L (21-32) Anion Gap 10 (6-14) 9 (6-14) Blood Urea Nitrogen 14 mg/dL (8-26) 13 mg/dL (8-26) Creatinine 1.1 mg/dL (0.7-1.3) 1.1 mg/dL (0.7-1.3) Estimated GFR (Cockcroft-Gault) 77.9 77.9 Glucose Level 99 mg/dL (70-99) 96 mg/dL (70-99) Calcium Level 8.8 mg/dL (8.5-10.1) 8.6 mg/dL (8.5-10.1) Glucose (Fingerstick) 100 mg/dL (70-99) Laboratory Tests Test 01/02/19 05:50 01/02/19 10:05 01/02/19 10:14 White Blood Count 10.1 x10^3/uL (4.0-11.0) Red Blood Count 2.84 x10^6/uL (4.30-5.70) Hemoglobin 8.5 g/dL (13.0-17.5) Hematocrit 25.0 % (39.0-53.0) Mean Corpuscular Volume 88 fL (79-100) Mean Corpuscular Hemoglobin 30 pg (25-35) Mean Corpuscular Hemoglobin Concent 34 g/dL (31-37) Red Cell Distribution Width 15.8 % (11.5-14.5) Platelet Count 99 x10^3/uL (140-400) Neutrophils (%) (Auto) 75 % (31-73) Lymphocytes (%) (Auto) 11 % (24-48) Monocytes (%) (Auto) 12 % (0-9) Eosinophils (%) (Auto) 2 % (0-3) Basophils (%) (Auto) 0 % (0-3) Neutrophils # (Auto) 7.5 x10^3uL (1.8-7.7) Lymphocytes # (Auto) 1.1 x10^3/uL (1.0-4.8) Monocytes # (Auto) 1.2 x10^3/uL (0.0-1.1) Eosinophils # (Auto) 0.2 x10^3/uL (0.0-0.7) Basophils # (Auto) 0.0 x10^3/uL (0.0-0.2) Sodium Level 140 mmol/L (136-145) Potassium Level 3.6 mmol/L (3.5-5.1) Chloride Level 105 mmol/L (98-107) Carbon Dioxide Level 26 mmol/L (21-32) Anion Gap 9 (6-14) Blood Urea Nitrogen 13 mg/dL (8-26) Creatinine 1.1 mg/dL (0.7-1.3) Estimated GFR (Cockcroft-Gault) 77.9 Glucose Level 96 mg/dL (70-99) Calcium Level 8.6 mg/dL (8.5-10.1) Glucose (Fingerstick) 100 mg/dL (70-99) Prothrombin Time 19.1 SEC (11.7-14.0) Prothromb Time International Ratio 1.6 (0.8-1.1) Microbiology 12/31/18 Blood Culture - Preliminary, Resulted NO GROWTH AFTER 2 DAYS 12/24/18 Urine Culture - Final, Complete 12/24/18 Urine Culture Result 1 (MORIAH) - Final, Complete Medications Current Medications Sodium Chloride 1,000 ml @ 1,000 mls/hr Q1H IV Last administered on 12/24/18at 03:31; Start 12/24/18 at 03:45; Stop 12/24/18 at 04:44; Status DC Piperacillin Sod/ Tazobactam Sod 3.375 gm/Sodium Chloride 50 ml @ 100 mls/hr 1X ONCE IV Last administered on 12/24/18at 04:00; Start 12/24/18 at 04:00; Stop 12/24/18 at 04:29; Status DC Levofloxacin/ Dextrose 100 ml @ 100 mls/hr 1X ONCE IV Last administered on at 05:28; Start 12/24/18 at 04:00; Stop 12/24/18 at 04:59; Status DC Etomidate (Amidate) 20 mg STK-MED ONCE IV ; Start 12/24/18 at 03:47; Stop at 03:48; Status DC Vecuronium Nezperce (Norcuron Bolus) 10 mg STK-MED ONCE IV ; Start 12/24/18 at 03 :47; Stop 12/24/18 at 03:48; Status DC Sodium Chloride 1,000 ml @ 1,000 mls/hr 1X ONCE IV Last administered on at 03:31; Start 12/24/18 at 04:30; Stop 12/24/18 at 05:29; Status DC Vecuronium Nezperce (Norcuron Bolus) 20 mg 1X ONCE IV Last administered on 12/24at 03:32; Start 12/24/18 at 04:30; Stop 12/24/18 at 04:31; Status DC Etomidate (Amidate) 20 mg 1X ONCE IV Last administered on 12/24/18at 03:32; Start 12/24/18 at 04:30; Stop 12/24/18 at 04:31; Status DC Midazolam HCl (Versed) 5 mg 1X ONCE IV Last administered on 12/24/18at 04:45; Start 12/24/18 at 04:45; Stop 12/24/18 at 04:46; Status DC Dopamine HCl/ Dextrose 250 ml @ 3.674 mls/ hr 1X ONCE IV Last administered on 12/24/18at 05:22; Start 12/24/18 at 05:15; Stop 12/27/18 at 01:17; Status DC Sodium Chloride 1,000 ml @ 150 mls/hr Q6H40M IV ; Start 12/24/18 at 05:30; Stop 12/24/18 at 06:52; Status DC Sodium Chloride 1,000 ml @ 1,000 mls/hr 1X ONCE IV Last administered on at 05:04; Start 12/24/18 at 05:45; Stop 12/24/18 at 06:44; Status DC Norepinephrine Bitartrate 250 ml @ 1.875 mls/ hr CONT PRN IV SEE I/O RECORD Last administered on 12/24/18at 05:57; Start 12/24/18 at 05:45; Stop 12/24/18 at 10:25; Status DC Hydrocortisone Sodium Succinate (Solu-CORTEF) 300 mg 1X ONCE IV Last administered on 12/24/18at 10:33; Start 12/24/18 at 06:00; Stop 12/24/18 at 06:01 ; Status DC Sodium Chloride 1,000 ml @ 1,000 mls/hr 1X ONCE IV Last administered on at 05:22; Start 12/24/18 at 07:00; Stop 12/24/18 at 07:59; Status DC Sodium Chloride 1,000 ml @ 1,860 mls/hr Q33M IV ; Start 12/24/18 at 10:14; Stop 12/24/18 at 11:13; Status DC Sodium Chloride 500 ml @ 1,000 mls/hr PRN Q30MIN PRN IV SEE COMMENTS Last administered on 12/24/18at 13:00; Start 12/24/18 at 10:15 Linezolid/Dextrose 300 ml @ 300 mls/hr Q12HR IV Last administered on 12/26/18at 20:33; Start 12/24/18 at 11:00; Stop 12/27/18 at 06:51; Status DC Piperacillin Sod/ Tazobactam Sod 4.5 gm/Sodium Chloride 100 ml @ 200 mls/hr Q6HRS IV ; Start 12/24/18 at 12:00; Status UNV Norepinephrine Bitartrate 250 ml @ 0 mls/hr CONT PRN IV SEE I/O RECORD Last administered on 12/25/18at 14:11; Start 12/24/18 at 10:15 Piperacillin Sod/ Tazobactam Sod 3.375 gm/Sodium Chloride 50 ml @ 100 mls/hr Q6HRS IV Last administered on 12/27/18 05:58; Start 12/24/18 at 12:00; Stop 12/27/18 at 06:51; Status DC Sodium Chloride 1,000 ml @ 75 mls/hr [id number] IV Last administered on 12/28/18at 05:36; Start 12/24/18 at 11:15; Stop 12/29/18 at 06:07; Status DC Propofol 100 ml @ 0 mls/hr CONT PRN IV SEE PROTOCOL Last administered on at 03:45; Start 12/24/18 at 16:30 Fentanyl Citrate (Fentanyl 2ml Vial) 25 mcg PRN Q1HR PRN IV SEE COMMENTS Last administered on 12/25/18at 12:20; Start 12/24/18 at 16:30 Pantoprazole Sodium (PROTONIX VIAL for IV PUSH) 40 mg DAILYAC IVP Last administered on 01/02/19at 08:13; Start 12/24/18 at 18:00 Enoxaparin Sodium (Lovenox 30mg Syringe) 30 mg Q24H SQ Last administered on 12/27at 21:18; Start 12/24/18 at 19:00; Stop 12/28/18 at 10:36; Status DC Midazolam HCl 100 ml @ 0 mls/hr CONT PRN IV PER PROTOCOL Last administered on 09:00; Start 12/25/18 at 10:00 Piperacillin Sod/ Tazobactam Sod 3.375 gm/Sodium Chloride 50 ml @ 100 mls/hr Q8HRS IV Last administered on 12/31/18 05:43; Start 12/27/18 at 14:00; Stop 12/31 at 08:25; Status DC Enoxaparin Sodium (Lovenox 40mg Syringe) 40 mg Q24H SQ ; Start 12/28/18 at 19:00 ; Stop 12/28/18 at 19:00; Status DC Aspirin (Valarie Aspirin) 325 mg DAILY PO Last administered on 01/02/19 08:13; Start 12/28/18 at 14:00 Vitamin D (Vitamin D3) 500 unit DAILY PO Last administered on 01/02/19 08:13; Start 12/28/18 at 14:00 Levetiracetam (Keppra) 500 mg BID PO Last administered on 01/02/19 08:14; Start 12/28/18 at 14:00 Losartan Potassium (Cozaar) 50 mg DAILY PO Last administered on 01/02/19 08:14 ; Start 12/28/18 at 14:00 Magnesium Hydroxide (Milk Of Magnesia) 400 mg PRN DAILY PRN PO CONSTIPATION 2ND CHOICE; Start 12/28/18 at 13:15 Trazodone HCl (Desyrel) 50 mg QHS PO Last administered on 01/01/19 21:22; Start 12/28/18 at 21:00 Polyethylene Glycol (miraLAX PACKET) 17 gm PRN DAILY PRN PO CONSTIPATION 1ST CHOICE; Start 12/29/18 at 09:00 Non-Formulary Medication (Warfarin Sodium ) 8 mg HS PO ; Start 12/28/18 at 21:00 ; Status UNV Warfarin Sodium (Coumadin Per Pharmacy) 1 each PRN DAILY PRN MC SEE COMMENTS Last administered on 01/02/19 09:58; Start 12/28/18 at 13:15 Warfarin Sodium (Coumadin - No Dose Today) 1 each 1X WARF ONCE MC Last administered on 12/28/18 16:36; Start 12/28/18 at 16:36; Stop 12/28/18 at 16:37; Status DC Warfarin Sodium (Coumadin) 2 mg 1X WARF ONCE PO Last administered on 12/29/18 16:30; Start 12/29/18 at 16:00; Stop 12/29/18 at 16:01; Status DC Enalaprilat (Vasotec Inj) 1.25 mg Q6HRS IVP Last administered on 12/29/18 16:30 ; Start 12/29/18 at 16:00; Stop 12/29/18 at 18:05; Status DC Enalaprilat (Vasotec Inj) 2.5 mg PRN Q6HRS PRN IVP HYPERTENSION, SEE COMMENTS Last administered on 01/01/19 12:55; Start 12/29/18 at 18:15 Albumin Human 100 ml @ 100 mls/hr 1X ONCE IV Last administered on 12/30/18 11 :32; Start 12/30/18 at 11:30; Stop 12/30/18 at 12:29; Status DC Dextrose (Dextrose 50%-Water Syringe) 12.5 gm PRN Q15MIN PRN IV SEE COMMENTS Last administered on 12/31/18 18:11; Start 12/30/18 at 14:15 Cefepime HCl (Maxipime) 1 gm Q8HRS IVP Last administered on 01/02/19 05:48; Start 12/31/18 at 09:00 Warfarin Sodium (Coumadin) 4 mg 1X WARF ONCE PO Last administered on 12/31/18 15:20; Start 12/31/18 at 16:00; Stop 12/31/18 at 16:01; Status DC Warfarin Sodium (Coumadin) 7.5 mg 1X WARF ONCE PO Last administered on 16:24; Start 01/01/19 at 16:00; Stop 01/01/19 at 16:01; Status DC Warfarin Sodium (Coumadin) 8 mg 1X WARF ONCE PO ; Start 01/02/19 at 16:00; Stop 01/02/19 at 16:01; Status Cancel Warfarin Sodium (Coumadin) 7.5 mg 1X WARF ONCE PO ; Start 01/02/19 at 16:00; Stop 01/02/19 at 16:01 Active Scripts Active Reported Warfarin Sodium 6 Mg Tablet 8 Mg PO HS Miralax (Polyethylene Glycol 3350) 17 Gm Powd.pack 1 Packet PO PRN DAILY PRN Milk Of Magnesia (Magnesium Hydroxide) 400 Mg/5 Ml Oral.susp 400 Mg PO PRN DAILY PRN Megace Es (Megestrol Acetate) 625 Mg/5 Ml Oral.susp 400 Mg PO Senna Plus Tablet (Sennosides/Docusate Sodium) 1 Each Tablet 1 Each PO Aspirin 325 Mg Tablet 1 Tab PO DAILY Keppra (Levetiracetam) 500 Mg Tablet 500 Mg PO BID Vitamin D3 (Cholecalciferol (Vitamin D3)) 1,000 Unit Tablet 400 Unit PO DAILY Trazodone Hcl 50 Mg Tablet 1 Tab PO QHS Tylenol (Acetaminophen) 325 Mg Tablet 1-2 Tab PO PRN Q4HRS PRN Losartan Potassium 50 Mg Tablet 50 Mg PO DAILY Vitals/I & O Vital Sign - Last 24 Hours 01/01/19 01/01/19 01/01/19 01/01/19 12:00 12:00 12:55 13:00 Temp 97.9 97.9 Pulse 82 82 77 Resp 11 17 B/P (MAP) 165/91 (115) 164/87 167/91 (116) Pulse Ox 100 100 O2 Delivery Room Air Room Air Room Air 01/01/19 01/01/19 01/01/19 01/01/19 14:00 15:00 16:00 16:00 Temp 99.7 99.7 Pulse 77 84 83 Resp 22 23 14 B/P (MAP) 159/90 (113) 152/78 (102) 153/84 (107) Pulse Ox 100 100 100 O2 Delivery Room Air Room Air Room Air Room Air 01/01/19 01/01/19 01/01/19 01/01/19 17:00 18:00 19:00 20:00 Temp 100.1 100.1 Pulse 93 85 84 86 Resp 17 15 22 20 B/P (MAP) 147/86 (106) 155/76 (102) 151/86 (107) 155/78 (103) Pulse Ox 100 99 99 98 O2 Delivery Room Air Room Air Room Air Room Air 01/01/19 01/01/19 01/01/19 01/01/19 20:00 21:00 22:00 23:00 Pulse 88 90 86 Resp 22 13 19 B/P (MAP) 147/80 (102) 165/87 (113) 161/86 (111) Pulse Ox 99 100 94 O2 Delivery Room Air Room Air Room Air Room Air 01/01/19 01/02/19 01/02/19 01/02/19 23:59 00:00 01:00 02:00 Temp 100.2 100.2 Pulse 81 88 85 Resp 18 17 15 B/P (MAP) 153/84 (107) 145/81 (102) 137/72 (93) Pulse Ox 100 100 99 O2 Delivery Room Air Nasal Cannula Nasal Cannula Nasal Cannula O2 Flow Rate 2.0 2.0 2.0 01/02/19 01/02/19 01/02/19 01/02/19 03:00 04:00 04:00 05:00 Temp 99.5 99.5 Pulse 92 86 87 Resp 18 18 18 B/P (MAP) 152/80 (104) 142/78 (99) 162/83 (109) Pulse Ox 100 100 100 O2 Delivery Nasal Cannula Room Air Nasal Cannula Nasal Cannula O2 Flow Rate 2.0 2.0 2.0 01/02/19 01/02/19 01/02/19 01/02/19 06:00 07:00 08:00 08:00 Temp 99.4 99.4 Pulse 83 84 87 Resp 17 18 15 B/P (MAP) 161/84 (109) 151/82 (105) 148/81 (103) Pulse Ox 100 100 100 O2 Delivery Nasal Cannula Nasal Cannula Nasal Cannula Nasal Cannula O2 Flow Rate 2.0 2.0 2.0 2.0 01/02/19 01/02/19 01/02/19 01/02/19 08:14 09:00 10:00 11:00 Pulse 84 85 87 81 Resp 17 17 16 B/P (MAP) 151/82 153/77 (102) 150/83 (105) 155/86 (109) Pulse Ox 100 100 100 O2 Delivery Nasal Cannula Nasal Cannula O2 Flow Rate 2.0 2.0 2.0 Intake and Output 01/01/19 01/01/19 01/02/19 15:00 23:00 07:00 Intake Total 875 ml 1125 ml Output Total 740 ml 980 ml 1160 ml Balance -740 ml -105 ml -35 ml JIE TONG III DO Jan 02, 2019 12:03
--- NOTE | 2019-01-02 15:05 | NUR ---
Pharmacy Warfarin Dosing Note S:Pharmacy consulted to assist with anticoagulation therapy started with target INR: 2 -3 O:ARIEL TORRES is a 78 year old M with Atrial Fibrillation Recurrent VTE HX SINUS THROMBOSIS LABS: Last INR: 1.6 Last HGB: 8.0 Last HCT: 24.1 Last PLT: 78 Last dose of 7.5 mg given on 01/01/19 at 1520 Previous Regimen: 8 MG/D Vitamin K given: Drug Interaction Changes: Ongoing Drug Interactions: A:INR of 1.6 is below desired range. Target range for this patient is: 2 -3 P: Warfarin dose: 7.5 mg Today at 1600 Bridge Therapy: None Next INR due TOMORROW. Pharmacy anticoagulation service will continue to follow. AGUILAR COPELAND Cornelia, 01/02/19 [id number]
[2019-01-02] MEDS: ACETAMINOPHEN 650 MG/20.3 ML SOLUTION. NG PRN (15:32)
[2019-01-02] MEDS: ENALAPRILAT 2.5 MG/2 ML VIAL. IVP PRN (15:33)
--- NOTE | 2019-01-02 15:44 | NUR ---
SS following up with discharge planning. Pt accepted at [facility]. SS will await discharge orders for [facility] and will proceed accordingly.
[2019-01-02] MEDS ORDERED: WARFARIN 7.5 MG TABLET. PO ONE (16:00)
[2019-01-02] MEDS ORDERED: WARFARIN 4 MG TABLET. PO ONE (16:00)
[2019-01-02] MEDS: traZODone 50 MG TABLET. PO SCH (21:48)
[2019-01-03 03:14] VITALS: BP 159/91
[2019-01-03] MEDS: CEFEPIME HCL IV Push 1 GM VIAL. IVP SCH ×3 (06:07→20:07)
[2019-01-03 06:33] LABS: PROTHROMBIN TIME PATIENT 21.7 SEC (11.7-14.0)
[2019-01-03 07:00] VITALS: BP 167/98
[2019-01-03] MEDS: CHOLECALCIFEROL (VITAMIN D3) 1,000 UNIT TABLET PO SCH (08:44)
[2019-01-03] MEDS: ASPIRIN 325 MG TABLET PO SCH (08:44)
[2019-01-03] MEDS: LOSARTAN POTASSIUM 50 MG TABLET. PO SCH (08:44)
[2019-01-03] MEDS: levETIRAcetam 500 MG TABLET PO SCH ×2 (08:44→20:07)
[2019-01-03] MEDS: PANTOPRAZOLE IV PUSH 40 MG VIAL. IVP SCH (08:44)
[2019-01-03] MEDS: ENALAPRILAT 2.5 MG/2 ML VIAL. IVP PRN ×2 (08:45→21:26)
--- NOTE | 2019-01-03 09:19 | PDOC ---
Infectious Disease Note Subjective Subjective No fevers Tube feedings 45 ml/hr via NGT O2 1 L ROS ROS unobtainable Vital Sign Vital Signs Vital Signs Date Time Temp Pulse Resp B/P (MAP) Pulse Ox O2 Delivery O2 Flow Rate FiO2 01/03/19 08:45 70 167/98 01/03/19 07:00 98.9 16 96 Nasal Cannula 2.0 98.9 Physical Exam PHYSICAL EXAM GENERAL: Propped up in be, weak appearing HEENT: NGT +, anicteric LUNGS: Clear anteriorly HEART: S1, S2 irregular ABDOMEN: BS active, soft, no grimace to palpation : Jaquez EXTREMITIES: generalized edema SKIN: warm, no rash NEUROLOGIC: Noncommunicative RIJ clean Labs Lab Laboratory Tests Test 01/02/19 10:05 01/02/19 10:14 01/02/19 18:40 01/03/19 02:37 Glucose (Fingerstick) 100 mg/dL (70-99) 106 mg/dL (70-99) 98 mg/dL (70-99) Prothrombin Time 19.1 SEC (11.7-14.0) Prothromb Time International Ratio 1.6 (0.8-1.1) Test 01/03/19 06:10 01/03/19 06:20 Prothrombin Time 21.7 SEC (11.7-14.0) Prothromb Time International Ratio 1.9 (0.8-1.1) Glucose (Fingerstick) 96 mg/dL (70-99) Micro 12/31. BLOOD CULTURE Preliminary NO GROWTH AFTER 3 DAYS Objective Assessment Septic shock with hypothermia (POA) resolved E coli bacteremia (POA) ; FQ resistant,source ?? GI /, UC neg. BC NGTD from 12/31. Leukopenia - resolved Lactic acidosis Suspected aspiration Respiratory failure TAZ better Dehydration Dementia Thrombocytopenia Anemia Plan Plan of Care cont cefepime 12/31 ,was on Zosyn before Levaquin x 1, on 12/24 Supportive care care [facility] Patient seen, examined, I agree with above. Assessment and plan was coformulated with [employer]. NATI ODELL APRN Jan 03, 2019 09:19 JODI DUNCAN MD Jan 03, 2019 15:36
--- NOTE | 2019-01-03 09:28 | PDOC ---
PULMONARY PROGRESS NOTES Subjective Patient asked to be extubated 12/31, he does not follow any of my commands, his baseline, appears comfortable Vitals Vital Signs Date Time Temp Pulse Resp B/P (MAP) Pulse Ox O2 Delivery O2 Flow Rate FiO2 01/03/19 08:45 70 167/98 01/03/19 07:00 98.9 16 96 Nasal Cannula 2.0 98.9 Lungs: Clear, Other (distant breath sounds) Cardiovascular: S1, S2 Abdomen: Soft Extremities: Other (EDEMA) Skin: Warm Labs Laboratory Tests Test 01/02/19 05:50 01/02/19 10:05 01/02/19 10:14 01/02/19 18:40 White Blood Count 10.1 x10^3/uL (4.0-11.0) Red Blood Count 2.84 x10^6/uL (4.30-5.70) Hemoglobin 8.5 g/dL (13.0-17.5) Hematocrit 25.0 % (39.0-53.0) Mean Corpuscular Volume 88 fL (79-100) Mean Corpuscular Hemoglobin 30 pg (25-35) Mean Corpuscular Hemoglobin Concent 34 g/dL (31-37) Red Cell Distribution Width 15.8 % (11.5-14.5) Platelet Count 99 x10^3/uL (140-400) Neutrophils (%) (Auto) 75 % (31-73) Lymphocytes (%) (Auto) 11 % (24-48) Monocytes (%) (Auto) 12 % (0-9) Eosinophils (%) (Auto) 2 % (0-3) Basophils (%) (Auto) 0 % (0-3) Neutrophils # (Auto) 7.5 x10^3uL (1.8-7.7) Lymphocytes # (Auto) 1.1 x10^3/uL (1.0-4.8) Monocytes # (Auto) 1.2 x10^3/uL (0.0-1.1) Eosinophils # (Auto) 0.2 x10^3/uL (0.0-0.7) Basophils # (Auto) 0.0 x10^3/uL (0.0-0.2) Sodium Level 140 mmol/L (136-145) Potassium Level 3.6 mmol/L (3.5-5.1) Chloride Level 105 mmol/L (98-107) Carbon Dioxide Level 26 mmol/L (21-32) Anion Gap 9 (6-14) Blood Urea Nitrogen 13 mg/dL (8-26) Creatinine 1.1 mg/dL (0.7-1.3) Estimated GFR (Cockcroft-Gault) 77.9 Glucose Level 96 mg/dL (70-99) Calcium Level 8.6 mg/dL (8.5-10.1) Glucose (Fingerstick) 100 mg/dL (70-99) 106 mg/dL (70-99) Prothrombin Time 19.1 SEC (11.7-14.0) Prothromb Time International Ratio 1.6 (0.8-1.1) Test 01/03/19 02:37 01/03/19 06:10 01/03/19 06:20 Glucose (Fingerstick) 98 mg/dL (70-99) 96 mg/dL (70-99) Prothrombin Time 21.7 SEC (11.7-14.0) Prothromb Time International Ratio 1.9 (0.8-1.1) Laboratory Tests Test 01/02/19 10:05 01/02/19 10:14 01/02/19 18:40 01/03/19 02:37 Glucose (Fingerstick) 100 mg/dL (70-99) 106 mg/dL (70-99) 98 mg/dL (70-99) Prothrombin Time 19.1 SEC (11.7-14.0) Prothromb Time International Ratio 1.6 (0.8-1.1) Test 01/03/19 06:10 01/03/19 06:20 Prothrombin Time 21.7 SEC (11.7-14.0) Prothromb Time International Ratio 1.9 (0.8-1.1) Glucose (Fingerstick) 96 mg/dL (70-99) Medications Active Scripts Medications Dose Route/Sig Max Daily Dose Days Date Category Warfarin Sodium 6 Mg Tablet 8 Mg PO HS 12/24/18 Reported Miralax (Polyethylene Glycol 3350) 17 Gm Powd.pack 1 Packet PO PRN DAILY PRN 03/19/18 Reported Milk Of Magnesia (Magnesium Hydroxide) 400 Mg/5 Ml Oral.susp 400 Mg PO PRN DAILY PRN 03/19/18 Reported Megace Es (Megestrol Acetate) 625 Mg/5 Ml Oral.susp 400 Mg PO 03/19/18 Reported Senna Plus Tablet (Sennosides/Docusate Sodium) 1 Each Tablet 1 Each PO 03/19/18 Reported Aspirin 325 Mg Tablet 1 Tab PO DAILY 03/19/18 Reported Keppra (Levetiracetam) 500 Mg Tablet 500 Mg PO BID 03/05/18 Reported Vitamin D3 (Cholecalciferol (Vitamin D3)) 1,000 Unit Tablet 400 Unit PO DAILY 03/05/18 Reported Trazodone Hcl 50 Mg Tablet 1 Tab PO QHS 03/05/18 Reported Tylenol (Acetaminophen) 325 Mg Tablet 1-2 Tab PO PRN Q4HRS PRN 03/05/18 Reported Losartan Potassium 50 Mg Tablet 50 Mg PO DAILY 11/28/17 Reported Impression . IMPRESSION: 1. Acute respiratory failure, multifactorial. 2. Septic shock. 3. Possible urinary tract infection. 4. History of cerebrovascular accident and dementia. 5. Prior questionable history of cerebral sinus thrombosis. 6. Seizures. 7. Generalized weakness. 8. Protein malnutrition, present upon admission. 9. Leukopenia. resolved 10. Acute on chronic renal failure. 11. Metabolic acidosis from sepsis. resolved 12.. E coli bacteremia (POA) PER ID Plan . elevate hob antibiotics per ID overall prognosis is poor may need Dabhoff tube feeding or PEG palliative care consulted protonix is on coumadin discussed w love. TERESA GARCIA MD Jan 03, 2019 09:28
[2019-01-03] MEDS: ALTEPLASE 1MG SYRINGE. INT CAT ONE ×2 (10:30→11:42)
[2019-01-03 11:00] VITALS: BP 117/75
--- NOTE | 2019-01-03 12:32 | PDOC ---
PROGRESS NOTES Chief Complaint Chief Complaint metabolic encephalopathy acute respiratory failure resolved Septic shock secondary to urinary tract infection secondary to chronic indwelling urinary suprapubic catheter resolved Hypoalbuminemia - may be causing swelling of extremities Elevated troponin, most likely demand ischemia History of acute venous sinus thrombosis on CTA head/neck on chronic anticoagulation with coumadin Left Sided weakness and right-sided gaze, on last admission which had resolved History dementia, seizures History of essential Hypertension History of BPH, Indwelling suprapubic catheter History of complicated UTI in a male sec to indwelling FC Dysphagia, patient with dobhoff tube currently, will discuss with family goals of therapy History of Present Illness History of Present Illness Pt is an 78 y/o male who presented with sepsis due to UTI and chronic indwelling catheter. BCx demonstrated multi-drug resistant E. Coli. Patient opens eyes to stimuli, but is otherwise not responsive. Patient is extubated with NG tube. Patient had temperature of >102 F overnight. Pulm and ID following. Vitals Vitals Vital Signs Date Time Temp Pulse Resp B/P (MAP) Pulse Ox O2 Delivery O2 Flow Rate FiO2 01/03/19 11:00 98.7 91 16 117/75 (89) 97 Nasal Cannula 2.0 98.7 Physical Exam Physical Exam GENERAL: Propped up in be, weak appearing HEENT: NGT +, anicteric LUNGS: Clear anteriorly HEART: S1, S2 irregular ABDOMEN: BS active, soft, no grimace to palpation : Jaquez EXTREMITIES: generalized edema SKIN: warm, no rash NEUROLOGIC: Noncommunicative RIJ clean General: No acute distress, Other (patient extubated, opens eyes to stimuli) Heart: Regular rate, No murmurs, Other (irregulary rhythm) Lungs: Clear, Other (distant breath sounds) Abdomen: Normal bowel sounds, Soft, No tenderness Extremities: No clubbing, Normal pulses, Other (1+ edema of bilateral upper and lower extremities) Skin: No rashes, No significant lesion Labs LABS Laboratory Tests Test 01/02/19 18:40 01/03/19 02:37 01/03/19 06:10 01/03/19 06:20 Glucose (Fingerstick) 106 mg/dL (70-99) 98 mg/dL (70-99) 96 mg/dL (70-99) Prothrombin Time 21.7 SEC (11.7-14.0) Prothromb Time International Ratio 1.9 (0.8-1.1) Assessment and Plan Assessmemt and Plan Problems Medical Problems: (1) Acute sepsis Status: Acute (2) UTI (urinary tract infection) due to urinary indwelling catheter Status: Acute Comment Review of Relevant I have reviewed the following items edgar (where applicable) has been applied. Labs Laboratory Tests Test 01/02/19 05:50 01/02/19 10:05 01/02/19 10:14 01/02/19 18:40 White Blood Count 10.1 x10^3/uL (4.0-11.0) Red Blood Count 2.84 x10^6/uL (4.30-5.70) Hemoglobin 8.5 g/dL (13.0-17.5) Hematocrit 25.0 % (39.0-53.0) Mean Corpuscular Volume 88 fL (79-100) Mean Corpuscular Hemoglobin 30 pg (25-35) Mean Corpuscular Hemoglobin Concent 34 g/dL (31-37) Red Cell Distribution Width 15.8 % (11.5-14.5) Platelet Count 99 x10^3/uL (140-400) Neutrophils (%) (Auto) 75 % (31-73) Lymphocytes (%) (Auto) 11 % (24-48) Monocytes (%) (Auto) 12 % (0-9) Eosinophils (%) (Auto) 2 % (0-3) Basophils (%) (Auto) 0 % (0-3) Neutrophils # (Auto) 7.5 x10^3uL (1.8-7.7) Lymphocytes # (Auto) 1.1 x10^3/uL (1.0-4.8) Monocytes # (Auto) 1.2 x10^3/uL (0.0-1.1) Eosinophils # (Auto) 0.2 x10^3/uL (0.0-0.7) Basophils # (Auto) 0.0 x10^3/uL (0.0-0.2) Sodium Level 140 mmol/L (136-145) Potassium Level 3.6 mmol/L (3.5-5.1) Chloride Level 105 mmol/L (98-107) Carbon Dioxide Level 26 mmol/L (21-32) Anion Gap 9 (6-14) Blood Urea Nitrogen 13 mg/dL (8-26) Creatinine 1.1 mg/dL (0.7-1.3) Estimated GFR (Cockcroft-Gault) 77.9 Glucose Level 96 mg/dL (70-99) Calcium Level 8.6 mg/dL (8.5-10.1) Glucose (Fingerstick) 100 mg/dL (70-99) 106 mg/dL (70-99) Prothrombin Time 19.1 SEC (11.7-14.0) Prothromb Time International Ratio 1.6 (0.8-1.1) Test 01/03/19 02:37 01/03/19 06:10 01/03/19 06:20 Glucose (Fingerstick) 98 mg/dL (70-99) 96 mg/dL (70-99) Prothrombin Time 21.7 SEC (11.7-14.0) Prothromb Time International Ratio 1.9 (0.8-1.1) Laboratory Tests Test 01/02/19 18:40 01/03/19 02:37 01/03/19 06:10 01/03/19 06:20 Glucose (Fingerstick) 106 mg/dL (70-99) 98 mg/dL (70-99) 96 mg/dL (70-99) Prothrombin Time 21.7 SEC (11.7-14.0) Prothromb Time International Ratio 1.9 (0.8-1.1) Microbiology 12/31/18 Blood Culture - Preliminary, Resulted NO GROWTH AFTER 3 DAYS 12/24/18 Urine Culture - Final, Complete 12/24/18 Urine Culture Result 1 (MORIAH) - Final, Complete Medications Current Medications Sodium Chloride 1,000 ml @ 1,000 mls/hr Q1H IV Last administered on 12/24/18at 03:31; Start 12/24/18 at 03:45; Stop 12/24/18 at 04:44; Status DC Piperacillin Sod/ Tazobactam Sod 3.375 gm/Sodium Chloride 50 ml @ 100 mls/hr 1X ONCE IV Last administered on 12/24/18at 04:00; Start 12/24/18 at 04:00; Stop 12/24/18 at 04:29; Status DC Levofloxacin/ Dextrose 100 ml @ 100 mls/hr 1X ONCE IV Last administered on at 05:28; Start 12/24/18 at 04:00; Stop 12/24/18 at 04:59; Status DC Etomidate (Amidate) 20 mg STK-MED ONCE IV ; Start 12/24/18 at 03:47; Stop at 03:48; Status DC Vecuronium [place] (Norcuron Bolus) 10 mg STK-MED ONCE IV ; Start 12/24/18 at 03 :47; Stop 12/24/18 at 03:48; Status DC Sodium Chloride 1,000 ml @ 1,000 mls/hr 1X ONCE IV Last administered on at 03:31; Start 12/24/18 at 04:30; Stop 12/24/18 at 05:29; Status DC Vecuronium [place] (Norcuron Bolus) 20 mg 1X ONCE IV Last administered on 12/24at 03:32; Start 12/24/18 at 04:30; Stop 12/24/18 at 04:31; Status DC Etomidate (Amidate) 20 mg 1X ONCE IV Last administered on 12/24/18at 03:32; Start 12/24/18 at 04:30; Stop 12/24/18 at 04:31; Status DC Midazolam HCl (Versed) 5 mg 1X ONCE IV Last administered on 12/24/18at 04:45; Start 12/24/18 at 04:45; Stop 12/24/18 at 04:46; Status DC Dopamine HCl/ Dextrose 250 ml @ 3.674 mls/ hr 1X ONCE IV Last administered on 12/24/18at 05:22; Start 12/24/18 at 05:15; Stop 12/27/18 at 01:17; Status DC Sodium Chloride 1,000 ml @ 150 mls/hr Q6H40M IV ; Start 12/24/18 at 05:30; Stop 12/24/18 at 06:52; Status DC Sodium Chloride 1,000 ml @ 1,000 mls/hr 1X ONCE IV Last administered on at 05:04; Start 12/24/18 at 05:45; Stop 12/24/18 at 06:44; Status DC Norepinephrine Bitartrate 250 ml @ 1.875 mls/ hr CONT PRN IV SEE I/O RECORD Last administered on 12/24/18at 05:57; Start 12/24/18 at 05:45; Stop 12/24/18 at 10:25; Status DC Hydrocortisone Sodium Succinate (Solu-CORTEF) 300 mg 1X ONCE IV Last administered on 12/24/18at 10:33; Start 12/24/18 at 06:00; Stop 12/24/18 at 06:01 ; Status DC Sodium Chloride 1,000 ml @ 1,000 mls/hr 1X ONCE IV Last administered on at 05:22; Start 12/24/18 at 07:00; Stop 12/24/18 at 07:59; Status DC Sodium Chloride 1,000 ml @ 1,860 mls/hr Q33M IV ; Start 12/24/18 at 10:14; Stop 12/24/18 at 11:13; Status DC Sodium Chloride 500 ml @ 1,000 mls/hr PRN Q30MIN PRN IV SEE COMMENTS Last administered on 12/24/18at 13:00; Start 12/24/18 at 10:15 Linezolid/Dextrose 300 ml @ 300 mls/hr Q12HR IV Last administered on 12/26/18at 20:33; Start 12/24/18 at 11:00; Stop 12/27/18 at 06:51; Status DC Piperacillin Sod/ Tazobactam Sod 4.5 gm/Sodium Chloride 100 ml @ 200 mls/hr Q6HRS IV ; Start 12/24/18 at 12:00; Status UNV Norepinephrine Bitartrate 250 ml @ 0 mls/hr CONT PRN IV SEE I/O RECORD Last administered on 12/25/18at 14:11; Start 12/24/18 at 10:15; Stop 01/03/19 at 12:04 ; Status DC Piperacillin Sod/ Tazobactam Sod 3.375 gm/Sodium Chloride 50 ml @ 100 mls/hr Q6HRS IV Last administered on 12/27/18at 05:58; Start 12/24/18 at 12:00; Stop 12/27/18 at 06:51; Status DC Sodium Chloride 1,000 ml @ 75 mls/hr [id number] IV Last administered on 12/28/18at 05:36; Start 12/24/18 at 11:15; Stop 12/29/18 at 06:07; Status DC Propofol 100 ml @ 0 mls/hr CONT PRN IV SEE PROTOCOL Last administered on 03:45; Start 12/24/18 at 16:30; Stop 01/03/19 at 12:04; Status DC Fentanyl Citrate (Fentanyl 2ml Vial) 25 mcg PRN Q1HR PRN IV SEE COMMENTS Last administered on 12/25/18at 12:20; Start 12/24/18 at 16:30 Pantoprazole Sodium (PROTONIX VIAL for IV PUSH) 40 mg DAILYAC IVP Last administered on 01/03/19 08:44; Start 12/24/18 at 18:00 Enoxaparin Sodium (Lovenox 30mg Syringe) 30 mg Q24H SQ Last administered on 12/27 21:18; Start 12/24/18 at 19:00; Stop 12/28/18 at 10:36; Status DC Midazolam HCl 100 ml @ 0 mls/hr CONT PRN IV PER PROTOCOL Last administered on 09:00; Start 12/25/18 at 10:00; Stop 01/03/19 at 12:04; Status DC Piperacillin Sod/ Tazobactam Sod 3.375 gm/Sodium Chloride 50 ml @ 100 mls/hr Q8HRS IV Last administered on 12/31/18 05:43; Start 12/27/18 at 14:00; Stop 12/31 at 08:25; Status DC Enoxaparin Sodium (Lovenox 40mg Syringe) 40 mg Q24H SQ ; Start 12/28/18 at 19:00 ; Stop 12/28/18 at 19:00; Status DC Aspirin (Valarie Aspirin) 325 mg DAILY PO Last administered on 01/03/19 08:44; Start 12/28/18 at 14:00 Vitamin D (Vitamin D3) 500 unit DAILY PO Last administered on 01/03/19 08:44; Start 12/28/18 at 14:00 Levetiracetam (Keppra) 500 mg BID PO Last administered on 01/03/19 08:44; Start 12/28/18 at 14:00 Losartan Potassium (Cozaar) 50 mg DAILY PO Last administered on 01/03/19 08:44 ; Start 12/28/18 at 14:00 Magnesium Hydroxide (Milk Of Magnesia) 400 mg PRN DAILY PRN PO CONSTIPATION 2ND CHOICE; Start 12/28/18 at 13:15 Trazodone HCl (Desyrel) 50 mg QHS PO Last administered on 01/02/19 21:48; Start 12/28/18 at 21:00 Polyethylene Glycol (miraLAX PACKET) 17 gm PRN DAILY PRN PO CONSTIPATION 1ST CHOICE; Start 12/29/18 at 09:00 Non-Formulary Medication (Warfarin Sodium ) 8 mg HS PO ; Start 12/28/18 at 21:00 ; Status UNV Warfarin Sodium (Coumadin Per Pharmacy) 1 each PRN DAILY PRN MC SEE COMMENTS Last administered on 01/02/19 15:04; Start 12/28/18 at 13:15 Warfarin Sodium (Coumadin - No Dose Today) 1 each 1X WARF ONCE MC Last administered on 12/28/18 16:36; Start 12/28/18 at 16:36; Stop 12/28/18 at 16:37; Status DC Warfarin Sodium (Coumadin) 2 mg 1X WARF ONCE PO Last administered on 12/29/18 16:30; Start 12/29/18 at 16:00; Stop 12/29/18 at 16:01; Status DC Enalaprilat (Vasotec Inj) 1.25 mg Q6HRS IVP Last administered on 12/29/18 16:30 ; Start 12/29/18 at 16:00; Stop 12/29/18 at 18:05; Status DC Enalaprilat (Vasotec Inj) 2.5 mg PRN Q6HRS PRN IVP HYPERTENSION, SEE COMMENTS Last administered on 01/03/19 08:45; Start 12/29/18 at 18:15 Albumin Human 100 ml @ 100 mls/hr 1X ONCE IV Last administered on 12/30/18 11 :32; Start 12/30/18 at 11:30; Stop 12/30/18 at 12:29; Status DC Dextrose (Dextrose 50%-Water Syringe) 12.5 gm PRN Q15MIN PRN IV SEE COMMENTS Last administered on 12/31/18 18:11; Start 12/30/18 at 14:15 Cefepime HCl (Maxipime) 1 gm Q8HRS IVP Last administered on 01/03/19 06:07; Start 12/31/18 at 09:00 Warfarin Sodium (Coumadin) 4 mg 1X WARF ONCE PO Last administered on 12/31/18at 15:20; Start 12/31/18 at 16:00; Stop 12/31/18 at 16:01; Status DC Warfarin Sodium (Coumadin) 7.5 mg 1X WARF ONCE PO Last administered on at 16:24; Start 01/01/19 at 16:00; Stop 01/01/19 at 16:01; Status DC Warfarin Sodium (Coumadin) 8 mg 1X WARF ONCE PO ; Start 01/02/19 at 16:00; Stop 01/02/19 at 16:01; Status Cancel Warfarin Sodium (Coumadin) 7.5 mg 1X WARF ONCE PO Last administered on at 15:33; Start 01/02/19 at 16:00; Stop 01/02/19 at 16:01; Status DC Acetaminophen (Tylenol) 650 mg PRN Q6HRS PRN NG MILD PAIN / TEMP Last administered on 01/02/19at 15:32; Start 01/02/19 at 15:15 Alteplase, Recombinant (Cathflo For Central Catheter Clearance) 1 mg 1X ONCE INT CAT ; Start 01/03/19 at 10:30; Stop 01/03/19 at 10:31; Status DC Active Scripts Active Reported Warfarin Sodium 6 Mg Tablet 8 Mg PO HS Miralax (Polyethylene Glycol 3350) 17 Gm Powd.pack 1 Packet PO PRN DAILY PRN Milk Of Magnesia (Magnesium Hydroxide) 400 Mg/5 Ml Oral.susp 400 Mg PO PRN DAILY PRN Megace Es (Megestrol Acetate) 625 Mg/5 Ml Oral.susp 400 Mg PO Senna Plus Tablet (Sennosides/Docusate Sodium) 1 Each Tablet 1 Each PO Aspirin 325 Mg Tablet 1 Tab PO DAILY Keppra (Levetiracetam) 500 Mg Tablet 500 Mg PO BID Vitamin D3 (Cholecalciferol (Vitamin D3)) 1,000 Unit Tablet 400 Unit PO DAILY Trazodone Hcl 50 Mg Tablet 1 Tab PO QHS Tylenol (Acetaminophen) 325 Mg Tablet 1-2 Tab PO PRN Q4HRS PRN Losartan Potassium 50 Mg Tablet 50 Mg PO DAILY Vitals/I & O Vital Sign - Last 24 Hours 01/02/19 01/02/19 01/02/19 01/02/19 15:00 15:33 17:14 19:55 Temp 99.9 99.0 99.9 99.0 Pulse 90 91 79 90 Resp 18 16 B/P (MAP) 178/102 (127) 178/102 164/90 (114) 145/82 (103) Pulse Ox 99 98 O2 Delivery Nasal Cannula Nasal Cannula O2 Flow Rate 2.0 2.0 01/02/19 01/02/19 01/03/19 01/03/19 20:00 23:15 03:14 07:00 Temp 99.4 99.5 98.9 99.4 99.5 98.9 Pulse 98 87 70 Resp 16 16 16 B/P (MAP) 157/87 (110) 159/91 (113) 167/98 (121) Pulse Ox 98 97 96 O2 Delivery Nasal Cannula Nasal Cannula Nasal Cannula Nasal Cannula O2 Flow Rate 2.0 2.0 2.0 2.0 01/03/19 01/03/19 01/03/19 01/03/19 08:00 08:44 08:45 11:00 Temp 98.7 98.7 Pulse 70 70 91 Resp 16 B/P (MAP) 167/98 167/98 117/75 (89) Pulse Ox 97 O2 Delivery Nasal Cannula Nasal Cannula O2 Flow Rate 2.0 2.0 Intake and Output 01/02/19 01/02/19 01/03/19 15:00 23:00 07:00 Intake Total 230 ml 225 ml 215 ml Output Total 600 ml 400 ml 1300 ml Balance -370 ml -175 ml -1085 ml KESHA HILLS MD Jan 03, 2019 12:32
--- NOTE | 2019-01-03 14:47 | NUR ---
Pharmacy Warfarin Dosing Note S: Pharmacy consulted to assist with anticoagulation therapy O: ARIEL TORRES is a 78 year old M with Atrial Fibrillation, Recurrent VTE HX SINUS THROMBOSIS LABS: Last INR: 1.9 Last HGB: 8.5 Last HCT: 25 Last PLT: 99 Last dose of 7.5 mg given on 01/02/19 at 1533 A:INR of 1.9 is below desired range. Target range for this patient is: 2 -3 P: Warfarin dose: 7.5 mg Today at 1600 Bridge Therapy: None Next INR due tomorrow Pharmacy anticoagulation service will continue to follow. Alexandra Gray RPH, 01/03/19 0110
[2019-01-03 15:00] VITALS: BP 135/81
[2019-01-03] MEDS ORDERED: WARFARIN 7.5 MG TABLET. PO ONE (16:00)
--- NOTE | 2019-01-03 17:36 | PDOC2 ---
NEUROLOGY CONSULT Date of Admission Date of Admission DATE: 01/03/19 TIME: 17:23 Reason for Consult Reason for Consult: Altered mental status Referring Physician Referring Physician: Dr. Judith Ghosh Source Source: Caregiver, Chart review History of Present Illness History of Present Illness The patient is an 78-year-old right-handed male admitted 10 days ago with severely decreased level of consciousness. He was hypothermic with a [place] Coma Scale of 4. He was thought to be septic from a urinary tract infection. He has severe dementia, history of seizures, and when I last saw him during his September hospital stay, we found a left sigmoid sinus thrombosis. The patient has been on Coumadin ever since. 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 MR angiogram was negative. At baseline , before the September admission, he was in assisted living with severe dementia and has a suprapubic catheter in place. He also has a history of epilepsy for which she is on levetiracetam. Since the September hospital stay he has been a senior living and has been mainly unresponsive there as well. Son admits that the patient has had a gradual decline, worse in the last few months, but starting at least a year ago. The son does not remember when his last seizure was. It was our feeling last time in September that he may have had a seizure with Mike's paralysis as in the emergency department, he had right gaze preference and left-sided paresis. Past Medical History Pulmonary: Pneumonia, Other (Pulmonary nodule) CENTRAL NERVOUS SYSTEM: CVA, Dementia, Seizure, TIA, Other (left sigmoid sinus thrombosis) Heme/Onc: B12 deficiency Psych: Anxiety Musculoskeletal: low back pain (L-1 compression fracture) Renal/: UTI, Benign prostatic enlarg. (has a suprapubic catheter), Urinary Incontinence (and retention) Past Surgical History Past Surgical History: Total hip replacement (left) Family History Family History: No pertinent hx Social History Social History detention resident, no alcohol or tobacco Current Medications Current Medications Current Medications Sodium Chloride 1,000 ml @ 1,000 mls/hr Q1H IV Last administered on 12/24/18at 03:31; Start 12/24/18 at 03:45; Stop 12/24/18 at 04:44; Status DC Piperacillin Sod/ Tazobactam Sod 3.375 gm/Sodium Chloride 50 ml @ 100 mls/hr 1X ONCE IV Last administered on 12/24/18at 04:00; Start 12/24/18 at 04:00; Stop 12/24/18 at 04:29; Status DC Levofloxacin/ Dextrose 100 ml @ 100 mls/hr 1X ONCE IV Last administered on at 05:28; Start 12/24/18 at 04:00; Stop 12/24/18 at 04:59; Status DC Etomidate (Amidate) 20 mg STK-MED ONCE IV ; Start 12/24/18 at 03:47; Stop at 03:48; Status DC Vecuronium Countyline (Norcuron Bolus) 10 mg STK-MED ONCE IV ; Start 12/24/18 at 03 :47; Stop 12/24/18 at 03:48; Status DC Sodium Chloride 1,000 ml @ 1,000 mls/hr 1X ONCE IV Last administered on at 03:31; Start 12/24/18 at 04:30; Stop 12/24/18 at 05:29; Status DC Vecuronium [place]line (Norcuron Bolus) 20 mg 1X ONCE IV Last administered on 12/24at 03:32; Start 12/24/18 at 04:30; Stop 12/24/18 at 04:31; Status DC Etomidate (Amidate) 20 mg 1X ONCE IV Last administered on 12/24/18at 03:32; Start 12/24/18 at 04:30; Stop 12/24/18 at 04:31; Status DC Midazolam HCl (Versed) 5 mg 1X ONCE IV Last administered on 12/24/18at 04:45; Start 12/24/18 at 04:45; Stop 12/24/18 at 04:46; Status DC Dopamine HCl/ Dextrose 250 ml @ 3.674 mls/ hr 1X ONCE IV Last administered on 12/24/18at 05:22; Start 12/24/18 at 05:15; Stop 12/27/18 at 01:17; Status DC Sodium Chloride 1,000 ml @ 150 mls/hr Q6H40M IV ; Start 12/24/18 at 05:30; Stop 12/24/18 at 06:52; Status DC Sodium Chloride 1,000 ml @ 1,000 mls/hr 1X ONCE IV Last administered on at 05:04; Start 12/24/18 at 05:45; Stop 12/24/18 at 06:44; Status DC Norepinephrine Bitartrate 250 ml @ 1.875 mls/ hr CONT PRN IV SEE I/O RECORD Last administered on 12/24/18at 05:57; Start 12/24/18 at 05:45; Stop 12/24/18 at 10:25; Status DC Hydrocortisone Sodium Succinate (Solu-CORTEF) 300 mg 1X ONCE IV Last administered on 12/24/18at 10:33; Start 12/24/18 at 06:00; Stop 12/24/18 at 06:01 ; Status DC Sodium Chloride 1,000 ml @ 1,000 mls/hr 1X ONCE IV Last administered on at 05:22; Start 12/24/18 at 07:00; Stop 12/24/18 at 07:59; Status DC Sodium Chloride 1,000 ml @ 1,860 mls/hr Q33M IV ; Start 12/24/18 at 10:14; Stop 12/24/18 at 11:13; Status DC Sodium Chloride 500 ml @ 1,000 mls/hr PRN Q30MIN PRN IV SEE COMMENTS Last administered on 12/24/18at 13:00; Start 12/24/18 at 10:15 Linezolid/Dextrose 300 ml @ 300 mls/hr Q12HR IV Last administered on 12/26/18at 20:33; Start 12/24/18 at 11:00; Stop 12/27/18 at 06:51; Status DC Piperacillin Sod/ Tazobactam Sod 4.5 gm/Sodium Chloride 100 ml @ 200 mls/hr Q6HRS IV ; Start 12/24/18 at 12:00; Status UNV Norepinephrine Bitartrate 250 ml @ 0 mls/hr CONT PRN IV SEE I/O RECORD Last administered on 12/25/18at 14:11; Start 12/24/18 at 10:15; Stop 01/03/19 at 12:04 ; Status DC Piperacillin Sod/ Tazobactam Sod 3.375 gm/Sodium Chloride 50 ml @ 100 mls/hr Q6HRS IV Last administered on 12/27/18at 05:58; Start 12/24/18 at 12:00; Stop 12/27/18 at 06:51; Status DC Sodium Chloride 1,000 ml @ 75 mls/hr [id number] IV Last administered on 12/28/18 05:36; Start 12/24/18 at 11:15; Stop 12/29/18 at 06:07; Status DC Propofol 100 ml @ 0 mls/hr CONT PRN IV SEE PROTOCOL Last administered on at 03:45; Start 12/24/18 at 16:30; Stop 01/03/19 at 12:04; Status DC Fentanyl Citrate (Fentanyl 2ml Vial) 25 mcg PRN Q1HR PRN IV SEE COMMENTS Last administered on 12/25/18 12:20; Start 12/24/18 at 16:30 Pantoprazole Sodium (PROTONIX VIAL for IV PUSH) 40 mg DAILYAC IVP Last administered on 01/03/19 08:44; Start 12/24/18 at 18:00 Enoxaparin Sodium (Lovenox 30mg Syringe) 30 mg Q24H SQ Last administered on 12/27 21:18; Start 12/24/18 at 19:00; Stop 12/28/18 at 10:36; Status DC Midazolam HCl 100 ml @ 0 mls/hr CONT PRN IV PER PROTOCOL Last administered on 09:00; Start 12/25/18 at 10:00; Stop 01/03/19 at 12:04; Status DC Piperacillin Sod/ Tazobactam Sod 3.375 gm/Sodium Chloride 50 ml @ 100 mls/hr Q8HRS IV Last administered on 12/31/18 05:43; Start 12/27/18 at 14:00; Stop 12/31 at 08:25; Status DC Enoxaparin Sodium (Lovenox 40mg Syringe) 40 mg Q24H SQ ; Start 12/28/18 at 19:00 ; Stop 12/28/18 at 19:00; Status DC Aspirin (Valarie Aspirin) 325 mg DAILY PO Last administered on 01/03/19 08:44; Start 12/28/18 at 14:00 Vitamin D (Vitamin D3) 500 unit DAILY PO Last administered on 01/03/19 08:44; Start 12/28/18 at 14:00 Levetiracetam (Keppra) 500 mg BID PO Last administered on 01/03/19 08:44; Start 12/28/18 at 14:00 Losartan Potassium (Cozaar) 50 mg DAILY PO Last administered on 01/03/19 08:44 ; Start 12/28/18 at 14:00 Magnesium Hydroxide (Milk Of Magnesia) 400 mg PRN DAILY PRN PO CONSTIPATION 2ND CHOICE; Start 12/28/18 at 13:15 Trazodone HCl (Desyrel) 50 mg QHS PO Last administered on 01/02/19 21:48; Start 12/28/18 at 21:00 Polyethylene Glycol (miraLAX PACKET) 17 gm PRN DAILY PRN PO CONSTIPATION 1ST CHOICE; Start 12/29/18 at 09:00 Non-Formulary Medication (Warfarin Sodium ) 8 mg HS PO ; Start 12/28/18 at 21:00 ; Status UNV Warfarin Sodium (Coumadin Per Pharmacy) 1 each PRN DAILY PRN MC SEE COMMENTS Last administered on 01/03/19 14:45; Start 12/28/18 at 13:15 Warfarin Sodium (Coumadin - No Dose Today) 1 each 1X WARF ONCE MC Last administered on 12/28/18 16:36; Start 12/28/18 at 16:36; Stop 12/28/18 at 16:37; Status DC Warfarin Sodium (Coumadin) 2 mg 1X WARF ONCE PO Last administered on 12/29/18 16:30; Start 12/29/18 at 16:00; Stop 12/29/18 at 16:01; Status DC Enalaprilat (Vasotec Inj) 1.25 mg Q6HRS IVP Last administered on 12/29/18 16:30 ; Start 12/29/18 at 16:00; Stop 12/29/18 at 18:05; Status DC Enalaprilat (Vasotec Inj) 2.5 mg PRN Q6HRS PRN IVP HYPERTENSION, SEE COMMENTS Last administered on 01/03/19 08:45; Start 12/29/18 at 18:15 Albumin Human 100 ml @ 100 mls/hr 1X ONCE IV Last administered on 12/30/18 11 :32; Start 12/30/18 at 11:30; Stop 12/30/18 at 12:29; Status DC Dextrose (Dextrose 50%-Water Syringe) 12.5 gm PRN Q15MIN PRN IV SEE COMMENTS Last administered on 12/31/18at 18:11; Start 12/30/18 at 14:15 Cefepime HCl (Maxipime) 1 gm Q8HRS IVP Last administered on 01/03/19at 14:07; Start 12/31/18 at 09:00 Warfarin Sodium (Coumadin) 4 mg 1X WARF ONCE PO Last administered on 12/31/18at 15:20; Start 12/31/18 at 16:00; Stop 12/31/18 at 16:01; Status DC Warfarin Sodium (Coumadin) 7.5 mg 1X WARF ONCE PO Last administered on at 16:24; Start 01/01/19 at 16:00; Stop 01/01/19 at 16:01; Status DC Warfarin Sodium (Coumadin) 8 mg 1X WARF ONCE PO ; Start 01/02/19 at 16:00; Stop 01/02/19 at 16:01; Status Cancel Warfarin Sodium (Coumadin) 7.5 mg 1X WARF ONCE PO Last administered on at 15:33; Start 01/02/19 at 16:00; Stop 01/02/19 at 16:01; Status DC Acetaminophen (Tylenol) 650 mg PRN Q6HRS PRN NG MILD PAIN / TEMP Last administered on 01/02/19at 15:32; Start 01/02/19 at 15:15 Alteplase, Recombinant (Cathflo For Central Catheter Clearance) 1 mg 1X ONCE INT CAT ; Start 01/03/19 at 10:30; Stop 01/03/19 at 10:31; Status DC Warfarin Sodium (Coumadin) 7.5 mg 1X WARF ONCE PO ; Start 01/03/19 at 16:00; Stop 01/03/19 at 16:01; Status DC Active Scripts Active Reported Warfarin Sodium 6 Mg Tablet 8 Mg PO HS Miralax (Polyethylene Glycol 3350) 17 Gm Powd.pack 1 Packet PO PRN DAILY PRN Milk Of Magnesia (Magnesium Hydroxide) 400 Mg/5 Ml Oral.susp 400 Mg PO PRN DAILY PRN Megace Es (Megestrol Acetate) 625 Mg/5 Ml Oral.susp 400 Mg PO Senna Plus Tablet (Sennosides/Docusate Sodium) 1 Each Tablet 1 Each PO Aspirin 325 Mg Tablet 1 Tab PO DAILY Keppra (Levetiracetam) 500 Mg Tablet 500 Mg PO BID Vitamin D3 (Cholecalciferol (Vitamin D3)) 1,000 Unit Tablet 400 Unit PO DAILY Trazodone Hcl 50 Mg Tablet 1 Tab PO QHS Tylenol (Acetaminophen) 325 Mg Tablet 1-2 Tab PO PRN Q4HRS PRN Losartan Potassium 50 Mg Tablet 50 Mg PO DAILY Allergies Allergies: Coded Allergies: vancomycin (Verified Allergy, Intermediate, 12/02/17) I S O L A T I O N *CONTACT* (Verified Allergy, Unknown, 04/07/18) VRE ROS Review of System Negative for fever, chills, weight loss, shortness of breath, chest pain, indigestion, hematochezia, melena. Positive for dysuria. Full 14-point review of systems is negative. Physical Exam Physical Examination General: Well-developed, well-nourished, black male, in no acute distress HEENT: Normocephalic andatraumatic.Temporal arteriespulsatile and nontender. Neck: Supple without bruit, no meningismus Musculoskeletal: Stability:see neurologic. Gait exam:see neurologic. Tone:see neurologic. Strength:see neurologic. Neurological: Mental Status:orientation, memory, attention span/concentration, language, fund of knowledge: he is alert, grunts most of his replies, does not follow commands. Cranial Nerves:Pupils equal and reactive to light, extraocular movements areintact, visual mccoy are full to confrontation. Facial sensation is normal. There is no facial asymmetry. Vestibulo-ocular reflex is intact. Palate elevates and tongue protrudes in midline. All other cranial related problems are negative except as mentioned before.Reflexes:1-2+ and symmetric with flexor plantar responses. bilateral grasp reflexes. Motor:moves all extremities, gegenhalten rigidity. Coordination:not cooperative. Gait:Not tested. Sensory: responds to pinprick in all 4 extremities Vitals VITALS Vital Signs Date Time Temp Pulse Resp B/P (MAP) Pulse Ox O2 Delivery O2 Flow Rate FiO2 01/03/19 15:00 99.1 95 16 135/81 (99) 95 Nasal Cannula 2.0 99.1 Labs Labs Laboratory Tests Test 01/02/19 05:50 01/02/19 10:05 01/02/19 10:14 01/02/19 18:40 White Blood Count 10.1 x10^3/uL (4.0-11.0) Red Blood Count 2.84 x10^6/uL (4.30-5.70) Hemoglobin 8.5 g/dL (13.0-17.5) Hematocrit 25.0 % (39.0-53.0) Mean Corpuscular Volume 88 fL (79-100) Mean Corpuscular Hemoglobin 30 pg (25-35) Mean Corpuscular Hemoglobin Concent 34 g/dL (31-37) Red Cell Distribution Width 15.8 % (11.5-14.5) Platelet Count 99 x10^3/uL (140-400) Neutrophils (%) (Auto) 75 % (31-73) Lymphocytes (%) (Auto) 11 % (24-48) Monocytes (%) (Auto) 12 % (0-9) Eosinophils (%) (Auto) 2 % (0-3) Basophils (%) (Auto) 0 % (0-3) Neutrophils # (Auto) 7.5 x10^3uL (1.8-7.7) Lymphocytes # (Auto) 1.1 x10^3/uL (1.0-4.8) Monocytes # (Auto) 1.2 x10^3/uL (0.0-1.1) Eosinophils # (Auto) 0.2 x10^3/uL (0.0-0.7) Basophils # (Auto) 0.0 x10^3/uL (0.0-0.2) Sodium Level 140 mmol/L (136-145) Potassium Level 3.6 mmol/L (3.5-5.1) Chloride Level 105 mmol/L (98-107) Carbon Dioxide Level 26 mmol/L (21-32) Anion Gap 9 (6-14) Blood Urea Nitrogen 13 mg/dL (8-26) Creatinine 1.1 mg/dL (0.7-1.3) Estimated GFR (Cockcroft-Gault) 77.9 Glucose Level 96 mg/dL (70-99) Calcium Level 8.6 mg/dL (8.5-10.1) Glucose (Fingerstick) 100 mg/dL (70-99) 106 mg/dL (70-99) Prothrombin Time 19.1 SEC (11.7-14.0) Prothromb Time International Ratio 1.6 (0.8-1.1) Test 01/03/19 02:37 01/03/19 06:10 01/03/19 06:20 01/03/19 14:09 Glucose (Fingerstick) 98 mg/dL (70-99) 96 mg/dL (70-99) 108 mg/dL (70-99) Prothrombin Time 21.7 SEC (11.7-14.0) Prothromb Time International Ratio 1.9 (0.8-1.1) Laboratory Tests Test 01/02/19 18:40 01/03/19 02:37 01/03/19 06:10 01/03/19 06:20 Glucose (Fingerstick) 106 mg/dL (70-99) 98 mg/dL (70-99) 96 mg/dL (70-99) Prothrombin Time 21.7 SEC (11.7-14.0) Prothromb Time International Ratio 1.9 (0.8-1.1) Test 01/03/19 14:09 Glucose (Fingerstick) 108 mg/dL (70-99) Images Images CT head: There is no evidence of hemorrhage, mass or extra-axial fluid collection. Pelletier-white differentiation is maintained with no evidence of edema. There are non-specific foci of hypodensity in the periventricular and subcortical white matter of the cerebral hemispheres. There is no mass effect or shift of the intracranial structures. The ventricles and cerebral sulci are prominent for the patients stated age consistent with generalized cerebral volume loss. The cerebellum and brainstem are unremarkable. The calvarium demonstrates no evidence of fracture or focal lesion. There is normal aeration of the visualized paranasal sinuses and mastoid air cells. The visualized portions of the orbits are normal. Atherosclerotic calcifications of the intracranial internal carotid and vertebral arteries is seen. IMPRESSION: 1. No evidence for acute intracranial process. 2. Generalized cerebral atrophy with prominence of the ventricles, stable. Assessment/Plan Assessment/Plan Impression: Metabolic encephalopathy, urinary tract infection History seizures with Mike's paralysis Sigmoid sinus thrombosis, probably not of clinical relevance that continuing on warfarin. Recommendations: Hold on electroencephalogram. I do not believe the patient needs lumbar puncture I spoke to the patient's son. His prognosis is very poor. His dementia is progressing. He also has a history of epilepsy. He does have severe metabolic encephalopathy which persists despite treatment of the medical problems. Nonetheless, son says that family wants full aggressive care. Thank you for letting me help with the patient's care. GABE WOODWARD MD Jan 03, 2019 17:36
[2019-01-03 19:44] VITALS: BP 173/92
[2019-01-03] MEDS: traZODone 50 MG TABLET. PO SCH (20:07)
[2019-01-03 23:37] VITALS: BP 159/91
[2019-01-04 03:55] VITALS: BP 164/89
[2019-01-04 06:18] LABS: PROTHROMBIN TIME PATIENT 22.7 SEC (11.7-14.0)
[2019-01-04] MEDS: CEFEPIME HCL IV Push 1 GM VIAL. IVP SCH ×3 (06:21→20:55)
[2019-01-04 07:00] VITALS: BP 154/90
[2019-01-04] MEDS: levETIRAcetam 500 MG TABLET PO SCH ×2 (08:25→20:55)
[2019-01-04] MEDS: PANTOPRAZOLE IV PUSH 40 MG VIAL. IVP SCH (08:25)
[2019-01-04] MEDS: CHOLECALCIFEROL (VITAMIN D3) 1,000 UNIT TABLET PO SCH (08:26)
[2019-01-04] MEDS: LOSARTAN POTASSIUM 50 MG TABLET. PO SCH (08:26)
[2019-01-04] MEDS: ASPIRIN 325 MG TABLET PO SCH (08:26)
--- NOTE | 2019-01-04 09:42 | PDOC ---
Infectious Disease Note Subjective Subjective No fevers Tube feedings 45 ml/hr via NGT ROS ROS unobtainable Vital Sign Vital Signs Vital Signs Date Time Temp Pulse Resp B/P (MAP) Pulse Ox O2 Delivery O2 Flow Rate FiO2 01/04/19 08:26 91 154/90 01/04/19 08:00 Nasal Cannula 2.0 01/04/19 07:00 98.0 18 94 98.0 Physical Exam PHYSICAL EXAM GENERAL: Propped up in bed, eyes open, unresponsive HEENT: NGT +, Oral cavity moist, left lower molar is bleeding LUNGS: Clear anteriorly HEART: S1, S2 ABDOMEN: BS active, soft, no grimace to palpation : Jaquez EXTREMITIES: Generalized edema SKIN: warm, no rash NEUROLOGIC: Noncommunicative RIJ clean Labs Lab Laboratory Tests Test 01/03/19 14:09 01/04/19 00:53 01/04/19 05:00 01/04/19 07:00 Glucose (Fingerstick) 108 mg/dL (70-99) 107 mg/dL (70-99) 116 mg/dL (70-99) Prothrombin Time 22.7 SEC (11.7-14.0) Prothromb Time International Ratio 2.0 (0.8-1.1) Micro 12/31. BLOOD CULTURE Preliminary NO GROWTH AFTER 4 DAYS Objective Assessment Septic shock with hypothermia (POA) resolved E coli bacteremia (POA) ; FQ resistant,source ?? GI /, UC neg. BC NGTD from 12/31. Leukopenia - resolved Lactic acidosis Suspected aspiration Respiratory failure TAZ better Dehydration Dementia Thrombocytopenia - slowly improving Anemia Plan Plan of Care cont cefepime 12/31 ,was on Zosyn before Levaquin x 1, on 12/24 Supportive care care LTAC D/w nursing Patient seen, examined, I agree with above. Assessment and plan was coformulated with SCALE ATTENDANT. NATI ODELL APRN Jan 04, 2019 09:42 JODI DUNCAN MD Jan 04, 2019 14:46
--- NOTE | 2019-01-04 10:07 | PDOC ---
PULMONARY PROGRESS NOTES Subjective Patient asked to be extubated 12/31, he does not follow any of my commands, appears comfortable Vitals Vital Signs Date Time Temp Pulse Resp B/P (MAP) Pulse Ox O2 Delivery O2 Flow Rate FiO2 01/04/19 08:26 91 154/90 01/04/19 08:00 Nasal Cannula 2.0 01/04/19 07:00 98.0 18 94 98.0 HEENT: Other (nc at perrl ) Lungs: Other (ronchi, a few end exp wheezing) Cardiovascular: S1, S2 Abdomen: Soft Extremities: Other (EDEMA) Skin: Warm Labs Laboratory Tests Test 01/02/19 10:14 01/02/19 18:40 01/03/19 02:37 01/03/19 06:10 Prothrombin Time 19.1 SEC (11.7-14.0) 21.7 SEC (11.7-14.0) Prothromb Time International Ratio 1.6 (0.8-1.1) 1.9 (0.8-1.1) Glucose (Fingerstick) 106 mg/dL (70-99) 98 mg/dL (70-99) Test 01/03/19 06:20 01/03/19 14:09 01/04/19 00:53 01/04/19 05:00 Glucose (Fingerstick) 96 mg/dL (70-99) 108 mg/dL (70-99) 107 mg/dL (70-99) Prothrombin Time 22.7 SEC (11.7-14.0) Prothromb Time International Ratio 2.0 (0.8-1.1) Test 01/04/19 07:00 Glucose (Fingerstick) 116 mg/dL (70-99) Laboratory Tests Test 01/03/19 14:09 01/04/19 00:53 01/04/19 05:00 01/04/19 07:00 Glucose (Fingerstick) 108 mg/dL (70-99) 107 mg/dL (70-99) 116 mg/dL (70-99) Prothrombin Time 22.7 SEC (11.7-14.0) Prothromb Time International Ratio 2.0 (0.8-1.1) Medications Active Scripts Medications Dose Route/Sig Max Daily Dose Days Date Category Warfarin Sodium 6 Mg Tablet 8 Mg PO HS 2/27/19 Reported Miralax (Polyethylene Glycol 3350) 17 Gm Powd.pack 1 Packet PO PRN DAILY PRN 03/19/18 Reported Milk Of Magnesia (Magnesium Hydroxide) 400 Mg/5 Ml Oral.susp 400 Mg PO PRN DAILY PRN 03/19/18 Reported Megace Es (Megestrol Acetate) 625 Mg/5 Ml Oral.susp 400 Mg PO 03/19/18 Reported Senna Plus Tablet (Sennosides/Docusate Sodium) 1 Each Tablet 1 Each PO 03/19/18 Reported Aspirin 325 Mg Tablet 1 Tab PO DAILY 03/19/18 Reported Keppra (Levetiracetam) 500 Mg Tablet 500 Mg PO BID 03/05/18 Reported Vitamin D3 (Cholecalciferol (Vitamin D3)) 1,000 Unit Tablet 400 Unit PO DAILY 03/05/18 Reported Trazodone Hcl 50 Mg Tablet 1 Tab PO QHS 03/05/18 Reported Tylenol (Acetaminophen) 325 Mg Tablet 1-2 Tab PO PRN Q4HRS PRN 03/05/18 Reported Losartan Potassium 50 Mg Tablet 50 Mg PO DAILY 11/28/17 Reported Impression . IMPRESSION: 1. Acute respiratory failure, multifactorial. 2. Septic shock. 3. Possible urinary tract infection. 4. History of cerebrovascular accident and dementia. 5. Prior questionable history of cerebral sinus thrombosis. 6. Seizures. 7. Generalized weakness. 8. Protein malnutrition, present upon admission. 9. Leukopenia. resolved 10. Acute on chronic renal failure. 11. Metabolic acidosis from sepsis. resolved 12.. E coli bacteremia (POA) PER ID 13. wheezing Plan . add BD elevate hob antibiotics per ID overall prognosis is poor may need Dabhoff tube feeding or PEG palliative care consulted protonix is on coumadin, monitor for bleeding discussed w love. TERESA GARCIA MD Jan 04, 2019 10:07
[2019-01-04 11:00] VITALS: BP 163/89
[2019-01-04] MEDS ORDERED: IPRATRPIUM/ALBUTEROL 0.5/2.5MG 3 ML NEBU. NEB SCH (12:00)
[2019-01-04] MEDS ORDERED: IPRATRPIUM/ALBUTEROL 0.5/2.5MG 3 ML NEBU. NEB PRN (12:45)
--- NOTE | 2019-01-04 12:55 | PDOC ---
PROGRESS NOTES Chief Complaint Chief Complaint metabolic encephalopathy acute respiratory failure resolved Septic shock secondary to urinary tract infection secondary to chronic indwelling urinary suprapubic catheter resolved Hypoalbuminemia - may be causing swelling of extremities Elevated troponin, most likely demand ischemia History of acute venous sinus thrombosis on CTA head/neck on chronic anticoagulation with coumadin Left Sided weakness and right-sided gaze, on last admission which had resolved History dementia, seizures History of essential Hypertension History of BPH, Indwelling suprapubic catheter History of complicated UTI in a male sec to indwelling FC Dysphagia, patient with dobhoff tube currently, will discuss with family goals of therapy after ST evaluation History of Present Illness History of Present Illness Pt is an 78 y/o male who presented with sepsis due to UTI and chronic indwelling catheter. BCx demonstrated multi-drug resistant E. Coli. Patient opens eyes to stimuli, but is otherwise not responsive. Patient is extubated with NG tube. no acute events reported overnight, seems to be back at baseline Vitals Vitals Vital Signs Date Time Temp Pulse Resp B/P (MAP) Pulse Ox O2 Delivery O2 Flow Rate FiO2 01/04/19 12:08 100 Nasal Cannula 1.0 01/04/19 11:00 98.4 95 18 163/89 (113) 98.4 Physical Exam Physical Exam GENERAL: Propped up in bed, eyes open, unresponsive HEENT: NGT +, Oral cavity moist, left lower molar is bleeding LUNGS: Clear anteriorly HEART: S1, S2 ABDOMEN: BS active, soft, no grimace to palpation : Jaquez EXTREMITIES: Generalized edema SKIN: warm, no rash NEUROLOGIC: Noncommunicative RIJ clean General: No acute distress, Other (patient extubated, opens eyes to stimuli) Heart: Regular rate, No murmurs, Other (irregulary rhythm) Lungs: Other (ronchi, a few end exp wheezing) Abdomen: Normal bowel sounds, Soft, No tenderness Extremities: No clubbing, Normal pulses, Other (1+ edema of bilateral upper and lower extremities) Skin: No rashes, No significant lesion Labs LABS Laboratory Tests Test 01/03/19 14:09 01/04/19 00:53 01/04/19 05:00 01/04/19 07:00 Glucose (Fingerstick) 108 mg/dL (70-99) 107 mg/dL (70-99) 116 mg/dL (70-99) Prothrombin Time 22.7 SEC (11.7-14.0) Prothromb Time International Ratio 2.0 (0.8-1.1) Test 01/04/19 12:05 Glucose (Fingerstick) 106 mg/dL (70-99) Assessment and Plan Assessmemt and Plan Problems Medical Problems: (1) Acute sepsis Status: Acute (2) UTI (urinary tract infection) due to urinary indwelling catheter Status: Acute Comment Review of Relevant I have reviewed the following items edgar (where applicable) has been applied. Labs Laboratory Tests Test 01/02/19 18:40 01/03/19 02:37 01/03/19 06:10 01/03/19 06:20 Glucose (Fingerstick) 106 mg/dL (70-99) 98 mg/dL (70-99) 96 mg/dL (70-99) Prothrombin Time 21.7 SEC (11.7-14.0) Prothromb Time International Ratio 1.9 (0.8-1.1) Test 01/03/19 14:09 01/04/19 00:53 01/04/19 05:00 01/04/19 07:00 Glucose (Fingerstick) 108 mg/dL (70-99) 107 mg/dL (70-99) 116 mg/dL (70-99) Prothrombin Time 22.7 SEC (11.7-14.0) Prothromb Time International Ratio 2.0 (0.8-1.1) Test 01/04/19 12:05 Glucose (Fingerstick) 106 mg/dL (70-99) Laboratory Tests Test 01/03/19 14:09 01/04/19 00:53 01/04/19 05:00 01/04/19 07:00 Glucose (Fingerstick) 108 mg/dL (70-99) 107 mg/dL (70-99) 116 mg/dL (70-99) Prothrombin Time 22.7 SEC (11.7-14.0) Prothromb Time International Ratio 2.0 (0.8-1.1) Test 01/04/19 12:05 Glucose (Fingerstick) 106 mg/dL (70-99) Microbiology 12/31/18 Blood Culture - Preliminary, Resulted NO GROWTH AFTER 4 DAYS 12/24/18 Urine Culture - Final, Complete 12/24/18 Urine Culture Result 1 (MORIAH) - Final, Complete Medications Current Medications Sodium Chloride 1,000 ml @ 1,000 mls/hr Q1H IV Last administered on 12/24/18at 03:31; Start 12/24/18 at 03:45; Stop 12/24/18 at 04:44; Status DC Piperacillin Sod/ Tazobactam Sod 3.375 gm/Sodium Chloride 50 ml @ 100 mls/hr 1X ONCE IV Last administered on 12/24/18at 04:00; Start 12/24/18 at 04:00; Stop 12/24/18 at 04:29; Status DC Levofloxacin/ Dextrose 100 ml @ 100 mls/hr 1X ONCE IV Last administered on at 05:28; Start 12/24/18 at 04:00; Stop 12/24/18 at 04:59; Status DC Etomidate (Amidate) 20 mg STK-MED ONCE IV ; Start 12/24/18 at 03:47; Stop at 03:48; Status DC Vecuronium Lena (Norcuron Bolus) 10 mg STK-MED ONCE IV ; Start 12/24/18 at 03 :47; Stop 12/24/18 at 03:48; Status DC Sodium Chloride 1,000 ml @ 1,000 mls/hr 1X ONCE IV Last administered on at 03:31; Start 12/24/18 at 04:30; Stop 12/24/18 at 05:29; Status DC Vecuronium Lena (Norcuron Bolus) 20 mg 1X ONCE IV Last administered on 12/24at 03:32; Start 12/24/18 at 04:30; Stop 12/24/18 at 04:31; Status DC Etomidate (Amidate) 20 mg 1X ONCE IV Last administered on 12/24/18at 03:32; Start 12/24/18 at 04:30; Stop 12/24/18 at 04:31; Status DC Midazolam HCl (Versed) 5 mg 1X ONCE IV Last administered on 12/24/18at 04:45; Start 12/24/18 at 04:45; Stop 12/24/18 at 04:46; Status DC Dopamine HCl/ Dextrose 250 ml @ 3.674 mls/ hr 1X ONCE IV Last administered on 12/24/18at 05:22; Start 12/24/18 at 05:15; Stop 12/27/18 at 01:17; Status DC Sodium Chloride 1,000 ml @ 150 mls/hr Q6H40M IV ; Start 12/24/18 at 05:30; Stop 12/24/18 at 06:52; Status DC Sodium Chloride 1,000 ml @ 1,000 mls/hr 1X ONCE IV Last administered on at 05:04; Start 12/24/18 at 05:45; Stop 12/24/18 at 06:44; Status DC Norepinephrine Bitartrate 250 ml @ 1.875 mls/ hr CONT PRN IV SEE I/O RECORD Last administered on 12/24/18at 05:57; Start 12/24/18 at 05:45; Stop 12/24/18 at 10:25; Status DC Hydrocortisone Sodium Succinate (Solu-CORTEF) 300 mg 1X ONCE IV Last administered on 12/24/18at 10:33; Start 12/24/18 at 06:00; Stop 12/24/18 at 06:01 ; Status DC Sodium Chloride 1,000 ml @ 1,000 mls/hr 1X ONCE IV Last administered on at 05:22; Start 12/24/18 at 07:00; Stop 12/24/18 at 07:59; Status DC Sodium Chloride 1,000 ml @ 1,860 mls/hr Q33M IV ; Start 12/24/18 at 10:14; Stop 12/24/18 at 11:13; Status DC Sodium Chloride 500 ml @ 1,000 mls/hr PRN Q30MIN PRN IV SEE COMMENTS Last administered on 12/24/18at 13:00; Start 12/24/18 at 10:15 Linezolid/Dextrose 300 ml @ 300 mls/hr Q12HR IV Last administered on 12/26/18at 20:33; Start 12/24/18 at 11:00; Stop 12/27/18 at 06:51; Status DC Piperacillin Sod/ Tazobactam Sod 4.5 gm/Sodium Chloride 100 ml @ 200 mls/hr Q6HRS IV ; Start 12/24/18 at 12:00; Status UNV Norepinephrine Bitartrate 250 ml @ 0 mls/hr CONT PRN IV SEE I/O RECORD Last administered on 12/25/18at 14:11; Start 12/24/18 at 10:15; Stop 01/03/19 at 12:04 ; Status DC Piperacillin Sod/ Tazobactam Sod 3.375 gm/Sodium Chloride 50 ml @ 100 mls/hr Q6HRS IV Last administered on 12/27/18 05:58; Start 12/24/18 at 12:00; Stop 12/27/18 at 06:51; Status DC Sodium Chloride 1,000 ml @ 75 mls/hr [id number] IV Last administered on 12/28/18 05:36; Start 12/24/18 at 11:15; Stop 12/29/18 at 06:07; Status DC Propofol 100 ml @ 0 mls/hr CONT PRN IV SEE PROTOCOL Last administered on at 03:45; Start 12/24/18 at 16:30; Stop 01/03/19 at 12:04; Status DC Fentanyl Citrate (Fentanyl 2ml Vial) 25 mcg PRN Q1HR PRN IV SEE COMMENTS Last administered on 12/25/18at 12:20; Start 12/24/18 at 16:30 Pantoprazole Sodium (PROTONIX VIAL for IV PUSH) 40 mg DAILYAC IVP Last administered on 01/04/19 08:25; Start 12/24/18 at 18:00 Enoxaparin Sodium (Lovenox 30mg Syringe) 30 mg Q24H SQ Last administered on 12/27 21:18; Start 12/24/18 at 19:00; Stop 12/28/18 at 10:36; Status DC Midazolam HCl 100 ml @ 0 mls/hr CONT PRN IV PER PROTOCOL Last administered on 09:00; Start 12/25/18 at 10:00; Stop 01/03/19 at 12:04; Status DC Piperacillin Sod/ Tazobactam Sod 3.375 gm/Sodium Chloride 50 ml @ 100 mls/hr Q8HRS IV Last administered on 12/31/18 05:43; Start 12/27/18 at 14:00; Stop 12/31 at 08:25; Status DC Enoxaparin Sodium (Lovenox 40mg Syringe) 40 mg Q24H SQ ; Start 12/28/18 at 19:00 ; Stop 12/28/18 at 19:00; Status DC Aspirin (Valarie Aspirin) 325 mg DAILY PO Last administered on 01/04/19 08:26; Start 12/28/18 at 14:00 Vitamin D (Vitamin D3) 500 unit DAILY PO Last administered on 01/04/19 08:26; Start 12/28/18 at 14:00 Levetiracetam (Keppra) 500 mg BID PO Last administered on 01/04/19 08:25; Start 12/28/18 at 14:00 Losartan Potassium (Cozaar) 50 mg DAILY PO Last administered on 01/04/19 08:26 ; Start 12/28/18 at 14:00 Magnesium Hydroxide (Milk Of Magnesia) 400 mg PRN DAILY PRN PO CONSTIPATION 2ND CHOICE; Start 12/28/18 at 13:15 Trazodone HCl (Desyrel) 50 mg QHS PO Last administered on 01/03/19 20:07; Start 12/28/18 at 21:00 Polyethylene Glycol (miraLAX PACKET) 17 gm PRN DAILY PRN PO CONSTIPATION 1ST CHOICE; Start 12/29/18 at 09:00 Non-Formulary Medication (Warfarin Sodium ) 8 mg HS PO ; Start 12/28/18 at 21:00 ; Status UNV Warfarin Sodium (Coumadin Per Pharmacy) 1 each PRN DAILY PRN MC SEE COMMENTS Last administered on 01/03/19 14:45; Start 12/28/18 at 13:15 Warfarin Sodium (Coumadin - No Dose Today) 1 each 1X WARF ONCE MC Last administered on 12/28/18 16:36; Start 12/28/18 at 16:36; Stop 12/28/18 at 16:37; Status DC Warfarin Sodium (Coumadin) 2 mg 1X WARF ONCE PO Last administered on 12/29/18 16:30; Start 12/29/18 at 16:00; Stop 12/29/18 at 16:01; Status DC Enalaprilat (Vasotec Inj) 1.25 mg Q6HRS IVP Last administered on 12/29/18 16:30 ; Start 12/29/18 at 16:00; Stop 12/29/18 at 18:05; Status DC Enalaprilat (Vasotec Inj) 2.5 mg PRN Q6HRS PRN IVP HYPERTENSION, SEE COMMENTS Last administered on 01/03/19 21:26; Start 12/29/18 at 18:15 Albumin Human 100 ml @ 100 mls/hr 1X ONCE IV Last administered on 12/30/18 11 :32; Start 12/30/18 at 11:30; Stop 12/30/18 at 12:29; Status DC Dextrose (Dextrose 50%-Water Syringe) 12.5 gm PRN Q15MIN PRN IV SEE COMMENTS Last administered on 12/31/18 18:11; Start 12/30/18 at 14:15 Cefepime HCl (Maxipime) 1 gm Q8HRS IVP Last administered on 01/04/19 06:21; Start 12/31/18 at 09:00 Warfarin Sodium (Coumadin) 4 mg 1X WARF ONCE PO Last administered on 12/31/18 15:20; Start 12/31/18 at 16:00; Stop 12/31/18 at 16:01; Status DC Warfarin Sodium (Coumadin) 7.5 mg 1X WARF ONCE PO Last administered on 16:24; Start 01/01/19 at 16:00; Stop 01/01/19 at 16:01; Status DC Warfarin Sodium (Coumadin) 8 mg 1X WARF ONCE PO ; Start 01/02/19 at 16:00; Stop 01/02/19 at 16:01; Status Cancel Warfarin Sodium (Coumadin) 7.5 mg 1X WARF ONCE PO Last administered on 15:33; Start 01/02/19 at 16:00; Stop 01/02/19 at 16:01; Status DC Acetaminophen (Tylenol) 650 mg PRN Q6HRS PRN NG MILD PAIN / TEMP Last administered on 01/02/19 15:32; Start 01/02/19 at 15:15 Alteplase, Recombinant (Cathflo For Central Catheter Clearance) 1 mg 1X ONCE INT CAT ; Start 01/03/19 at 10:30; Stop 01/03/19 at 10:31; Status DC Warfarin Sodium (Coumadin) 7.5 mg 1X WARF ONCE PO Last administered on 17:32; Start 01/03/19 at 16:00; Stop 01/03/19 at 16:01; Status DC Albuterol/ Ipratropium (Duoneb) 3 ml RTQID NEB Last administered on 01/04/19at 12:06; Start 01/04/19 at 12:00; Stop 01/04/19 at 12:32; Status DC Albuterol/ Ipratropium (Duoneb) 3 ml PRN QID PRN NEB SHORTNESS OF BREATH; Start 01/04/19 at 12:45 Active Scripts Active Reported Warfarin Sodium 6 Mg Tablet 8 Mg PO HS Miralax (Polyethylene Glycol 3350) 17 Gm Powd.pack 1 Packet PO PRN DAILY PRN Milk Of Magnesia (Magnesium Hydroxide) 400 Mg/5 Ml Oral.susp 400 Mg PO PRN DAILY PRN Megace Es (Megestrol Acetate) 625 Mg/5 Ml Oral.susp 400 Mg PO Senna Plus Tablet (Sennosides/Docusate Sodium) 1 Each Tablet 1 Each PO Aspirin 325 Mg Tablet 1 Tab PO DAILY Keppra (Levetiracetam) 500 Mg Tablet 500 Mg PO BID Vitamin D3 (Cholecalciferol (Vitamin D3)) 1,000 Unit Tablet 400 Unit PO DAILY Trazodone Hcl 50 Mg Tablet 1 Tab PO QHS Tylenol (Acetaminophen) 325 Mg Tablet 1-2 Tab PO PRN Q4HRS PRN Losartan Potassium 50 Mg Tablet 50 Mg PO DAILY Vitals/I & O Vital Sign - Last 24 Hours 01/03/19 01/03/19 01/03/19 01/03/19 15:00 19:44 20:00 21:26 Temp 99.1 99.3 99.1 99.3 Pulse 95 91 91 Resp 16 B/P (MAP) 135/81 (99) 173/92 (119) 173/92 Pulse Ox 95 94 O2 Delivery Nasal Cannula Nasal Cannula Nasal Cannula O2 Flow Rate 2.0 2.0 2.0 01/03/19 01/04/19 01/04/19 01/04/19 23:37 03:55 07:00 08:00 Temp 98.0 98.1 98.0 98.0 98.1 98.0 Pulse 98 91 91 Resp 20 20 18 B/P (MAP) 159/91 (113) 164/89 (114) 154/90 (111) Pulse Ox 96 96 94 O2 Delivery Nasal Cannula Nasal Cannula Nasal Cannula Nasal Cannula O2 Flow Rate 2.0 2.0 2.0 2.0 01/04/19 01/04/1919 08:26 11:00 12:08 Temp 98.4 98.4 Pulse 91 95 Resp 18 B/P (MAP) 154/90 163/89 (113) Pulse Ox 94 100 O2 Delivery Nasal Cannula Nasal Cannula O2 Flow Rate 2.0 1.0 Intake and Output 01/03/19 01/03/19 01/04/19 14:59 22:59 06:59 Intake Total 100 ml 100 ml 540 ml Output Total 1000 ml 250 ml 1200 ml Balance -900 ml -150 ml -660 ml KESHA HILLS MD Jan 04, 2019 12:55
--- NOTE | 2019-01-04 13:04 | NUR ---
Pharmacy Warfarin Dosing Note S: Pharmacy consulted to assist with anticoagulation therapy started [employer] O: ARIEL TORRES is a 78 year old M with Atrial Fibrillation, Recurrent VTE HX SINUS THROMBOSIS LABS: Last INR: 2.0 Last HGB: 8.5 Last HCT: 25 Last PLT: 99 Last dose of 7.5 mg given on 01/03/19 at 1732 Ongoing Drug Interactions: ASPIRIN A:INR of 2.0 is within desired range. Target range for this patient is: 2 -3 P: Warfarin dose: 7.5 mg Today at 1600 Bridge Therapy: None Next INR due 3/11 AM Pharmacy anticoagulation service will continue to follow. RUBEN ZARAGOZA RPH, 01/04/19 [id number]
[2019-01-04 15:00] VITALS: BP 154/86
--- NOTE | 2019-01-04 15:40 | PDOC ---
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 Plan Check electroencephalogram. I do not believe the patient needs lumbar puncture I again spoke to the patient's son. He is trying to . Son still wants full code. Subjective none Objective Vital Signs Date Time Temp Pulse Resp B/P (MAP) Pulse Ox O2 Delivery O2 Flow Rate FiO2 01/04/19 15:00 98.0 95 18 154/86 (108) 93 Nasal Cannula 2.0 98.0 Intake and Output 01/04/19 07:00 Intake Total 740 ml Output Total 2450 ml Balance -1710 ml Intake Oral 0 ml Tube Feeding 740 ml Output Urine Total 2450 ml PHYSICAL EXAM Eyes closed, moans a little PERRL. EOMI. CN: no focal findings. Muscle tone: normal. Muscle strength: moves extremities slightly to pain DTR: 0-1+ Plantar reflex: silent Gait: not examined in bed. Sensory exam: not cooperative Cerebellar: not cooperative Review of Relevant I have reviewed the following items edgar (where applicable) has been applied. Labs Laboratory Tests Test 01/02/19 18:40 01/03/19 02:37 01/03/19 06:10 01/03/19 06:20 Glucose (Fingerstick) 106 mg/dL (70-99) 98 mg/dL (70-99) 96 mg/dL (70-99) Prothrombin Time 21.7 SEC (11.7-14.0) Prothromb Time International Ratio 1.9 (0.8-1.1) Test 01/03/19 14:09 01/04/19 00:53 01/04/19 05:00 01/04/19 07:00 Glucose (Fingerstick) 108 mg/dL (70-99) 107 mg/dL (70-99) 116 mg/dL (70-99) Prothrombin Time 22.7 SEC (11.7-14.0) Prothromb Time International Ratio 2.0 (0.8-1.1) Test 01/04/19 12:05 Glucose (Fingerstick) 106 mg/dL (70-99) Laboratory Tests Test 01/04/19 00:53 01/04/19 05:00 01/04/19 07:00 01/04/19 12:05 Glucose (Fingerstick) 107 mg/dL (70-99) 116 mg/dL (70-99) 106 mg/dL (70-99) Prothrombin Time 22.7 SEC (11.7-14.0) Prothromb Time International Ratio 2.0 (0.8-1.1) Microbiology 12/31/18 Blood Culture - Preliminary, Resulted NO GROWTH AFTER 4 DAYS 12/24/18 Urine Culture - Final, Complete 12/24/18 Urine Culture Result 1 (MORIAH) - Final, Complete Medications Current Medications Sodium Chloride 1,000 ml @ 1,000 mls/hr Q1H IV Last administered on 12/24/18at 03:31; Start 12/24/18 at 03:45; Stop 12/24/18 at 04:44; Status DC Piperacillin Sod/ Tazobactam Sod 3.375 gm/Sodium Chloride 50 ml @ 100 mls/hr 1X ONCE IV Last administered on 12/24/18at 04:00; Start 12/24/18 at 04:00; Stop 12/24/18 at 04:29; Status DC Levofloxacin/ Dextrose 100 ml @ 100 mls/hr 1X ONCE IV Last administered on at 05:28; Start 12/24/18 at 04:00; Stop 12/24/18 at 04:59; Status DC Etomidate (Amidate) 20 mg STK-MED ONCE IV ; Start 12/24/18 at 03:47; Stop at 03:48; Status DC Vecuronium [place] (Norcuron Bolus) 10 mg STK-MED ONCE IV ; Start 12/24/18 at 03 :47; Stop 12/24/18 at 03:48; Status DC Sodium Chloride 1,000 ml @ 1,000 mls/hr 1X ONCE IV Last administered on at 03:31; Start 12/24/18 at 04:30; Stop 12/24/18 at 05:29; Status DC Vecuronium [place] (Norcuron Bolus) 20 mg 1X ONCE IV Last administered on 12/24at 03:32; Start 12/24/18 at 04:30; Stop 12/24/18 at 04:31; Status DC Etomidate (Amidate) 20 mg 1X ONCE IV Last administered on 12/24/18at 03:32; Start 12/24/18 at 04:30; Stop 12/24/18 at 04:31; Status DC Midazolam HCl (Versed) 5 mg 1X ONCE IV Last administered on 12/24/18at 04:45; Start 12/24/18 at 04:45; Stop 12/24/18 at 04:46; Status DC Dopamine HCl/ Dextrose 250 ml @ 3.674 mls/ hr 1X ONCE IV Last administered on 12/24/18at 05:22; Start 12/24/18 at 05:15; Stop 12/27/18 at 01:17; Status DC Sodium Chloride 1,000 ml @ 150 mls/hr Q6H40M IV ; Start 12/24/18 at 05:30; Stop 12/24/18 at 06:52; Status DC Sodium Chloride 1,000 ml @ 1,000 mls/hr 1X ONCE IV Last administered on at 05:04; Start 12/24/18 at 05:45; Stop 12/24/18 at 06:44; Status DC Norepinephrine Bitartrate 250 ml @ 1.875 mls/ hr CONT PRN IV SEE I/O RECORD Last administered on 12/24/18at 05:57; Start 12/24/18 at 05:45; Stop 12/24/18 at 10:25; Status DC Hydrocortisone Sodium Succinate (Solu-CORTEF) 300 mg 1X ONCE IV Last administered on 12/24/18at 10:33; Start 12/24/18 at 06:00; Stop 12/24/18 at 06:01 ; Status DC Sodium Chloride 1,000 ml @ 1,000 mls/hr 1X ONCE IV Last administered on at 05:22; Start 12/24/18 at 07:00; Stop 12/24/18 at 07:59; Status DC Sodium Chloride 1,000 ml @ 1,860 mls/hr Q33M IV ; Start 12/24/18 at 10:14; Stop 12/24/18 at 11:13; Status DC Sodium Chloride 500 ml @ 1,000 mls/hr PRN Q30MIN PRN IV SEE COMMENTS Last administered on 12/24/18at 13:00; Start 12/24/18 at 10:15 Linezolid/Dextrose 300 ml @ 300 mls/hr Q12HR IV Last administered on 12/26/18at 20:33; Start 12/24/18 at 11:00; Stop 12/27/18 at 06:51; Status DC Piperacillin Sod/ Tazobactam Sod 4.5 gm/Sodium Chloride 100 ml @ 200 mls/hr Q6HRS IV ; Start 12/24/18 at 12:00; Status UNV Norepinephrine Bitartrate 250 ml @ 0 mls/hr CONT PRN IV SEE I/O RECORD Last administered on 12/25/18at 14:11; Start 12/24/18 at 10:15; Stop 01/03/19 at 12:04 ; Status DC Piperacillin Sod/ Tazobactam Sod 3.375 gm/Sodium Chloride 50 ml @ 100 mls/hr Q6HRS IV Last administered on 12/27/18 05:58; Start 12/24/18 at 12:00; Stop 12/27/18 at 06:51; Status DC Sodium Chloride 1,000 ml @ 75 mls/hr [id number] IV Last administered on 12/28/18 05:36; Start 12/24/18 at 11:15; Stop 12/29/18 at 06:07; Status DC Propofol 100 ml @ 0 mls/hr CONT PRN IV SEE PROTOCOL Last administered on at 03:45; Start 12/24/18 at 16:30; Stop 01/03/19 at 12:04; Status DC Fentanyl Citrate (Fentanyl 2ml Vial) 25 mcg PRN Q1HR PRN IV SEE COMMENTS Last administered on 12/25/18at 12:20; Start 12/24/18 at 16:30 Pantoprazole Sodium (PROTONIX VIAL for IV PUSH) 40 mg DAILYAC IVP Last administered on 01/04/19at 08:25; Start 12/24/18 at 18:00 Enoxaparin Sodium (Lovenox 30mg Syringe) 30 mg Q24H SQ Last administered on 12/27 21:18; Start 12/24/18 at 19:00; Stop 12/28/18 at 10:36; Status DC Midazolam HCl 100 ml @ 0 mls/hr CONT PRN IV PER PROTOCOL Last administered on at 09:00; Start 12/25/18 at 10:00; Stop 01/03/19 at 12:04; Status DC Piperacillin Sod/ Tazobactam Sod 3.375 gm/Sodium Chloride 50 ml @ 100 mls/hr Q8HRS IV Last administered on 12/31/18 05:43; Start 12/27/18 at 14:00; Stop 12/31 at 08:25; Status DC Enoxaparin Sodium (Lovenox 40mg Syringe) 40 mg Q24H SQ ; Start 12/28/18 at 19:00 ; Stop 12/28/18 at 19:00; Status DC Aspirin (Valarie Aspirin) 325 mg DAILY PO Last administered on 01/04/19 08:26; Start 12/28/18 at 14:00 Vitamin D (Vitamin D3) 500 unit DAILY PO Last administered on 01/04/19 08:26; Start 12/28/18 at 14:00 Levetiracetam (Keppra) 500 mg BID PO Last administered on 01/04/19 08:25; Start 12/28/18 at 14:00 Losartan Potassium (Cozaar) 50 mg DAILY PO Last administered on 01/04/19 08:26 ; Start 12/28/18 at 14:00 Magnesium Hydroxide (Milk Of Magnesia) 400 mg PRN DAILY PRN PO CONSTIPATION 2ND CHOICE; Start 12/28/18 at 13:15 Trazodone HCl (Desyrel) 50 mg QHS PO Last administered on 01/03/19 20:07; Start 12/28/18 at 21:00 Polyethylene Glycol (miraLAX PACKET) 17 gm PRN DAILY PRN PO CONSTIPATION 1ST CHOICE; Start 12/29/18 at 09:00 Non-Formulary Medication (Warfarin Sodium ) 8 mg HS PO ; Start 12/28/18 at 21:00 ; Status UNV Warfarin Sodium (Coumadin Per Pharmacy) 1 each PRN DAILY PRN MC SEE COMMENTS Last administered on 01/04/19 13:04; Start 12/28/18 at 13:15 Warfarin Sodium (Coumadin - No Dose Today) 1 each 1X WARF ONCE MC Last administered on 12/28/18 16:36; Start 12/28/18 at 16:36; Stop 12/28/18 at 16:37; Status DC Warfarin Sodium (Coumadin) 2 mg 1X WARF ONCE PO Last administered on 12/29/18 16:30; Start 12/29/18 at 16:00; Stop 12/29/18 at 16:01; Status DC Enalaprilat (Vasotec Inj) 1.25 mg Q6HRS IVP Last administered on 12/29/18 16:30 ; Start 12/29/18 at 16:00; Stop 12/29/18 at 18:05; Status DC Enalaprilat (Vasotec Inj) 2.5 mg PRN Q6HRS PRN IVP HYPERTENSION, SEE COMMENTS Last administered on 01/03/19 21:26; Start 12/29/18 at 18:15 Albumin Human 100 ml @ 100 mls/hr 1X ONCE IV Last administered on 12/30/18 11 :32; Start 12/30/18 at 11:30; Stop 12/30/18 at 12:29; Status DC Dextrose (Dextrose 50%-Water Syringe) 12.5 gm PRN Q15MIN PRN IV SEE COMMENTS Last administered on 12/31/18 18:11; Start 12/30/18 at 14:15 Cefepime HCl (Maxipime) 1 gm Q8HRS IVP Last administered on 01/04/19 14:00; Start 12/31/18 at 09:00 Warfarin Sodium (Coumadin) 4 mg 1X WARF ONCE PO Last administered on 12/31/18 15:20; Start 12/31/18 at 16:00; Stop 12/31/18 at 16:01; Status DC Warfarin Sodium (Coumadin) 7.5 mg 1X WARF ONCE PO Last administered on 16:24; Start 01/01/19 at 16:00; Stop 01/01/19 at 16:01; Status DC Warfarin Sodium (Coumadin) 8 mg 1X WARF ONCE PO ; Start 01/02/19 at 16:00; Stop 01/02/19 at 16:01; Status Cancel Warfarin Sodium (Coumadin) 7.5 mg 1X WARF ONCE PO Last administered on 15:33; Start 01/02/19 at 16:00; Stop 01/02/19 at 16:01; Status DC Acetaminophen (Tylenol) 650 mg PRN Q6HRS PRN NG MILD PAIN / TEMP Last administered on 01/02/19at 15:32; Start 01/02/19 at 15:15 Alteplase, Recombinant (Cathflo For Central Catheter Clearance) 1 mg 1X ONCE INT CAT ; Start 01/03/19 at 10:30; Stop 01/03/19 at 10:31; Status DC Warfarin Sodium (Coumadin) 7.5 mg 1X WARF ONCE PO Last administered on at 17:32; Start 01/03/19 at 16:00; Stop 01/03/19 at 16:01; Status DC Albuterol/ Ipratropium (Duoneb) 3 ml RTQID NEB Last administered on 01/04/19at 12:06; Start 01/04/19 at 12:00; Stop 01/04/19 at 12:32; Status DC Albuterol/ Ipratropium (Duoneb) 3 ml PRN QID PRN NEB SHORTNESS OF BREATH; Start 01/04/19 at 12:45 Warfarin Sodium (Coumadin) 7.5 mg 1X WARF ONCE PO ; Start 01/04/19 at 16:00; Stop 01/04/19 at 16:01 Active Scripts Active Reported Warfarin Sodium 6 Mg Tablet 8 Mg PO HS Miralax (Polyethylene Glycol 3350) 17 Gm Powd.pack 1 Packet PO PRN DAILY PRN Milk Of Magnesia (Magnesium Hydroxide) 400 Mg/5 Ml Oral.susp 400 Mg PO PRN DAILY PRN Megace Es (Megestrol Acetate) 625 Mg/5 Ml Oral.susp 400 Mg PO Senna Plus Tablet (Sennosides/Docusate Sodium) 1 Each Tablet 1 Each PO Aspirin 325 Mg Tablet 1 Tab PO DAILY Keppra (Levetiracetam) 500 Mg Tablet 500 Mg PO BID Vitamin D3 (Cholecalciferol (Vitamin D3)) 1,000 Unit Tablet 400 Unit PO DAILY Trazodone Hcl 50 Mg Tablet 1 Tab PO QHS Tylenol (Acetaminophen) 325 Mg Tablet 1-2 Tab PO PRN Q4HRS PRN Losartan Potassium 50 Mg Tablet 50 Mg PO DAILY Vitals/I & O Vital Sign - Last 24 Hours 01/03/19 01/03/19 01/03/19 01/03/19 19:44 20:00 21:26 23:37 Temp 99.3 98.0 99.3 98.0 Pulse 91 91 98 Resp 20 B/P (MAP) 173/92 (119) 173/92 159/91 (113) Pulse Ox 94 96 O2 Delivery Nasal Cannula Nasal Cannula Nasal Cannula O2 Flow Rate 2.0 2.0 2.0 01/04/19 01/04/19 01/04/19 01/04/19 03:55 07:00 08:00 08:26 Temp 98.1 98.0 98.1 98.0 Pulse 91 91 91 Resp 20 18 B/P (MAP) 164/89 (114) 154/90 (111) 154/90 Pulse Ox 96 94 O2 Delivery Nasal Cannula Nasal Cannula Nasal Cannula O2 Flow Rate 2.0 2.0 2.0 01/04/19 01/04/19 01/04/19 11:00 12:08 15:00 Temp 98.4 98.0 98.4 98.0 Pulse 95 95 Resp 18 18 B/P (MAP) 163/89 (113) 154/86 (108) Pulse Ox 94 100 93 O2 Delivery Nasal Cannula Nasal Cannula Nasal Cannula O2 Flow Rate 2.0 1.0 2.0 Intake and Output 01/03/19 01/03/19 01/04/19 15:00 23:00 07:00 Intake Total 100 ml 100 ml 540 ml Output Total 1000 ml 250 ml 1200 ml Balance -900 ml -150 ml -660 ml GABE WOODWARD MD Jan 04, 2019 15:40
[2019-01-04] MEDS ORDERED: WARFARIN 7.5 MG TABLET. PO ONE (16:00)
[2019-01-04] MEDS ORDERED: DEXTROSE 50% 25 GM / 50ML DISP.SYRIN. IV ONE (17:00)
[2019-01-04 19:43] VITALS: BP 141/79
[2019-01-04] MEDS: traZODone 50 MG TABLET. PO SCH (20:55)
[2019-01-04 23:04] VITALS: BP 157/93
--- NOTE | 2019-01-04 23:45 | NUR ---
Patient transferred to [address] [place] [address] in stable condition. Report called to ZECHARIAH Dubon. Patient transferred by RN and Nursing chemical supervisor.
[2019-01-05] VITALS (7 sets, daily range): BP systolic 139–163; BP diastolic 68–89
[2019-01-05] MEDS: CEFEPIME HCL IV Push 1 GM VIAL. IVP SCH (06:15)
[2019-01-05 07:45] LABS: PROTHROMBIN TIME PATIENT 22.8 SEC (11.7-14.0)
[2019-01-05] MEDS: PANTOPRAZOLE IV PUSH 40 MG VIAL. IVP SCH (08:28)
[2019-01-05] MEDS: CHOLECALCIFEROL (VITAMIN D3) 1,000 UNIT TABLET PO SCH (08:29)
[2019-01-05] MEDS: ASPIRIN 325 MG TABLET PO SCH (08:30)
[2019-01-05] MEDS: LOSARTAN POTASSIUM 50 MG TABLET. PO SCH (08:30)
[2019-01-05] MEDS: levETIRAcetam 500 MG TABLET PO SCH ×2 (08:30→22:50)
--- NOTE | 2019-01-05 11:05 | NUR ---
SW following. Discussed with RN. Pt has been accepted at [facility]. Dr. Perdue advising pt ready to discharge. SW awaiting confirmation from [facility], to determine if pt can go there today. SW will continue to follow.
--- NOTE | 2019-01-05 11:37 | PDOC ---
Infectious Disease Note Subjective Subjective Nonverbal No fevers Tube feedings 45 ml/hr via NGT ROS ROS unobtainable Vital Sign Vital Signs Vital Signs Date Time Temp Pulse Resp B/P (MAP) Pulse Ox O2 Delivery O2 Flow Rate FiO2 01/05/19 11:00 98.0 97 18 144/69 (94) 99 Nasal Cannula 2.0 98.0 Physical Exam PHYSICAL EXAM GENERAL: Propped up in bed, closed open, unresponsive HEENT: NGT +, Oral cavity moist, PERRL LUNGS: Clear anteriorly HEART: S1, S2 ABDOMEN: BS active, soft, no grimace to palpation : Jaquez EXTREMITIES: Generalized edema SKIN: warm, no rash NEUROLOGIC: Noncommunicative RIJ clean Labs Lab Laboratory Tests Test 01/04/19 12:05 01/05/19 06:10 01/05/19 08:05 01/05/19 11:21 Glucose (Fingerstick) 106 mg/dL (70-99) 86 mg/dL (70-99) 108 mg/dL (70-99) Prothrombin Time 22.8 SEC (11.7-14.0) Prothromb Time International Ratio 2.0 (0.8-1.1) Micro 12/24 Escherichia coli Multi-Drug Resistant Organism ANTIMICROBIAL SUSCEPTIBILITY Final Comment S = Susceptible; I = Intermediate; R = Resistant P = Positive; N = Negative MICS are expressed in micrograms per mL Antibiotic RSLT#1 RSLT#2 RSLT#3 RSLT#4 Amoxicillin/Clavulanic Acid S =8 Ampicillin R>=32 Cefazolin R>=64 Cefepime S =2 Ceftriaxone R>=64 Cefuroxime R>=64 Ciprofloxacin R>=4 Ertapenem S<=0.12 Gentamicin S<=1 Imipenem S<=0.25 Levofloxacin R>=8 Meropenem S<=0.25 Nitrofurantoin S<=16 Piperacillin/Tazobactam S<=4 Tetracycline R>=16 Tobramycin S<=1 Trimethoprim/Sulfa R>=320 Microbiology 12/31/18 Blood Culture - Final, Complete NO GROWTH AFTER 5 DAYS 12/24/18 Urine Culture - Final, Complete 12/24/18 Urine Culture Result 1 (MORIAH) - Final, Complete Objective Assessment Septic shock with hypothermia (POA) resolved E coli bacteremia (PO/) ; FQ resistant,source ?? GI /, UC neg. BC NGTD from 12/31. Leukopenia - resolved Lactic acidosis Suspected aspiration Respiratory failure TAZ better Dehydration Dementia - Encephalopathy Thrombocytopenia - slowly improving Anemia Plan Plan of Care Discont cefepime 12/31 with MS changes,was on Zosyn (12/24) before. zosyn for 3 days Labs in am Levaquin x 1, on 12/24 Supportive care care [facility] D/w nursing D/w family PADMA HOUSTON MD Jan 05, 2019 11:37
--- NOTE | 2019-01-05 13:20 | PDOC ---
PULMONARY PROGRESS NOTES Subjective extubated 12/31, he does not follow any of my commands, appears comfortable Vitals Vital Signs Date Time Temp Pulse Resp B/P (MAP) Pulse Ox O2 Delivery O2 Flow Rate FiO2 01/05/19 11:00 98.0 97 18 144/69 (94) 99 Nasal Cannula 2.0 98.0 HEENT: Other (nc at perrl ) Lungs: Other (ronchi, a few end exp wheezing) Cardiovascular: S1, S2 Abdomen: Soft Extremities: Other (EDEMA) Skin: Warm Labs Laboratory Tests Test 01/03/19 14:09 01/04/19 00:53 01/04/19 05:00 01/04/19 07:00 Glucose (Fingerstick) 108 mg/dL (70-99) 107 mg/dL (70-99) 116 mg/dL (70-99) Prothrombin Time 22.7 SEC (11.7-14.0) Prothromb Time International Ratio 2.0 (0.8-1.1) Test 01/04/19 12:05 01/05/19 06:10 01/05/19 08:05 01/05/19 11:21 Glucose (Fingerstick) 106 mg/dL (70-99) 86 mg/dL (70-99) 108 mg/dL (70-99) Prothrombin Time 22.8 SEC (11.7-14.0) Prothromb Time International Ratio 2.0 (0.8-1.1) Laboratory Tests Test 01/05/19 06:10 01/05/19 08:05 01/05/19 11:21 Prothrombin Time 22.8 SEC (11.7-14.0) Prothromb Time International Ratio 2.0 (0.8-1.1) Glucose (Fingerstick) 86 mg/dL (70-99) 108 mg/dL (70-99) Medications Active Scripts Medications Dose Route/Sig Max Daily Dose Days Date Category Warfarin Sodium 6 Mg Tablet 8 Mg PO HS 12/24/18 Reported Miralax (Polyethylene Glycol 3350) 17 Gm Powd.pack 1 Packet PO PRN DAILY PRN 03/19/18 Reported Milk Of Magnesia (Magnesium Hydroxide) 400 Mg/5 Ml Oral.susp 400 Mg PO PRN DAILY PRN 03/19/18 Reported Megace Es (Megestrol Acetate) 625 Mg/5 Ml Oral.susp 400 Mg PO 03/19/18 Reported Senna Plus Tablet (Sennosides/Docusate Sodium) 1 Each Tablet 1 Each PO 03/19/18 Reported Aspirin 325 Mg Tablet 1 Tab PO DAILY 03/19/18 Reported Keppra (Levetiracetam) 500 Mg Tablet 500 Mg PO BID 03/05/18 Reported Vitamin D3 (Cholecalciferol (Vitamin D3)) 1,000 Unit Tablet 400 Unit PO DAILY 03/05/18 Reported Trazodone Hcl 50 Mg Tablet 1 Tab PO QHS 03/05/18 Reported Tylenol (Acetaminophen) 325 Mg Tablet 1-2 Tab PO PRN Q4HRS PRN 03/05/18 Reported Losartan Potassium 50 Mg Tablet 50 Mg PO DAILY 11/28/17 Reported Impression . IMPRESSION: 1. Acute respiratory failure, multifactorial. 2. Septic shock. 3. Possible urinary tract infection. 4. History of cerebrovascular accident and dementia. 5. Prior questionable history of cerebral sinus thrombosis. 6. Seizures. 7. Generalized weakness. 8. Protein malnutrition, present upon admission. 9. Leukopenia. resolved 10. Acute on chronic renal failure. 11. Metabolic acidosis from sepsis. resolved 12.. E coli bacteremia (POA) PER ID Plan . BD elevate hob antibiotics per ID overall prognosis is poor may need Dabhoff tube feeding or PEG palliative care consulted protonix is on coumadin, monitor for bleeding d/w son. Favors comfort care approach. plan for select per son APPLE HENDRICKSON MD Jan 05, 2019 13:20
[2019-01-05] MEDS: PIPERACILLIN/TAZOBACTAM 3.375 GM in IV NORMAL SALINE 50ML 50 ML IV SCH ×2 (13:25→17:43)
--- NOTE | 2019-01-05 13:40 | NUR ---
Pharmacy Warfarin Dosing Note S:Pharmacy consulted to assist with anticoagulation therapy started with target INR: 2 -3 O:ARIEL TORRES is a 78 year old M with Atrial Fibrillation Recurrent VTE HX SINUS THROMBOSIS LABS: Last INR: 2.0 Last HGB: 8.5 Last HCT: 22.8 Last PLT: 99 Last dose of 7.5 mg given on 01/04/19 at 1732 Previous Regimen: 8 MG/DAY Vitamin K given: Drug Interaction Changes: Same Interacting Drug Ongoing Drug Interactions: ASPIRIN A:INR of 2.0 is within desired range. Target range for this patient is: 2 -3 P: Warfarin dose: 8 mg Today at 1600 Bridge Therapy: None Next INR due in am Pharmacy anticoagulation service will continue to follow. VICTORIA WOLFF RPH, 01/05/19 [id number]
--- NOTE | 2019-01-05 14:19 | PDOC ---
PROGRESS NOTES Chief Complaint Chief Complaint E coli bacteremia metabolic encephalopathy acute respiratory failure resolved Septic shock secondary to urinary tract infection secondary to chronic indwelling urinary suprapubic catheter resolved Hypoalbuminemia - may be causing swelling of extremities Elevated troponin, most likely demand ischemia History of acute venous sinus thrombosis on CTA head/neck on chronic anticoagulation with coumadin Left Sided weakness and right-sided gaze, on last admission which had resolved History dementia, seizures History of essential Hypertension History of BPH, Indwelling suprapubic catheter History of complicated UTI in a male sec to indwelling FC Dysphagia, patient with dobhoff tube currently, Will need PEG tube placement Plan: will transfer to [facility] once all consultants have signed off continue with current antibiotics History of Present Illness History of Present Illness Pt is an 78 y/o male who presented with sepsis due to UTI and chronic indwelling catheter. BCx demonstrated multi-drug resistant E. Coli. Patient opens eyes to stimuli, but is otherwise not responsive. Patient is extubated with NG tube. no acute events reported overnight, seems to be back at baseline Vitals Vitals Vital Signs Date Time Temp Pulse Resp B/P (MAP) Pulse Ox O2 Delivery O2 Flow Rate FiO2 01/05/19 13:42 98.0 98 18 140/68 (92) 99 Nasal Cannula 2.0 98.0 Physical Exam Physical Exam GENERAL: Propped up in bed, closed open, unresponsive HEENT: NGT +, Oral cavity moist, PERRL LUNGS: Clear anteriorly HEART: S1, S2 ABDOMEN: BS active, soft, no grimace to palpation : Jaquez EXTREMITIES: Generalized edema SKIN: warm, no rash NEUROLOGIC: Noncommunicative RIJ clean General: No acute distress, Other (patient extubated, opens eyes to stimuli) Heart: Regular rate, No murmurs, Other (irregulary rhythm) Lungs: Other (ronchi, a few end exp wheezing) Abdomen: Normal bowel sounds, Soft, No tenderness Extremities: No clubbing, Normal pulses, Other (1+ edema of bilateral upper and lower extremities) Skin: No rashes, No significant lesion Labs LABS Laboratory Tests Test 01/05/19 06:10 01/05/19 08:05 01/05/19 11:21 Prothrombin Time 22.8 SEC (11.7-14.0) Prothromb Time International Ratio 2.0 (0.8-1.1) Glucose (Fingerstick) 86 mg/dL (70-99) 108 mg/dL (70-99) Assessment and Plan Assessmemt and Plan Problems Medical Problems: (1) Acute sepsis Status: Acute (2) UTI (urinary tract infection) due to urinary indwelling catheter Status: Acute Comment Review of Relevant I have reviewed the following items edgar (where applicable) has been applied. Labs Laboratory Tests Test 01/04/19 00:53 01/04/19 05:00 01/04/19 07:00 01/04/19 12:05 Glucose (Fingerstick) 107 mg/dL (70-99) 116 mg/dL (70-99) 106 mg/dL (70-99) Prothrombin Time 22.7 SEC (11.7-14.0) Prothromb Time International Ratio 2.0 (0.8-1.1) Test 01/05/19 06:10 01/05/19 08:05 01/05/19 11:21 Prothrombin Time 22.8 SEC (11.7-14.0) Prothromb Time International Ratio 2.0 (0.8-1.1) Glucose (Fingerstick) 86 mg/dL (70-99) 108 mg/dL (70-99) Laboratory Tests Test 01/05/19 06:10 01/05/19 08:05 01/05/19 11:21 Prothrombin Time 22.8 SEC (11.7-14.0) Prothromb Time International Ratio 2.0 (0.8-1.1) Glucose (Fingerstick) 86 mg/dL (70-99) 108 mg/dL (70-99) Microbiology 12/31/18 Blood Culture - Final, Complete NO GROWTH AFTER 5 DAYS 12/24/18 Urine Culture - Final, Complete 12/24/18 Urine Culture Result 1 (MORIAH) - Final, Complete Medications Current Medications Sodium Chloride 1,000 ml @ 1,000 mls/hr Q1H IV Last administered on 12/24/18at 03:31; Start 12/24/18 at 03:45; Stop 12/24/18 at 04:44; Status DC Piperacillin Sod/ Tazobactam Sod 3.375 gm/Sodium Chloride 50 ml @ 100 mls/hr 1X ONCE IV Last administered on 12/24/18at 04:00; Start 12/24/18 at 04:00; Stop 12/24/18 at 04:29; Status DC Levofloxacin/ Dextrose 100 ml @ 100 mls/hr 1X ONCE IV Last administered on at 05:28; Start 12/24/18 at 04:00; Stop 12/24/18 at 04:59; Status DC Etomidate (Amidate) 20 mg STK-MED ONCE IV ; Start 12/24/18 at 03:47; Stop at 03:48; Status DC Vecuronium [place] (Norcuron Bolus) 10 mg STK-MED ONCE IV ; Start 12/24/18 at 03 :47; Stop 12/24/18 at 03:48; Status DC Sodium Chloride 1,000 ml @ 1,000 mls/hr 1X ONCE IV Last administered on at 03:31; Start 12/24/18 at 04:30; Stop 12/24/18 at 05:29; Status DC Vecuronium [place] (Norcuron Bolus) 20 mg 1X ONCE IV Last administered on 12/24at 03:32; Start 12/24/18 at 04:30; Stop 12/24/18 at 04:31; Status DC Etomidate (Amidate) 20 mg 1X ONCE IV Last administered on 12/24/18at 03:32; Start 12/24/18 at 04:30; Stop 12/24/18 at 04:31; Status DC Midazolam HCl (Versed) 5 mg 1X ONCE IV Last administered on 12/24/18at 04:45; Start 12/24/18 at 04:45; Stop 12/24/18 at 04:46; Status DC Dopamine HCl/ Dextrose 250 ml @ 3.674 mls/ hr 1X ONCE IV Last administered on 12/24/18at 05:22; Start 12/24/18 at 05:15; Stop 12/27/18 at 01:17; Status DC Sodium Chloride 1,000 ml @ 150 mls/hr Q6H40M IV ; Start 12/24/18 at 05:30; Stop 12/24/18 at 06:52; Status DC Sodium Chloride 1,000 ml @ 1,000 mls/hr 1X ONCE IV Last administered on at 05:04; Start 12/24/18 at 05:45; Stop 12/24/18 at 06:44; Status DC Norepinephrine Bitartrate 250 ml @ 1.875 mls/ hr CONT PRN IV SEE I/O RECORD Last administered on 12/24/18at 05:57; Start 12/24/18 at 05:45; Stop 12/24/18 at 10:25; Status DC Hydrocortisone Sodium Succinate (Solu-CORTEF) 300 mg 1X ONCE IV Last administered on 12/24/18at 10:33; Start 12/24/18 at 06:00; Stop 12/24/18 at 06:01 ; Status DC Sodium Chloride 1,000 ml @ 1,000 mls/hr 1X ONCE IV Last administered on at 05:22; Start 12/24/18 at 07:00; Stop 12/24/18 at 07:59; Status DC Sodium Chloride 1,000 ml @ 1,860 mls/hr Q33M IV ; Start 12/24/18 at 10:14; Stop 12/24/18 at 11:13; Status DC Sodium Chloride 500 ml @ 1,000 mls/hr PRN Q30MIN PRN IV SEE COMMENTS Last administered on 12/24/18at 13:00; Start 12/24/18 at 10:15 Linezolid/Dextrose 300 ml @ 300 mls/hr Q12HR IV Last administered on 12/26/18at 20:33; Start 12/24/18 at 11:00; Stop 12/27/18 at 06:51; Status DC Piperacillin Sod/ Tazobactam Sod 4.5 gm/Sodium Chloride 100 ml @ 200 mls/hr Q6HRS IV ; Start 12/24/18 at 12:00; Status UNV Norepinephrine Bitartrate 250 ml @ 0 mls/hr CONT PRN IV SEE I/O RECORD Last administered on 12/25/18at 14:11; Start 12/24/18 at 10:15; Stop 01/03/19 at 12:04 ; Status DC Piperacillin Sod/ Tazobactam Sod 3.375 gm/Sodium Chloride 50 ml @ 100 mls/hr Q6HRS IV Last administered on 12/27/18at 05:58; Start 12/24/18 at 12:00; Stop 12/27/18 at 06:51; Status DC Sodium Chloride 1,000 ml @ 75 mls/hr [id number] IV Last administered on 12/28/18 05:36; Start 12/24/18 at 11:15; Stop 12/29/18 at 06:07; Status DC Propofol 100 ml @ 0 mls/hr CONT PRN IV SEE PROTOCOL Last administered on at 03:45; Start 12/24/18 at 16:30; Stop 01/03/19 at 12:04; Status DC Fentanyl Citrate (Fentanyl 2ml Vial) 25 mcg PRN Q1HR PRN IV SEE COMMENTS Last administered on 12/25/18at 12:20; Start 12/24/18 at 16:30 Pantoprazole Sodium (PROTONIX VIAL for IV PUSH) 40 mg DAILYAC IVP Last administered on 01/05/19 08:28; Start 12/24/18 at 18:00 Enoxaparin Sodium (Lovenox 30mg Syringe) 30 mg Q24H SQ Last administered on 12/27 21:18; Start 12/24/18 at 19:00; Stop 12/28/18 at 10:36; Status DC Midazolam HCl 100 ml @ 0 mls/hr CONT PRN IV PER PROTOCOL Last administered on 09:00; Start 12/25/18 at 10:00; Stop 01/03/19 at 12:04; Status DC Piperacillin Sod/ Tazobactam Sod 3.375 gm/Sodium Chloride 50 ml @ 100 mls/hr Q8HRS IV Last administered on 12/31/18 05:43; Start 12/27/18 at 14:00; Stop 12/31 at 08:25; Status DC Enoxaparin Sodium (Lovenox 40mg Syringe) 40 mg Q24H SQ ; Start 12/28/18 at 19:00 ; Stop 12/28/18 at 19:00; Status DC Aspirin (Valarie Aspirin) 325 mg DAILY PO Last administered on 01/05/19 08:30; Start 12/28/18 at 14:00 Vitamin D (Vitamin D3) 500 unit DAILY PO Last administered on 01/05/19 08:29; Start 12/28/18 at 14:00 Levetiracetam (Keppra) 500 mg BID PO Last administered on 01/05/19 08:30; Start 12/28/18 at 14:00 Losartan Potassium (Cozaar) 50 mg DAILY PO Last administered on 01/05/19 08:30 ; Start 12/28/18 at 14:00 Magnesium Hydroxide (Milk Of Magnesia) 400 mg PRN DAILY PRN PO CONSTIPATION 2ND CHOICE; Start 12/28/18 at 13:15 Trazodone HCl (Desyrel) 50 mg QHS PO Last administered on 01/04/19 20:55; Start 12/28/18 at 21:00 Polyethylene Glycol (miraLAX PACKET) 17 gm PRN DAILY PRN PO CONSTIPATION 1ST CHOICE; Start 12/29/18 at 09:00 Non-Formulary Medication (Warfarin Sodium ) 8 mg HS PO ; Start 12/28/18 at 21:00 ; Status UNV Warfarin Sodium (Coumadin Per Pharmacy) 1 each PRN DAILY PRN MC SEE COMMENTS Last administered on 01/05/19 12:06; Start 12/28/18 at 13:15 Warfarin Sodium (Coumadin - No Dose Today) 1 each 1X WARF ONCE MC Last administered on 12/28/18 16:36; Start 12/28/18 at 16:36; Stop 12/28/18 at 16:37; Status DC Warfarin Sodium (Coumadin) 2 mg 1X WARF ONCE PO Last administered on 12/29/18 16:30; Start 12/29/18 at 16:00; Stop 12/29/18 at 16:01; Status DC Enalaprilat (Vasotec Inj) 1.25 mg Q6HRS IVP Last administered on 12/29/18 16:30 ; Start 12/29/18 at 16:00; Stop 12/29/18 at 18:05; Status DC Enalaprilat (Vasotec Inj) 2.5 mg PRN Q6HRS PRN IVP HYPERTENSION, SEE COMMENTS Last administered on 01/03/19 21:26; Start 12/29/18 at 18:15 Albumin Human 100 ml @ 100 mls/hr 1X ONCE IV Last administered on 12/30/18 11 :32; Start 12/30/18 at 11:30; Stop 12/30/18 at 12:29; Status DC Dextrose (Dextrose 50%-Water Syringe) 12.5 gm PRN Q15MIN PRN IV SEE COMMENTS Last administered on 12/31/18 18:11; Start 12/30/18 at 14:15 Cefepime HCl (Maxipime) 1 gm Q8HRS IVP Last administered on 01/05/19 06:15; Start 12/31/18 at 09:00; Stop 01/05/19 at 12:23; Status DC Warfarin Sodium (Coumadin) 4 mg 1X WARF ONCE PO Last administered on 12/31/18 15:20; Start 12/31/18 at 16:00; Stop 12/31/18 at 16:01; Status DC Warfarin Sodium (Coumadin) 7.5 mg 1X WARF ONCE PO Last administered on at 16:24; Start 01/01/19 at 16:00; Stop 01/01/19 at 16:01; Status DC Warfarin Sodium (Coumadin) 8 mg 1X WARF ONCE PO ; Start 01/02/19 at 16:00; Stop 01/02/19 at 16:01; Status Cancel Warfarin Sodium (Coumadin) 7.5 mg 1X WARF ONCE PO Last administered on at 15:33; Start 01/02/19 at 16:00; Stop 01/02/19 at 16:01; Status DC Acetaminophen (Tylenol) 650 mg PRN Q6HRS PRN NG MILD PAIN / TEMP Last administered on 01/02/19at 15:32; Start 01/02/19 at 15:15 Alteplase, Recombinant (Cathflo For Central Catheter Clearance) 1 mg 1X ONCE INT CAT ; Start 01/03/19 at 10:30; Stop 01/03/19 at 10:31; Status DC Warfarin Sodium (Coumadin) 7.5 mg 1X WARF ONCE PO Last administered on at 17:32; Start 01/03/19 at 16:00; Stop 01/03/19 at 16:01; Status DC Albuterol/ Ipratropium (Duoneb) 3 ml RTQID NEB Last administered on 01/04/19 12:06; Start 01/04/19 at 12:00; Stop 01/04/19 at 12:32; Status DC Albuterol/ Ipratropium (Duoneb) 3 ml PRN QID PRN NEB SHORTNESS OF BREATH; Start 01/04/19 at 12:45 Warfarin Sodium (Coumadin) 7.5 mg 1X WARF ONCE PO Last administered on at 16:00; Start 01/04/19 at 16:00; Stop 01/04/19 at 16:01; Status DC Dextrose (Dextrose 50%-Water Syringe) 25 gm STK-MED ONCE IV ; Start 01/04/19 at 17:00; Stop 01/05/19 at 08:23; Status DC Warfarin Sodium (Coumadin) 8 mg 1X WARF ONCE PO ; Start 01/05/19 at 16:00; Stop 01/05/19 at 16:01 Piperacillin Sod/ Tazobactam Sod 3.375 gm/Sodium Chloride 50 ml @ 100 mls/hr Q6HRS IV Last administered on 01/05/19at 13:25; Start 01/05/19 at 13:00 Active Scripts Active Reported Warfarin Sodium 6 Mg Tablet 8 Mg PO HS Miralax (Polyethylene Glycol 3350) 17 Gm Powd.pack 1 Packet PO PRN DAILY PRN Milk Of Magnesia (Magnesium Hydroxide) 400 Mg/5 Ml Oral.susp 400 Mg PO PRN DAILY PRN Megace Es (Megestrol Acetate) 625 Mg/5 Ml Oral.susp 400 Mg PO Senna Plus Tablet (Sennosides/Docusate Sodium) 1 Each Tablet 1 Each PO Aspirin 325 Mg Tablet 1 Tab PO DAILY Keppra (Levetiracetam) 500 Mg Tablet 500 Mg PO BID Vitamin D3 (Cholecalciferol (Vitamin D3)) 1,000 Unit Tablet 400 Unit PO DAILY Trazodone Hcl 50 Mg Tablet 1 Tab PO QHS Tylenol (Acetaminophen) 325 Mg Tablet 1-2 Tab PO PRN Q4HRS PRN Losartan Potassium 50 Mg Tablet 50 Mg PO DAILY Vitals/I & O Vital Sign - Last 24 Hours 01/04/19 01/04/19 01/04/19 01/04/19 15:00 19:43 20:05 23:04 Temp 98.0 100.4 98.0 100.4 Pulse 95 99 104 Resp 18 20 18 B/P (MAP) 154/86 (108) 141/79 (99) 157/93 (114) Pulse Ox 93 100 97 O2 Delivery Nasal Cannula Nasal Cannula Nasal Cannula Nasal Cannula O2 Flow Rate 2.0 2.0 2.0 2.0 01/05/19 01/05/19 01/05/19 01/05/19 03:00 07:00 08:10 08:30 Temp 98.9 98.2 98.9 98.2 Pulse 90 98 90 Resp 18 18 B/P (MAP) 139/89 (106) 163/87 (112) 139/89 Pulse Ox 98 98 O2 Delivery Nasal Cannula Nasal Cannula Nasal Cannula O2 Flow Rate 2.0 2.0 2.0 01/05/19 01/05/19 11:00 13:42 Temp 98.0 98.0 98.0 98.0 Pulse 97 98 Resp 18 18 B/P (MAP) 144/69 (94) 140/68 (92) Pulse Ox 99 99 O2 Delivery Nasal Cannula Nasal Cannula O2 Flow Rate 2.0 2.0 Intake and Output 01/04/19 01/04/19 01/05/19 14:59 22:59 06:59 Intake Total 100 ml 100 ml Output Total 550 ml 500 ml 1200 ml Balance -450 ml -400 ml -1200 ml KESHA HILLS MD Jan 05, 2019 14:19
[2019-01-05] MEDS ORDERED: WARFARIN 4 MG TABLET. PO ONE (16:00)
--- NOTE | 2019-01-05 18:16 | PDOC ---
PROGRESS NOTES Assessment Assessment Metabolic encephalopathy. Seizure. Pneumonia. 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 Abnormal thyroid tests. Other medical diseases. RECOMMENDATIONS/PLAN: Continue Keppra 500 mg bid. EEG. He has been on Coumadin Treat medical diseases. Thyroid problems evaluation and management per floor team. Discussed with his son at bedside on 10/13/18. 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 ( has a suprapubic catheter), Urinary Incontinence ( and retention) Past Surgical History Total hip replacement (left) Family History Non contributory. Social History Assisted living resident, no alcohol or tobacco Allergies Coded Allergies: vancomycin (Verified Allergy, Intermediate, 12/02/17) I S O L A T I O N *CONTACT* (Verified Allergy, Unknown, 04/07/18) VRE MEDICATIONS: Refer to [facility] REVIEW OF SYSTEMS: Refer to PMH and PSH. PHYSICAL EXAMINATION: General appearance in chronic distress. HEENT: Normocephalic and nontraumatic. Eyes, nose, ears, and throat are unremarkable. Hearing decrease. Neck is supple. No lymphadenopathy. No Crepitus. Cardiovascular: S1, S2, regular rate and rhythm. Pulmonary: Clear to auscultation bilaterally. Abdomen: Bowel sounds are positive. Abdomen is soft, nontender, and nondistended. Extremities: No rash, lesions, or edema. No restriction of range of motion NEUROLOGICAL EXAMINATION: Eyes open from time to time. Non verbal. Not oriented to time, place and person. PERRL. EOMI. CN: no focal findings. Muscle tone: within normal. Muscle strength: 3-4 DTR: 1-2 Plantar reflex: Neutral response bilaterally Gait: Unable to walk. Sensory exam: no acute abnormal findings. No other cerebellar signs elicited. F-T-N test not performed due to not follow commands. Objective Objective Vital Signs Date Time Temp Pulse Resp B/P (MAP) Pulse Ox O2 Delivery O2 Flow Rate FiO2 01/05/19 14:49 98 18 140/68 (92) 99 Nasal Cannula 2.0 01/05/19 13:42 98.0 98.0 Intake and Output 01/05/19 07:00 Intake Total 200 ml Output Total 2250 ml Balance -2050 ml Intake Oral 0 ml Tube Feeding 200 ml Output Urine Total 2250 ml Vitals Signs Vitals VS - Last 72 Hours, by Label Date Time Temp Pulse Resp B/P (MAP) Pulse Ox O2 Delivery O2 Flow Rate FiO2 01/05/19 14:49 98 18 140/68 (92) 99 Nasal Cannula 2.0 01/05/19 13:42 98.0 98 18 140/68 (92) 99 Nasal Cannula 2.0 98.0 01/05/19 11:00 98.0 97 18 144/69 (94) 99 Nasal Cannula 2.0 98.0 01/05/19 08:30 90 139/89 01/05/19 08:10 Nasal Cannula 2.0 01/05/19 07:00 98.2 98 18 163/87 (112) 98 Nasal Cannula 2.0 98.2 01/05/19 03:00 98.9 90 18 139/89 (106) 98 Nasal Cannula 2.0 98.9 01/04/19 23:04 104 18 157/93 (114) 97 Nasal Cannula 2.0 01/04/19 20:05 Nasal Cannula 2.0 01/04/19 19:43 100.4 99 20 141/79 (99) 100 Nasal Cannula 2.0 100.4 01/04/19 15:00 98.0 95 18 154/86 (108) 93 Nasal Cannula 2.0 98.0 01/04/19 12:08 100 Nasal Cannula 1.0 01/04/19 11:00 98.4 95 18 163/89 (113) 94 Nasal Cannula 2.0 98.4 01/04/19 08:26 91 154/90 01/04/19 08:00 Nasal Cannula 2.0 01/04/19 07:00 98.0 91 18 154/90 (111) 94 Nasal Cannula 2.0 98.0 Laboratory Laboratory Laboratory Tests Test 01/05/19 06:10 01/05/19 08:05 01/05/19 11:21 01/05/19 16:44 Prothrombin Time 22.8 SEC (11.7-14.0) Prothromb Time International Ratio 2.0 (0.8-1.1) Glucose (Fingerstick) 86 mg/dL (70-99) 108 mg/dL (70-99) 103 mg/dL (70-99) Microbiology 12/31/18 Blood Culture - Final, Complete NO GROWTH AFTER 5 DAYS 12/24/18 Urine Culture - Final, Complete 12/24/18 Urine Culture Result 1 (MORIAH) - Final, Complete Medication Medications Current Medications Piperacillin Sod/ Tazobactam Sod 3.375 gm/Sodium Chloride 50 ml @ 100 mls/hr Q6HRS IV Last administered on 01/05/19at 17:43; Start 01/05/19 at 13:00 Warfarin Sodium (Coumadin) 8 mg 1X WARF ONCE PO Last administered on at 16:32; Start 01/05/19 at 16:00; Stop 01/05/19 at 16:01; Status DC Comment Review of Relevant I have reviewed the following items edgar (where applicable) has been applied. BETTY MORALES MD Jan 05, 2019 18:16
--- NOTE | 2019-01-05 19:44 | NUR ---
Receied report from [facility]. Patient arrived to unit via gurney at 1944 by herself with no family present. Family was present during ED time, but left when she was admitted. She arrived to the unit with a green bag of clothes, glasses, silver ring, earrings, and hearing aids. Patient complaint of nausea, vomiting and diarrhea for the last 3 days. Patient has zero complaints of pain at this time. Completed admission work up on patient. Patient was orientated to the unit, bed was placed in the lowest position and locked, call light placed within reach as well. Patient did state during admission that she wished to be a DNR, will verify again later with another RN, then contact doctor. Addendum: 01/06/19 at 0411 by LASHA AKERS RN RN Incorrect documentation on wrong patient. This is for another patient. Addendum: 01/06/19 at 0412 by LASHA AKERS RN RN PLEASE DISREGARD THIS COMMENT. DOCUMENTED ON THE WRONG PATIENT.
--- NOTE | 2019-01-05 20:54 | PDOC ---
PROGRESS NOTES Chief Complaint Chief Complaint E coli bacteremia metabolic encephalopathy acute respiratory failure resolved Septic shock secondary to urinary tract infection secondary to chronic indwelling urinary suprapubic catheter resolved Hypoalbuminemia - may be causing swelling of extremities Elevated troponin, most likely demand ischemia History of acute venous sinus thrombosis on CTA head/neck on chronic anticoagulation with coumadin Left Sided weakness and right-sided gaze, on last admission which had resolved History dementia, seizures History of essential Hypertension History of BPH, Indwelling suprapubic catheter History of complicated UTI in a male sec to indwelling FC Dysphagia, patient with dobhoff tube currently, Will need PEG tube placement Plan: will transfer to [facility] once all consultants have signed off continue with current antibiotics History of Present Illness History of Present Illness Pt is an 78 y/o male who presented with sepsis due to UTI and chronic indwelling catheter. BCx demonstrated multi-drug resistant E. Coli. Patient opens eyes to stimuli, but is otherwise not responsive. Patient is with NG tube. no acute events reported overnight, seems to be back at baseline Vitals Vitals Vital Signs Date Time Temp Pulse Resp B/P (MAP) Pulse Ox O2 Delivery O2 Flow Rate FiO2 01/05/19 18:42 98.0 96 18 142/70 (94) 99 Nasal Cannula 2.0 98.0 Physical Exam Physical Exam GENERAL: Propped up in bed, closed open, unresponsive HEENT: NGT +, Oral cavity moist, PERRL LUNGS: Clear anteriorly HEART: S1, S2 ABDOMEN: BS active, soft, no grimace to palpation : Jaquez EXTREMITIES: Generalized edema SKIN: warm, no rash NEUROLOGIC: Noncommunicative RIJ clean General: No acute distress, Other (patient extubated, opens eyes to stimuli) Heart: Regular rate, No murmurs, Other (irregulary rhythm) Lungs: Other (ronchi, a few end exp wheezing) Abdomen: Normal bowel sounds, Soft, No tenderness Extremities: No clubbing, Normal pulses, Other (1+ edema of bilateral upper and lower extremities) Skin: No rashes, No significant lesion Labs LABS Laboratory Tests Test 01/05/19 06:10 01/05/19 06:40 01/05/19 08:05 01/05/19 11:21 Prothrombin Time 22.8 SEC (11.7-14.0) Prothromb Time International Ratio 2.0 (0.8-1.1) Thyroid Stimulating Hormone (TSH) 5.860 uIU/mL (0.358-3.74) Glucose (Fingerstick) 86 mg/dL (70-99) 108 mg/dL (70-99) Test 01/05/19 16:44 Glucose (Fingerstick) 103 mg/dL (70-99) Assessment and Plan Assessmemt and Plan Problems Medical Problems: (1) Acute sepsis Status: Acute (2) UTI (urinary tract infection) due to urinary indwelling catheter Status: Acute Comment Review of Relevant I have reviewed the following items edgar (where applicable) has been applied. Labs Laboratory Tests Test 01/04/19 00:53 01/04/19 05:00 01/04/19 07:00 01/04/19 12:05 Glucose (Fingerstick) 107 mg/dL (70-99) 116 mg/dL (70-99) 106 mg/dL (70-99) Prothrombin Time 22.7 SEC (11.7-14.0) Prothromb Time International Ratio 2.0 (0.8-1.1) Test 01/05/19 06:10 01/05/19 06:40 01/05/19 08:05 01/05/19 11:21 Prothrombin Time 22.8 SEC (11.7-14.0) Prothromb Time International Ratio 2.0 (0.8-1.1) Thyroid Stimulating Hormone (TSH) 5.860 uIU/mL (0.358-3.74) Glucose (Fingerstick) 86 mg/dL (70-99) 108 mg/dL (70-99) Test 01/05/19 16:44 Glucose (Fingerstick) 103 mg/dL (70-99) Laboratory Tests Test 01/05/19 06:10 01/05/19 06:40 01/05/19 08:05 01/05/19 11:21 Prothrombin Time 22.8 SEC (11.7-14.0) Prothromb Time International Ratio 2.0 (0.8-1.1) Thyroid Stimulating Hormone (TSH) 5.860 uIU/mL (0.358-3.74) Glucose (Fingerstick) 86 mg/dL (70-99) 108 mg/dL (70-99) Test 01/05/19 16:44 Glucose (Fingerstick) 103 mg/dL (70-99) Microbiology 12/31/18 Blood Culture - Final, Complete NO GROWTH AFTER 5 DAYS 12/24/18 Urine Culture - Final, Complete 12/24/18 Urine Culture Result 1 (MORIAH) - Final, Complete Medications Current Medications Sodium Chloride 1,000 ml @ 1,000 mls/hr Q1H IV Last administered on 12/24/18 03:31; Start 12/24/18 at 03:45; Stop 12/24/18 at 04:44; Status DC Piperacillin Sod/ Tazobactam Sod 3.375 gm/Sodium Chloride 50 ml @ 100 mls/hr 1X ONCE IV Last administered on 12/24/18at 04:00; Start 12/24/18 at 04:00; Stop 12/24/18 at 04:29; Status DC Levofloxacin/ Dextrose 100 ml @ 100 mls/hr 1X ONCE IV Last administered on at 05:28; Start 12/24/18 at 04:00; Stop 12/24/18 at 04:59; Status DC Etomidate (Amidate) 20 mg STK-MED ONCE IV ; Start 12/24/18 at 03:47; Stop at 03:48; Status DC Vecuronium [place] (Norcuron Bolus) 10 mg STK-MED ONCE IV ; Start 12/24/18 at 03 :47; Stop 12/24/18 at 03:48; Status DC Sodium Chloride 1,000 ml @ 1,000 mls/hr 1X ONCE IV Last administered on at 03:31; Start 12/24/18 at 04:30; Stop 12/24/18 at 05:29; Status DC Vecuronium [place] (Norcuron Bolus) 20 mg 1X ONCE IV Last administered on 12/24at 03:32; Start 12/24/18 at 04:30; Stop 12/24/18 at 04:31; Status DC Etomidate (Amidate) 20 mg 1X ONCE IV Last administered on 12/24/18at 03:32; Start 12/24/18 at 04:30; Stop 12/24/18 at 04:31; Status DC Midazolam HCl (Versed) 5 mg 1X ONCE IV Last administered on 12/24/18at 04:45; Start 12/24/18 at 04:45; Stop 12/24/18 at 04:46; Status DC Dopamine HCl/ Dextrose 250 ml @ 3.674 mls/ hr 1X ONCE IV Last administered on 12/24/18at 05:22; Start 12/24/18 at 05:15; Stop 12/27/18 at 01:17; Status DC Sodium Chloride 1,000 ml @ 150 mls/hr Q6H40M IV ; Start 12/24/18 at 05:30; Stop 12/24/18 at 06:52; Status DC Sodium Chloride 1,000 ml @ 1,000 mls/hr 1X ONCE IV Last administered on at 05:04; Start 12/24/18 at 05:45; Stop 12/24/18 at 06:44; Status DC Norepinephrine Bitartrate 250 ml @ 1.875 mls/ hr CONT PRN IV SEE I/O RECORD Last administered on 12/24/18at 05:57; Start 12/24/18 at 05:45; Stop 12/24/18 at 10:25; Status DC Hydrocortisone Sodium Succinate (Solu-CORTEF) 300 mg 1X ONCE IV Last administered on 12/24/18at 10:33; Start 12/24/18 at 06:00; Stop 12/24/18 at 06:01 ; Status DC Sodium Chloride 1,000 ml @ 1,000 mls/hr 1X ONCE IV Last administered on at 05:22; Start 12/24/18 at 07:00; Stop 12/24/18 at 07:59; Status DC Sodium Chloride 1,000 ml @ 1,860 mls/hr Q33M IV ; Start 12/24/18 at 10:14; Stop 12/24/18 at 11:13; Status DC Sodium Chloride 500 ml @ 1,000 mls/hr PRN Q30MIN PRN IV SEE COMMENTS Last administered on 12/24/18at 13:00; Start 12/24/18 at 10:15 Linezolid/Dextrose 300 ml @ 300 mls/hr Q12HR IV Last administered on 12/26/18at 20:33; Start 12/24/18 at 11:00; Stop 12/27/18 at 06:51; Status DC Piperacillin Sod/ Tazobactam Sod 4.5 gm/Sodium Chloride 100 ml @ 200 mls/hr Q6HRS IV ; Start 12/24/18 at 12:00; Status UNV Norepinephrine Bitartrate 250 ml @ 0 mls/hr CONT PRN IV SEE I/O RECORD Last administered on 12/25/18at 14:11; Start 12/24/18 at 10:15; Stop 01/03/19 at 12:04 ; Status DC Piperacillin Sod/ Tazobactam Sod 3.375 gm/Sodium Chloride 50 ml @ 100 mls/hr Q6HRS IV Last administered on 12/27/18at 05:58; Start 12/24/18 at 12:00; Stop 12/27/18 at 06:51; Status DC Sodium Chloride 1,000 ml @ 75 mls/hr [id number] IV Last administered on 12/28/18at 05:36; Start 12/24/18 at 11:15; Stop 12/29/18 at 06:07; Status DC Propofol 100 ml @ 0 mls/hr CONT PRN IV SEE PROTOCOL Last administered on at 03:45; Start 12/24/18 at 16:30; Stop 01/03/19 at 12:04; Status DC Fentanyl Citrate (Fentanyl 2ml Vial) 25 mcg PRN Q1HR PRN IV SEE COMMENTS Last administered on 12/25/18at 12:20; Start 12/24/18 at 16:30 Pantoprazole Sodium (PROTONIX VIAL for IV PUSH) 40 mg DAILYAC IVP Last administered on 01/05/19at 08:28; Start 12/24/18 at 18:00 Enoxaparin Sodium (Lovenox 30mg Syringe) 30 mg Q24H SQ Last administered on 12/27at 21:18; Start 12/24/18 at 19:00; Stop 12/28/18 at 10:36; Status DC Midazolam HCl 100 ml @ 0 mls/hr CONT PRN IV PER PROTOCOL Last administered on at 09:00; Start 12/25/18 at 10:00; Stop 01/03/19 at 12:04; Status DC Piperacillin Sod/ Tazobactam Sod 3.375 gm/Sodium Chloride 50 ml @ 100 mls/hr Q8HRS IV Last administered on 12/31/18at 05:43; Start 12/27/18 at 14:00; Stop 12/31 at 08:25; Status DC Enoxaparin Sodium (Lovenox 40mg Syringe) 40 mg Q24H SQ ; Start 12/28/18 at 19:00 ; Stop 12/28/18 at 19:00; Status DC Aspirin (Valarie Aspirin) 325 mg DAILY PO Last administered on 01/05/19 08:30; Start 12/28/18 at 14:00 Vitamin D (Vitamin D3) 500 unit DAILY PO Last administered on 01/05/19 08:29; Start 12/28/18 at 14:00 Levetiracetam (Keppra) 500 mg BID PO Last administered on 01/05/19 08:30; Start 12/28/18 at 14:00 Losartan Potassium (Cozaar) 50 mg DAILY PO Last administered on 01/05/19 08:30 ; Start 12/28/18 at 14:00 Magnesium Hydroxide (Milk Of Magnesia) 400 mg PRN DAILY PRN PO CONSTIPATION 2ND CHOICE; Start 12/28/18 at 13:15 Trazodone HCl (Desyrel) 50 mg QHS PO Last administered on 01/04/19 20:55; Start 12/28/18 at 21:00 Polyethylene Glycol (miraLAX PACKET) 17 gm PRN DAILY PRN PO CONSTIPATION 1ST CHOICE; Start 12/29/18 at 09:00 Non-Formulary Medication (Warfarin Sodium ) 8 mg HS PO ; Start 12/28/18 at 21:00 ; Status UNV Warfarin Sodium (Coumadin Per Pharmacy) 1 each PRN DAILY PRN MC SEE COMMENTS Last administered on 01/05/19 12:06; Start 12/28/18 at 13:15 Warfarin Sodium (Coumadin - No Dose Today) 1 each 1X WARF ONCE MC Last administered on 12/28/18 16:36; Start 12/28/18 at 16:36; Stop 12/28/18 at 16:37; Status DC Warfarin Sodium (Coumadin) 2 mg 1X WARF ONCE PO Last administered on 12/29/18 16:30; Start 12/29/18 at 16:00; Stop 12/29/18 at 16:01; Status DC Enalaprilat (Vasotec Inj) 1.25 mg Q6HRS IVP Last administered on 12/29/18 16:30 ; Start 12/29/18 at 16:00; Stop 12/29/18 at 18:05; Status DC Enalaprilat (Vasotec Inj) 2.5 mg PRN Q6HRS PRN IVP HYPERTENSION, SEE COMMENTS Last administered on 01/03/19at 21:26; Start 12/29/18 at 18:15 Albumin Human 100 ml @ 100 mls/hr 1X ONCE IV Last administered on 12/30/18at 11 :32; Start 12/30/18 at 11:30; Stop 12/30/18 at 12:29; Status DC Dextrose (Dextrose 50%-Water Syringe) 12.5 gm PRN Q15MIN PRN IV SEE COMMENTS Last administered on 12/31/18at 18:11; Start 12/30/18 at 14:15 Cefepime HCl (Maxipime) 1 gm Q8HRS IVP Last administered on 01/05/19at 06:15; Start 12/31/18 at 09:00; Stop 01/05/19 at 12:23; Status DC Warfarin Sodium (Coumadin) 4 mg 1X WARF ONCE PO Last administered on 12/31/18 15:20; Start 12/31/18 at 16:00; Stop 12/31/18 at 16:01; Status DC Warfarin Sodium (Coumadin) 7.5 mg 1X WARF ONCE PO Last administered on 16:24; Start 01/01/19 at 16:00; Stop 01/01/19 at 16:01; Status DC Warfarin Sodium (Coumadin) 8 mg 1X WARF ONCE PO ; Start 01/02/19 at 16:00; Stop 01/02/19 at 16:01; Status Cancel Warfarin Sodium (Coumadin) 7.5 mg 1X WARF ONCE PO Last administered on at 15:33; Start 01/02/19 at 16:00; Stop 01/02/19 at 16:01; Status DC Acetaminophen (Tylenol) 650 mg PRN Q6HRS PRN NG MILD PAIN / TEMP Last administered on 01/02/19 15:32; Start 01/02/19 at 15:15 Alteplase, Recombinant (Cathflo For Central Catheter Clearance) 1 mg 1X ONCE INT CAT ; Start 01/03/19 at 10:30; Stop 01/03/19 at 10:31; Status DC Warfarin Sodium (Coumadin) 7.5 mg 1X WARF ONCE PO Last administered on at 17:32; Start 01/03/19 at 16:00; Stop 01/03/19 at 16:01; Status DC Albuterol/ Ipratropium (Duoneb) 3 ml RTQID NEB Last administered on 01/04/19at 12:06; Start 01/04/19 at 12:00; Stop 01/04/19 at 12:32; Status DC Albuterol/ Ipratropium (Duoneb) 3 ml PRN QID PRN NEB SHORTNESS OF BREATH; Start 01/04/19 at 12:45 Warfarin Sodium (Coumadin) 7.5 mg 1X WARF ONCE PO Last administered on at 16:00; Start 01/04/19 at 16:00; Stop 01/04/19 at 16:01; Status DC Dextrose (Dextrose 50%-Water Syringe) 25 gm STK-MED ONCE IV ; Start 01/04/19 at 17:00; Stop 01/05/19 at 08:23; Status DC Warfarin Sodium (Coumadin) 8 mg 1X WARF ONCE PO Last administered on at 16:32; Start 01/05/19 at 16:00; Stop 01/05/19 at 16:01; Status DC Piperacillin Sod/ Tazobactam Sod 3.375 gm/Sodium Chloride 50 ml @ 100 mls/hr Q6HRS IV Last administered on 01/05/19at 17:43; Start 01/05/19 at 13:00 Active Scripts Active Reported Warfarin Sodium 6 Mg Tablet 8 Mg PO HS Miralax (Polyethylene Glycol 3350) 17 Gm Powd.pack 1 Packet PO PRN DAILY PRN Milk Of Magnesia (Magnesium Hydroxide) 400 Mg/5 Ml Oral.susp 400 Mg PO PRN DAILY PRN Megace Es (Megestrol Acetate) 625 Mg/5 Ml Oral.susp 400 Mg PO Senna Plus Tablet (Sennosides/Docusate Sodium) 1 Each Tablet 1 Each PO Aspirin 325 Mg Tablet 1 Tab PO DAILY Keppra (Levetiracetam) 500 Mg Tablet 500 Mg PO BID Vitamin D3 (Cholecalciferol (Vitamin D3)) 1,000 Unit Tablet 400 Unit PO DAILY Trazodone Hcl 50 Mg Tablet 1 Tab PO QHS Tylenol (Acetaminophen) 325 Mg Tablet 1-2 Tab PO PRN Q4HRS PRN Losartan Potassium 50 Mg Tablet 50 Mg PO DAILY Vitals/I & O Vital Sign - Last 24 Hours 01/04/19 01/05/19 01/05/19 01/05/19 23:04 03:00 07:00 08:10 Temp 98.9 98.2 98.9 98.2 Pulse 104 90 98 Resp 18 18 18 B/P (MAP) 157/93 (114) 139/89 (106) 163/87 (112) Pulse Ox 97 98 98 O2 Delivery Nasal Cannula Nasal Cannula Nasal Cannula Nasal Cannula O2 Flow Rate 2.0 2.0 2.0 2.0 01/05/19 01/05/19 01/05/19 01/05/19 08:30 11:00 13:42 14:49 Temp 98.0 98.0 98.0 98.0 Pulse 90 97 98 98 Resp 18 18 18 B/P (MAP) 139/89 144/69 (94) 140/68 (92) 140/68 (92) Pulse Ox 99 99 99 O2 Delivery Nasal Cannula Nasal Cannula Nasal Cannula O2 Flow Rate 2.0 2.0 2.0 01/05/19 18:42 Temp 98.0 98.0 Pulse 96 Resp 18 B/P (MAP) 142/70 (94) Pulse Ox 99 O2 Delivery Nasal Cannula O2 Flow Rate 2.0 Intake and Output 01/04/19 01/04/19 01/05/19 15:00 23:00 07:00 Intake Total 100 ml 100 ml Output Total 550 ml 500 ml 1200 ml Balance -450 ml -400 ml -1200 ml KESHA HILLS MD Jan 05, 2019 20:54
[2019-01-05] MEDS: traZODone 50 MG TABLET. PO SCH (22:50)
[2019-01-06] MEDS: PIPERACILLIN/TAZOBACTAM 3.375 GM in IV NORMAL SALINE 50ML 50 ML IV SCH ×4 (00:01→17:42)
[2019-01-06 03:00] VITALS: BP 148/80
[2019-01-06] MEDS: ACETAMINOPHEN 650 MG/20.3 ML SOLUTION. NG PRN (05:57)
[2019-01-06] MEDS: PANTOPRAZOLE IV PUSH 40 MG VIAL. IVP SCH (05:58)
[2019-01-06 06:53] LABS: BASO # 0.1 x10^3/uL (0.0-0.2); BASO % 1 % (0-3); EOS # 0.3 x10^3/uL (0.0-0.7); EOS % 4 % (0-3); HEMOGLOBIN 7.8 g/dL (13.0-17.5); LYMPH # 0.7 x10^3/uL (1.0-4.8); LYMPH % 8 % (24-48); MEAN CORPUSCULAR HEMOGLOBIN 30 pg (25-35); MEAN CORPUSCULAR HGB CONC 34 g/dL (31-37); MEAN CORPUSCULAR VOLUME 87 fL (79-100); MONO # 1.1 x10^3/uL (0.0-1.1); MONO % 12 % (0-9); NEUT # 6.5 x10^3uL (1.8-7.7); NEUT % 75 % (31-73); PLATELET COUNT 394 x10^3/uL (140-400); RED BLOOD COUNT 2.64 x10^6/uL (4.30-5.70); RED CELL DISTRIBUTION WIDTH 15.5 % (11.5-14.5); WHITE BLOOD COUNT 8.7 x10^3/uL (4.0-11.0)
[2019-01-06 07:00] VITALS: BP 140/76
[2019-01-06 07:00] LABS: CALCIUM 8.7 mg/dL (8.5-10.1); CREATININE 1.2 mg/dL (0.7-1.3); GFR 70.5; POTASSIUM 4.8 mmol/L (3.5-5.1)
[2019-01-06 07:05] LABS: PROTHROMBIN TIME PATIENT 21.7 SEC (11.7-14.0)
--- NOTE | 2019-01-06 08:30 | NUR ---
This nurse and staff cleaned up patient, provided clean dry linens and gown, and turned the patient.
--- NOTE | 2019-01-06 09:42 | PDOC ---
Infectious Disease Note Subjective Subjective Nonverbal but more alert this am Tube feedings via NGT ROS ROS unobtainable Vital Sign Vital Signs Vital Signs Date Time Temp Pulse Resp B/P (MAP) Pulse Ox O2 Delivery O2 Flow Rate FiO2 01/06/19 07:00 98.8 94 18 140/76 (97) 95 Nasal Cannula 2.0 98.8 Physical Exam PHYSICAL EXAM GENERAL: Propped up in bed, unresponsive but alert HEENT: NGT +, Oral cavity moist, PERRL LUNGS: Clear anteriorly HEART: S1, S2 ABDOMEN: BS active, soft, no grimace to palpation : Jaquez EXTREMITIES: Generalized edema SKIN: warm, no rash NEUROLOGIC: Noncommunicative RIJ clean Labs Lab Laboratory Tests Test 01/05/19 11:21 01/05/19 16:44 01/05/19 21:54 01/06/19 06:45 Glucose (Fingerstick) 108 mg/dL (70-99) 103 mg/dL (70-99) 90 mg/dL (70-99) White Blood Count 8.7 x10^3/uL (4.0-11.0) Red Blood Count 2.64 x10^6/uL (4.30-5.70) Hemoglobin 7.8 g/dL (13.0-17.5) Hematocrit 23.0 % (39.0-53.0) Mean Corpuscular Volume 87 fL (79-100) Mean Corpuscular Hemoglobin 30 pg (25-35) Mean Corpuscular Hemoglobin Concent 34 g/dL (31-37) Red Cell Distribution Width 15.5 % (11.5-14.5) Platelet Count 394 x10^3/uL (140-400) Neutrophils (%) (Auto) 75 % (31-73) Lymphocytes (%) (Auto) 8 % (24-48) Monocytes (%) (Auto) 12 % (0-9) Eosinophils (%) (Auto) 4 % (0-3) Basophils (%) (Auto) 1 % (0-3) Neutrophils # (Auto) 6.5 x10^3uL (1.8-7.7) Lymphocytes # (Auto) 0.7 x10^3/uL (1.0-4.8) Monocytes # (Auto) 1.1 x10^3/uL (0.0-1.1) Eosinophils # (Auto) 0.3 x10^3/uL (0.0-0.7) Basophils # (Auto) 0.1 x10^3/uL (0.0-0.2) Prothrombin Time 21.7 SEC (11.7-14.0) Prothromb Time International Ratio 1.9 (0.8-1.1) Sodium Level 132 mmol/L (136-145) Potassium Level 4.8 mmol/L (3.5-5.1) Chloride Level 97 mmol/L (98-107) Carbon Dioxide Level 27 mmol/L (21-32) Anion Gap 8 (6-14) Blood Urea Nitrogen 24 mg/dL (8-26) Creatinine 1.2 mg/dL (0.7-1.3) Estimated GFR (Cockcroft-Gault) 70.5 Glucose Level 120 mg/dL (70-99) Calcium Level 8.7 mg/dL (8.5-10.1) Procalcitonin 1.29 ng/mL (0.00-0.10) Test 01/06/19 07:26 Glucose (Fingerstick) 94 mg/dL (70-99) Micro 12/24 Escherichia coli Multi-Drug Resistant Organism ANTIMICROBIAL SUSCEPTIBILITY Final Comment S = Susceptible; I = Intermediate; R = Resistant P = Positive; N = Negative MICS are expressed in micrograms per mL Antibiotic RSLT#1 RSLT#2 RSLT#3 RSLT#4 Amoxicillin/Clavulanic Acid S =8 Ampicillin R>=32 Cefazolin R>=64 Cefepime S =2 Ceftriaxone R>=64 Cefuroxime R>=64 Ciprofloxacin R>=4 Ertapenem S<=0.12 Gentamicin S<=1 Imipenem S<=0.25 Levofloxacin R>=8 Meropenem S<=0.25 Nitrofurantoin S<=16 Piperacillin/Tazobactam S<=4 Tetracycline R>=16 Tobramycin S<=1 Trimethoprim/Sulfa R>=320 Microbiology 12/31/18 Blood Culture - Final, Complete NO GROWTH AFTER 5 DAYS 12/24/18 Urine Culture - Final, Complete 12/24/18 Urine Culture Result 1 (MORIAH) - Final, Complete Objective Assessment Fever times one at 3 am today Septic shock with hypothermia (POA) resolved - procalcitonin better E coli bacteremia (PO) ; FQ resistant,source ?? GI /, UC neg. BC NGTD from 12/31. Leukopenia - resolved - WBC improved Lactic acidosis Suspected aspiration Respiratory failure TAZ better Dehydration Dementia - Encephalopathy Thrombocytopenia - slowly improving Anemia Plan Plan of Care Discont cefepime 12/31 with MS changes,was on Zosyn (12/24) before. More alert F/u temp zosyn for 2 days if fever stays down. If fever worsens will need eval F/u mental status change to see if improves more off Cefepime Labs in am Levaquin x 1, on 12/24 Supportive care care [facility] D/w nursing D/w family PADMA HOUSTON MD Jan 06, 2019 09:42
[2019-01-06] MEDS: levETIRAcetam 500 MG TABLET PO SCH (10:12)
[2019-01-06] MEDS: CHOLECALCIFEROL (VITAMIN D3) 1,000 UNIT TABLET PO SCH (10:13)
[2019-01-06] MEDS: ASPIRIN 325 MG TABLET PO SCH (10:14)
[2019-01-06] MEDS: LOSARTAN POTASSIUM 50 MG TABLET. PO SCH (10:14)
--- NOTE | 2019-01-06 10:30 | NUR ---
Assessment complete. Patient A&O, son present bedside. Provided clean linens; turned patient. Medications crushed and administered through patent NG tube; flushed NG. Spoke with Dr. Fontaine, bedside, and is aware of change in function from baseline of ability to feed self and answer questions.
[2019-01-06 11:00] VITALS: BP 132/70
--- NOTE | 2019-01-06 12:18 | NUR ---
Pharmacy Warfarin Dosing Note S:Pharmacy consulted to assist with anticoagulation therapy started with target INR: 2 -3 O:ARIEL TORRES is a 78 year old M with Atrial Fibrillation Recurrent VTE HX SINUS THROMBOSIS LABS: Last INR: 1.9 Last HGB: 8.5 Last HCT: 22.8 Last PLT: 99 Last dose of 8MG given on 01/05/19 at 1640 Previous Regimen: 8 MG/DAY Vitamin K given: Drug Interaction Changes: Same Interacting Drug Ongoing Drug Interactions: ASPIRIN A:INR of 1.9 is below desired range. Target range for this patient is: 2 -3 P: Warfarin dose: 9 MG Today at 1600 Bridge Therapy: None Next INR due IN AM Pharmacy anticoagulation service will continue to follow. VICTORIA WOLFF [facility], 01/06/19 [id number]
--- NOTE | 2019-01-06 13:30 | NUR ---
SW following. Discussed with RN. Awaiting bed availability from [facility]. SW will continue to follow.
[2019-01-06] MEDS ORDERED: IV NORMAL SALINE 1000ML BAG 500 ML IV ONE (14:45)
[2019-01-06 15:00] VITALS: BP 103/34
--- NOTE | 2019-01-06 15:42 | PDOC ---
PROGRESS NOTES Assessment Assessment Metabolic encephalopathy. Seizure. Pneumonia. 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 Abnormal thyroid tests. Other medical diseases. RECOMMENDATIONS/PLAN: Continue Keppra 500 mg bid. EEG. He has been on Coumadin. Treat medical diseases. Thyroid problems evaluation and management per floor team. Discussed with his son at bedside on 10/13/18. 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 ( has a suprapubic catheter), Urinary Incontinence ( and retention) Past Surgical History Total hip replacement (left) Family History Non contributory. Social History Assisted living resident, no alcohol or tobacco Allergies Coded Allergies: vancomycin (Verified Allergy, Intermediate, 12/02/17) I S O L A T I O N *CONTACT* (Verified Allergy, Unknown, 04/07/18) VRE MEDICATIONS: Refer to [facility] REVIEW OF SYSTEMS: Refer to PMH and PSH. PHYSICAL EXAMINATION: General appearance in chronic distress. HEENT: Normocephalic and nontraumatic. Eyes, nose, ears, and throat are unremarkable. Hearing decrease. Neck is supple. No lymphadenopathy. No Crepitus. Cardiovascular: S1, S2, regular rate and rhythm. Pulmonary: Clear to auscultation bilaterally. Abdomen: Bowel sounds are positive. Abdomen is soft, nontender, and nondistended. Extremities: No rash, lesions, or edema. No restriction of range of motion NEUROLOGICAL EXAMINATION: Eyes open from time to time. Non verbal. Not oriented to time, place and person. PERRL. EOMI. CN: no focal findings. Muscle tone: within normal. Muscle strength: 3-4 DTR: 1-2 Plantar reflex: Neutral response bilaterally Gait: Unable to walk. Sensory exam: no acute abnormal findings. No other cerebellar signs elicited. F-T-N test not performed due to not follow commands. Objective Objective Vital Signs Date Time Temp Pulse Resp B/P (MAP) Pulse Ox O2 Delivery O2 Flow Rate FiO2 01/06/19 15:00 97.9 94 18 103/34 (57) 93 Nasal Cannula 2.0 97.9 Intake and Output 01/06/19 06:59 Intake Total 1315 ml Output Total 700 ml Balance 615 ml Intake Oral 0 ml Tube Feeding 915 ml Blood Product IV Normal Saline Flush 200 ml Other 200 ml Output Urine Total 700 ml # Bowel Movements 1 Vitals Signs Vitals VS - Last 72 Hours, by Label Date Time Temp Pulse Resp B/P (MAP) Pulse Ox O2 Delivery O2 Flow Rate FiO2 01/06/19 15:00 97.9 94 18 103/34 (57) 93 Nasal Cannula 2.0 97.9 01/06/19 11:00 98.4 90 18 132/70 (90) 95 Nasal Cannula 2.0 98.4 01/06/19 10:14 94 140/76 01/06/19 07:00 98.8 94 18 140/76 (97) 95 Nasal Cannula 2.0 98.8 01/06/19 03:00 100.7 97 20 148/80 (102) 100 100.7 01/05/19 23:00 98.0 96 20 141/79 (99) 100 98.0 01/05/19 20:00 Nasal Cannula 2.0 01/05/19 18:42 98.0 96 18 142/70 (94) 99 Nasal Cannula 2.0 98.0 01/05/19 14:49 98 18 140/68 (92) 99 Nasal Cannula 2.0 01/05/19 13:42 98.0 98 18 140/68 (92) 99 Nasal Cannula 2.0 98.0 01/05/19 11:00 98.0 97 18 144/69 (94) 99 Nasal Cannula 2.0 98.0 01/05/19 08:30 90 139/89 01/05/19 08:10 Nasal Cannula 2.0 01/05/19 07:00 98.2 98 18 163/87 (112) 98 Nasal Cannula 2.0 98.2 Laboratory Laboratory Laboratory Tests Test 01/05/19 16:44 01/05/19 21:54 01/06/19 06:45 01/06/19 07:26 Glucose (Fingerstick) 103 mg/dL (70-99) 90 mg/dL (70-99) 94 mg/dL (70-99) White Blood Count 8.7 x10^3/uL (4.0-11.0) Red Blood Count 2.64 x10^6/uL (4.30-5.70) Hemoglobin 7.8 g/dL (13.0-17.5) Hematocrit 23.0 % (39.0-53.0) Mean Corpuscular Volume 87 fL (79-100) Mean Corpuscular Hemoglobin 30 pg (25-35) Mean Corpuscular Hemoglobin Concent 34 g/dL (31-37) Red Cell Distribution Width 15.5 % (11.5-14.5) Platelet Count 394 x10^3/uL (140-400) Neutrophils (%) (Auto) 75 % (31-73) Lymphocytes (%) (Auto) 8 % (24-48) Monocytes (%) (Auto) 12 % (0-9) Eosinophils (%) (Auto) 4 % (0-3) Basophils (%) (Auto) 1 % (0-3) Neutrophils # (Auto) 6.5 x10^3uL (1.8-7.7) Lymphocytes # (Auto) 0.7 x10^3/uL (1.0-4.8) Monocytes # (Auto) 1.1 x10^3/uL (0.0-1.1) Eosinophils # (Auto) 0.3 x10^3/uL (0.0-0.7) Basophils # (Auto) 0.1 x10^3/uL (0.0-0.2) Prothrombin Time 21.7 SEC (11.7-14.0) Prothromb Time International Ratio 1.9 (0.8-1.1) Sodium Level 132 mmol/L (136-145) Potassium Level 4.8 mmol/L (3.5-5.1) Chloride Level 97 mmol/L (98-107) Carbon Dioxide Level 27 mmol/L (21-32) Anion Gap 8 (6-14) Blood Urea Nitrogen 24 mg/dL (8-26) Creatinine 1.2 mg/dL (0.7-1.3) Estimated GFR (Cockcroft-Gault) 70.5 Glucose Level 120 mg/dL (70-99) Calcium Level 8.7 mg/dL (8.5-10.1) Procalcitonin 1.29 ng/mL (0.00-0.10) Test 01/06/19 10:55 Glucose (Fingerstick) 95 mg/dL (70-99) Microbiology 12/31/18 Blood Culture - Final, Complete NO GROWTH AFTER 5 DAYS 12/24/18 Urine Culture - Final, Complete 12/24/18 Urine Culture Result 1 (MORIAH) - Final, Complete Medication Medications Current Medications Sodium Chloride 500 ml @ 900 mls/hr 1X ONCE IV ; Start 01/06/19 at 14:45; Stop 01/06/19 at 15:31; Status DC Warfarin Sodium (Coumadin) 8 mg 1X WARF ONCE PO Last administered on at 16:32; Start 01/05/19 at 16:00; Stop 01/05/19 at 16:01; Status DC Warfarin Sodium (Coumadin) 9 mg 1X WARF ONCE PO ; Start 01/06/19 at 16:00; Stop 01/06/19 at 16:01 Comment Review of Relevant I have reviewed the following items edgar (where applicable) has been applied. BETTY MORALES MD Jan 06, 2019 15:42
[2019-01-06] MEDS ORDERED: WARFARIN 3 MG TABLET. PO ONE (16:00)
--- NOTE | 2019-01-06 16:18 | NUR ---
SS following up with discharge planning. Bed available at [facility]. SS contacted physician and notified. Discharge orders completed. SS phoned and faxed discharge orders to [facility], ; fax [phone]. Pt will discharge [facility] and go to [facility] at 1930 via [facility] ambulance. Pt, pt's RN, and pt's son, Sarkis, notified.
[2019-01-06 19:00] VITALS: BP 105/90
--- NOTE | 2019-01-06 21:36 | PDOC3 ---
Discharge Summary Visit Information Date of Admission: Dec 24, 2018 Date of Discharge: Jan 06, 2019 Admitting Diagnosis: Sepsis secondary to utI Final Diagnosis Problems Medical Problems: (1) Acute sepsis resolved Status: Acute (2) UTI (urinary tract infection) due to urinary indwelling catheter Status: Acute E coli bacteremia metabolic encephalopathy acute respiratory failure resolved Septic shock secondary to urinary tract infection secondary to chronic indwelling urinary suprapubic catheter resolved Hypoalbuminemia - may be causing swelling of extremities Elevated troponin, most likely demand ischemia History of acute venous sinus thrombosis on CTA head/neck on chronic anticoagulation with coumadin Left Sided weakness and right-sided gaze, on last admission which had resolved History dementia, seizures History of essential Hypertension History of BPH, Indwelling suprapubic catheter History of complicated UTI in a male sec to indwelling FC Dysphagia, patient with dobhoff tube currently, Will need PEG tube placement Brief Hospital Course Allergies Allergies Coded Allergies Type Severity Reaction Last Updated Verified vancomycin Allergy Intermediate 12/02/17 Yes I S O L A T I O N *CONTACT* Allergy Unknown 04/07/18 Yes Vital Signs Vital Signs Date Time Temp Pulse Resp B/P (MAP) Pulse Ox O2 Delivery O2 Flow Rate FiO2 01/06/19 19:00 97.9 18 105/90 (95) 92 97.9 01/06/19 15:00 18 Nasal Cannula 2.0 Lab Results Laboratory Tests Test 01/05/19 06:10 01/05/19 06:40 01/05/19 08:05 01/05/19 11:21 Prothrombin Time 22.8 SEC (11.7-14.0) Prothromb Time International Ratio 2.0 (0.8-1.1) Thyroid Stimulating Hormone (TSH) 5.860 uIU/mL (0.358-3.74) Glucose (Fingerstick) 86 mg/dL (70-99) 108 mg/dL (70-99) Test 01/05/19 16:44 01/05/19 21:54 01/06/19 06:45 01/06/19 07:26 Glucose (Fingerstick) 103 mg/dL (70-99) 90 mg/dL (70-99) 94 mg/dL (70-99) White Blood Count 8.7 x10^3/uL (4.0-11.0) Red Blood Count 2.64 x10^6/uL (4.30-5.70) Hemoglobin 7.8 g/dL (13.0-17.5) Hematocrit 23.0 % (39.0-53.0) Mean Corpuscular Volume 87 fL (79-100) Mean Corpuscular Hemoglobin 30 pg (25-35) Mean Corpuscular Hemoglobin Concent 34 g/dL (31-37) Red Cell Distribution Width 15.5 % (11.5-14.5) Platelet Count 394 x10^3/uL (140-400) Neutrophils (%) (Auto) 75 % (31-73) Lymphocytes (%) (Auto) 8 % (24-48) Monocytes (%) (Auto) 12 % (0-9) Eosinophils (%) (Auto) 4 % (0-3) Basophils (%) (Auto) 1 % (0-3) Neutrophils # (Auto) 6.5 x10^3uL (1.8-7.7) Lymphocytes # (Auto) 0.7 x10^3/uL (1.0-4.8) Monocytes # (Auto) 1.1 x10^3/uL (0.0-1.1) Eosinophils # (Auto) 0.3 x10^3/uL (0.0-0.7) Basophils # (Auto) 0.1 x10^3/uL (0.0-0.2) Prothrombin Time 21.7 SEC (11.7-14.0) Prothromb Time International Ratio 1.9 (0.8-1.1) Sodium Level 132 mmol/L (136-145) Potassium Level 4.8 mmol/L (3.5-5.1) Chloride Level 97 mmol/L (98-107) Carbon Dioxide Level 27 mmol/L (21-32) Anion Gap 8 (6-14) Blood Urea Nitrogen 24 mg/dL (8-26) Creatinine 1.2 mg/dL (0.7-1.3) Estimated GFR (Cockcroft-Gault) 70.5 Glucose Level 120 mg/dL (70-99) Calcium Level 8.7 mg/dL (8.5-10.1) Procalcitonin 1.29 ng/mL (0.00-0.10) Test 01/06/19 10:55 01/06/19 16:19 Glucose (Fingerstick) 95 mg/dL (70-99) 118 mg/dL (70-99) Laboratory Tests Test 01/05/19 21:54 01/06/19 06:45 01/06/19 07:26 01/06/19 10:55 Glucose (Fingerstick) 90 mg/dL (70-99) 94 mg/dL (70-99) 95 mg/dL (70-99) White Blood Count 8.7 x10^3/uL (4.0-11.0) Red Blood Count 2.64 x10^6/uL (4.30-5.70) Hemoglobin 7.8 g/dL (13.0-17.5) Hematocrit 23.0 % (39.0-53.0) Mean Corpuscular Volume 87 fL (79-100) Mean Corpuscular Hemoglobin 30 pg (25-35) Mean Corpuscular Hemoglobin Concent 34 g/dL (31-37) Red Cell Distribution Width 15.5 % (11.5-14.5) Platelet Count 394 x10^3/uL (140-400) Neutrophils (%) (Auto) 75 % (31-73) Lymphocytes (%) (Auto) 8 % (24-48) Monocytes (%) (Auto) 12 % (0-9) Eosinophils (%) (Auto) 4 % (0-3) Basophils (%) (Auto) 1 % (0-3) Neutrophils # (Auto) 6.5 x10^3uL (1.8-7.7) Lymphocytes # (Auto) 0.7 x10^3/uL (1.0-4.8) Monocytes # (Auto) 1.1 x10^3/uL (0.0-1.1) Eosinophils # (Auto) 0.3 x10^3/uL (0.0-0.7) Basophils # (Auto) 0.1 x10^3/uL (0.0-0.2) Prothrombin Time 21.7 SEC (11.7-14.0) Prothromb Time International Ratio 1.9 (0.8-1.1) Sodium Level 132 mmol/L (136-145) Potassium Level 4.8 mmol/L (3.5-5.1) Chloride Level 97 mmol/L (98-107) Carbon Dioxide Level 27 mmol/L (21-32) Anion Gap 8 (6-14) Blood Urea Nitrogen 24 mg/dL (8-26) Creatinine 1.2 mg/dL (0.7-1.3) Estimated GFR (Cockcroft-Gault) 70.5 Glucose Level 120 mg/dL (70-99) Calcium Level 8.7 mg/dL (8.5-10.1) Procalcitonin 1.29 ng/mL (0.00-0.10) Test 01/06/19 16:19 Glucose (Fingerstick) 118 mg/dL (70-99) Brief Hospital Course Patient is a 78-year-old gentleman with past medical history of hypertension dementia left-sided weakness and right-sided gaze secondary to a venous anastomosis on CPAP who was in his usual state of health until the morning of his admission when staff at his custodial facility checked on him and they reported decreased consciousness. Patient seems to be nonresponsive and EMS was summoned and transported to our emergency department. The patient was found to have a very low Den[place] Coma Scale and most likely he was not able to protect his airway and got intubated in the emergency department subsequently admitted to the ICU for further evaluation treatment. At the present time he is working diagnosis is septic shock secondary to urinary tract infection most likely secondary to chronic indwelling catheter he has a suprapubic catheter since his last admission which was October 09 to the 2017. The patient also had a rectal temperature of 91.8 during my assessment. There are no members at bedside from his family that could help with the history taking review of the chart has been done Very prolongued hospital stay where the patient was intubated early on but he was able to be extubated, the patient has advanced dementia and his history of CVA in the past makes him a very po0r prognosis candidate. Patient's quality of life is practically null. Son was approached by palliative care but he was adamant about having "everything done" for his father. Patient was moved to the regualr floor where we continued his care. He will have 2 more days of antibiotics to address the e coli bacteremia that made him septic. Patient does not interact, does not follow commands. He will require a peg tube placement since he is unable to feed himself where as on prior hospital stays he was able to do so as per reports. He will be transitioning to [facility]. Physical exam: General: No acute distress Heart: Regular rate, No murmurs, Other (irregulary rhythm) Lungs: Other (ronchi, a few end exp wheezing) Abdomen: Normal bowel sounds, Soft, No tenderness Extremities: No clubbing, Normal pulses, Other (1+ edema of bilateral upper and lower extremities) Skin: No rashes, No significant lesion Discharge Information Condition at Discharge: Stable Disposition/Orders: D/C to Another Facility Scheduled Aspirin (Aspirin) 325 Mg Tablet, 1 TAB PO DAILY, #30 Ref 5 (Reported) Entered as Reported by: YAYA BERNARDO on 03/19/18 0543 Last Taken: Unknown Dose on 12/23/18 0800 Last Action: Continued on 1313 by NIAL CASTLE Cholecalciferol (Vitamin D3) (Vitamin D3) 1,000 Unit Tablet, 400 UNIT PO DAILY, (Reported) Entered as Reported by: LUDMILA GONZALEZ on 03/05/181757 Last Taken: Unknown Dose on 12/23/18 Last Action: Continued on 12/28/181313 by NIAL CASTLE Levetiracetam (Keppra) 500 Mg Tablet, 500 MG PO BID, (Reported) Entered as Reported by: LUDMILA GONZALEZ on 03/05/181757 Last Taken: Unknown Dose on 12/23/18 Last Action: Continued on 12/28/181313 by NIAL CASTLE Losartan Potassium (Losartan Potassium) 50 Mg Tablet, 50 MG PO DAILY, (Reported) Entered as Reported by: ALEXA STEWART on 11/28/17 1037 Last Taken: Unknown Dose on 12/23/18 Last Action: Continued on 12/28/181313 by NIAL CASTLE Trazodone Hcl (Trazodone Hcl) 50 Mg Tablet, 1 TAB PO QHS for AGITATION, #30 Ref 1 (Reported) Entered as Reported by: LUDMILA GONZALEZ on 03/05/181757 Last Taken: Unknown Dose on 12/23/18 Last Action: Continued on 12/28/184 by NIAL CASTLE Warfarin Sodium (Warfarin Sodium) 6 Mg Tablet, 8 MG PO HS for anticoag, #30 ( Reported) Entered as Reported by: JOSE FRANCISCO FINLEY on 12/24/18 0820 Last Taken: Unknown Dose on 12/23/18 Last Action: Converted on 12/28/181313 by JIE TONG Scheduled PRN Acetaminophen (Tylenol) 325 Mg Tablet, 1-2 TAB PO PRN Q4HRS PRN for PAIN, #60 Ref 2 (Reported) Entered as Reported by: LUDMILA GONZALEZ on 03/05/181757 Last Taken: Unknown Dose on Unknown Date & Time Last Action: Last Taken Edited on 12/24/18818 by JOSE FRANCISCO FINLEY Magnesium Hydroxide (Milk Of Magnesia) 400 Mg/5 Ml Oral.susp, 400 MG PO PRN DAILY PRN for CONSTIPATION, (Reported) Entered as Reported by: YAYA BERNARDO on 03/19/18542 Last Taken: Unknown Dose on Unknown Date & Time Last Action: Continued on 12/28/181313 by JIE TONG Polyethylene Glycol 3350 (Miralax) 17 Gm Powd.pack, 1 PACKET PO PRN DAILY PRN for CONSTIPATION, #30 Ref 3 (Reported) Entered as Reported by: YAYA BERNARDO on 03/19/18542 Last Taken: Unknown Dose on Unknown Date & Time Last Action: Converted on 12/28/181313 by JIE TONG Miscellaneous Medications Megestrol Acetate (Megace Es) 625 Mg/5 Ml Oral.susp, 400 MG PO, (Reported) Entered as Reported by: YAYA BERNARDO on 03/19/18542 Last Taken: Unknown Dose on 12/23/18 Last Action: Last Taken Edited on 818 by JOSE FRANCISCO FINLEY Sennosides/Docusate Sodium (Senna Plus Tablet) 1 Each Tablet, 1 EACH PO, ( Reported) Entered as Reported by: YAYA BERNARDO on 03/19/18542 Last Taken: Unknown Dose on 12/23/18 Last Action: Last Taken Edited on 818 by KESHA HUERTA MD Jan 06, 2019 21:36
--- NOTE | 2019-01-07 19:59 | EEG ---
DATE OF SERVICE: 01/05/2019 ELECTROENCEPHALOGRAM NUMBER: [id number]. OBJECTIVE: This is an 78-year-old male patient with history of prolonged mental status changes. EEG was requested to evaluate cerebral activity and to rule out subclinical seizures. METHODS: Twenty electrodes were applied according to the international 10-20 electrode placement system. EKG monitoring, hyperventilation, intermittent photic stimulation, monopolar and bipolar montages are routinely utilized. The record was obtained on a digital system with video monitoring. FINDINGS: 1. Background: The patient was recorded in the awake, drowsy and sleep states. The overall background amplitude is variable. No posterior dominant rhythm is observed. The overall background rhythm is with diffuse slowing in the delta frequency throughout the entire recording. 2. Abnormalities: No specific epileptiform discharge or electrographic seizure is seen. Diffuse slowing in the delta frequencies throughout the entire recording. Triphasic waves noted from time to time. 3. Activation: Hyperventilation was not performed because the patient was unable to follow the commands. Intermittent photic stimulation was performed without photic driving. IMPRESSION: This electroencephalogram is an abnormal study for the awake, drowsy and sleep states. No posterior dominant rhythm is observed. The overall background rhythm is with diffuse slowing in the delta frequency throughout the entire recording. Triphasic waves noted. No awake and sleep differentiation. No focal, lateralizing, specific epileptiform discharge or electrographic seizure is seen. This pattern of electroencephalogram is suggestive of severe diffuse encephalopathy. BETTY MORALES MD DR: KADE/katherine JOB#: [id number] / [id number] ANDREA
== END 2019-01-06 20:20 | DRG 698 ==
LOC: ER 03:20 → 1 WEST ICU 05:10 → 6 SOUTH 01-02 14:00 → 5 SOUTH 01-04 23:26
PROVIDERS: ADMIT Family Medicine; ATTEND Family Medicine
PROC: 5A1955Z Respiratory Ventilation, Greater than 96 Consecutive Hours (ICD-10-PCS; principal; 2018-12-24)
PROC: 0BH17EZ Insertion of Endotracheal Airway into Trachea, Via Natural or Artificial Opening (ICD-10-PCS; 2018-12-24)
PROC: 02HV33Z Insertion of Infusion Device into Superior Vena Cava, Percutaneous Approach (ICD-10-PCS; 2018-12-24)
DX: T83.511A Infection and inflammatory reaction due to indwelling urethral catheter, initial encounter (principal); A41.51 Sepsis due to Escherichia coli [E. coli]; J96.00 Acute respiratory failure, unspecified whether with hypoxia or hypercapnia; J18.9 Pneumonia, unspecified organism; R65.21 Severe sepsis with septic shock; G92 Toxic encephalopathy; G08 Intracranial and intraspinal phlebitis and thrombophlebitis; N17.9 Acute kidney failure, unspecified; E46 Unspecified protein-calorie malnutrition; I24.8 Other forms of acute ischemic heart disease; N39.0 Urinary tract infection, site not specified; D64.9 Anemia, unspecified; D69.6 Thrombocytopenia, unspecified; E86.0 Dehydration; F03.90 Unspecified dementia, unspecified severity, without behavioral disturbance, psychotic disturbance, mood disturbance, and anxiety; G40.909 Epilepsy, unspecified, not intractable, without status epilepticus; I12.9 Hypertensive chronic kidney disease with stage 1 through stage 4 chronic kidney disease, or unspecified chronic kidney disease; M81.0 Age-related osteoporosis without current pathological fracture; Z51.5 Encounter for palliative care; T68.XXXA Hypothermia, initial encounter; R13.10 Dysphagia, unspecified; N18.9 Chronic kidney disease, unspecified; N40.1 Benign prostatic hyperplasia with lower urinary tract symptoms; Y84.6 Urinary catheterization as the cause of abnormal reaction of the patient, or of later complication, without mention of misadventure at the time of the procedure; Z96.642 Presence of left artificial hip joint; F41.9 Anxiety disorder, unspecified; Z79.01 Long term (current) use of anticoagulants; Z79.899 Other long term (current) drug therapy; Z82.0 Family history of epilepsy and other diseases of the nervous system; Z82.49 Family history of ischemic heart disease and other diseases of the circulatory system; Z86.73 Personal history of transient ischemic attack (TIA), and cerebral infarction without residual deficits; Z68.23 Body mass index [BMI] 23.0-23.9, adult
CPT/HCPCS: 31500; 36415; 36600; 51702; 70450; 71045; 71250; 74018; 74176; 80048; 80053; 81001; 82805; 82962; 83605; 83735; 83880; 84100; 84145; 84443; 84484; 85007; 85025; 85610; 87040; 87077; 87086; 87205; 87641; 87804; 93005; 94002; 94003; 94640; 94760; 95816; 96365; 96367; 96368; C9113; J0692; J1265; J1650; J1720; J1956; J2020; J2250; J2543; J2704; J3010; J7030; J7040; J7042; J7620; P9046; 99291-25